=== PATIENT | female | born 1940 | race Caucasian/White ===

== ENCOUNTER 2020-02-20 09:54 | Outpatient (REF) | payer MEDICARE, SELFPAY ==
[2020-02-20 12:25] LABS: Hematocrit 34.5 % (37-47); Mean Corpuscular HGB Conc 31.9 g/dl (31.0-35.0); Mean Corpuscular Hemoglobin 30.1 pg (27.0-33.0); Mean Corpuscular Volume 94.5 fL (80-98); Mean Platelet Volume 9.3 fL (9.4-12.3); Platelet Count 234 X10*3/uL (160-400); Red Blood Count 3.65 X10*6/uL (4.20-5.50); Red Cell Distribution Width 13.2 % (11.0-16.0); White Blood Count 7.6 X10*3/uL (4.8-10.8)
[2020-02-20 12:48] LABS: Anion Gap 13 (12-20); Blood Urea Nitrogen 17 mg/dL (9-16); Calcium 9.1 mg/dL (8.4-10.2); Carbon Dioxide 31 mmol/L (22-29); Chloride 99 mmol/L (96-108); Estimated Glomerular Filt Rate > 60; Glucose Random 90 mg/dL (60-115); Potassium 4.5 mmol/l (3.3-5.1); Sodium 138 mmol/L (135-145)
[2020-02-20 13:00] LABS: B Type Natriuretic Peptide 328 pg/mL (<100)
[2020-02-20 13:23] LABS: Digoxin 0.4 ng/mL (0.8-2.0)
== END 2020-02-20 09:55 | disposition home or self-care (01) ==
LOC: HO.LAB 09:54
PROVIDERS: PCP Nurse Practitioner Family; Visit Provider Nurse Practitioner Family
DX: I25.10 Atherosclerotic heart disease of native coronary artery without angina pectoris (principal); I48.19 Other persistent atrial fibrillation
CPT/HCPCS: 36415; 80048; 80162; 83880; 85027; 93005; 99212

== ENCOUNTER → 2020-03-19 12:08 | Outpatient (BNVA) | payer MEDICARE, SELFPAY | PROVIDERS: PCP Nurse Practitioner Family; Visit Provider Nurse Practitioner Family | DX: I48.19 Other persistent atrial fibrillation (principal); G47.33 Obstructive sleep apnea (adult) (pediatric); I34.0 Nonrheumatic mitral (valve) insufficiency; I10 Essential (primary) hypertension | CPT/HCPCS: 99212 ==

== ENCOUNTER → 2020-04-27 10:48 | Outpatient (REF) | payer MEDICARE, SELFPAY ==
--- NOTE | 2020-04-27 10:55 | CA_ITS ---
Transthoracic Echocardiogram Patient (Last, First, Middle): Pau Cobb, Gender: Female Date of : 1940 Age: 79 Procedure Date: 04/27/2020 Procedure Type: Transthoracic Echocardiogram Location: OP Height: 170.18 cm Weight: 64.86 kg BSA: 1.75 m2 Heart Rate: bpm BP: 120 / 80 mmHg Financial Advisor Trainee: JHONNY Referring MD: Nguyen Lozano BLEACH RANGE OPERATORFelipeC Symptoms: I42.8 - Other cardiomyopathies Study Quality: Good ECG Rhythm: Atrial Fibrillation Conclusions: - The left ventricular systolic function is severely decreased. The visually estimated ejection fraction is between 15-20%. - There is mildly decreased right ventricular systolic function. - Severe biatrial enlargement. - There is severe mitral valve regurgitation. - There is moderate tricuspid valve regurgitation. - Severe pulmonary hypertension is present. Findings Left Ventricle Normal left ventricular cavity size. There is mildly increased left ventricular wall thickness. The left ventricular systolic function is severely decreased. The visually estimated ejection fraction is between 15 20%. There is severe global hypokinesis. Diastolic function is indeterminate on the basis of available data. Right Ventricle Mildly increased right ventricular cavity size. There is mildly decreased right ventricular systolic function. Atria Severe biatrial enlargement. Aortic Valve There is a normal trileaflet aortic valve. There is mild calcification of the aortic valve. There is no aortic valve stenosis. There is no aortic valve regurgitation. Mitral Valve The posterior mitral leaflet has restricted mobility. There is severe mitral valve regurgitation. The mitral regurgitation jet is directed posteriorly. There is no mitral valve stenosis. Pulmonic Valve The pulmonic valve was not well visualized. There is mild pulmonic valve regurgitation. Tricuspid Valve Normal tricuspid valve structure. There is moderate tricuspid valve regurgitation. The right ventricular systolic pressure is 85 mmHg. Severe pulmonary hypertension is present. Great Vessels The aortic annulus, sinuses of valsalva, asc aorta, and aortic arch are normal in size. Venous The inferior vena cava is dilated and collapses greater than 50% with inspiration. Pericardium/Pleural There is no evidence of pericardial effusion. Prior Study Comparison No significant change compared to prior study dated: 04/15/2019. Measurements 2D Linear Measurements IVSd: 1.01 0.6-0.9/0.6-1.0 cm LVIDd: 4.96 3.9-5.3/4.2-5.9 cm LVIDd Index: 2.83 2.4-3.2/2.2-3.1 cm/m2 LVIDs: 4.29 2.0-3.6 cm LVPWd: 1.05 0.7-1.1 cm Ao Root: 3.50 2.1-3.5 cm LA Diam: 5.40 2.7-3.8/3.0-4.0 cm LAIDs Index: 3.09 1.5-2.3 cm/m2 LV Mass: 232.88 67-162/88-224 g LV Mass Index: 133.08 43-95/49-115 g/m2 LVOT Diam: 2.30 3.0+(-)1.3 cm 2D Systolic Function EF 4C: 23.90 >55% EF 2C: 33.30 >55% Aortic Valve AoV Pk Seth: 1.62 AoV Mn Seth: 1.09 AoV VTI: 0.24 AoV Pk Grad: 10.00 Aov Mn Grad: 6.00 REGULO Cont.VTI: 1.83 LVOT LVOT Pk Seth: 0.62 LVOT Mn Seth: 0.36 LVOT VTI: 0.10 LVOT Pk Grad: 2.00 LVOT Mn Grad: 1.00 LVOT Diam: 2.30 LVOT Area: 4.15 Tricuspid Valve TR Pk Seth: 4.38 TR Pk Grad: 77.00 RA Press: 8.00 RVSP: 85.00 Great Vessels Aorta Ao Root-2D: 3.50 2.0-3.7 cm Ao Asc: 3.30 2.1-3.4 cm Ao Arch: 3.10 Updated in Other Vendor System with Status of Final Kenneth Tabares MD electronically signed on 04/28/2020 2:24:34 PM with status of Final
== END ==
LOC: HO.CARD 10:48
PROVIDERS: PCP Nurse Practitioner Family; Visit Provider Nurse Practitioner Family
DX: I34.0 Nonrheumatic mitral (valve) insufficiency (principal); I42.8 Other cardiomyopathies; I50.22 Chronic systolic (congestive) heart failure
CPT/HCPCS: 93306

== ENCOUNTER → 2020-05-03 10:12 | Outpatient (BNVA) | payer MEDICARE, SELFPAY | PROVIDERS: PCP Nurse Practitioner Family; Visit Provider Internal Medicine Cardiovascular Disease | DX: I42.8 Other cardiomyopathies (principal); I34.0 Nonrheumatic mitral (valve) insufficiency; I48.20 Chronic atrial fibrillation, unspecified; I27.20 Pulmonary hypertension, unspecified; I50.22 Chronic systolic (congestive) heart failure; Z79.899 Other long term (current) drug therapy | CPT/HCPCS: 99212 ==

== ENCOUNTER → 2020-05-28 13:04 | Outpatient (BNVA) | payer MEDICARE, SELFPAY | PROVIDERS: PCP Nurse Practitioner Family; Visit Provider Nurse Practitioner Family | DX: I42.8 Other cardiomyopathies (principal); I11.0 Hypertensive heart disease with heart failure; I50.22 Chronic systolic (congestive) heart failure; I25.10 Atherosclerotic heart disease of native coronary artery without angina pectoris; I48.19 Other persistent atrial fibrillation; G47.33 Obstructive sleep apnea (adult) (pediatric); I34.0 Nonrheumatic mitral (valve) insufficiency; Z98.890 Other specified postprocedural states | CPT/HCPCS: 99212 ==

== ENCOUNTER 2020-07-16 11:56 | Outpatient (REF) | payer MEDICARE, SELFPAY ==
--- NOTE | 2020-07-16 14:31 | MHC.AU.AHA ---
Adult Audiological Evaluation Date of Visit: 07/16/20 Reason for Appointment: Audiological evaluation to monitor the status of Ms. Cobb's hearing loss. She has a known bilateral, sensorineural hearing loss for which she was previous fit with binaural hearing aids. Ms. Cobb reports that she lost both hearing aids and the buyer liaison in a recent move. She notes that her hearing seems to gradually be getting worse. Previous Hearing Test Results: [facility], 09/21/2018- Mild sloping to moderately severe sensorineural hearing loss bilaterally. 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 Currently staying in a rehab facility Medication List: See list provided by rehab facility Hearing Instrument History- Right Ear: Manager Creative: [employer] Model: Audeo M50-R Serial Number: [id number] Battery Size: Rechargeable Repair Warranty: 01/29/2022 Loss and Damage Warranty: USED 07/16/2020 Dispensed By: [facility] Date of Fittin11/04/2018 Hearing Instrument History- Left Ear: Manager Creative: [employer] Model: Audeo M50-R Serial Number: [id number] Battery Size: Rechargeable Warranty: 01/29/2022 Loss and Damage Warranty: USED 07/16/2020 Dispensed By: [facility] Date of Fittin11/04/2018 Otoscopy: Right Ear: Unremarkable Left Ear: Unremarkable Tympanometry: Tympanometry performed due to: History of middle ear dysfunction Right Ear: Normal Middle Ear System (Type A) Left Ear: Hypercompliant Middle Ear System (Type Ad) Hearing Evaluation: Transducer(s) Used: Insert Earphones, Bone Conduction Method: Conventional Audiometry Stimuli Used: Pure tones Right Ear: Description of Hearing: Mild sloping to moderately severe sensorineural hearing loss from 250-8000 Hz. Left Ear: Description of Hearing: Mild sloping to moderately severe sensorineural hearing loss from 250-8000 Hz. Speech Recognition Threshold (SRT): Method Used: Monitored Live Voice Stimuli Used: Spondee Words Right Ear: 35 dBHL Left Ear: 35 dBHL Word Discrimination: Method: Recorded Lists Word Lists Used: [employer]-6 Right Ear: 92% at 75 dBHL Left Ear: 92% at 75 dBHL Comparison: Compared to most recent evaluation: Minor decrease in hearing for low-frequencies bilaterally. Recommendations: Audiological re-evaluation in one year. A one-time courtesy replacement hearing aid request was submitted to [employer] to replace Ms. Cobb's lost hearing aids and buyer liaison. She will be contacted to schedule a visit to pick-up the replacement hearing aids when they arrive. Diagnosis: Primary Diagnosis: H90.3 Bilateral Sensorineural Hearing Loss Services Performed: Comprehensive Audiological Evaluation (CPT 97596) Tympanometry (CPT 62880) Signature: Provider: Cass You, CCC-A
== END 2020-07-16 11:57 | disposition home or self-care (01) ==
LOC: HO.SH 11:56
PROVIDERS: Visit Provider Nurse Practitioner Family
DX: H90.3 Sensorineural hearing loss, bilateral (principal)
CPT/HCPCS: 92557; 92567

== ENCOUNTER 2020-07-20 15:09 | Outpatient (REF) | payer MEDICARE, SELFPAY | END 2020-07-20 15:10 | disposition home or self-care (01) | LOC: HO.HAP 15:09 | PROVIDERS: Visit Provider Nurse Practitioner Family | DX: Z13.89 Encounter for screening for other disorder (principal) ==

== ENCOUNTER → 2020-08-08 10:51 | Outpatient (BNVA) | payer MEDICARE, SELFPAY | PROVIDERS: PCP Nurse Practitioner Family; Referring Provider Nurse Practitioner Family; Visit Provider Internal Medicine Cardiovascular Disease | DX: I50.22 Chronic systolic (congestive) heart failure (principal); I42.8 Other cardiomyopathies; I34.0 Nonrheumatic mitral (valve) insufficiency; I48.20 Chronic atrial fibrillation, unspecified | CPT/HCPCS: Q3014 ==

== ENCOUNTER 2020-08-08 12:33 | Inpatient (IN) | payer MEDICARE, SELFPAY ==
[2020-08-08] VITALS (13 sets, daily range): BP systolic 79–133; BP diastolic 47–81; PULSE 64–105; RESP 16–22; TEMP 36.3–36.7; O2SAT 94–98; BMI 23.6
--- NOTE | ~2020-08-08 | CT_ITS ---
EXAMINATION: CT BRAIN AND CHEST. CLINICAL INFORMATION: Lightheadedness and headache. COMPARISON: None TECHNIQUE: 5 mm and axial and reformatted 2 mm thin sagittal and coronal images of brain were obtained. DLP 5 86 mGy/cm. Chest one view. FINDINGS: Brain: No acute intra-axial, extra-axial bleed, masses or midline shift. There is no acute infarction in evolution. 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 The lateral ventricles are symmetrical but enlarged. There is diffuse periventricular hypodensity in both cerebral hemispheres suggestive of chronic small vessel ischemic changes. Bone windows reveal no calvarial abnormality. There is diffuse mucoperiosteal thickening left frontal and bilateral sphenoid sinuses. There is no scalp soft tissue abnormality. Chest x-ray: The lungs are well-expanded and clear. The heart size and pulmonary vascularity is normal. No gross bony abnormality seen. CT/CT head/brain wo con IMPRESSION: No acute intracranial process seen. Unremarkable chest exam.
--- NOTE | 2020-08-08 13:01 | ECG_ITS ---
Test Reason : DIZZINESS Blood Pressure : / mmHG Vent. Rate : 074 BPM Atrial Rate : 078 BPM P-R Int : 000 ms QRS Dur : 106 ms QT Int : 424 ms P-R-T Axes : 000 -27 115 degrees QTc Int : 470 ms Atrial fibrillation Cannot rule out Anterior infarct , age undetermined ST & T wave abnormality, consider lateral ischemia Abnormal ECG When compared with ECG of 18-AUG-2019 21:46, Nonspecific T wave abnormality no longer evident in Inferior leads Referred By: Generic ED Physician Electronically Signed By:ESTHER CAMPOS
[2020-08-08 13:09] LABS: MANUAL DIFF FLAG NO
[2020-08-08 13:12] LABS: Basophils Percent Auto 0.7 % (0-2); Eosinophils Absolute Auto 0.2 X10*3/uL (0.0-0.4); Eosinophils Percent Auto 3.9 % (0-4); Hematocrit 27.6 % (37-47); Hemoglobin 8.3 g/dl (12.0-16.0); Imm Gran Abs Auto 0.02 X10*3/uL (0.00-0.03); Imm Gran Pct Auto 0.4 % (0.0-0.4); Lymphocytes Absolute Auto 1.1 X10*3/uL (1.2-4.9); Lymphocytes Percent Auto 23.2 % (20-40); Mean Corpuscular HGB Conc 30.1 g/dl (31.0-35.0); Mean Corpuscular Hemoglobin 25.5 pg (27.0-33.0); Mean Corpuscular Volume 84.7 fL (80-98); Mean Platelet Volume 9.7 fL (9.4-12.3); Monocytes Absolute Auto 0.4 X10*3/uL (0.1-1.2); Monocytes Percent Auto 7.7 % (2-11); Neutrophils Absolute Auto 2.9 X10*3/uL (2.0-8.3); Neutrophils Percent Auto 64.1 % (45-73); Platelet Count 257 X10*3/uL (160-400); Red Blood Count 3.26 X10*6/uL (4.20-5.50); Red Cell Distribution Width 14.5 % (11.0-16.0); White Blood Count 4.6 X10*3/uL (4.8-10.8)
--- NOTE | 2020-08-08 13:25 | ED.DIZZY ---
HPI - Dizziness General Chief Complaint: Dizziness Stated Complaint: loss of balance, lightheaded, sharp head pain Time Seen by Provider: 08/08/20 13:02 Source: patient Mode of arrival: ambulatory History of Present Illness HPI Narrative: 79-year-old female with past medical history of CAD, AFib on Eliquis and Plavix, systolic CHF, HTN, mitral regurg, nonischemic cardiomyopathy, EDWAR, Pulmonary HTN, s/p recent stenting for PVD on 08/03/2020, presenting to ED from outpatient cardiology appointment complaining of sharp posterior headache, lightheadedness, and unsteady/off balance gait since this morning. Reports intermittent similar headaches in the past. Also reports palpitations. Denies known injury, head trauma, dizziness, visual changes, chest pain, shortness of breath, abdominal pain, nausea/vomiting, LE edema MD elicited complaint: dizziness Related Data Home Medications Medication Instructions Recorded Confirmed apixaban 5 mg tablet 5 mg PO BID 02/20/20 08/08/20 digoxin 125 mcg (0.125 mg) tablet 125 mcg PO DAILY 02/20/20 08/08/20 gabapentin 100 mg capsule 100 mg PO DAILY 02/20/20 08/08/20 mecobalamin (vitamin B12) 1,000 1,000 mcg PO DAILY 02/20/20 08/08/20 mcg chewable tablet olanzapine 2.5 mg tablet 2.5 mg PO DAILY 02/20/20 08/08/20 olanzapine 5 mg tablet 5 mg PO DAILY 02/20/20 08/08/20 omega-3 fatty acids 1,000 mg 1,000 mg PO DAILY 02/20/20 08/08/20 capsule omeprazole 40 mg capsule,delayed 40 mg PO DAILY 02/20/20 08/08/20 release vitamins A,C,Z-dfiz-sjjmyu 14,320 1 cap PO BID 02/20/20 08/08/20 unit-226 mg-200 unit capsule sacubitril 24 mg-valsartan 26 mg 1 tab PO BID 05/28/20 08/08/20 tablet carvedilol 3.125 mg tablet 6.25 mg PO BID tab 08/08/20 08/08/20 clopidogrel 75 mg tablet 75 mg PO DAILY 08/08/20 08/08/20 furosemide 40 mg tablet 20 mg PO BID tab 06/16/21 06/16/21 ondansetron HCl 4 mg tablet 4 mg PO Q4H PRN 08/08/20 08/08/20 Allergies Allergy/AdvReac Type Severity Reaction Status Date / Time No Known Allergies Allergy Unknown UNKNOWN Unverified 11/10/19 16:01 [NO KNOWN ALLERGIES] seasonal, pollen Allergy Unknown Unverified 02/14/19 00:00 Review of Systems Review of Systems: Constitutional: No Fever, No Chills, No Fatigue, No Malaise Eyes: No Eye Pain, No Vision Changes Cardiovascular: No Chest Pain, No SOB, No Dyspnea on Exertion, No Orthopnea, No Edema, + Palpitations Respiratory: No Cough, No Dyspnea Gastrointestinal: No Nausea, No Vomiting, No Abdominal pain Genitourinary: No Dysuria, No Hematuria Musculoskeletal: No joint pain, No Myalgias, No Joint Swelling Skin: No Skin Lesions, No rash Neuro: No Weakness, No Numbness, No Paresthesias, No Loss of Consciousness, + Lightheadedness, + Headache Endocrine: No Polyuria, No Polydipsia, No Temperature Intolerance Yes all other systems are reviewed and are negative [facility] Past Medical History Attestation statement: The following information was validated with the patient. Medical History CAD (coronary artery disease) Chronic atrial fibrillation Chronic systolic (congestive) heart failure HTN (hypertension) Mitral regurgitation Nonischemic cardiomyopathy EDWAR (obstructive sleep apnea) Pulmonary hypertension Surgical History Hx of cardiac cath (~01/2018) Family History Family History Father No problems noted. Mother No problems noted. Social History Social History Housing: Retirement Housing Other:: in [facility] at present - wants to get her own apartment again Advance Directives: No Advance Directives Information Provided: No Physical Exam Vital Signs: Vital Signs: Last Vital Signs Temp 98 F 08/08/20 12:38 Pulse 99 08/08/20 13:27 Resp 16 08/08/20 12:38 BP 91/47 L 08/08/20 13:27 Pulse Ox 98 08/08/20 12:38 Body Mass Index 23.6 Const: General: cooperative, healthy appearing and no acute distress Orientation/consciousness: patient oriented x3 Limitations: no limitations HENMT: Head: Yes normal to inspection Ears: hearing grossly normal bilaterally General nose exam: Normal external nose present Face and sinus: Yes normal facial exam Eyes: General: appearance normal, both eyes and all related structures Pupils: Equal, round and reactive pupils present EOM: EOMs intact bilaterally Neck: Neck: Yes normal visual inspection and Yes no meningeal signs Resp: Effort & Inspection: normal respiratory effort Auscultation: clear to auscultation bilaterally Cardio: Rate: regular rate Heart sounds: S1 normal heart sound present and S2 normal heart sound present GI: Inspection: Yes normal to inspection Palpation (GI): Soft to palpation, nontender, no guarding and not rigid Skin: Rashes: no rashes Neuro: General: patient oriented x3, tone normal, moves all extremities, no meningeal signs, no focal motor deficits and CN's II-XI intact bilaterally Cranial nerves: Yes Equal, round and reactive pupils present Gait exam (Neuro): Normal gait present Motor exam (neuro): 5/5 motor strength present throughout and Pronator motor function not present Coordination: [id number] test normal Romberg Test: Negative Extrem: General: Yes normal to inspection and Yes no pedal edema Course Course Course Narrative: -leukopenic 4.6 which appears chronic, Anemic with hemoglobin of 8.3/27.6 > patient reports dark stool, denies bloody stool. Will obtain guaiac -BUN at baseline. Troponin 15.5 >> will obtain 3 hour repeat, BNP 435 (chronically elevated) -1449--occult stool positive. Consent signed and in patient's chart. XR chest 1V IMPRESSION: Unremarkable chest exam. CT head/brain wo con IMPRESSION: No acute intracranial process seen. -GI Dr. Rodríguez aware, plan to admit MDM - Dizziness MDM Narrative Medical decision making narrative: 79-year-old female with past medical history of CAD, AFib on Eliquis and Plavix, systolic CHF, HTN, mitral regurg, nonischemic cardiomyopathy, EDWAR, Pulmonary HTN, s/p recent stenting for PVD on 08/03/2020, presenting to ED from outpatient cardiology appointment complaining of sharp posterior headache, lightheadedness, and unsteady/off balance gait since this morning. On exam hypotensive, nontoxic, no focal neuro deficits. Concern for metabolic abnls vs anemia vs ICH/?CVA vs migraine CLARK. Patient is not tPA candidate as is anticoagulated, and unclear start time of symptoms. Low concern for TIA. R/o ACS. Low concern for PE as patient is anticoagulated Plan: EKG, labs, CXR, head CT, IVF, orthostatics, reassess Medical Records Attestation: I reviewed the patient's medical records. Lab Data Attestation: I reviewed the patient's lab results. Result diagrams: 08/08/20 13:04 08/08/20 13:04 Labs: Lab Results 08/08/20 08/08/20 08/08/20 Range/Units 13:04 13:04 13:04 WBC 4.6 L (4.8-10.8) X10*3/uL RBC 3.26 L (4.20-5.50) X10*6/uL Hgb 8.3 L D (12.0-16.0) g/dl Hct 27.6 L (37-47) % MCV 84.7 (80-98) fL MCH 25.5 L (27.0-33.0) pg MCHC 30.1 L (31.0-35.0) g/dl RDW 14.5 (11.0-16.0) % Plt Count 257 (160-400) X10*3/uL MPV 9.7 (9.4-12.3) fL Immature Gran % (Auto) 0.4 (0.0-0.4) % Neut % (Auto) 64.1 (45-73) % Lymph % (Auto) 23.2 (20-40) % Dale % (Auto) 7.7 (2-11) % Eos % (Auto) 3.9 (0-4) % Baso % (Auto) 0.7 (0-2) % Lymph # (Auto) 1.1 L (1.2-4.9) X10*3/uL Dale # (Auto) 0.4 (0.1-1.2) X10*3/uL Eos # (Auto) 0.2 (0.0-0.4) X10*3/uL Baso # (Auto) 0.0 (0.0-0.2) X10*3/uL Abs Immat Gran (auto) 0.02 (0.00-0.03) X10*3/uL Absolute Neuts (auto) 2.9 (2.0-8.3) X10*3/uL Absolute Nucleated RBC 0.000 (0.0-0.012) X10*3/uL Nucleated RBC % (auto) 0.0 (0.0-0.2) /100WBC Hold Purple Top PT 18.1 H (10.8-13.0) SEC INR 1.5 H (0.9-1.1) APTT 49.3 H (24.1-38.0) SEC Hold Blue Top SEE NOTE Sodium 138 (135-145) mmol/L Potassium 4.4 (3.3-5.1) mmol/L Chloride 100 (96-108) mmol/L Carbon Dioxide 29 (22-29) mmol/L Anion Gap 13 (12-20) BUN 17 H (9-16) mg/dL Creatinine 0.90 (0.5-1.4) mg/dL Estim Creat Clear Calc 46.3 Estimated GFR > 60 Random Glucose 112 (60-115) mg/dL Calcium 9.1 (8.4-10.2) mg/dL Magnesium 2.1 (1.6-2.6) mg/dL Total Bilirubin 0.4 (0.0-1.0) mg/dL Direct Bilirubin 0.2 (0.0-0.5) mg/dL AST 13 (5-31) U/L ALT 9 (0-31) U/L Alkaline Phosphatase 144 H (39-117) U/L Troponin I High Sens (<3.5-17.0) ng/L B-Natriuretic Peptide (<100) pg/mL Total Protein 6.7 (6.5-8.0) g/dL Albumin 4.1 (3.5-5.0) g/dL Hold Yellow Top Stool Occult Blood (NEGATIVE) 08/08/20 08/08/20 08/08/20 Range/Units 13:04 13:04 13:05 WBC (4.8-10.8) X10*3/uL RBC (4.20-5.50) X10*6/uL Hgb (12.0-16.0) g/dl Hct (37-47) % MCV (80-98) fL MCH (27.0-33.0) pg MCHC (31.0-35.0) g/dl RDW (11.0-16.0) % Plt Count (160-400) X10*3/uL MPV (9.4-12.3) fL Immature Gran % (Auto) (0.0-0.4) % Neut % (Auto) (45-73) % Lymph % (Auto) (20-40) % Dale % (Auto) (2-11) % Eos % (Auto) (0-4) % Baso % (Auto) (0-2) % Lymph # (Auto) (1.2-4.9) X10*3/uL Dale # (Auto) (0.1-1.2) X10*3/uL Eos # (Auto) (0.0-0.4) X10*3/uL Baso # (Auto) (0.0-0.2) X10*3/uL Abs Immat Gran (auto) (0.00-0.03) X10*3/uL Absolute Neuts (auto) (2.0-8.3) X10*3/uL Absolute Nucleated RBC (0.0-0.012) X10*3/uL Nucleated RBC % (auto) (0.0-0.2) /100WBC Hold Purple Top SEE NOTE PT (10.8-13.0) SEC INR (0.9-1.1) APTT (24.1-38.0) SEC Hold Blue Top Sodium (135-145) mmol/L Potassium (3.3-5.1) mmol/L Chloride (96-108) mmol/L Carbon Dioxide (22-29) mmol/L Anion Gap (12-20) BUN (9-16) mg/dL Creatinine (0.5-1.4) mg/dL Estim Creat Clear Calc Estimated GFR Random Glucose (60-115) mg/dL Calcium (8.4-10.2) mg/dL Magnesium (1.6-2.6) mg/dL Total Bilirubin (0.0-1.0) mg/dL Direct Bilirubin (0.0-0.5) mg/dL AST (5-31) U/L ALT (0-31) U/L Alkaline Phosphatase (39-117) U/L Troponin I High Sens 15.5 (<3.5-17.0) ng/L B-Natriuretic Peptide 435 H (<100) pg/mL Total Protein (6.5-8.0) g/dL Albumin (3.5-5.0) g/dL Hold Yellow Top See Note Stool Occult Blood (NEGATIVE) 08/08/20 Range/Units 14:29 WBC (4.8-10.8) X10*3/uL RBC (4.20-5.50) X10*6/uL Hgb (12.0-16.0) g/dl Hct (37-47) % MCV (80-98) fL MCH (27.0-33.0) pg MCHC (31.0-35.0) g/dl RDW (11.0-16.0) % Plt Count (160-400) X10*3/uL MPV (9.4-12.3) fL Immature Gran % (Auto) (0.0-0.4) % Neut % (Auto) (45-73) % Lymph % (Auto) (20-40) % Dale % (Auto) (2-11) % Eos % (Auto) (0-4) % Baso % (Auto) (0-2) % Lymph # (Auto) (1.2-4.9) X10*3/uL Dale # (Auto) (0.1-1.2) X10*3/uL Eos # (Auto) (0.0-0.4) X10*3/uL Baso # (Auto) (0.0-0.2) X10*3/uL Abs Immat Gran (auto) (0.00-0.03) X10*3/uL Absolute Neuts (auto) (2.0-8.3) X10*3/uL Absolute Nucleated RBC (0.0-0.012) X10*3/uL Nucleated RBC % (auto) (0.0-0.2) /100WBC Hold Purple Top PT (10.8-13.0) SEC INR (0.9-1.1) APTT (24.1-38.0) SEC Hold Blue Top Sodium (135-145) mmol/L Potassium (3.3-5.1) mmol/L Chloride (96-108) mmol/L Carbon Dioxide (22-29) mmol/L Anion Gap (12-20) BUN (9-16) mg/dL Creatinine (0.5-1.4) mg/dL Estim Creat Clear Calc Estimated GFR Random Glucose (60-115) mg/dL Calcium (8.4-10.2) mg/dL Magnesium (1.6-2.6) mg/dL Total Bilirubin (0.0-1.0) mg/dL Direct Bilirubin (0.0-0.5) mg/dL AST (5-31) U/L ALT (0-31) U/L Alkaline Phosphatase (39-117) U/L Troponin I High Sens (<3.5-17.0) ng/L B-Natriuretic Peptide (<100) pg/mL Total Protein (6.5-8.0) g/dL Albumin (3.5-5.0) g/dL Hold Yellow Top Stool Occult Blood POSITIVE (NEGATIVE) ECG Data Attestation: I personally reviewed and interpreted this ECG as follows: ECG interpretation date: 08/08/20 ECG interpretation time: 13:05 Interpretation: EKG AFib with a rate of 74. Nonischemic/no STEMI Discharge Plan Discharge Clinical Impression: Anemia, Occult GI bleeding Patient Disposition: Admitted As Inpatient
[2020-08-08] MEDS: 0.9 % Sodium Chloride 1,000 ML 999 ML IVCONT (13:29)
[2020-08-08 13:30] LABS: INTERNATIONAL NORM RATIO 1.5 (0.9-1.1); Prothrombin Time 18.1 SEC (10.8-13.0)
[2020-08-08 13:32] LABS: Partial Thromboplastin Time 49.3 SEC (24.1-38.0)
[2020-08-08 13:51] LABS: Alanine Aminotransferase 9 U/L (0-31); Albumin Level 4.1 g/dL (3.5-5.0); Alkaline Phosphatase 144 U/L (39-117); Anion Gap 13 (12-20); Aspartate Amino Transferase 13 U/L (5-31); Bilirubin Direct 0.2 mg/dL (0.0-0.5); Bilirubin Total 0.4 mg/dL (0.0-1.0); Blood Urea Nitrogen 17 mg/dL (9-16); Calcium 9.1 mg/dL (8.4-10.2); Carbon Dioxide 29 mmol/L (22-29); Chloride 100 mmol/L (96-108); Creatinine Clr Calc Pharmacy 46.3; Estimated Glomerular Filt Rate > 60; Glucose Random 112 mg/dL (60-115); Magnesium 2.1 mg/dL (1.6-2.6); Potassium 4.4 mmol/L (3.3-5.1); Sodium 138 mmol/L (135-145); Total Protein 6.7 g/dL (6.5-8.0)
[2020-08-08 14:06] LABS: B Type Natriuretic Peptide 435 pg/mL (<100); Troponin-I High Sensitivity 15.5 ng/L (<3.5-17.0)
[2020-08-08 14:36] LABS: OBS Int Ctl Valid YES; OBS1 POSITIVE (NEGATIVE)
--- NOTE | 2020-08-08 15:35 | PHA.MEDREC ---
Pharmacy Consult ? Medication Reconciliation There was a note in the chart that doses of coreg and entresto were increased to 12.5 mg po BID and 48/52 mg BID respectively, but the order summary report does not reflect that. Wilfrid Winston PharmD Pharmacy has completed the medication reconciliation.
[2020-08-08] MEDS: Pantoprazole Sodium 40 MG/10 ML VIAL 80 MG IVPUSH (16:10)
[2020-08-08] MEDS: Pantoprazole Sodium 80 MG in 0.9 % Sodium Chloride 80 ML 10 MG IV (16:10)
[2020-08-08 16:13] LABS: Glucose Urine UA NEG (NEG); Leukocyte Esterase Urine 2+ (NEG); Nitrite Urine POS (NEG); UACC Culture Trigger YES; Urine Blood NEG (NEG); Urine Ketones NEG (NEG); Urine Protein NEG (NEG-TRACE)
[2020-08-08 16:13] LABS: Influenza A PCR NEGATIVE (Negative); Influenza B PCR NEGATIVE (Negative); Resp Syncy Virus RNA Qual PCR NEGATIVE (Negative); SARS COV2 PCR INHOUSE NEGATIVE (Negative)
[2020-08-08 16:37] LABS: Appearance Urine HAZY; Color Urine YELLOW
[2020-08-08 16:44] LABS: Troponin-I High Sensitivity 11.7 ng/L (<3.5-17.0)
--- NOTE | 2020-08-08 16:46 | PHA.MEDREC ---
Pharmacy Consult ? Medication Reconciliation Pharmacy has completed the medication reconciliation.
--- NOTE | 2020-08-08 16:57 | PM.IMHP ---
History of Present Illness Date of Service: 08/08/20 Chief Complaint: dizziness This is a 79-year-old female with multiple medical issues as documented below who presents to the emergency room after being seen in the Cardiology Clinic for complaints of dizziness. Despite multiple providers and multiple times history is limited due to patient being a poor historian. Patient endorses that she underwent vascular procedure about 5 days ago for peripheral vascular disease and had a stent placed. She reports that she has since been started on Plavix. She endorses progressive lightheadedness and dizziness along with exertional dyspnea. To the ED provider that she has had dark stools but is unaware of how long these have been present. She denies any abdominal or epigastric pain. She denies use of NSAIDs. Upon arrival to the emergency room she was noted to be significantly hypotensive in the 70s. She was given a L of fluid with improvement in her symptoms. Her blood work revealed in H&H of 8.3/27.6 and a fecal occult test was positive. Presumptive diagnosis of upper GI bleed was made she was started on, and she was subsequently started on IV Protonix. ED provider consulted with Gastroenterology and she will be admitted for further workup. At the time of my exam, the patient reports that she is feeling slightly better in regards to her dizziness. She denies any chest pain or shortness of breath at rest. Review of Systems Review of Systems: General - denies fevers or chills, +weakness/fatigue HEENT -denies blurred vision, denies headache, denies sore throat Cardiovascular - denies chest pain or palpitations, denies edema Respiratory - denies shortness of breath at rest; +[place] Gastrointestinal - denies abdominal pain, nausea, vomiting, diarrhea; +dark stools - denies flank pain, denies dysuria, denies frequency or urgency Musculoskeletal - denies back pain, denies hip pain, denies knee pain, denies shoulder pain Neurological - denies any focal weakness or numbness, +dizziness Skin, denies any bruising or redness Psychiatric - denies any suicidal ideation, hallucinations, homicidal ideation Endocrinology - denies intolerance to hot / cold temperatures [facility] Medical History CAD (coronary artery disease) Chronic atrial fibrillation Chronic systolic (congestive) heart failure HTN (hypertension) Mitral regurgitation Nonischemic cardiomyopathy EDWAR (obstructive sleep apnea) Pulmonary hypertension Family History Father No problems noted. Mother No problems noted. Surgical History Hx of cardiac cath (~01/2018) Social History Housing: Senior Living Housing Other:: in correction at present - wants to get her own apartment again Advance Directives: No Advance Directives Information Provided: No Meds Allergies Allergy/AdvReac Type Severity Reaction Status Date / Time No Known Allergies Allergy Unknown UNKNOWN Unverified 11/10/19 16:01 [NO KNOWN ALLERGIES] seasonal, pollen Allergy Unknown Unverified 02/14/19 00:00 Active Medications: Current Medications Generic Name Dose Route Start Last Admin Trade Name Freq PRN Reason Stop Dose Admin Pantoprazole Sodium 80 mg/ 100 mls @ 10 mls/hr 08/08/20 15:00 08/08/20 16:10 Sodium Chloride IV 8 mg/hr .Q10H SAMIR 10 mls/hr Administration 8 MG/HR Pharmacy Consult 1 each 08/08/20 14:45 Consult Rx Perform Med Rec MISCELLANE ONCE PRN Consult order Home Medications Medication Instructions Recorded Confirmed Last Taken Type apixaban 5 mg tablet 5 mg PO BID 02/20/20 08/08/20 Unknown History digoxin 125 mcg (0.125 mg) tablet 125 mcg PO Q OTHER DAY 02/20/20 08/08/20 Unknown History gabapentin 100 mg capsule 100 mg PO TID 02/20/20 08/08/20 Unknown History olanzapine 2.5 mg tablet 2.5 mg PO BID 02/20/20 08/08/20 Unknown History omega-3 fatty acids 1,000 mg 1,000 mg PO DAILY 02/20/20 08/08/20 Unknown History capsule sacubitril 24 mg-valsartan 26 mg 1 tab PO BID 05/28/20 08/08/20 Unknown History tablet acetaminophen 975 mg PO TID PRN 08/08/20 08/08/20 Unknown History carvedilol 6.25 mg PO BID 08/08/20 08/08/20 Unknown History clopidogrel [Plavix] 75 mg PO DAILY 08/08/20 08/08/20 Unknown History cyanocobalamin (vitamin B-12) 1,000 mcg PO DAILY 08/08/20 08/08/20 Unknown History docusate sodium 100 mg PO DAILY 08/08/20 08/08/20 Unknown History famotidine 20 mg PO BID 08/08/20 08/08/20 Unknown History fluticasone propion-salmeterol 1 inh INHALATION Q12H 08/08/20 08/08/20 Unknown History [Wixela Inhub] furosemide 20 mg PO BID 08/08/20 08/08/20 Unknown History lidocaine 1 patch TOPICAL BEDTIME PRN 08/08/20 08/08/20 Unknown History methyl salicylate-menthol [Muscle 1 appl TOPICAL TID PRN 08/08/20 08/08/20 Unknown History Rub] multivitamin with minerals 1 tab PO DAILY 08/08/20 08/08/20 Unknown History omeprazole 20 mg PO BID 08/08/20 08/08/20 Unknown History ondansetron HCl 4 mg PO Q4H PRN 08/08/20 08/08/20 Unknown History saliva stimulant comb. no.3 2 spray MUCOUS MEMBRANE Q8H PRN 08/08/20 08/08/20 Unknown History [Biotene Moisturizing Mouth] sennosides [senna] 17.2 mg PO BEDTIME 08/08/20 08/08/20 Unknown History vitamins A,C,V-erkr-pczpfo 1 cap PO TID 08/08/20 08/08/20 Unknown History [PreserVision AREDS] Physical Exam Vital Signs and Narrative: Vital Signs: Last Vital Signs Temp 97.5 F 08/08/20 15:40 Pulse 64 08/08/20 15:40 Resp 17 08/08/20 15:40 BP 111/60 08/08/20 15:40 Pulse Ox 96 08/08/20 15:40 Body Mass Index 23.6 Const: Other: Constitutional - Awake and Alert, No apparent distress Eyes - PERRLA, EOMI, Pale Sclera Cardiovascular - IRR Respiratory - comfortable at rest Gastrointestinal - NT / ND; +BS; No rebound or guarding - No CVA tenderness Extremities - no calf tenderness bilaterally, no swelling, DP pulses palpable bilaterally Musculoskeletal - Normal inspection, normal ROM Skin - Warm/Dry Neurological - Alert & oriented x3, No focal deficit, No nystagmus Psychological - Appropriate affect Results Labs CBC and Chem 7: 08/08/20 13:04 08/08/20 13:04 Labs: Laboratory Results - last 24 hr 08/08/20 08/08/20 08/08/20 13:04 13:04 13:04 MCV 84.7 MCH 25.5 L MCHC 30.1 L RDW 14.5 Plt Count 257 MPV 9.7 Immature Gran % (Auto) 0.4 Neut % (Auto) 64.1 Lymph % (Auto) 23.2 [place] % (Auto) 7.7 Eos % (Auto) 3.9 Baso % (Auto) 0.7 Lymph # (Auto) 1.1 L [place] # (Auto) 0.4 Eos # (Auto) 0.2 Baso # (Auto) 0.0 Abs Immat Gran (auto) 0.02 Absolute Neuts (auto) 2.9 Absolute Nucleated RBC 0.000 Nucleated RBC % (auto) 0.0 Hold Purple Top PT 18.1 H INR 1.5 H APTT 49.3 H Hold Blue Top SEE NOTE Anion Gap 13 Estim Creat Clear Calc 46.3 Estimated GFR > 60 Random Glucose 112 Calcium 9.1 Magnesium 2.1 Total Bilirubin 0.4 Direct Bilirubin 0.2 AST 13 ALT 9 Alkaline Phosphatase 144 H Troponin I High Sens B-Natriuretic Peptide Total Protein 6.7 Albumin 4.1 Hold Yellow Top Urine Color Urine Appearance Urine pH Ur Specific [place] Urine Protein Urine Glucose (UA) Urine Ketones Urine Blood Urine Nitrite Ur Leukocyte Esterase Stool Occult Blood Coronavirus (PCR) Influenza Type A (PCR) Influenza Type B (PCR) RSV RNA Qual (PCR) Blood Type Antibody Screen Crossmatch 08/08/20 08/08/20 08/08/20 13:04 13:04 13:05 MCV MCH MCHC RDW Plt Count MPV Immature Gran % (Auto) Neut % (Auto) Lymph % (Auto) [place] % (Auto) Eos % (Auto) Baso % (Auto) Lymph # (Auto) [place] # (Auto) Eos # (Auto) Baso # (Auto) Abs Immat Gran (auto) Absolute Neuts (auto) Absolute Nucleated RBC Nucleated RBC % (auto) Hold Purple Top SEE NOTE PT INR APTT Hold Blue Top Anion Gap Estim Creat Clear Calc Estimated GFR Random Glucose Calcium Magnesium Total Bilirubin Direct Bilirubin AST ALT Alkaline Phosphatase Troponin I High Sens 15.5 B-Natriuretic Peptide 435 H Total Protein Albumin Hold Yellow Top See Note Urine Color Urine Appearance Urine pH Ur Specific [place] Urine Protein Urine Glucose (UA) Urine Ketones Urine Blood Urine Nitrite Ur Leukocyte Esterase Stool Occult Blood Coronavirus (PCR) Influenza Type A (PCR) Influenza Type B (PCR) RSV RNA Qual (PCR) Blood Type Antibody Screen Crossmatch 08/08/20 08/08/20 08/08/20 14:29 15:19 15:22 MCV MCH MCHC RDW Plt Count MPV Immature Gran % (Auto) Neut % (Auto) Lymph % (Auto) [place] % (Auto) Eos % (Auto) Baso % (Auto) Lymph # (Auto) [place] # (Auto) Eos # (Auto) Baso # (Auto) Abs Immat Gran (auto) Absolute Neuts (auto) Absolute Nucleated RBC Nucleated RBC % (auto) Hold Purple Top PT INR APTT Hold Blue Top Anion Gap Estim Creat Clear Calc Estimated GFR Random Glucose Calcium Magnesium Total Bilirubin Direct Bilirubin AST ALT Alkaline Phosphatase Troponin I High Sens B-Natriuretic Peptide Total Protein Albumin Hold Yellow Top Urine Color Urine Appearance Urine pH Ur Specific [place] Urine Protein Urine Glucose (UA) Urine Ketones Urine Blood Urine Nitrite Ur Leukocyte Esterase Stool Occult Blood POSITIVE Coronavirus (PCR) NEGATIVE Influenza Type A (PCR) NEGATIVE Influenza Type B (PCR) NEGATIVE RSV RNA Qual (PCR) NEGATIVE Blood Type A Positive Antibody Screen NEGATIVE Crossmatch See Detail 08/08/20 08/08/20 15:43 16:08 MCV MCH MCHC RDW Plt Count MPV Immature Gran % (Auto) Neut % (Auto) Lymph % (Auto) [place] % (Auto) Eos % (Auto) Baso % (Auto) Lymph # (Auto) [place] # (Auto) Eos # (Auto) Baso # (Auto) Abs Immat Gran (auto) Absolute Neuts (auto) Absolute Nucleated RBC Nucleated RBC % (auto) Hold Purple Top PT INR APTT Hold Blue Top Anion Gap Estim Creat Clear Calc Estimated GFR Random Glucose Calcium Magnesium Total Bilirubin Direct Bilirubin AST ALT Alkaline Phosphatase Troponin I High Sens 11.7 B-Natriuretic Peptide Total Protein Albumin Hold Yellow Top Urine Color YELLOW Urine Appearance HAZY Urine pH 7.0 Ur Specific [place] 1.010 Urine Protein NEG Urine Glucose (UA) NEG Urine Ketones NEG Urine Blood NEG Urine Nitrite POS H Ur Leukocyte Esterase 2+ H Stool Occult Blood Coronavirus (PCR) Influenza Type A (PCR) Influenza Type B (PCR) RSV RNA Qual (PCR) Blood Type Antibody Screen Crossmatch Imaging Radiologist's Impressions: Impressions Head CT 08/08/20 13:17 IMPRESSION: No acute intracranial process seen. Unremarkable chest exam. Chest X-Ray 08/08/20 13:18 IMPRESSION: No acute intracranial process seen. Unremarkable chest exam. Assessment and Plan (1) Anemia: Status: Acute This is a 79-year-old female with a past medical history of mitral regurg and resultant nonischemic cardiomyopathy, peripheral vascular disease status post stenting on 08/03 - started on Plavix, chronic AFib on anticoagulation with Eliquis and digoxin, hypertension who presents to the hospital complaints of progressive dizziness and exertional dyspnea over the last 3-4 days and reported dark stools. 1. Acute blood loss anemia, symptomatic anemia 1a. Suspected upper GI bleed in the setting of Eliquis and Plavix use IV Protonix Being transfused 2 units, will give a dose of IV Lasix in between Keep NPO and consult GI 2. Chronic A. Fib on ELiquis, which obviously will be held continue dig, hold betablocker due to low blood pressure 3. PAD - s/p recent stenting plavix on hold, will need this addressed prior to discharge 4. Dizziness suspected due to anemia, low concern for primary neurological issues if continues once bp / counts improved, will get MRI 5. Non-ischemic CMP LVEF - 15 to 20% on Echo from 04/27/2020 will resume her entresto once BP allows Patient wishes to be full code Reports that she does not have a healthcare proxy, unsure who she would like it to be. Quality Stroke Does the patient have a stroke diagnosis?: No VTE Prior VTE?: No VTE Risk Level:: Medical - moderate - high VTE Device Contraindication: N/A - Device Ordered VTE Drug Contraindication: Treatment Not Indicated (patient has anemia and active gi bleed)
[2020-08-08 17:00] LABS: Bacteria Urine 2+ /LPF; Squamous Epithelial Cell Urine 2+ /LPF
--- NOTE | 2020-08-08 17:01 | MHC.SHP ---
Pre-Procedural Eval Section A The patient is an INPATIENT: Yes Changes since office visit: No Cold of Flu in the past 2 weeks, No New Medical Problems, No Changes in Medication and No Patient answered all questions The History & Physical has been completed within 30 days and I have reviewed it.: Yes Section B Chief Complaint: loss of balance, lightheaded, sharp head pain Allergies: Allergies Allergy/AdvReac Type Severity Reaction Status Date / Time No Known Allergies Allergy Unknown UNKNOWN Unverified 11/10/19 16:01 [NO KNOWN ALLERGIES] seasonal, pollen Allergy Unknown Unverified 02/14/19 00:00 Plan I have reviewed the history and physical and performed a pertinent physical examination on my patient. No changes have occurred unless specified.
--- NOTE | 2020-08-08 17:02 | PM.EVENT ---
Event Note Date of Service: 08/08/20 Event Note: GI consult dictated EGD planned for 08/09 for further evaluation of anemia and heme positive stools. Pt aware of risks and benefits and agrees to proceed. Continue ppi.
[2020-08-08] MEDS: Furosemide 20 MG/2 ML VIAL IVPUSH (18:48)
[2020-08-08] MEDS: LORazepam 1 MG TABLET PO (19:34)
--- NOTE | 2020-08-08 19:50 | MHC.CM.PN ---
CM met with pt. IMM reviewed and signed per protocol 08/08/20@[id number]. Pt lives at [facility] for past year. States she was only supposed to be a SNF for a short time, but had Covid twice and then her apartment complex was sold and her things were placed in storage. States she gets section 8 housing and she needs to find an apartment by August 21 or she will lose her housing. Pt tells CM her son,who is listed as her contact and was her HCP, in May. Her other son 4 years ago. She only has a sister and a grandson. Her sister is Rafaela Pineda ([phone]) and her grandson is Leon Cobb. Pt has her grandson's contact info in her phone, but was becoming emotionally upset with trying to decide who could be her HCP. States her sister has been ill. CM reassured pt that we could re-visit a HCP during her admission over the next few days. CM attempted to stress with pt that her medical needs are more important now. Explained to patient that she would return to [facility] after this hospital stay. Pt does not have access to transportation, to an apartment, or help to move her things from storage at this time. CM spoke with RN at [facility] who stated that pt has mentioned wanting to move into an apartment, but that there hasn't been any talk of pt leaving the long-term to move in her own apartment. Message left with social services manager at [facility] to call me back tomorrow after 3pm to discuss above. D/C plan is to return to [facility]. [facility] to provide transportation. CM to follow for d/c needs.
--- NOTE | 2020-08-08 20:20 | PC.NURSE ---
pt requested the topical ointment and dressing. david from [facility] listed medihoney wound gel and xeroform dressing. our pharmacy does not carry medihoney. xeroform dressing placed gris right achilles.
[2020-08-08] MEDS: Gabapentin 100 MG CAPSULE PO (21:00)
[2020-08-08] MEDS: OLANZapine 2.5 MG TABLET PO (21:00)
[2020-08-09] VITALS (16 sets, daily range): BP systolic 122–150; BP diastolic 78–104; PULSE 92–129; RESP 11–27; TEMP 36.2–37; O2SAT 86–98
[2020-08-09] MEDS: Pantoprazole Sodium 80 MG in 0.9 % Sodium Chloride 80 ML 10 MG IV ×2 (01:12→11:41)
--- NOTE | 2020-08-09 03:33 | PM.EVENT ---
Event Note Date of Service: 08/09/20 Event Note: pt started on ceftriaxone for uti
[2020-08-09] MEDS: cefTRIAXone sodium 1 GM in 0.9 % Sodium Chloride 50 ML IV (04:38)
[2020-08-09 04:40] LABS: Basophils Percent Auto 0.6 % (0-2); Eosinophils Absolute Auto 0.1 X10*3/uL (0.0-0.4); Eosinophils Percent Auto 1.9 % (0-4); Hematocrit 31.4 % (37-47); Hemoglobin 9.8 g/dl (12.0-16.0); Imm Gran Abs Auto 0.03 X10*3/uL (0.00-0.03); Imm Gran Pct Auto 0.4 % (0.0-0.4); Lymphocytes Percent Auto 14.2 % (20-40); MANUAL DIFF FLAG NO; Mean Corpuscular HGB Conc 31.2 g/dl (31.0-35.0); Mean Corpuscular Hemoglobin 25.5 pg (27.0-33.0); Mean Corpuscular Volume 81.8 fL (80-98); Mean Platelet Volume 9.5 fL (9.4-12.3); Monocytes Absolute Auto 0.5 X10*3/uL (0.1-1.2); Monocytes Percent Auto 7.9 % (2-11); Neutrophils Absolute Auto 5.1 X10*3/uL (2.0-8.3); Platelet Count 210 X10*3/uL (160-400); Red Blood Count 3.84 X10*6/uL (4.20-5.50); Red Cell Distribution Width 15.1 % (11.0-16.0); White Blood Count 6.8 X10*3/uL (4.8-10.8)
--- NOTE | 2020-08-09 04:47 | PC.NURSE ---
pt's spo2 fluctuates from 86-93% on room air. pt repositioned up in bed to a semi fowlers position, no change in spo2. pt in no distress. pt placed on 2 lpm o2 and spo2 improved to 95%.
[2020-08-09 05:06] LABS: Anion Gap 13 (12-20); Blood Urea Nitrogen 13 mg/dL (9-16); Calcium 8.7 mg/dL (8.4-10.2); Carbon Dioxide 25 mmol/L (22-29); Chloride 105 mmol/L (96-108); Creatinine Clr Calc Pharmacy 54.8; Estimated Glomerular Filt Rate > 60; Glucose Random 94 mg/dL (60-115); Potassium 4.4 mmol/L (3.3-5.1); Sodium 139 mmol/L (135-145)
--- NOTE | 2020-08-09 06:21 | PC.NURSE ---
TRIED TO GIVE REPORT TO PA SINHA ON FLOOR. SHE WILL CALL ME BACK.
--- NOTE | 2020-08-09 06:32 | PC.NURSE ---
REPORT GIVEN TO RN, PT READY FOR TRANSPORT TO FLOOR.
[2020-08-09] MEDS: carvediloL 6.25 MG TABLET PO ×2 (09:37→21:11)
[2020-08-09] MEDS: 0.9 % Sodium Chloride Flush 3 ML SYRINGE IVFLUSH ×3 (09:38→21:12)
[2020-08-09] MEDS: OLANZapine 2.5 MG TABLET PO ×2 (09:38→21:11)
[2020-08-09] MEDS: Metoprolol Tartrate 5 MG/5 ML VIAL IVPUSH (11:43)
--- NOTE | 2020-08-09 12:09 | HO.PM.IMPN ---
Subjective Subjective Date of Service: 08/09/20 Interval History: Seen and examined this morning in follow-up for dizziness, symptomatic anemia Denies dizziness, chest pain, shortness of breath at this time No blood in stool overnight. No overnight events Review of Systems Review of Systems: Yes all other systems are reviewed and are negative Constitutional Constitutional: Denies chills and Denies fever(s) Cardiovascular Cardiovascular: Denies chest pain Respiratory Respiratory: Denies cough Gastrointestinal Gastrointestinal: Denies abdominal pain Physical Exam Vital Signs: Vital Signs: Last Vital Signs Temp 98.6 F 08/09/20 11:07 Pulse 92 08/09/20 11:53 Resp 16 08/09/20 11:07 BP 134/78 08/09/20 11:53 Pulse Ox 97 08/09/20 11:07 Body Mass Index 23.6 Const: General: comfortable, no acute distress, alert and awake Nutritional Appearance: well nourished HENMT: Head: Yes normocephalic and Yes atraumatic Eyes: Sclerae: sclerae normal Chest: Chest palpation & inspection: normal inspection of the chest Resp: Effort & Inspection: normal respiratory effort and no respiratory distress Auscultation: clear to auscultation bilaterally Cardio: Rate: tachycardic Rhythm: abnormal rhythm irregularly irregular GI: Palpation (GI): Soft to palpation and nontender Skin: Other: small amount of ecchymosis left groin Neuro: Cranial nerves: Yes CN's II-XII intact bilaterally and Yes Bilaterally intact EOM present Objective Data Current Medications Generic Name Dose Route Start Last Admin Trade Name Wallaceq PRN Reason Stop Dose Admin Acetaminophen 650 mg 08/08/20 17:29 Acetaminophen 325 Mg Tablet PO Q6H PRN Pain, Mild (Pain Scale 1-3) Carvedilol 6.25 mg 08/09/20 09:30 08/09/20 09:37 Carvedilol 6.25 Mg Tablet PO 6.25 mg BID [facility] Administration Protocol Cyanocobalamin 1,000 mcg 08/09/20 09:00 08/09/20 09:38 Cyanocobalamin (Vitamin B-12) 1,000 Mcg Tablet PO Not Given DAILY [facility] Digoxin 0.125 mg 08/10/20 09:00 Digoxin 0.125 Mg Tablet PO Q2D@0900 [facility] Gabapentin 100 mg 08/08/20 21:00 08/09/20 09:38 Gabapentin 100 Mg Capsule PO Not Given TID [facility] Pantoprazole Sodium 80 mg/ 100 mls @ 10 mls/hr 08/08/20 15:00 08/09/20 11:41 Sodium Chloride IV 8 mg/hr .Q10H SAMIR 10 mls/hr Administration 8 MG/HR Ceftriaxone Sodium 1 gm/ 50 mls @ 100 mls/hr 08/09/20 04:00 08/09/20 07:18 Sodium Chloride IV Infused DAILY@0600 [facility] Infusion Olanzapine 2.5 mg 08/08/20 21:00 08/09/20 09:38 Olanzapine 2.5 Mg Tablet PO 2.5 mg BID [facility] Administration Ondansetron HCl 4 mg 08/08/20 17:29 Ondansetron Hcl 4 Mg/2 Ml Vial IVPUSH Q8H PRN Nausea and Vomiting Pharmacy Consult 1 each 08/08/20 14:45 Consult Rx Perform Med Rec MISCELLANE ONCE PRN Consult order Sodium Chloride 3 ml 08/09/20 00:00 08/09/20 09:38 0.9 % Sodium Chloride Flush 3 Ml Syringe IVFLUSH 3 ml QSHIFT [facility] Administration Labs CBC & Chem 7: 08/09/20 04:35 08/09/20 04:35 Labs: Laboratory Results - last 24 hr 08/08/20 08/08/20 08/08/20 13:04 13:04 13:04 WBC 4.6 L RBC 3.26 L Hgb 8.3 L D Hct 27.6 L MCV 84.7 MCH 25.5 L MCHC 30.1 L RDW 14.5 Plt Count 257 MPV 9.7 Immature Gran % (Auto) 0.4 Neut % (Auto) 64.1 Lymph % (Auto) 23.2 [place] % (Auto) 7.7 Eos % (Auto) 3.9 Baso % (Auto) 0.7 Lymph # (Auto) 1.1 L [place] # (Auto) 0.4 Eos # (Auto) 0.2 Baso # (Auto) 0.0 Abs Immat Gran (auto) 0.02 Absolute Neuts (auto) 2.9 Absolute Nucleated RBC 0.000 Nucleated RBC % (auto) 0.0 Hold Purple Top PT 18.1 H INR 1.5 H APTT 49.3 H Hold Blue Top SEE NOTE Sodium 138 Potassium 4.4 Chloride 100 Carbon Dioxide 29 Anion Gap 13 BUN 17 H Creatinine 0.90 Estim Creat Clear Calc 46.3 Estimated GFR > 60 Random Glucose 112 Calcium 9.1 Magnesium 2.1 Total Bilirubin 0.4 Direct Bilirubin 0.2 AST 13 ALT 9 Alkaline Phosphatase 144 H Troponin I High Sens B-Natriuretic Peptide Total Protein 6.7 Albumin 4.1 Hold Yellow Top Urine Color Urine Appearance Urine pH Ur Specific [place] Urine Protein Urine Glucose (UA) Urine Ketones Urine Blood Urine Nitrite Ur Leukocyte Esterase Urine RBC Urine WBC Ur Squamous Epith Cells Urine Bacteria Stool Occult Blood Coronavirus (PCR) Influenza Type A (PCR) Influenza Type B (PCR) RSV RNA Qual (PCR) Blood Type Antibody Screen Crossmatch 08/08/20 08/08/20 08/08/20 13:04 13:04 13:05 WBC RBC Hgb Hct MCV MCH MCHC RDW Plt Count MPV Immature Gran % (Auto) Neut % (Auto) Lymph % (Auto) [place] % (Auto) Eos % (Auto) Baso % (Auto) Lymph # (Auto) [place] # (Auto) Eos # (Auto) Baso # (Auto) Abs Immat Gran (auto) Absolute Neuts (auto) Absolute Nucleated RBC Nucleated RBC % (auto) Hold Purple Top SEE NOTE PT INR APTT Hold Blue Top Sodium Potassium Chloride Carbon Dioxide Anion Gap BUN Creatinine Estim Creat Clear Calc Estimated GFR Random Glucose Calcium Magnesium Total Bilirubin Direct Bilirubin AST ALT Alkaline Phosphatase Troponin I High Sens 15.5 B-Natriuretic Peptide 435 H Total Protein Albumin Hold Yellow Top See Note Urine Color Urine Appearance Urine pH Ur Specific [place] Urine Protein Urine Glucose (UA) Urine Ketones Urine Blood Urine Nitrite Ur Leukocyte Esterase Urine RBC Urine WBC Ur Squamous Epith Cells Urine Bacteria Stool Occult Blood Coronavirus (PCR) Influenza Type A (PCR) Influenza Type B (PCR) RSV RNA Qual (PCR) Blood Type Antibody Screen Crossmatch 08/08/20 08/08/20 08/08/20 14:29 15:19 15:22 WBC RBC Hgb Hct MCV MCH MCHC RDW Plt Count MPV Immature Gran % (Auto) Neut % (Auto) Lymph % (Auto) [place] % (Auto) Eos % (Auto) Baso % (Auto) Lymph # (Auto) [place] # (Auto) Eos # (Auto) Baso # (Auto) Abs Immat Gran (auto) Absolute Neuts (auto) Absolute Nucleated RBC Nucleated RBC % (auto) Hold Purple Top PT INR APTT Hold Blue Top Sodium Potassium Chloride Carbon Dioxide Anion Gap BUN Creatinine Estim Creat Clear Calc Estimated GFR Random Glucose Calcium Magnesium Total Bilirubin Direct Bilirubin AST ALT Alkaline Phosphatase Troponin I High Sens B-Natriuretic Peptide Total Protein Albumin Hold Yellow Top Urine Color Urine Appearance Urine pH Ur Specific [place] Urine Protein Urine Glucose (UA) Urine Ketones Urine Blood Urine Nitrite Ur Leukocyte Esterase Urine RBC Urine WBC Ur Squamous Epith Cells Urine Bacteria Stool Occult Blood POSITIVE Coronavirus (PCR) NEGATIVE Influenza Type A (PCR) NEGATIVE Influenza Type B (PCR) NEGATIVE RSV RNA Qual (PCR) NEGATIVE Blood Type A Positive Antibody Screen NEGATIVE Crossmatch See Detail 08/08/20 08/08/20 08/09/20 15:43 16:08 04:35 WBC 6.8 RBC 3.84 L Hgb 9.8 L Hct 31.4 L MCV 81.8 MCH 25.5 L MCHC 31.2 RDW 15.1 Plt Count 210 MPV 9.5 Immature Gran % (Auto) 0.4 Neut % (Auto) 75.0 H Lymph % (Auto) 14.2 L [place] % (Auto) 7.9 Eos % (Auto) 1.9 Baso % (Auto) 0.6 Lymph # (Auto) 1.0 L [place] # (Auto) 0.5 Eos # (Auto) 0.1 Baso # (Auto) 0.0 Abs Immat Gran (auto) 0.03 Absolute Neuts (auto) 5.1 Absolute Nucleated RBC 0.000 Nucleated RBC % (auto) 0.0 Hold Purple Top PT INR APTT Hold Blue Top Sodium Potassium Chloride Carbon Dioxide Anion Gap BUN Creatinine Estim Creat Clear Calc Estimated GFR Random Glucose Calcium Magnesium Total Bilirubin Direct Bilirubin AST ALT Alkaline Phosphatase Troponin I High Sens 11.7 B-Natriuretic Peptide Total Protein Albumin Hold Yellow Top Urine Color YELLOW Urine Appearance HAZY Urine pH 7.0 Ur Specific [place] 1.010 Urine Protein NEG Urine Glucose (UA) NEG Urine Ketones NEG Urine Blood NEG Urine Nitrite POS H Ur Leukocyte Esterase 2+ H Urine RBC 1-4 Urine WBC 15-29 H Ur Squamous Epith Cells 2+ Urine Bacteria 2+ Stool Occult Blood Coronavirus (PCR) Influenza Type A (PCR) Influenza Type B (PCR) RSV RNA Qual (PCR) Blood Type Antibody Screen Crossmatch 08/09/20 04:35 WBC RBC Hgb Hct MCV MCH MCHC RDW Plt Count MPV Immature Gran % (Auto) Neut % (Auto) Lymph % (Auto) [place] % (Auto) Eos % (Auto) Baso % (Auto) Lymph # (Auto) [place] # (Auto) Eos # (Auto) Baso # (Auto) Abs Immat Gran (auto) Absolute Neuts (auto) Absolute Nucleated RBC Nucleated RBC % (auto) Hold Purple Top PT INR APTT Hold Blue Top Sodium 139 Potassium 4.4 Chloride 105 Carbon Dioxide 25 Anion Gap 13 BUN 13 Creatinine 0.76 Estim Creat Clear Calc 54.8 Estimated GFR > 60 Random Glucose 94 Calcium 8.7 Magnesium Total Bilirubin Direct Bilirubin AST ALT Alkaline Phosphatase Troponin I High Sens B-Natriuretic Peptide Total Protein Albumin Hold Yellow Top Urine Color Urine Appearance Urine pH Ur Specific [place] Urine Protein Urine Glucose (UA) Urine Ketones Urine Blood Urine Nitrite Ur Leukocyte Esterase Urine RBC Urine WBC Ur Squamous Epith Cells Urine Bacteria Stool Occult Blood Coronavirus (PCR) Influenza Type A (PCR) Influenza Type B (PCR) RSV RNA Qual (PCR) Blood Type Antibody Screen Crossmatch Microbiology Microbiology Results: Microbiology 08/08/20 16:15 Urine Culture - Preliminary Urine clean catch - Clean Catch Midstream Gram negative marguerite Quality Stroke Does the patient have a stroke diagnosis?: No VTE Prior VTE?: No VTE Risk Level:: Medical - moderate - high VTE Device Contraindication: N/A - Device Ordered VTE Drug Contraindication: Treatment Not Indicated (patient has anemia and active gi bleed) Assessment and Plan (1) Occult GI bleeding: Status: Acute (2) Anemia: Status: Acute Assessment and Plan: This is a 79-year-old female with a past medical history of mitral regurg and resultant nonischemic cardiomyopathy, peripheral vascular disease status post stenting on 08/03 - started on Plavix, chronic AFib on anticoagulation with Eliquis and digoxin, hypertension who presents to the hospital complaints of progressive dizziness and exertional dyspnea over the last 3-4 days and reported dark stools. 1. Acute blood loss anemia, symptomatic anemia 1a. Suspected upper GI bleed in the setting of Eliquis and Plavix use s/p units units RBCs -continue IV Protonix -seen by GI, plan for EGD today, further management based on outcome 2. Chronic A. Fib Now in afib with RVR. BB initially held for hypotension. -hold Eliquis for GI bleeding -continue digoxin -resume coreg 3. UTI UCx growing gram negative rods -Follow up final sensitivities -continue IV ceftriaxone (started 08/09) -blood cultures pending 4. PAD - s/p recent stenting plavix on hold, will need this addressed prior to discharge 5. Dizziness suspected due to anemia, low concern for primary neurological issues if continues once bp / counts improved, will get MRI 6. Non-ischemic CMP LVEF - 15 to 20% on Echo from 04/27/2020 -resume entresto in am if blood pressure remains stable -lasix on hold, monitor fluid status 7. mood -continue zyprexa Code status: Patient wishes to be full code dvt ppx - eliquis on hold for GIB; mechanical devices Attending: Dr. Bhakta
[2020-08-09] MEDS: Lactated Ringers 1,000 ML 50 ML IVCONT (13:49)
--- NOTE | 2020-08-09 14:14 | PC.NURSE ---
Pt had a possible 10BVT. EKG printed and CASANDRA Weinstein notified. Magnesium lab ordered. Pt resting in bed at the time comfortably with no complaints.
--- NOTE | 2020-08-09 14:16 | P.CONAN_ITS ---
HPI - Anesthesia Eval Consult details Narrative: 79 yo female patient here for EGD PMFSH Active Problems Active Problems: All Active Problems (Updated 08/08/20 @ 14:51 by CASANDRA Paz) Anemia (Acute) Occult GI bleeding (Acute) Hearing loss (Acute) Pulmonary hypertension (Acute) Chronic atrial fibrillation (Acute) CAD (coronary artery disease) (Acute) EDWAR (obstructive sleep apnea) (Acute) Hx of cardiac cath (Acute ~01/2018) Nonischemic cardiomyopathy (Acute) Chronic systolic (congestive) heart failure (Acute) Mitral regurgitation (Acute) HTN (hypertension) (Acute) Past Medical History Medical History CAD (coronary artery disease) Chronic atrial fibrillation Chronic systolic (congestive) heart failure HTN (hypertension) Mitral regurgitation Nonischemic cardiomyopathy EDWAR (obstructive sleep apnea) Pulmonary hypertension Family History Family History Father No problems noted. Mother No problems noted. Family history of problems with anesthesia: No Surgical History Surgical History Hx of cardiac cath (~01/2018) History of Problems with Anesthesia: No Social History Social History Household Members: Other Household Members Other:: PT from SNF Housing: Long Term Housing Other:: in skilled nursing at present - wants to get her own apartment again Do you presently have visiting nurse or other home services: No Patient Tobacco Use Status: Former Tobacco user Tobacco use type: Cigarette Cigarette Packs Per Day: 1 Cigarettes Per Day: 20.0 Years Smoked: 20 Smoked in Last 30 Days: No Patient Interested in Nicotine Replacement: No Patient Given Instructions on How to Stop Smoking: No Second Hand Smoke Exposure: No Use of substances other than those prescribed or required for medical reasons: No Have you been hit, kicked, punched, or otherwise hurt by someone within the past year? If so, by whom?: No Do you feel safe in your current relationship?: No Current Relationship Is there a partner from a previous relationship who is making you feel unsafe now?: No Are you made to feel afraid or neglected: No Are you DNR?: No Advance Directives: No Advance Directives Information Provided: No Do you have thoughts of harming others: None Do you have a plan to hurt others: No Plan Recently lost weight without trying: No Nutrition Risks: No Nutritional Risk Patient : No : No Poor oral hygiene: No service: No Current occupational status: retired [employer] Allergies Allergy/AdvReac Type Severity Reaction Status Date / Time No Known Allergies Allergy Unknown UNKNOWN Unverified 11/10/19 16:01 [NO KNOWN ALLERGIES] seasonal, pollen Allergy Unknown Unverified 02/14/19 00:00 Active Medications: Current Medications Generic Name Dose Route Start Last Admin Trade Name Freq PRN Reason Stop Dose Admin Acetaminophen 650 mg 08/08/20 17:29 Acetaminophen 325 Mg Tablet PO Q6H PRN Pain, Mild (Pain Scale 1-3) Carvedilol 6.25 mg 08/09/20 09:30 08/09/20 09:37 Carvedilol 6.25 Mg Tablet PO 6.25 mg BID SAMIR Administration Protocol Cyanocobalamin 1,000 mcg 08/09/20 09:00 08/09/20 09:38 Cyanocobalamin (Vitamin B-12) 1,000 Mcg Tablet PO Not Given DAILY SAMIR Digoxin 0.125 mg 08/10/20 09:00 Digoxin 0.125 Mg Tablet PO Q2D@0900 [facility] Gabapentin 100 mg 08/08/20 21:00 08/09/20 09:38 Gabapentin 100 Mg Capsule PO Not Given TID SAMIR Pantoprazole Sodium 80 mg/ 100 mls @ 10 mls/hr 08/08/20 15:00 08/09/20 11:41 Sodium Chloride IV 8 mg/hr .Q10H SAMIR 10 mls/hr Administration 8 MG/HR Ceftriaxone Sodium 1 gm/ 50 mls @ 100 mls/hr 08/09/20 04:00 08/09/20 07:18 Sodium Chloride IV Infused DAILY@0600 [facility] Infusion Olanzapine 2.5 mg 08/08/20 21:00 08/09/20 09:38 Olanzapine 2.5 Mg Tablet PO 2.5 mg BID SAMIR Administration Ondansetron HCl 4 mg 08/08/20 17:29 Ondansetron Hcl 4 Mg/2 Ml Vial IVPUSH Q8H PRN Nausea and Vomiting Pharmacy Consult 1 each 08/08/20 14:45 Consult Rx Perform Med Rec MISCELLANE ONCE PRN Consult order Sacubitril/Valsartan 1 tab 08/10/20 09:00 Sacubitril/Valsartan 24/ 1 Tab Tablet PO BID COUNT INCLUDES THE [facility] Protocol Sodium Chloride 3 ml 08/09/20 00:00 08/09/20 09:38 0.9 % Sodium Chloride Flush 3 Ml Syringe IVFLUSH 3 ml QSHIFT COUNT INCLUDES THE [facility] Administration Home Medications Medication Instructions Recorded Confirmed Last Taken Type apixaban 5 mg tablet 5 mg PO BID 02/20/20 08/08/20 Unknown History digoxin 125 mcg (0.125 mg) tablet 125 mcg PO Q OTHER DAY 02/20/20 08/08/20 Unknown History gabapentin 100 mg capsule 100 mg PO TID 02/20/20 08/08/20 Unknown History olanzapine 2.5 mg tablet 2.5 mg PO BID 02/20/20 08/08/20 Unknown History omega-3 fatty acids 1,000 mg 1,000 mg PO DAILY 02/20/20 08/08/20 Unknown History capsule sacubitril 24 mg-valsartan 26 mg 1 tab PO BID 05/28/20 08/08/20 Unknown History tablet acetaminophen 975 mg PO TID PRN 08/08/20 08/08/20 Unknown History carvedilol 6.25 mg PO BID 08/08/20 08/08/20 Unknown History clopidogrel [Plavix] 75 mg PO DAILY 08/08/20 08/08/20 Unknown History cyanocobalamin (vitamin B-12) 1,000 mcg PO DAILY 08/08/20 08/08/20 Unknown History docusate sodium 100 mg PO DAILY 08/08/20 08/08/20 Unknown History famotidine 20 mg PO BID 08/08/20 08/08/20 Unknown History fluticasone propion-salmeterol 1 inh INHALATION Q12H 08/08/20 08/08/20 Unknown History [Wixela Inhub] furosemide 20 mg PO BID 08/08/20 08/08/20 Unknown History lidocaine 1 patch TOPICAL BEDTIME PRN 08/08/20 08/08/20 Unknown History methyl salicylate-menthol [Muscle 1 appl TOPICAL TID PRN 08/08/20 08/08/20 Unknown History Rub] multivitamin with minerals 1 tab PO DAILY 08/08/20 08/08/20 Unknown History omeprazole 20 mg PO BID 08/08/20 08/08/20 Unknown History ondansetron HCl 4 mg PO Q4H PRN 08/08/20 08/08/20 Unknown History saliva stimulant comb. no.3 2 spray MUCOUS MEMBRANE Q8H PRN 08/08/20 08/08/20 Unknown History [Biotene Moisturizing Mouth] sennosides [senna] 17.2 mg PO BEDTIME 08/08/20 08/08/20 Unknown History vitamins A,C,X-wnml-doyolo 1 cap PO TID 08/08/20 08/08/20 Unknown History [PreserVision AREDS] Exam Exam Date and Time: August 09, 2020 1416 Height,Weight and Vital Signs: Height 5 ft 5 in Weight 64.41 kg Last Vital Signs Temp 97.7 F 08/09/20 13:32 Pulse 113 H 08/09/20 13:32 Resp 18 08/09/20 13:32 BP 150/98 H 08/09/20 13:32 Pulse Ox 96 08/09/20 13:32 Pertinent Lab Results Pertinent Lab Results: Laboratory Tests 08/08/20 08/08/20 08/08/20 13:04 13:04 13:04 WBC 4.6 L RBC 3.26 L Hgb 8.3 L D Hct 27.6 L MCV 84.7 MCH 25.5 L MCHC 30.1 L RDW 14.5 Plt Count 257 MPV 9.7 Immature Gran % (Auto) 0.4 Neut % (Auto) 64.1 Lymph % (Auto) 23.2 [place] % (Auto) 7.7 Eos % (Auto) 3.9 Baso % (Auto) 0.7 Lymph # (Auto) 1.1 L [place] # (Auto) 0.4 Eos # (Auto) 0.2 Baso # (Auto) 0.0 Abs Immat Gran (auto) 0.02 Absolute Neuts (auto) 2.9 Absolute Nucleated RBC 0.000 Nucleated RBC % (auto) 0.0 Hold Purple Top PT 18.1 H INR 1.5 H APTT 49.3 H Hold Blue Top SEE NOTE Sodium 138 Potassium 4.4 Chloride 100 Carbon Dioxide 29 Anion Gap 13 BUN 17 H Creatinine 0.90 Estim Creat Clear Calc 46.3 Estimated GFR > 60 Random Glucose 112 Calcium 9.1 Magnesium 2.1 Total Bilirubin 0.4 Direct Bilirubin 0.2 AST 13 ALT 9 Alkaline Phosphatase 144 H Troponin I High Sens B-Natriuretic Peptide Total Protein 6.7 Albumin 4.1 Hold Yellow Top Urine Color Urine Appearance Urine pH Ur Specific [place] Urine Protein Urine Glucose (UA) Urine Ketones Urine Blood Urine Nitrite Ur Leukocyte Esterase Urine RBC Urine WBC Ur Squamous Epith Cells Urine Bacteria Stool Occult Blood Coronavirus (PCR) Influenza Type A (PCR) Influenza Type B (PCR) RSV RNA Qual (PCR) Blood Type Antibody Screen Crossmatch 08/08/20 08/08/20 08/08/20 13:04 13:04 13:05 WBC RBC Hgb Hct MCV MCH MCHC RDW Plt Count MPV Immature Gran % (Auto) Neut % (Auto) Lymph % (Auto) [place] % (Auto) Eos % (Auto) Baso % (Auto) Lymph # (Auto) [place] # (Auto) Eos # (Auto) Baso # (Auto) Abs Immat Gran (auto) Absolute Neuts (auto) Absolute Nucleated RBC Nucleated RBC % (auto) Hold Purple Top SEE NOTE PT INR APTT Hold Blue Top Sodium Potassium Chloride Carbon Dioxide Anion Gap BUN Creatinine Estim Creat Clear Calc Estimated GFR Random Glucose Calcium Magnesium Total Bilirubin Direct Bilirubin AST ALT Alkaline Phosphatase Troponin I High Sens 15.5 B-Natriuretic Peptide 435 H Total Protein Albumin Hold Yellow Top See Note Urine Color Urine Appearance Urine pH Ur Specific [place] Urine Protein Urine Glucose (UA) Urine Ketones Urine Blood Urine Nitrite Ur Leukocyte Esterase Urine RBC Urine WBC Ur Squamous Epith Cells Urine Bacteria Stool Occult Blood Coronavirus (PCR) Influenza Type A (PCR) Influenza Type B (PCR) RSV RNA Qual (PCR) Blood Type Antibody Screen Crossmatch 08/08/20 08/08/20 08/08/20 14:29 15:19 15:22 WBC RBC Hgb Hct MCV MCH MCHC RDW Plt Count MPV Immature Gran % (Auto) Neut % (Auto) Lymph % (Auto) [place] % (Auto) Eos % (Auto) Baso % (Auto) Lymph # (Auto) [place] # (Auto) Eos # (Auto) Baso # (Auto) Abs Immat Gran (auto) Absolute Neuts (auto) Absolute Nucleated RBC Nucleated RBC % (auto) Hold Purple Top PT INR APTT Hold Blue Top Sodium Potassium Chloride Carbon Dioxide Anion Gap BUN Creatinine Estim Creat Clear Calc Estimated GFR Random Glucose Calcium Magnesium Total Bilirubin Direct Bilirubin AST ALT Alkaline Phosphatase Troponin I High Sens B-Natriuretic Peptide Total Protein Albumin Hold Yellow Top Urine Color Urine Appearance Urine pH Ur Specific [place] Urine Protein Urine Glucose (UA) Urine Ketones Urine Blood Urine Nitrite Ur Leukocyte Esterase Urine RBC Urine WBC Ur Squamous Epith Cells Urine Bacteria Stool Occult Blood POSITIVE Coronavirus (PCR) NEGATIVE Influenza Type A (PCR) NEGATIVE Influenza Type B (PCR) NEGATIVE RSV RNA Qual (PCR) NEGATIVE Blood Type A Positive Antibody Screen NEGATIVE Crossmatch See Detail 08/08/20 08/08/20 08/09/20 15:43 16:08 04:35 WBC 6.8 RBC 3.84 L Hgb 9.8 L Hct 31.4 L MCV 81.8 MCH 25.5 L MCHC 31.2 RDW 15.1 Plt Count 210 MPV 9.5 Immature Gran % (Auto) 0.4 Neut % (Auto) 75.0 H Lymph % (Auto) 14.2 L [place] % (Auto) 7.9 Eos % (Auto) 1.9 Baso % (Auto) 0.6 Lymph # (Auto) 1.0 L [place] # (Auto) 0.5 Eos # (Auto) 0.1 Baso # (Auto) 0.0 Abs Immat Gran (auto) 0.03 Absolute Neuts (auto) 5.1 Absolute Nucleated RBC 0.000 Nucleated RBC % (auto) 0.0 Hold Purple Top PT INR APTT Hold Blue Top Sodium Potassium Chloride Carbon Dioxide Anion Gap BUN Creatinine Estim Creat Clear Calc Estimated GFR Random Glucose Calcium Magnesium Total Bilirubin Direct Bilirubin AST ALT Alkaline Phosphatase Troponin I High Sens 11.7 B-Natriuretic Peptide Total Protein Albumin Hold Yellow Top Urine Color YELLOW Urine Appearance HAZY Urine pH 7.0 Ur Specific [place] 1.010 Urine Protein NEG Urine Glucose (UA) NEG Urine Ketones NEG Urine Blood NEG Urine Nitrite POS H Ur Leukocyte Esterase 2+ H Urine RBC 1-4 Urine WBC 15-29 H Ur Squamous Epith Cells 2+ Urine Bacteria 2+ Stool Occult Blood Coronavirus (PCR) Influenza Type A (PCR) Influenza Type B (PCR) RSV RNA Qual (PCR) Blood Type Antibody Screen Crossmatch 08/09/20 04:35 WBC RBC Hgb Hct MCV MCH MCHC RDW Plt Count MPV Immature Gran % (Auto) Neut % (Auto) Lymph % (Auto) [place] % (Auto) Eos % (Auto) Baso % (Auto) Lymph # (Auto) [place] # (Auto) Eos # (Auto) Baso # (Auto) Abs Immat Gran (auto) Absolute Neuts (auto) Absolute Nucleated RBC Nucleated RBC % (auto) Hold Purple Top PT INR APTT Hold Blue Top Sodium 139 Potassium 4.4 Chloride 105 Carbon Dioxide 25 Anion Gap 13 BUN 13 Creatinine 0.76 Estim Creat Clear Calc 54.8 Estimated GFR > 60 Random Glucose 94 Calcium 8.7 Magnesium 2.0 Total Bilirubin Direct Bilirubin AST ALT Alkaline Phosphatase Troponin I High Sens B-Natriuretic Peptide Total Protein Albumin Hold Yellow Top Urine Color Urine Appearance Urine pH Ur Specific [place] Urine Protein Urine Glucose (UA) Urine Ketones Urine Blood Urine Nitrite Ur Leukocyte Esterase Urine RBC Urine WBC Ur Squamous Epith Cells Urine Bacteria Stool Occult Blood Coronavirus (PCR) Influenza Type A (PCR) Influenza Type B (PCR) RSV RNA Qual (PCR) Blood Type Antibody Screen Crossmatch Airway Mallampati Class: II TM Dist: >3cm Neck ROM: Full Denture: Upper Loose/Missing/Broken Teeth: Yes (Poor dentition bottom front) Heart: Irregular Lungs: CTAB Assessment and Plan Assessment Anesthesia Assessment: Anesthesia Plan Discussed and Chart Reviewed Final Anesthetic Review NPO: Yes ASA Class: III Final Preanesthetic Review: No Changes in Pt Med Stat, Meds/Allgs Chart Reviewed, Consent Obtained/Reviewed and Anes Risks/Benef Reviewed Patient Risk: Intermediate Procedure Risk: Low Assessment/Block/Sedation in SS: Assess/Block/Sedation-SS Anesthetic Plan Anesthetic Plan: MAC: Disposition: Inp. Admit - Standard Bed
--- NOTE | 2020-08-09 16:08 | PM.OP ---
Brief Operative Note Date of Service: 08/09/20 Pre-op diagnosis: Anemia, Heme + stool, ? melena Post-op diagnosis: other (Large hiatal hernia, Nicole's esophagus, Gastritis within hiatal hernia) Procedure: Upper endoscopy Surgeon: Ethan Rodríguez Anesthesia: MAC Was an Remote Sensing Engineer used for this Procedure?: No Estimated blood loss (mL): 0 Pathology: none sent Condition: stable Disposition: PACU
--- NOTE | 2020-08-09 16:10 | PM.EVENT ---
Event Note Date of Service: 08/09/20 Event Note: GI-Upper endoscopy-Full note dictated Findings: Procedure limited by patient's coughing and fragile respiratory status.The procedure had to be interrupted once with removal of the scope to allow the INDUSTRIAL GAS SERVICER to temporarily ambu the patient. 1. Large hiatal hernia with diaphragmatic indentation at approx. 35 cm and the EG Junction at approx 25cm. Changes of Nicole's esophagus noted in distal 1-2cm of the esophagus. No esophagitis. 2. Gastritis with some erosions in the gastric mucosa of the hiatal hernia. No bleeding 3. Pylorus was patent and appeared WNL. 4. Gastric Antrum WNL 5. Unable to cannulate the duodenum due to looping of the scope in the stomach and patient discomfort-- glimpses of the duodenal bulb appeared normal, without any blood. However, the duodenum was certainly not fully evaluated. Imp: I suspect her anemia and blood loss are in relation to the large hiatal hernia, GERD, and gastritis in association with her blood thinners. Rec: Advance diet, oral PPI BID, add Carafate, consider some Vit K for elevated INR, and F/U Hgb. Add Iron supplements to her regimen if her Iron indices warrant it. I would not recommend a colonoscopy given the clinical history and her relatively poor clinical condition. If she has evidence of recurrent definitive UGI bleeding I would recommend a repeat EGD for attempt at visualizing her duodenum at that point. She can resume her outpatient regimen of her blood thinners by tomorrow, 08/10, as per the medical team. Avoid all aspirin and NSAIDs. Thanks
[2020-08-09] MEDS: Omeprazole 20 MG CAPSULE.DR PO (17:32)
[2020-08-09] MEDS: Gabapentin 100 MG CAPSULE PO ×2 (17:32→21:11)
[2020-08-09] MEDS: Sucralfate 1 GM TABLET PO (17:32)
[2020-08-10] VITALS (13 sets, daily range): BP systolic 112–161; BP diastolic 74–98; PULSE 84–135; RESP 16–18; TEMP 36.4–37.1; O2SAT 92–97; BMI 24.7
[2020-08-10] MEDS: Metoprolol Tartrate 5 MG/5 ML VIAL IVPUSH (00:22)
--- NOTE | 2020-08-10 04:50 | PC.NURSE ---
Patient had 8 beat vtach. Asymptomatic. MD notified. No new orders at this time.
[2020-08-10 06:12] LABS: Hematocrit 30.2 % (37-47); Hemoglobin 9.3 g/dl (12.0-16.0); Mean Corpuscular HGB Conc 30.8 g/dl (31.0-35.0); Mean Corpuscular Hemoglobin 25.5 pg (27.0-33.0); Mean Corpuscular Volume 82.7 fL (80-98); Platelet Count 225 X10*3/uL (160-400); Red Blood Count 3.65 X10*6/uL (4.20-5.50); Red Cell Distribution Width 15.5 % (11.0-16.0); White Blood Count 7.7 X10*3/uL (4.8-10.8)
[2020-08-10] MEDS: cefTRIAXone sodium 1 GM in 0.9 % Sodium Chloride 50 ML IV (06:17)
[2020-08-10 06:33] LABS: INTERNATIONAL NORM RATIO 1.4 (0.9-1.1); Prothrombin Time 16.8 SEC (10.8-13.0)
[2020-08-10 06:45] LABS: Anion Gap 16 (12-20); Blood Urea Nitrogen 18 mg/dL (9-16); Calcium 8.7 mg/dL (8.4-10.2); Carbon Dioxide 21 mmol/L (22-29); Chloride 108 mmol/L (96-108); Creatinine Clr Calc Pharmacy 54.1; Estimated Glomerular Filt Rate > 60; Glucose Random 104 mg/dL (60-115); Potassium 4.1 mmol/L (3.3-5.1); Sodium 141 mmol/L (135-145)
[2020-08-10] MEDS: Gabapentin 100 MG CAPSULE PO (07:49)
[2020-08-10] MEDS: Sucralfate 1 GM TABLET PO ×2 (07:49→15:20)
[2020-08-10] MEDS: carvediloL 6.25 MG TABLET PO (07:49)
[2020-08-10] MEDS: Digoxin 0.125 MG TABLET PO (07:50)
[2020-08-10] MEDS: OLANZapine 2.5 MG TABLET PO ×2 (07:50→20:05)
[2020-08-10] MEDS: Cyanocobalamin (Vitamin B-12) 1,000 MCG TABLET 1000 MCG PO (07:50)
[2020-08-10] MEDS: 0.9 % Sodium Chloride Flush 3 ML SYRINGE IVFLUSH ×3 (07:50→20:06)
[2020-08-10] MEDS: Sacubitril/Valsartan 24/26 1 TAB TABLET PO ×2 (07:50→20:06)
--- NOTE | 2020-08-10 10:57 | CONS_ITS ---
DATE OF SERVICE: 08/08/2020 REFERRING PHYSICIAN: CASANDRA Paz REASON FOR CONSULTATION: Anemia and Hemoccult-positive stools. HISTORY OF PRESENT ILLNESS: The patient is a 79-year-old woman, who presented to the emergency room today from a cardiology appointment with complaints of headache, lightheadedness and unsteadiness. She was evaluated in the emergency department and noted to be anemic with a hematocrit of 27.6, which was down slightly from a hematocrit in June of this year of 30.5 at [facility]. Stools were noted to be Hemoccult positive. The patient does describe occasional dark stools, which are diarrheal. She denies any hematochezia. She recently underwent left lower extremity stent placement because of an ulcer on her ankle and has been maintained on Eliquis and clopidogrel. She also has a history of atrial fibrillation. Records indicate that she has also been on omeprazole 40 mg daily. She has no complaints of reflux symptoms and denies dysphagia. She was last evaluated with endoscopy and colonoscopy in March 2010, because of iron-deficiency anemia. Findings at that time included a large hiatal hernia and Nicole's esophagus. 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 She had been scheduled for followup endoscopy and colonoscopy due to iron-deficiency anemia in 2015, but this was canceled due to cardiac issues. PAST MEDICAL HISTORY: 1. Coronary artery disease. 2. Peripheral vascular disease, status post recent stent placement. 3. Atrial fibrillation. 4. Congestive heart failure with cardiomyopathy. 5. Hypertension. 6. Valvular heart disease. 7. Obstructive sleep apnea. 8. Pulmonary hypertension. 9. Nicole's esophagus. 10. Anxiety. 11. Tubular adenomas. CURRENT MEDICATIONS: Her current medication list is extensive and is reviewed. ALLERGIES: THERE ARE NO REPORTED DRUG ALLERGIES. FAMILY HISTORY: This is reviewed with the patient and is noncontributory. SOCIAL HISTORY: She has been [facility] at a [facility] and is not reported to smoke or abuse alcohol. REVIEW OF SYSTEMS: SKIN: No pruritus. HEENT: Negative. CARDIOPULMONARY: She denies shortness of breath or chest pain. GASTROINTESTINAL: As above. GENITOURINARY: Negative. NEUROPSYCHIATRIC: Negative. PHYSICAL EXAMINATION: GENERAL: Pleasant female, lying in bed. She is a vague historian. VITAL SIGNS: Reviewed in the electronic medical record and are stable. SKIN: Pale. HEENT: No scleral icterus. NECK: Without lymphadenopathy or thyromegaly. LUNGS: Clear. HEART: Irregular. S1, S2. No murmur. ABDOMEN: Soft without focal masses or tenderness. Bowel sounds are present. No organomegaly is noted. EXTREMITIES: Without edema. LABORATORY DATA: Hematocrit of 27.6. INR 1.5. IMPRESSION: Anemia with Hemoccult-positive stools. This could be in part due to GI tract blood losses from vascular ectasia as well as her known history of angiodysplasias. Also possible recent blood losses from her stent placement as she did have some ecchymosis over the groin area on the left. She will likely need her anticoagulation and antiplatelet medications continued because of her recent stent placement, and I would recommend she undergo upper endoscopy to rule out any significant GI pathology in the upper GI tract that could be contributing to her blood loss and make sure that it is safe to continue anticoagulation and antiplatelet medications. I discussed the risks and benefits of the procedure with her. She understands these and agrees to proceed. This will be arranged for tomorrow depending on the results of the finding. Consideration can be given to whether she needs further evaluation of her lower GI tract because of her prior GI history. Thanks for asking me to see her. I will follow her in the hospital with you. MD JOSE Briceno/YOJANA / [id number] MTDD
--- NOTE | 2020-08-10 10:57 | OP_ITS ---
SURGEON: Ethan Rodríguez MD INDICATIONS: The patient presents for evaluation of anemia, heme-positive stool, and question of melena. Full consent obtained from her for this, including risks of bleeding and perforation. PREOPERATIVE DIAGNOSIS: POSTOPERATIVE DIAGNOSIS: PROCEDURE PERFORMED: Upper endoscopy. ESTIMATED BLOOD LOSS: COMPLICATIONS: ANESTHESIA: Medication used, monitored anesthesia care. ASSISTANTS: SPECIMENS: PREOPERATIVE DIAGNOSES: Anemia, heme-positive stool, and question of melena. POSTOPERATIVE DIAGNOSES: Anemia, heme-positive stool, and question of melena, large hiatal hernia, gastritis, inability to cannulate the duodenum. DESCRIPTION OF PROCEDURE: The patient was placed in the left lateral decubitus position. The Olympus video gastroscope was passed in the posterior oropharynx and upper esophagus under direct vision. The scope was passed slowly to the distal esophagus. The gastroesophageal junction appeared at 25 cm. Extending for 1 or 2 cm proximal to that were mucosal changes consistent with probable Nicole's esophagus, but without any esophagitis nor lesions. There was a large hiatal hernia with the diaphragmatic indentation seen at approximately 35 cm. The hiatal hernia mucosa was carefully inspected and there did appear to be definite evidence of some erosive gastritis, although without any bleeding nor coffee-grounds material. There was no mass. The scope was advanced to the pylorus. However, due to significant looping of the scope, patient discomfort, coughing, and some respiratory compromise, I was unable to advance into the actual duodenum. I was able to see small portions of the duodenal bulb, which appeared normal and there was no sign of any blood within the duodenal bulb as best I could tell. The gastric antrum and body appeared normal. The scope was retroflexed visualizing the proximal stomach carefully, which revealed the large hiatal hernia, but no sign of any bleeding nor mass. The scope was straightened and withdrawn back to the esophagus. The proximal esophagus appeared otherwise normal. The scope was withdrawn from the patient. She tolerated the procedure well. Of note, during the procedure itself, the scope had to be withdrawn from the patient to allow the patient to be temporarily supported with the nurse industrial arts teacher providing respirations with the Ambu bag. The patient quickly improved and the procedure was then completed as above. IMPRESSION: 1. Large hiatal hernia with associated changes of some erosive gastritis. 2. Inability to cannulate the duodenum due to looping of the gastroscope. 3. Probable Nicole's esophagus of distal esophagus. PLAN: The patient's diet will be advanced. I shall resume her oral PPI twice a day, but also add Carafate twice a day. She will have followup laboratories in the morning. She should avoid all aspirin and NSAIDs. Her outpatient blood thinners can be resumed as per the medical team. I would consider giving her a dose of vitamin K given the elevated INR, even though she is not on Coumadin. At this point, given her clinical condition and clinical history, I would not recommend a colonoscopy for her. However, if she has evidence of definitive recurrent upper GI bleeding, then we could always repeat the upper endoscopy with attempt to get into the duodenum to be sure there is no other source of bleeding. MD ARVIND Mirza/YOJANA / [id number] MTDD
--- NOTE | 2020-08-10 11:42 | MHC.CM.PN ---
Per ROUNDS discussion, Patient is not yet medically cleared for dc (IV Ceftriaxone). Returning to [facility] @ [facility] is the goal for dc and CM will continue to follow.
--- NOTE | 2020-08-10 11:43 | P.PNIM_ITS ---
Subjective Subjective Date of Service: 08/10/20 <CASANDRA Duque - Last Filed: 08/10/20 13:06> 08/10/20 <Gallito Bhakta MD - Last Filed: 08/10/20 15:16> Interval History: Seen and examined this morning in follow-up for atrial fibrillation with rapid ventricular response GI bleed Sleepy this morning but has no specific complaints Denies chest pain, palpitations. <CASANDRA Duque - Last Filed: 08/10/20 13:06> Review of Systems Review of Systems: Yes all other systems are reviewed and are negative <CASANDRA Duque - Last Filed: 08/10/20 13:06> Constitutional Constitutional: Denies chills and Denies fever(s) <CASANDRA Duque - Last Filed: 08/10/20 13:06> Cardiovascular Cardiovascular: Denies chest pain and Denies palpitations <CASANDRA Duque - Last Filed: 08/10/20 13:06> Respiratory Respiratory: Denies cough <CASANDRA Duque - Last Filed: 08/10/20 13:06> Gastrointestinal Gastrointestinal: Denies abdominal pain <CASANDRA Duque - Last Filed: 08/10/20 13:06> Endocrine Endocrine: Denies palpitations <CASANDRA Duque - Last Filed: 08/10/20 13:06> Physical Exam Vital Signs: Vital Signs: Last Vital Signs Temp 97.5 F 08/10/20 11:16 Pulse 86 08/10/20 11:16 Resp 18 08/10/20 11:16 BP 123/74 08/10/20 11:16 Pulse Ox 97 08/10/20 11:16 Body Mass Index 24.7 <CASANDRA Duque - Last Filed: 08/10/20 13:06> Const: General: comfortable, no acute distress, alert and awake <CASANDRA Duque - Last Filed: 08/10/20 13:06> Nutritional Appearance: well nourished <CASANDRA Duque Last Filed: 08/10/20 13:06> HENMT: Head: Yes normocephalic and Yes atraumatic <CASANDRA Duque Last Filed: 08/10/20 13:06> Eyes: Sclerae: sclerae normal <CASANDRA Duque Last Filed: 08/10/20 13:06> Chest: Chest palpation & inspection: normal inspection of the chest <CASANDRA Duque Last Filed: 08/10/20 13:06> Resp: Effort & Inspection: normal respiratory effort and no respiratory distress <CASANDRA Duque Last Filed: 08/10/20 13:06> Auscultation: clear to auscultation bilaterally <CASANDRA Duque - Last Filed: 08/10/20 13:06> Cardio: Rate: tachycardic <CASANDRA Duque Last Filed: 08/10/20 13:06> Rhythm: abnormal rhythm irregularly irregular <CASANDRA Duque Last Filed: 08/10/20 13:06> GI: Palpation (GI): Soft to palpation and nontender <CASANDRA Duque Last Filed: 08/10/20 13:06> Skin: Other: small amount of ecchymosis left groin. right lower leg as below <CASANDRA Duque Last Filed: 08/10/20 13:06> Neuro: Cranial nerves: Yes CN's II-XII intact bilaterally and Yes Bilaterally intact EOM present <CASANDRA Duque Last Filed: 08/10/20 13:06> Objective Data Current Medications Generic Name Dose Route Start Last Admin Trade Name Wallaceq PRN Reason Stop Dose Admin Acetaminophen 650 mg 08/08/20 17:29 Acetaminophen 325 Mg Tablet PO Q6H PRN Pain, Mild (Pain Scale 1-3) Carvedilol 6.25 mg 08/09/20 09:30 08/10/20 07:49 Carvedilol 6.25 Mg Tablet PO 6.25 mg BID SAMIR Administration Protocol Cyanocobalamin 1,000 mcg 08/09/20 09:00 08/10/20 07:50 Cyanocobalamin (Vitamin B-12) 1,000 Mcg Tablet PO 1,000 mcg DAILY SAMIR Administration Digoxin 0.125 mg 08/10/20 09:00 08/10/20 07:50 Digoxin 0.125 Mg Tablet PO 0.125 mg Q2D@0900 SAMIR Administration Gabapentin 100 mg 08/08/20 21:00 08/10/20 07:49 Gabapentin 100 Mg Capsule PO 100 mg TID SAMIR Administration Ceftriaxone Sodium 1 gm/ 50 mls @ 100 mls/hr 08/09/20 04:00 08/10/20 07:09 Sodium Chloride IV Infused DAILY@0600 [facility] Infusion Olanzapine 2.5 mg 08/08/20 21:00 08/10/20 07:50 Olanzapine 2.5 Mg Tablet PO 2.5 mg BID SAMIR Administration Omeprazole 20 mg 08/09/20 16:30 08/10/20 06:24 Omeprazole 20 Mg Capsule. PO Not Given BID@0630,1630 [facility] Ondansetron HCl 4 mg 08/08/20 17:29 Ondansetron Hcl 4 Mg/2 Ml Vial IVPUSH Q8H PRN Nausea and Vomiting Ondansetron HCl 4 mg 08/09/20 14:35 Ondansetron Hcl 4 Mg/2 Ml Vial IVPUSH ONCE PRN Nausea and Vomiting Pharmacy Consult 1 each 08/08/20 14:45 Consult Rx Perform Med Rec MISCELLANE ONCE PRN Consult order Sacubitril/Valsartan 1 tab 08/10/20 09:00 08/10/20 07:50 Sacubitril/Valsartan 1 Tab Tablet PO 1 tab BID SAMIR Administration Protocol Sodium Chloride 3 ml 08/09/20 00:00 08/10/20 07:50 0.9 % Sodium Chloride Flush 3 Ml Syringe IVFLUSH 3 ml QSHIFT SAMIR Administration Sucralfate 1 gm 08/09/20 16:30 08/10/20 07:49 Sucralfate 1 Gm Tablet PO 1 gm BIDAC SAMIR Administration <CASANDRA Duque - Last Filed: 08/10/20 13:06> Labs CBC & Chem 7: : 08/10/20 05:27 08/10/20 05:27 <CASANDRA Duque - Last Filed: 08/10/20 13:06> Labs: Laboratory Results - last 24 hr 08/09/20 08/10/20 08/10/20 04:35 05:27 05:27 WBC 7.7 RBC 3.65 L Hgb 9.3 L Hct 30.2 L MCV 82.7 MCH 25.5 L MCHC 30.8 L RDW 15.5 Plt Count 225 MPV 10.0 Absolute Nucleated RBC 0.000 Nucleated RBC % (auto) 0.0 PT 16.8 H INR 1.4 H Sodium Potassium Chloride Carbon Dioxide Anion Gap BUN Creatinine Estim Creat Clear Calc Estimated GFR Random Glucose Calcium Magnesium 2.0 08/10/20 05:27 WBC RBC Hgb Hct MCV MCH MCHC RDW Plt Count MPV Absolute Nucleated RBC Nucleated RBC % (auto) PT INR Sodium 141 Potassium 4.1 Chloride 108 Carbon Dioxide 21 L Anion Gap 16 BUN 18 H Creatinine 0.77 Estim Creat Clear Calc 54.1 Estimated GFR > 60 Random Glucose 104 Calcium 8.7 Magnesium 2.0 <CASANDRA Duque - Last Filed: 08/10/20 13:06> Microbiology Microbiology Results: Microbiology 08/08/20 16:15 Urine Culture - Final Urine clean catch - Clean Catch Midstream Raoultella planticola 08/09/20 04:35 Blood Culture - Preliminary Blood - Venous No growth after 24 hours. 08/09/20 04:35 Blood Culture - Preliminary Blood - Venous No growth after 24 hours. <CASANDRA Duque - Last Filed: 08/10/20 13:06> Quality Stroke Does the patient have a stroke diagnosis?: No <CASANDRA Duque - Last Filed: 08/10/20 13:06> VTE Prior VTE?: No <CASANDRA Duque - Last Filed: 08/10/20 13:06> VTE Risk Level:: Medical - moderate - high <CASANDRA Duque - Last Filed: 08/10/20 13:06> VTE Device Contraindication: N/A - Device Ordered <CASANDRA Duque - Last Filed: 08/10/20 13:06> VTE Drug Contraindication: Treatment Not Indicated (patient has anemia and active gi bleed) <CASANDRA Duque - Last Filed: 08/10/20 13:06> Assessment and Plan (1) Occult GI bleeding: Status: Acute <CASANDRA Duque - Last Filed: 08/10/20 13:06> (2) Anemia: Status: Acute <CASANDRA Duque - Last Filed: 08/10/20 13:06> Assessment and Plan: This is a 79-year-old female with a past medical history of mitral regurg and resultant nonischemic cardiomyopathy, peripheral vascular disease status post stenting on 08/03 - started on Plavix, chronic AFib on anticoagulation with Eliquis and digoxin, hypertension who presents to the hospital complaints of progressive dizziness and exertional dyspnea over the last 3-4 days and reported dark stools. 1. Acute blood loss anemia, symptomatic anemia in the setting of Eliquis and Plavix use. s/p units 2 units RBCs s/p egd 08/09 showing Nicole's esophagus, large hiatal hernia, gastritis -po ppi, carafate -resuming plavix and eliquis -follow cbc -avoid nsaids 2. Chronic A. Fib Heart rate better controlled -will resume Eliquis, ok per GI -continue digoxin, coreg 3. UTI UCx growing Raoultella planticola sensitive to ceftriaxone -continue IV ceftriaxone (started 08/09) -blood cultures with no growth times 24 hours 4. PAD - s/p recent stenting will resume plavix, ok per GI 5. Dizziness suspected due to anemia, low concern for primary neurological issues resolved 6. Non-ischemic CMP LVEF - 15 to 20% on Echo from 04/27/2020 -resume entresto -will resume lasix 7. mood -continue zyprexa 8.?neuropathy. gabapentin d/c due to lethargy this morning Code status: Patient wishes to be full code dvt ppx - eliquis Attending: Dr. Bhakta dispo: to return back to [facility]] when medically ready. possibly tomorrow <CASANDRA Duque - Last Filed: 08/10/20 13:06>
--- NOTE | 2020-08-10 14:14 | HO.POSTANES ---
Post Anesthesia Evaluation Post Anesthesia Evaluation Vital Signs: Vital Signs Temp Pulse Resp BP Pulse Ox 08/10/20 11:16 97.5 F 86 18 123/74 97 08/10/20 07:50 102 H 08/10/20 07:49 102 H 128/82 08/10/20 07:19 97.5 F 102 H 17 128/82 94 08/10/20 03:12 97.9 F 108 H 18 149/98 H 92 Anesthesia: Monitored Mental Status: Awake Pain Control: Satisfactory Nausea/Vomiting: None Hydration: Adequate Anesthesia-Related Issues: No Anes. Related Issues
--- NOTE | 2020-08-10 14:46 | PC.NURSE ---
Pt. seen today for wound/skin issues. Pt has redness to top of right foot and ankle with swelling, also a stage 3 venous ulcer on right posterior lower leg. CASANDRA Mayes was informed of this ulcer via tiger text. She agreed with [facility] as a treatment. She will reflect in note.
[2020-08-10] MEDS: Omeprazole 20 MG CAPSULE.DR PO (15:20)
--- NOTE | 2020-08-10 18:54 | PC.NURSE ---
Patient had 7 beat Vtach. Asymptomatic. CASANDRA Weinstein made aware. Coreg increased.
[2020-08-10] MEDS: carvediloL 12.5 MG TABLET PO (20:05)
[2020-08-10] MEDS: Furosemide 20 MG TABLET PO (20:06)
[2020-08-10] MEDS: Apixaban 5 MG TABLET PO (20:06)
[2020-08-11] MEDS: Acetaminophen 325 MG TABLET 650 MG PO ×2 (00:01→05:36)
[2020-08-11 03:30] VITALS: BP 140/82; PULSE 84; RESP 20; TEMP 36.8; O2SAT 95
[2020-08-11] MEDS: Omeprazole 20 MG CAPSULE.DR PO (05:36)
[2020-08-11] MEDS: cefTRIAXone sodium 1 GM in 0.9 % Sodium Chloride 50 ML IV (05:38)
[2020-08-11] MEDS: Sucralfate 1 GM TABLET PO (05:39)
[2020-08-11 05:43] LABS: Hemoglobin 9.6 g/dl (12.0-16.0); Mean Corpuscular Hemoglobin 24.9 pg (27.0-33.0); Mean Corpuscular Volume 82.9 fL (80-98); Mean Platelet Volume 10.1 fL (9.4-12.3); Platelet Count 195 X10*3/uL (160-400); Red Blood Count 3.86 X10*6/uL (4.20-5.50); Red Cell Distribution Width 15.4 % (11.0-16.0); White Blood Count 4.2 X10*3/uL (4.8-10.8)
[2020-08-11 06:00] VITALS: BMI 25.4
[2020-08-11 06:11] LABS: Anion Gap 12 (12-20); Blood Urea Nitrogen 17 mg/dL (9-16); Calcium 8.7 mg/dL (8.4-10.2); Carbon Dioxide 26 mmol/L (22-29); Chloride 106 mmol/L (96-108); Creatinine Clr Calc Pharmacy 58.7; Estimated Glomerular Filt Rate > 60; Glucose Random 86 mg/dL (60-115); Potassium 4.1 mmol/L (3.3-5.1); Sodium 140 mmol/L (135-145)
[2020-08-11 07:07] VITALS: BP 130/64; PULSE 91; RESP 20; TEMP 36.1; O2SAT 98
[2020-08-11 07:51] LABS: Iron 33 mcg/dL (30-160); Percent Iron Saturation 10 % (15-50); Total Iron Binding Capacity 321 mcg/dL (228-428); Unsaturated Iron Binding 288 ug/dL
[2020-08-11 08:11] LABS: Ferritin 37 ng/mL (10-250)
[2020-08-11 08:46] VITALS: BP 130/64; PULSE 91
[2020-08-11] MEDS: carvediloL 12.5 MG TABLET PO (08:46)
[2020-08-11] MEDS: Sacubitril/Valsartan 24/26 1 TAB TABLET PO (08:46)
[2020-08-11] MEDS: Clopidogrel Bisulfate 75 MG TABLET PO (08:46)
[2020-08-11] MEDS: 0.9 % Sodium Chloride Flush 3 ML SYRINGE IVFLUSH (08:46)
[2020-08-11] MEDS: Apixaban 5 MG TABLET PO (08:46)
[2020-08-11] MEDS: Cyanocobalamin (Vitamin B-12) 1,000 MCG TABLET 1000 MCG PO (08:47)
[2020-08-11] MEDS: Furosemide 20 MG TABLET PO (08:47)
[2020-08-11] MEDS: OLANZapine 2.5 MG TABLET PO (08:47)
--- NOTE | 2020-08-11 10:43 | P.DS_ITS ---
DS: Providers Provider Date of Service: 08/11/20 <CASANDRA Duque - Last Filed: 08/11/20 13:13> Date of admission: 08/08/20 16:56 <CASANDRA Duque - Last Filed: 08/11/20 13:13> Primary care physician: ROGELIO WilcoxP- <CASANDRA Duque - Last Filed: 08/11/20 13:13> Consults: 08/08/20 17:29 Consult to Gastroenterology Routine Consulting Provider: Ethan Rodríguez Reason for consultation: GI bleed <CASANDRA Duque - Last Filed: 08/11/20 13:13> DS: Diagnosis Discharge Diagnosis (1) Occult GI bleeding: Status: Acute <CASANDRA Duque - Last Filed: 08/11/20 13:13> (2) Anemia: Status: Acute <CASANDRA Duque Last Filed: 08/11/20 13:13> DS: Medications Discharge Medications Home Medications: Home Medications Medication Instructions Recorded Confirmed apixaban 5 mg tablet 5 mg PO BID 02/20/20 08/08/20 digoxin 125 mcg (0.125 mg) tablet 125 mcg PO Q OTHER DAY 02/20/20 08/08/20 olanzapine 2.5 mg tablet 2.5 mg PO BID 02/20/20 08/08/20 omega-3 fatty acids 1,000 mg 1,000 mg PO DAILY 02/20/20 08/08/20 capsule sacubitril 24 mg-valsartan 26 mg 1 tab PO BID 05/28/20 08/08/20 tablet Biotene Moisturizing Mouth 2 spray MUCOUS MEMBRANE Q8H PRN 08/08/20 08/08/20 Muscle Rub 1 appl TOPICAL TID PRN 08/08/20 08/08/20 PreserVision AREDS 1 cap PO TID 08/08/20 08/08/20 acetaminophen 975 mg PO TID PRN 08/08/20 08/08/20 clopidogrel [Plavix] 75 mg PO DAILY 08/08/20 08/08/20 cyanocobalamin (vitamin B-12) 1,000 mcg PO DAILY 08/08/20 08/08/20 docusate sodium 100 mg PO DAILY 08/08/20 08/08/20 fluticasone propion-salmeterol 1 inh INHALATION Q12H 08/08/20 08/08/20 [Wixela Inhub] furosemide 20 mg PO BID 08/08/20 08/08/20 lidocaine 1 patch TOPICAL BEDTIME PRN 08/08/20 08/08/20 multivitamin with minerals 1 tab PO DAILY 08/08/20 08/08/20 omeprazole 20 mg PO BID 08/08/20 08/08/20 ondansetron HCl 4 mg PO Q4H PRN 08/08/20 08/08/20 sennosides [senna] 17.2 mg PO BEDTIME 08/08/20 08/08/20 Previous Rx's Medication Instructions Recorded carvedilol 12.5 mg PO BID #0 tab 08/11/20 ferrous sulfate [Iron (ferrous 325 mg PO DAILY #30 tab 08/11/20 sulfate)] sucralfate 1 g PO BIDAC 30 Days #60 tab 08/11/20 <CASANDRA Duque - Last Filed: 08/11/20 13:13> DS: Summary Hospital Course Hospital Course: From H&P on day of admission This is a 79-year-old female with multiple medical issues as documented below who presents to the emergency room after fantasma perry seen in the Cardiology [facility] for complaints of dizziness. Despite multiple providers and multiple times history is limited due to patient being a poor historian. Patient endorses that she underwent vascular procedure about 5 days ago for peripheral vascular disease and had a stent placed. She reports that she has since been started on Plavix. She endorses progressive lightheadedness and diz ziness along with exertional dyspnea. To the ED provider that she has had dark stools but is unaware of how long these have been present. She denies any abdominal or epigastric pain. She denies use of NSAIDs. Upon arrival to the emergency room she was noted to be significantly hypotensive in the 70s. She was given a L of fluid with improvement in her symptoms. Her blood work revealed in H&H of 8.3/27.6 and a fecal occult test was positive. Presumptive diagnosis of upper GI bleed was made she was started on, and she was subsequently started on IV Protonix. ED provider consulted with [facility] and she will be admitted for further workup. At the time of my exam, the patient reports that she is feeling slightly better in regards to her dizziness. She denies any chest pain or shortness of breath at rest. Hospital course by problem 1. Acute blood loss anemia. In the setting of Eliquis and Plavix use. She received 2 units of blood with improvement in her H/H. She was started on IV PPI. She was evaluated by GI and underwent egd on 08/09 showing Nicole's esophagus, large hiatal hernia, gastritis. She was transition back to po ppi and carafate was added. Her Plavix and Eliquis were added back after okay by GI. Her H&H remained stable overnight. She has remained hemodynamically stable. Closely monitor for signs of bleeding. Discontinue Plavix as soon as safe from vascular surgery point of view in order to minimize bleeding risk. Avoid the use of NSAIDs. She has been started on iron supplementation Monitor CBC periodically. Follow-up with GI as outpatient. 2. Chronic A. Fib. Beta-tami was initially held due to low blood pressure. Patient went into atrial fibrillation with rapid ventricular response. Her Coreg was resumed and her heart rate improved. She was continued on digoxin. Her Eliquis was initially held due to GI bleeding but was resumed prior to discharge. 3. UTI UCx growing Raoultella planticola sensitive to ceftriaxone. She will be discharged with ceftin to complete course of antibiotics. blood cultures with no growth times 48 hours 4. PAD - s/p recent stenting. Plavix resumed. Recommended stopping as soon as safe from a vascular perspective to minimize risk of bleeding. Outpatient follow-up with vascular surgery. 5. Dizziness. Resolved. Likely secondary to anemia 6. Non-ischemic CMP LVEF - 15 to 20% on Echo from 04/27/2020. Continue on lasix and entreso. Patient noted to have 2 short runs of NSVT. Electrolytes were checked and within normal limits. Discussed with cardiology, can continue outpatient follow-up for AICD. No need for urgent intervention at this time. 7.?neuropathy. gabapentin d/c due to lethargy. Patient awake and alert this morning. can be gradually re-introduced if necessary. <CASANDRA Duque - Last Filed: 08/11/20 13:13> Time Spent with Patient Time attestation: Total time spent providing and/or coordinating discharge services: <CASANDRA Duque - Last Filed: 08/11/20 13:13> Discharge coordination time: Greater than 30 minutes <CASANDRA Duque - Last Filed: 08/11/20 13:13> Quality: Stroke Does the patient have a stroke diagnosis?: No <CASANDRA Duque - Last Filed: 08/11/20 13:13> Physical Exam Vital Signs: Vital Signs: Last Vital Signs Temp 97 F 08/11/20 07:07 Pulse 91 08/11/20 08:46 Resp 20 08/11/20 07:07 BP 130/64 08/11/20 08:46 Pulse Ox 98 08/11/20 07:07 Body Mass Index 25.4 <CASANDRA Duque - Last Filed: 08/11/20 13:13> Const: Other: Chronically ill-appearing, sitting up in bed appears to be in no acute distress. <CASANDRA Duque - Last Filed: 08/11/20 13:13> General: comfortable, alert and awake <CASANDRA Duque - Last Filed: 08/11/20 13:13> Nutritional Appearance: well nourished <CASANDRA Duque - Last Filed: 08/11/20 13:13> HENMT: Head: Yes normocephalic and Yes atraumatic <CASANDRA Duque - Last Filed: 08/11/20 13:13> Eyes: Sclerae: sclerae normal <CASANDRA Duque - Last Filed: 08/11/20 13:13> Chest: Chest palpation & inspection: normal inspection of the chest <CASANDRA Duque - Last Filed: 08/11/20 13:13> Resp: Effort & Inspection: normal respiratory effort and no respiratory distress <CASANDRA Duque - Last Filed: 08/11/20 13:13> Cardio: Rate: regular rate <CASANDRA Duque - Last Filed: 08/11/20 13:13> Rhythm: regular rhythm <CASANDRA Duque Last Filed: 08/11/20 13:13> GI: Palpation (GI): Soft to palpation and nontender <CASANDRA Duque - Last Filed: 08/11/20 13:13> Neuro: Cranial nerves: Yes CN's II-XII intact bilaterally and Yes Bilaterally intact EOM present <CASANDRA Duque - Last Filed: 08/11/20 13:13> Extrem: General: Yes normal to inspection <CASANDRA Duque - Last Filed: 08/11/20 13:13> DS: Data Data Completed and Pending Labs on day of discharge: Laboratory Results - last 24 hr 08/11/20 08/11/20 05:19 05:19 WBC 4.2 L RBC 3.86 L Hgb 9.6 L Hct 32.0 L MCV 82.9 MCH 24.9 L MCHC 30.0 L RDW 15.4 Plt Count 195 MPV 10.1 Absolute Nucleated RBC 0.000 Nucleated RBC % (auto) 0.0 Sodium 140 Potassium 4.1 Chloride 106 Carbon Dioxide 26 Anion Gap 12 BUN 17 H Creatinine 0.71 Estim Creat Clear Calc 58.7 Estimated GFR > 60 Random Glucose 86 Calcium 8.7 Iron 33 TIBC 321 % Saturation 10 L Unsat Iron Binding 288 Ferritin 37 Preliminary micro results at discharge 08/09/20 04:35 Blood Culture - Preliminary Blood - Venous No growth after 48 hours. 08/09/20 04:35 Blood Culture - Preliminary Blood - Venous No growth after 48 hours. <CASANDRA Duque - Last Filed: 08/11/20 13:13> Discharge Plan Discharge Anticipated Discharge Date/Time: 08/11/20 21:45 <CASANDRA Duque - Last Filed: 08/11/20 13:13> Patient Disposition: Xfer [facility] <CASANDRA Duque - Last Filed: 08/11/20 13:13> Discharge Diagnosis: GI bleed/Nicole's esophagus, gastritis, hiatal hernia Acute blood loss anemia <CASANDRA Duque - Last Filed: 08/11/20 13:13> GI bleed/Nicole's esophagus, gastritis, hiatal hernia Acute blood loss anemia <John De Luna MD - Last Filed: 08/11/20 21:45> Referrals: [facility] [Outside] - 1 Week Quintin Frey FNP- [Primary Care Provider] - 1 Week Ethan Rodríguez [Physician] - 1 Week <CASANDRA Duque - Last Filed: 08/11/20 13:13> Discharge Medications: New sucralfate 1 gram Tablet 1 g PO BIDAC 30 Days Qty: 60 RF: 0 ferrous sulfate [Iron (ferrous sulfate)] 325 mg (65 mg iron) tablet 325 mg PO DAILY Qty: 30 RF: 0 cefuroxime axetil 250 mg tablet 250 mg PO BID 2 Days Qty: 4 RF: 0 Continued acetaminophen 325 mg Tablet 975 mg PO TID PRN (Reason: Pain, Mild) RF: 0 lidocaine 4 % Adhesive Patch,Medicated 1 patch TOPICAL BEDTIME PRN (Reason: Pain, Mild) RF: 0 ondansetron HCl 4 mg Tablet 4 mg PO Q4H PRN (Reason: Nausea And Vomiting) RF: 0 cyanocobalamin (vitamin B-12) 1,000 mcg Tablet 1,000 mcg PO DAILY RF: 0 omeprazole 20 mg Capsule,Delayed Release(Dr/Ec) 20 mg PO BID RF: 0 fluticasone propion-salmeterol [Wixela Inhub] 100-50 mcg/dose Blister With Device 1 inh INHALATION Q12H RF: 0 docusate sodium 100 mg Tablet 100 mg PO DAILY RF: 0 PreserVision AREDS [id number] Capsule 1 cap PO TID RF: 0 Biotene Moisturizing Mouth [place],Non-Aerosol 2 spray MUCOUS MEMBRANE Q8H PRN (Reason: Dry Mouth) RF: 0 furosemide 20 mg Tablet 20 mg PO BID RF: 0 multivitamin with minerals Tablet 1 tab PO DAILY RF: 0 sennosides [senna] 8.6 mg Tablet 17.2 mg PO BEDTIME RF: 0 clopidogrel [Plavix] 75 mg Tablet 75 mg PO DAILY RF: 0 Muscle Rub 15-10 % Cream 1 appl TOPICAL TID PRN (Reason: Pain) RF: 0 sacubitril-valsartan 24-26 mg tablet 1 tab PO BID RF: 0 olanzapine 2.5 mg tablet 2.5 mg PO BID RF: 0 omega-3 fatty acids [Fish Oil Concentrate] 1,000 mg capsule 1,000 mg PO DAILY RF: 0 digoxin 125 mcg (0.125 mg) tablet 125 mcg PO Q OTHER DAY RF: 0 apixaban 5 mg tablet 5 mg PO BID RF: 0 Changed carvedilol 6.25 mg tablet 12.5 mg PO BID Qty: 0 RF: 0 Discontinued famotidine 20 mg Tablet 20 mg PO BID RF: 0 gabapentin 100 mg capsule 100 mg PO TID RF: 0 <CASANDRA Duque - Last Filed: 08/11/20 13:13> Discharge Orders: Discharge Order (Routine); Ordered 08/11/20 Ordered By: Amanda Weinstein <CASANDRA Duque - Last Filed: 08/11/20 13:13> Diet: advance to usual diet and low salt diet <CASANDRA Duque - Last Filed: 08/11/20 13:13> advance to usual diet and low salt diet <John De Luna MD - Last Filed: 08/11/20 21:45> Activity on Discharge: As tolerated <CASANDRA Duque - Last Filed: 08/11/20 13:13> As tolerated <John De Luna MD - Last Filed: 08/11/20 21:45> Stand Alone Forms: Patient Portal Discharge page <CASANDRA Duque - Last Filed: 08/11/20 13:13> Care Plan Goals: see below <CASANDRA Duque - Last Filed: 08/11/20 13:13> Health Concerns: GI bleed/Nicole's esophagus, gastritis, hiatal hernia Acute blood loss anemia UTI <CASANDRA Duque - Last Filed: 08/11/20 13:13> Plan of Treatment: Monitor for signs of bleeding CBC should be checked in 1 week or sooner if there are signs of bleeding Continue scheduled outpatient follow up for evaluation of AICD Call to schedule follow up appointment with GI Complete course of antibiotics Call to schedule follow up appointment with PCP <CASANDRA Duque - Last Filed: 08/11/20 13:13> Assessment: see discharge summary I saw and examined the patient and discussed the managment and disposition with PA and I agree with discharge plan, except as otherwise stated <CASANDRA Duque - Last Filed: 08/11/20 13:13> Discharge Date/Time: 08/11/20 14:00 <CASANDRA Duque - Last Filed: 08/11/20 13:13>
[2020-08-11 10:50] VITALS: BP 132/68; PULSE 98; RESP 20; TEMP 36.6; O2SAT 95
== END 2020-08-11 14:00 | disposition skilled nursing facility (03) | DRG 378 ==
LOC: HO.ED 14:51 → HO.EDOVER 17:11 → HO.IMC 08-09 05:30
PROVIDERS: Internal Medicine; Physician Assistant; Physician Assistant Medical; Admitting Provider Family Medicine; Emergency Provider Student in an Organized Health Care Education/Training Program; PCP Nurse Practitioner Family; Visit Provider Internal Medicine
PROC: 0DJ08ZZ Inspection of Upper Intestinal Tract, Via Natural or Artificial Opening Endoscopic (ICD-10-PCS; CPT 43235; principal; 2020-08-09 14:30)
DX: K29.71 Gastritis, unspecified, with bleeding (principal); N39.0 Urinary tract infection, site not specified; D62 Acute posthemorrhagic anemia; I48.20 Chronic atrial fibrillation, unspecified; I42.8 Other cardiomyopathies; I25.10 Atherosclerotic heart disease of native coronary artery without angina pectoris; K44.9 Diaphragmatic hernia without obstruction or gangrene; K22.70 Barrett's esophagus without dysplasia; G62.9 Polyneuropathy, unspecified; I73.9 Peripheral vascular disease, unspecified; F39 Unspecified mood [affective] disorder; Z87.891 Personal history of nicotine dependence; Z79.01 Long term (current) use of anticoagulants; Z79.02 Long term (current) use of antithrombotics/antiplatelets; Z79.52 Long term (current) use of systemic steroids; Z79.899 Other long term (current) drug therapy
CPT/HCPCS: 0241U; 36415; 70450; 71045; 80048; 80076; 81001; 81003; 82272; 82728; 83540; 83735; 83880; 84484; 85025; 85027; 85610; 85730; 86850; 86900; 86901; 86923; 87040; 87086; 87088; 87186; 93005; 99285; J0696; J1940; P9016

== ENCOUNTER → 2020-09-11 06:06 | Day surgery (SDC) | payer MEDICARE, SELFPAY ==
[2020-09-05 10:54] VITALS: BMI 22.8
--- NOTE | 2020-09-05 12:27 | P.CONAN_ITS ---
Documented by User: Jeanne Nichols 09/10/20 10:14 HPI - Anesthesia Eval Consult details Narrative: 79yo F for Subcutaneous ICD Insertion s/p EGD with [place] 07/[place] [facility] [place] r/t low bp, occult GI bleed[place] - per OR report, pt with fragile respiratory status requiring ambu during case Resides at [facility]. Signs own consent per RN. Sofia (afib), Plavix (PVD with LE stenting 07/2020) [facility] Active Problems Active Problems: All Active Problems (Updated 09/05/20 @ 09:07 by Rafaela Pennington) Hearing loss (Acute) Anemia (Acute) Occult GI bleeding (Acute) Pulmonary hypertension (Acute) Chronic atrial fibrillation (Acute) CAD (coronary artery disease) (Acute) EDWAR (obstructive sleep apnea) (Acute) Hx of cardiac cath (Acute ~01/2018) Nonischemic cardiomyopathy (Acute) Chronic systolic (congestive) heart failure (Acute) Mitral regurgitation (Acute) HTN (hypertension) (Acute) Past Medical History Medical History CAD (coronary artery disease) Chronic atrial fibrillation Chronic systolic (congestive) heart failure History of cardioversion HTN (hypertension) Mitral regurgitation Nonischemic cardiomyopathy EDWAR (obstructive sleep apnea) Pulmonary hypertension Recent surgical procedure on lower extremity Family History Family History Father No problems noted. Mother No problems noted. Family history of problems with anesthesia: No Surgical History Surgical History H/O colonoscopy History of esophagogastroduodenoscopy (EGD) Hx of cardiac cath (~01/2018) Hx of right inguinal hernia repair History of Problems with Anesthesia: No Social History Social History Household Members: Other Household Members Other:: PT from SNF Housing: [facility] Other:: in long term at present - wants to get her own apartment again Do you presently have visiting nurse or other home services: No Patient Tobacco Use Status: Former Tobacco user Tobacco use type: Cigarette Cigarette Packs Per Day: 1 Cigarettes Per Day: 20.0 Years Smoked: 20 Smoked in Last 30 Days: No Second Hand Smoke Exposure: No Use of substances other than those prescribed or required for medical reasons: No Are you DNR?: No Advance Directives: No Advance Directives Information Provided: Yes Recently lost weight without trying: Yes How much weight loss: 2-13 pounds Nutrition Risks: No Nutritional Risk Patient : No service: No Current occupational status: [employer] Allergies Allergy/AdvReac Type Severity Reaction Status Date / Time No Known Allergies Allergy Unknown UNKNOWN Unverified 11/10/19 16:01 [NO KNOWN ALLERGIES] Home Medications Medication Instructions Recorded Confirmed Last Taken Type apixaban 5 mg tablet 5 mg PO BID 02/20/20 09/05/20 09/08/20 History digoxin 125 mcg (0.125 mg) tablet 125 mcg PO Q OTHER DAY 02/20/20 09/05/20 Unknown History olanzapine 2.5 mg tablet 2.5 mg PO BID 02/20/20 09/05/20 09/11/20 History omega-3 fatty acids 1,000 mg 1,000 mg PO DAILY 02/20/20 09/05/20 Unknown History capsule sacubitril 24 mg-valsartan 26 mg 1 tab PO BID 05/28/20 09/05/20 Unknown History tablet Biotene Moisturizing Mouth 2 spray MUCOUS MEMBRANE Q8H PRN 08/08/20 09/05/20 Unknown History Muscle Rub 1 appl TOPICAL TID PRN 08/08/20 08/08/20 Unknown History PreserVision AREDS 1 cap PO TID 08/08/20 09/05/20 Unknown History acetaminophen 975 mg PO TID PRN 08/08/20 09/05/20 Unknown History clopidogrel [Plavix] 75 mg PO DAILY 08/08/20 09/05/20 09/08/20 History cyanocobalamin (vitamin B-12) 1,000 mcg PO DAILY 08/08/20 08/08/20 Unknown History docusate sodium 100 mg PO DAILY 08/08/20 09/05/20 Unknown History fluticasone propion-salmeterol 1 inh INHALATION Q12H 08/08/20 08/08/20 Unknown History [Wixela Inhub] furosemide 20 mg PO BID 08/08/20 09/05/20 Unknown History lidocaine 1 patch TOPICAL BEDTIME PRN 08/08/20 08/08/20 Unknown History multivitamin with minerals 1 tab PO DAILY 08/08/20 09/05/20 Unknown History omeprazole 20 mg PO BID 08/08/20 08/08/20 Unknown History ondansetron HCl 4 mg PO Q4H PRN 08/08/20 08/08/20 Unknown History sennosides [senna] 17.2 mg PO BEDTIME 08/08/20 09/05/20 Unknown History fluticasone propion-salmeterol 1 inh INHALATION BID 09/05/20 09/05/20 09/11/20 History [Wixela Inhub] pantoprazole [Protonix] 20 mg PO DAILY 09/05/20 09/05/20 09/11/20 History Exam Exam Date and Time: September 05, 2020 1227 Height,Weight and Vital Signs: Height 5 ft 5 in Weight 62.46 kg Pertinent Lab Results Pertinent Lab Results: Laboratory Tests 08/11/20 08/11/20 05:19 05:19 WBC 4.2 L Hgb 9.6 L Hct 32.0 L Plt Count 195 Sodium 140 Potassium 4.1 Chloride 106 Carbon Dioxide 26 BUN 17 H Creatinine 0.71 Narrative Narrative: EKG 07/2020 Vent. Rate : 074 BPM Atrial Rate : 078 BPM P-R Int : 000 ms QRS Dur : 106 ms QT Int : 424 ms P-R-T Axes : 000 -27 115 degrees QTc Int : 470 ms Atrial fibrillation Cannot rule out Anterior infarct , age undetermined ST & T wave abnormality, consider lateral ischemia Abnormal ECG When compared with ECG of 18-AUG-2019 21:46, Nonspecific T wave abnormality no longer evident in Inferior leads Echo 04/2020 Conclusions: - The left ventricular systolic function is severely decreased. The visually estimated ejection fraction is between 15-20%. - There is mildly decreased right ventricular systolic function. - Severe biatrial enlargement. - There is severe mitral valve regurgitation. - There is moderate tricuspid valve regurgitation. - Severe pulmonary hypertension is present. Assessment and Plan Assessment Anesthesia Assessment: Chart Reviewed Documented by User: Ke Anders 09/11/20:56 [facility] Past Medical History Medical History CAD (coronary artery disease) Chronic atrial fibrillation Chronic systolic (congestive) heart failure History of cardioversion HTN (hypertension) Mitral regurgitation Nonischemic cardiomyopathy EDWAR (obstructive sleep apnea) Pulmonary hypertension Recent surgical procedure on lower extremity Family History Family History Father No problems noted. Mother No problems noted. Surgical History Surgical History H/O colonoscopy History of esophagogastroduodenoscopy (EGD) Hx of cardiac cath (~01/2018) Hx of right inguinal hernia repair Social History Social History Household Members: Other Household Members Other:: PT from SNF Housing: [facility] Other:: in long term at present - wants to get her own apartment again Do you presently have visiting nurse or other home services: No Patient Tobacco Use Status: Former Tobacco user Tobacco use type: Cigarette Cigarette Packs Per Day: 1 Cigarettes Per Day: 20.0 Years Smoked: 20 Smoked in Last 30 Days: No Second Hand Smoke Exposure: No Use of substances other than those prescribed or required for medical reasons: No Are you DNR?: No Advance Directives: No Advance Directives Information Provided: Yes Recently lost weight without trying: Yes How much weight loss: 2-13 pounds Nutrition Risks: No Nutritional Risk Patient : No service: No Current occupational status: retired Meds Allergies Allergy/AdvReac Type Severity Reaction Status Date / Time No Known Allergies Allergy Unknown UNKNOWN Unverified 11/10/19 16:01 [NO KNOWN ALLERGIES] Home Medications Medication Instructions Recorded Confirmed Last Taken Type apixaban 5 mg tablet 5 mg PO BID 02/20/20 09/05/20 09/08/20 History digoxin 125 mcg (0.125 mg) tablet 125 mcg PO Q OTHER DAY 02/20/20 09/05/20 U nknown History olanzapine 2.5 mg tablet 2.5 mg PO BID 02/20/20 09/05/20 09/11/20 History omega-3 fatty acids 1,000 mg 1,000 mg PO DAILY 02/20/20 09/05/20 Unknown History capsule sacubitril 24 mg-valsartan 26 mg 1 tab PO BID 05/28/20 09/05/20 Unknown History tablet Biotene Moisturizing Mouth 2 spray MUCOUS MEMBRANE Q8H PRN 08/08/20 09/05/20 Unknown History Muscle Rub 1 appl TOPICAL TID PRN 08/08/20 08/08/20 Unknown History PreserVision AREDS 1 cap PO TID 08/08/20 09/05/20 Unknown History acetaminophen 975 mg PO TID PRN 08/08/20 09/05/20 Unknown History clopidogrel [Plavix] 75 mg PO DAILY 08/08/20 09/05/20 09/08/20 History cyanocobalamin (vitamin B-12) 1,000 mcg PO DAILY 08/08/20 08/08/20 Unknown History docusate sodium 100 mg PO DAILY 08/08/20 09/05/20 Unknown History fluticasone propion-salmeterol 1 inh INHALATION Q12H 08/08/20 08/08/20 Unknown History [Wixela Inhub] furosemide 20 mg PO BID 08/08/20 09/05/20 Unknown History lidocaine 1 patch TOPICAL BEDTIME PRN 08/08/20 08/08/20 Unknown History multivitamin with minerals 1 tab PO DAILY 08/08/20 09/05/20 Unknown History omeprazole 20 mg PO BID 08/08/20 08/08/20 Unknown History ondansetron HCl 4 mg PO Q4H PRN 08/08/20 08/08/20 Unknown History sennosides [senna] 17.2 mg PO BEDTIME 08/08/20 09/05/20 Unknown History fluticasone propion-salmeterol 1 inh INHALATION BID 09/05/20 09/05/20 09/11/20 History [Wixela Inhub] pantoprazole [Protonix] 20 mg PO DAILY 09/05/20 09/05/20 09/11/20 History Exam Airway Mallampati Class: II TM Dist: >3cm Neck ROM: Full Denture: Upper and Lower Heart: irreg irreg s1s2 Lungs: + b/s bilaterally Assessment and Plan Assessment Anesthesia Assessment: Anesthesia Plan Discussed, PAT Visit and Chart Reviewed Final Anesthetic Review NPO: Yes ASA Class: IV Final Preanesthetic Review: No Changes in Pt Med Stat, Meds/Allgs Chart Reviewed, Consent Obtained/Reviewed and Anes Risks/Benef Reviewed Patient Risk: High Procedure Risk: Intermediate Assessment/Block/Sedation in SS: Assess/Block/Sedation-SS Anesthetic Plan Anesthetic Plan: GA, MAC: and Agree w/ Assess. and Plan Disposition: Standard PACU
[2020-09-11 06:17] VITALS: BMI 22.8
[2020-09-11 06:50] LABS: COVID-19 Test Negative (Negative); IDNOW Serial# 9DD0AD1C
[2020-09-11] MEDS: Lactated Ringers 500 ML 20 ML IVCONT (07:03)
--- NOTE | 2020-09-11 07:34 | PC.NURSE ---
[employer] SCIENT[employer] REP BY BEDSIDE EVAL PATIENT. AWAITING MD ACEVEDO.
--- NOTE | 2020-09-11 07:53 | PC.NURSE ---
PATIENT IS CANCLLED DUE TO HER RIGHT LOWER LEG REDNESS.
--- NOTE | 2020-09-11 08:05 | PC.NURSE ---
CALLED [facility] FOR PATIENT PICKUP AND THEY ARE UNABLE TO SEND AN AMBULANCE FOR TRANSPORT DUE TO HER INSURANCE. CHAIR FITCH ORDERED FOR TRANSPORT AND PICKUP. MD ANDREWS IS CALLING THE FACILITY FOR NEW ORDERS OF ANTIBIOTICS.
--- NOTE | 2020-09-11 08:08 | PC.NURSE ---
SPOKE TO RASHAWN WINN AT [facility] [phone]. SHE IS AWARE THAT THE PATIENT IS CANCELLED AND MD ANDREWS IS SPEAKING TO THE NURSE REGARDING NEW ANTIBIOTICS TO COVER THE LEG INFECTION.
--- NOTE | 2020-09-11 08:29 | PC.NURSE ---
LEFT VIA CHAIRVAN.
--- NOTE | 2020-09-11 12:13 | PM.OP ---
Brief Operative Note Date of Service: 09/11/20 Surgeon: Patient arrived for subq ICD placement. Of note, patient has a new right leg cellulitis. She notes she is on macrobid for UTI for the last 5 days but cellulitis is not improving. Discussed with patient that I will cancel the procedure for today and will discussed with her facility that we will start ceftin 500 mg BID for 2 weeks and I will see her in the office in 2 weeks. If no further cellulitis at that point, will reschedule the procedure Duane March MD Was an Banking Center Manager used for this Procedure?: No Estimated blood loss (mL): 0
== END ==
PROVIDERS: PCP Nurse Practitioner Family; Visit Provider Internal Medicine Cardiovascular Disease
DX: I50.20 Unspecified systolic (congestive) heart failure (principal); Z53.8 Procedure and treatment not carried out for other reasons; L03.115 Cellulitis of right lower limb; I42.8 Other cardiomyopathies; I10 Essential (primary) hypertension; I48.20 Chronic atrial fibrillation, unspecified; Z79.01 Long term (current) use of anticoagulants; Z79.51 Long term (current) use of inhaled steroids; Z79.899 Other long term (current) drug therapy; Z20.822 Contact with and (suspected) exposure to COVID-19
CPT/HCPCS: 36415; 87635; J0690; J3010; J3370

== ENCOUNTER → 2020-09-19 10:07 | Outpatient (BNVA) | payer MEDICARE, SELFPAY | PROVIDERS: PCP Nurse Practitioner Family; Referring Provider Nurse Practitioner Family; Visit Provider Internal Medicine Cardiovascular Disease | DX: I50.22 Chronic systolic (congestive) heart failure (principal); I34.0 Nonrheumatic mitral (valve) insufficiency; I42.8 Other cardiomyopathies; I48.20 Chronic atrial fibrillation, unspecified; Z79.01 Long term (current) use of anticoagulants; Z79.02 Long term (current) use of antithrombotics/antiplatelets; Z79.899 Other long term (current) drug therapy | CPT/HCPCS: 99212 ==

== ENCOUNTER 2020-09-20 14:25 | Outpatient (REF) | payer MEDICARE, SELFPAY ==
--- NOTE | 2020-09-24 14:00 | MHC.AU.HFU ---
Hearing Instrument Follow-Up- Binaural Date of Visit: 09/20/20 Policy Officer Used: Not Applicable Right Ear: Fur Blower Operator: Phonak Model: Audeo M50-R Serial Number: [id number] Repair Warranty: 01/29/2022 Loss and Damage Warranty: USED 07/16/2020 Battery Size: Rechargeable Color: [place] Whiteprinting Machine Operator: #1 M Type of Dome: Medium Vented Type of Wax Guard: CeruShield Dispensed By: [facility] Date of Fittin11/04/2018 Left Ear: Fur Blower Operator: Phonak Model: Audeo M50-R Serial Number: [id number] Repair Warranty: 01/29/2022 Loss and Damage Warranty: USED 07/16/2020 Battery Size: Rechargeable Color: [place] Whiteprinting Machine Operator: #2 M Type of Dome: Medium Vented Type of Wax Guard: CeruShield Dispensed By: [facility] Date of Fittin11/04/2018 Follow-Up Summary: [facility] - Patient reports she has no idea how to insert and use the hearing aids. She was fit originally on 11/04/2020 and notes indicate she was having trouble with insertion at that time, but did not want to change to the recommended ITC style for easier insertion of only one piece because it was more conspicuous. F/U was scheduled for 12/03/2018; however, patient never returned to office. Patient was then seen for audiologic re-evaluation on 07/16/20 with the patient reporting she lost the aids during a move. Binaural Loss and Damage replacement hearing aids were ordered and received. Patient was called to schedule an in-person appointment; however, her son had just passed and the aids were just picked-up without the patient being seen in the office. Today, we tried to practice insertion of the aids; however, despite several re-instruction and help, patient continually placed the BTE portion of the hearing aid system in the ear canal, not the dome. Patient is now at [facility] ([facility] She will be moving to an independent apartment at the end of September 2020 and patient thinks her insurance will be changing. As patient is confused about her care and medical information, patient signed a Release of Health Information form to contact her Regulatory Coordinator Zi Ely [phone]. Able to talk with Regulatory Coordinator Zi Ely. He does not think patient will be changing insurance and will continue to have [employer]. Patient does not have any family or friend supports and at this time will not have any in-home services. I voiced my concerns about patient difficulties with manipulating the aids, Mr. Ely feels the patient needs hearing aids and we should try to obtain CCA authorization for new Zuleyma Rechargeable ITC aids. Mr. Ely will also make sure patient has cerumen removal and schedule an Earmold Impression appointment. Recommendations: A prior authorization will be submitted to patient's insurance. Cerumen removal by physician. Earmold Impression appointment will be scheduled after cerumen is removed. Diagnosis Code(s): Primary Diagnosis: H90.3 Bilateral Sensorineural Hearing Loss Services Performed: Hearing Aid Fitting Services: [facility] New Fitting Instruction, Use & Care Signature: Provider: Cass Moran, CCC-A
--- NOTE | 2020-10-01 13:00 | MHC.AU.MED ---
Medical Clearance for Hearing Instrumentation Date: 10/01/20 Patient Name: Pau Cobb Date of : 1940 Primary Care Provider: Referring Provider: ROGELIO WilcoxPFelipe We have seen your patient on 10/01/20 and have determined that they are a candidate for amplification (See accompanying report). Specifically, they would benefit from: Hearing aid use in both ears There is a statute that addresses Medical Evaluation Requirements prior to fitting a patient with a hearing aid. According to [place] statute 265 CMR:6.03(1), (a) General. Except as provided in 265 CMR 6.03(1)(b), a dye house helper shall not sell a hearing aid unless the prospective user has presented to the dye house helper a written statement signed by a licensed physician that states that the patient's hearing loss has been medically evaluated and the patient may be considered a candidate for a hearing aid. The medical evaluation must have taken place within the preceding six months. Please note: Due to the [place] Statute referenced above, we cannot accept a signature other than that of a licensed physician. CLIMATE CHANGE RISK ASSESSOR and PA signatures cannot be accepted. I am in agreement with the above recommendation. There is no medical contraindication for hearing instrumentation. Physician Signature Date Physician Name (Printed)
== END 2020-09-20 14:26 | disposition home or self-care (01) ==
LOC: HO.HAP 14:25
PROVIDERS: Visit Provider Nurse Practitioner Family
DX: Z46.1 Encounter for fitting and adjustment of hearing aid (principal); H90.3 Sensorineural hearing loss, bilateral
CPT/HCPCS: V5011

== ENCOUNTER 2020-10-18 09:29 | Outpatient (REF) | payer MEDICARE, SELFPAY ==
--- NOTE | 2020-10-18 18:01 | MHC.AU.HAS ---
Hearing Aid Evaluation Date of Visit: 10/18/20 Historical Information: Description of Hearing: Mild to moderately severe sensorineural hearing loss bilaterally. Current personal amplification information, if applicable: Jaylon Avaloso M50-R (unable to manipulate and insert) Summary: Patient is having significant difficulties using her CURLY hearing aids and was approved by her insurance [employer] for replace ITE rechargeable aids, which was discussed at her last visit with Dago Moran. Patient had too much wax build-up and earmold impressions could not be taken at that time. She has since had cerumen removed by her physician. She was seen today for and earmold impression. Earmold impressions taken without incident. Hearing aids are being ordered. Hearing Aid Prescription: Based on the individual?s shared listening needs, communication environments, dexterity, desire for connectivity, and personal preferences, the following prescription for amplification has been made: Right ear: Trampoline Team Coach: Electrikus Model: Eren 1600 ITC-R Battery Size: Rechargeable Color: [place] Left ear: Left ear prescription to be same as Right Hearing Aid above: Trampoline Team Coach: Zuleyma Model: Eren 1600 ITC-R Battery Size: Rechargeable Color: [place] Plan of Care: Earmold Impressions Taken. Hearing aids ordered. Hearing Instrument Fitting to be scheduled when materials .arrive Primary Diagnosis: H90.3 Bilateral Sensorineural Hearing Loss Signature: Provider: Cass You, CCC-A
== END 2020-10-18 09:30 | disposition home or self-care (01) ==
LOC: HO.HAP 09:29
PROVIDERS: Visit Provider Nurse Practitioner Family
DX: Z46.1 Encounter for fitting and adjustment of hearing aid (principal); H90.3 Sensorineural hearing loss, bilateral
CPT/HCPCS: V5275

== ENCOUNTER 2020-10-25 12:23 | Outpatient (REF) | payer MEDICARE, SELFPAY ==
[2020-10-25 13:49] LABS: Anion Gap 10 (12-20); Blood Urea Nitrogen 13 mg/dL (9-16); Calcium 9.2 mg/dL (8.4-10.2); Carbon Dioxide 30 mmol/L (22-29); Chloride 96 mmol/L (96-108); Estimated Glomerular Filt Rate > 60; Glucose Random 101 mg/dL (60-115); Potassium 4.3 mmol/L (3.3-5.1); Sodium 132 mmol/L (135-145)
[2020-10-25 13:57] LABS: B Type Natriuretic Peptide 325 pg/mL (<100)
[2020-10-25 14:39] LABS: Digoxin < 0.3 ng/mL (0.8-2.0)
== END 2020-10-25 12:24 | disposition home or self-care (01) ==
LOC: HO.LAB 12:23
PROVIDERS: PCP Nurse Practitioner Family; Visit Provider Internal Medicine Cardiovascular Disease
DX: I42.8 Other cardiomyopathies (principal); I50.22 Chronic systolic (congestive) heart failure; I48.20 Chronic atrial fibrillation, unspecified
CPT/HCPCS: 36415; 80048; 80162; 83880; 99212

== ENCOUNTER 2020-11-15 13:33 | Outpatient (REF) | payer MEDICARE, SELFPAY ==
--- NOTE | 2020-11-15 15:31 | MHC.AU.HFA ---
Hearing Instrument Fitting- Adult- Binaural Date of Visit: 11/15/20 Hearing Instruments Dispensed: Right Ear: Arch Pad Cementer: [employer] Model: Eren 1600 ITC-R Serial Number: [id number] Repair Warranty: 11/26/2023 Loss and Damage Warranty: 11/26/2023 Battery Size: Rechargeable Color: Faceplate: [place], Shell: Red Type of Wax Guard: HearClear Left Ear: Arch Pad Cementer: [employer] Medical Model: Eren 1600 ITC-R Serial Number: [id number] Repair Warranty: 11/26/2023 Loss and Damage Warranty: 11/26/2023 Battery Size: Rechargeable Color: Faceplate: [place], Shell: Red Type of Wax Guard: HearClear Summary of Fitting: Feedback canceller run. Verifit performed and levels adjusted to better reach targets. Experience factory maintenance manager set to 3. Patient was pleased with the sound of the instruments. Hearing aid care and maintenance were discussed and practiced. Patient was able to put the hearing aids on the front desk auxiliary well. She had initial difficulty placing the hearing aids in the correct orientation in her ears. Discussed making sure the morales faceplate was facing out, and the removal handle was towards the floor. Wrote this down for patient and placed note on her front desk auxiliary. While reminding herself of those tips, she was able to put them in independently. The hearing aids were paired to the patient's phone. Tested it with a phone call, and patient reports she could hear well. Did not install the flex at this time. Recommendations: Recommendations: Hearing aid follow-up is recommended in 2-3 weeks. Wrote this on the patient's form for her residence. She said the nurses would read it and call to arrange the follow-up. Diagnosis Code(s): Primary Diagnosis: H90.3 Bilateral Sensorineural Hearing Loss Signature: Provider: Cass Tafoya, CCC-A
== END 2020-11-15 13:34 | disposition home or self-care (01) ==
LOC: HO.HAP 13:33
PROVIDERS: Visit Provider Nurse Practitioner Family
DX: Z46.1 Encounter for fitting and adjustment of hearing aid (principal); H90.3 Sensorineural hearing loss, bilateral
CPT/HCPCS: V5011; V5020; V5160; V5260

== ENCOUNTER 2021-01-01 11:55 | Inpatient (IN) | payer MEDICARE, SELFPAY ==
--- NOTE | ~2021-01-01 | US_ITS ---
EXAMINATION: US VENOUS ULTRASOUND WITH DOPPLER LOWER EXTREMITY, RIGHT CLINICAL INFORMATION: Right lower extremity edema, swelling and redness. COMPARISON: None TECHNIQUE: Ultrasound of the deep veins is performed from the hip to the calf with compression sonography and color and pulse Doppler assessment. Spectral analysis with color-flow imaging is performed. FINDINGS: There is normal venous compression and respiratory variation and augmented flow. The visualized common femoral vein, superficial femoral vein, profunda femoral vein, popliteal vein, and the trifurcation region shows no evidence of deep venous thrombosis. There is no significant popliteal fossa cyst. Incidental note is made of soft tissue edema at the right calf. If the patient's symptoms persist, followup ultrasound in 5 days 7 days might be of value to exclude proximal propagation from a non-visualized calf vein. Incidental note is also made of presence of arterial stent within the femoral artery. US/US venous duplex LE RT IMPRESSION: No DVT demonstrated in the right lower extremity.
--- NOTE | ~2021-01-01 | US_ITS ---
EXAMINATION: US NONINVASIVE ASSESSMENT OF THE BILATERAL LOWER EXTREMITY WITH ARTERIAL DUPLEX AND ANKLE BRACHIAL INDICES (ABIS) CLINICAL INFORMATION: Right leg cellulitis. History of right femoral arterial stent. COMPARISON: None TECHNIQUE: Duplex Doppler techniques with waveform analysis and measurement of velocities in the common femoral, profunda femoris, superficial femoral, popliteal and tibial arteries were performed. In addition, ankle pulse volume recordings, ankle pressure measurements and ankle brachial indices were obtained of the bilateral lower extremity arterial system. The study was performed only at rest. FINDINGS: NONINVASIVE ASSESSMENT OF THE ARTERIES OF BILATERAL LOWER EXTREMITIES WITH ABIs: RIGHT LEG: Ankle-brachial index: 1.29 Ankle PVR: No definite evidence of any forward diastolic flow. LEFT LEG: Ankle-brachial index: 1.29 Left ankle PVR: No definite evidence of any forward diastolic flow. MOLLY Reference: 0.9 - 1.4 = normal - no significant arterial disease 0.7 - 0.89 = mild peripheral arterial disease 0.51 - 0.69 = moderate peripheral arterial disease ? 0.50 = severe peripheral arterial disease RIGHT LOWER EXTREMITY DUPLEX ULTRASOUND: The right common femoral artery shows a peak systolic velocity of 111 cm/s. Focal atherosclerotic plaque is noted within the right common femoral artery. The peak systolic velocity proximal to the stent measures 62.7 cm/s with biphasic flow. The peak systolic velocity within the proximal part of the stent measures 18.3 cm/s with biphasic flow, measures 74.5 cm/s with biphasic flow at the mid part and 72.7 cm/s with triphasic flow in the distal part of the stent. The [place] artery distal to the stent shows a peak systolic velocity of 126 cm/s with triphasic flow. The distal part of the SFA shows a peak systolic velocity of 56.2 cm/s with triphasic flow and the popliteal artery shows a peak systolic velocity of 76.8 cm/s with triphasic flow and posterior tibial artery shows a peak systolic velocity of 109 cm/s with triphasic flow. Please note that the proximal profunda artery is not visualized. Overall, the entire visualized at right lower extremity arterial tree including the stent from the common femoral to the posterior tibial artery appears patent. LOWER EXTREMITY DUPLEX ULTRASOUND: The left common femoral, proximal profunda, the proximal SFA, mid SFA, distal SFA, the popliteal artery and the posterior tibial arteries are widely patent with peak systolic velocities varying between 46-120 cm/s. Atherosclerotic plaque is noted within the left common femoral as well as the left popliteal arteries. US/US arterial duplex LE BI IMPRESSION: 1. Bilateral patent lower extremity arterial tree. Specifically, the right femoral arterial stent placed between the common femoral and the proximal SFA is patent. 2. Bilateral MOLLY of 1.29. 3. The Doppler waveform at both ankles shows no definite evidence of any forward diastolic flow.
--- NOTE | ~2021-01-01 | XR_ITS ---
EXAMINATION: XR SHOULDER, RIGHT CLINICAL INFORMATION: Right shoulder pain. Decreased range of motion. COMPARISON: None TECHNIQUE: 3 views. of the right shoulder. FINDINGS: The bones and soft tissues are normal. No fracture. Glenohumeral and acromioclavicular alignment is anatomic with normal joint space. No abnormal soft tissue calcifications. XR/XR shoulder RT min 2V IMPRESSION: Normal right shoulder.
--- NOTE | ~2021-01-01 | US_ITS ---
EXAMINATION: US NONINVASIVE ASSESSMENT OF THE BILATERAL LOWER EXTREMITY WITH ARTERIAL DUPLEX AND ANKLE BRACHIAL INDICES (ABIS) CLINICAL INFORMATION: Right leg cellulitis. History of right femoral arterial stent. COMPARISON: None TECHNIQUE: Duplex Doppler techniques with waveform analysis and measurement of velocities in the common femoral, profunda femoris, superficial femoral, popliteal and tibial arteries were performed. In addition, ankle pulse volume recordings, ankle pressure measurements and ankle brachial indices were obtained of the bilateral lower extremity arterial system. The study was performed only at rest. FINDINGS: NONINVASIVE ASSESSMENT OF THE ARTERIES OF BILATERAL LOWER EXTREMITIES WITH ABIs: RIGHT LEG: Ankle-brachial index: 1.29 Ankle PVR: No definite evidence of any forward diastolic flow. LEFT LEG: Ankle-brachial index: 1.29 Left ankle PVR: No definite evidence of any forward diastolic flow. MOLLY Reference: 0.9 - 1.4 = normal - no significant arterial disease 0.7 - 0.89 = mild peripheral arterial disease 0.51 - 0.69 = moderate peripheral arterial disease ? 0.50 = severe peripheral arterial disease RIGHT LOWER EXTREMITY DUPLEX ULTRASOUND: The right common femoral artery shows a peak systolic velocity of 111 cm/s. Focal atherosclerotic plaque is noted within the right common femoral artery. The peak systolic velocity proximal to the stent measures 62.7 cm/s with biphasic flow. The peak systolic velocity within the proximal part of the stent measures 18.3 cm/s with biphasic flow, measures 74.5 cm/s with biphasic flow at the mid part and 72.7 cm/s with triphasic flow in the distal part of the stent. The [place] artery distal to the stent shows a peak systolic velocity of 126 cm/s with triphasic flow. The distal part of the SFA shows a peak systolic velocity of 56.2 cm/s with triphasic flow and the popliteal artery shows a peak systolic velocity of 76.8 cm/s with triphasic flow and posterior tibial artery shows a peak systolic velocity of 109 cm/s with triphasic flow. Please note that the proximal profunda artery is not visualized. Overall, the entire visualized at right lower extremity arterial tree including the stent from the common femoral to the posterior tibial artery appears patent. LOWER EXTREMITY DUPLEX ULTRASOUND: The left common femoral, proximal profunda, the proximal SFA, mid SFA, distal SFA, the popliteal artery and the posterior tibial arteries are widely patent with peak systolic velocities varying between 46-120 cm/s. Atherosclerotic plaque is noted within the left common femoral as well as the left popliteal arteries. US/US MOLLY complete IMPRESSION: 1. Bilateral patent lower extremity arterial tree. Specifically, the right femoral arterial stent placed between the common femoral and the proximal SFA is patent. 2. Bilateral MOLLY of 1.29. 3. The Doppler waveform at both ankles shows no definite evidence of any forward diastolic flow.
[2021-01-01 12:17] VITALS: BP 123/77; PULSE 87; RESP 18; TEMP 36.4; O2SAT 100; BMI 23.1
--- NOTE | 2021-01-01 12:19 | ED.GENADULT ---
HPI - General Adult General Chief complaint: Skin/Abscess/Foreign Body Stated complaint: L LEG INFECTION,FAIL OUTPT FROM DR OFFICE Time Seen by Provider: 01/01/21 12:05 Source: patient and EMS Mode of arrival: EMS Limitations: no limitations History of Present Illness HPI narrative: Patient is coming via ambulance from the [facility] [place]. Chief complaint is right lower extremity cellulitis. Patient had a stent placed 08/03/2020. Patient states that she has had recurrent cellulitis in her leg, patient has been on doxycycline for 2 weeks, lower extremity is not improving. Patient denies any significant pain, no fever or chills. Patient lives in [facility] Medications Medication Instructions Recorded Confirmed apixaban 5 mg tablet 5 mg PO BID 02/20/20 10/25/20 digoxin 125 mcg (0.125 mg) tablet 125 mcg PO Q OTHER DAY 02/20/20 10/25/20 olanzapine 2.5 mg tablet 2.5 mg PO BID 02/20/20 10/25/20 omega-3 fatty acids 1,000 mg 1,000 mg PO DAILY 02/20/20 10/25/20 capsule (Fish Oil Concentrate) acetaminophen 325 mg tablet 975 mg PO TID PRN 08/08/20 10/25/20 clopidogrel 75 mg tablet (Plavix) 75 mg PO DAILY 08/08/20 10/25/20 cyanocobalamin (vitamin B-12) 1,000 mcg PO DAILY 08/08/20 10/25/20 1,000 mcg tablet docusate sodium 100 mg tablet 100 mg PO DAILY 08/08/20 10/25/20 fluticasone 100 mcg-salmeterol 50 1 inh INHALATION Q12H 08/08/20 10/25/20 mcg/dose blistr powdr for inhalation (Wixela Inhub) furosemide 20 mg tablet 20 mg PO BID 08/08/20 10/25/20 lidocaine 4 % topical patch 1 patch TOPICAL BEDTIME PRN 08/08/20 10/25/20 methyl salicylate 15 %-menthol 10 1 appl TOPICAL TID PRN 08/08/20 10/25/20 % topical cream (Muscle Rub) multivitamin with minerals 1 tab PO DAILY 08/08/20 10/25/20 omeprazole 20 mg capsule,delayed 20 mg PO BID 08/08/20 10/25/20 release ondansetron HCl 4 mg tablet 4 mg PO Q4H PRN 08/08/20 10/25/20 saliva stimulant comb. no.3 2 spray MUCOUS MEMBRANE Q8H PRN 08/08/20 10/25/20 (Biotene Moisturizing Mouth) sennosides 8.6 mg tablet (senna) 17.2 mg PO BEDTIME 08/08/20 10/25/20 vitamins A,C,Q-ujqa-iyytsw 14,320 1 cap PO TID 08/08/20 10/25/20 unit-226 mg-200 unit capsule (PreserVision AREDS) fluticasone 100 mcg-salmeterol 50 1 inh INHALATION BID 09/05/20 10/25/20 mcg/dose blistr powdr for inhalation (Wixela Inhub) pantoprazole 20 mg tablet,delayed 20 mg PO DAILY 09/05/20 10/25/20 release (Protonix) sacubitril 24 mg-valsartan 26 mg 1 tab PO BID 09/19/20 10/25/20 tablet lorazepam 0.5 mg tablet 0.5 mg PO BID PRN 10/25/20 10/25/20 Previous Rx's Medication Instructions Recorded carvedilol 6.25 mg tablet 12.5 mg PO BID #0 tab 08/11/20 ferrous sulfate 325 mg (65 mg 325 mg PO DAILY #30 tab 08/11/20 iron) tablet (Iron (ferrous sulfate)) sucralfate 1 gram tablet 1 g PO BIDAC 30 Days #60 tab 08/11/20 Allergies Allergy/AdvReac Type Severity Reaction Status Date / Time No Known Allergies Allergy Unknown UNKNOWN Unverified 11/10/19 16:01 [NO KNOWN ALLERGIES] Review of Systems Review of Systems: Constitutional : No Weight loss, No Fever, No Chills, No Night Sweats, No Fatigue, No Malaise ENT/Mouth : No Hearing loss, No Ear Pain, No Nasal Congestion, No Sinus Pain, No Hoarseness, No sore throat, No Rhinorrhea, No Swallowing Difficulty Eyes: No Eye Pain, No Swelling, No Redness, No Foreign Body, No Discharge, No Vision Changes Cardiovascular : No Chest Pain, No SOB, No Dyspnea on Exertion, No Orthopnea, No Edema, No Palpitations Respiratory : No Cough, No Sputum, No Wheezing, No Smoke Exposure, No Dyspnea Gastrointestinal : No Nausea, No Vomiting, No Diarrhea, No Constipation, No abdominal Pain, No Hematochezia, No Melena Genitourinary : no irregular bleeding, No Dysuria, No Urinary Frequency, No Hematuria, No Urinary Incontinence, No Urgency, No Flank Pain, No Urinary Flow Changes, No Hesitancy Musculoskeletal : No joint pain, No Myalgias, No Joint Swelling Skin : Right lower extremity cellulitis/erythema Neuro : No Weakness, No Numbness, No Paresthesias, No Loss of Consciousness, No Dizziness, No Headache Psych : No Anxiety/Panic, No Depression, No SI/HI/AH/VH, No Social Issues, Heme/Lymph: No Bruising, No Bleeding,No Lymphadenopathy Endocrine : No Polyuria, No Polydipsia, No Temperature Intolerance [facility] Past Medical History Medical History CAD (coronary artery disease) Chronic atrial fibrillation Chronic systolic (congestive) heart failure History of cardioversion HTN (hypertension) Mitral regurgitation Nonischemic cardiomyopathy EDWAR (obstructive sleep apnea) Pulmonary hypertension Recent surgical procedure on lower extremity Surgical History H/O colonoscopy History of esophagogastroduodenoscopy (EGD) Hx of cardiac cath (~01/2018) Hx of right inguinal hernia repair Family History Family History Father No problems noted. Mother No problems noted. Social History Social History Household Members: Other Household Members Other:: PT from SNF Housing: Detention Housing Other:: in [facility] at present - wants to get her own apartment again Do you presently have visiting nurse or other home services: No Alcohol intake: never Patient Tobacco Use Status: Former Tobacco user Tobacco use type: Cigarette Cigarette Packs Per Day: 1 Cigarettes Per Day: 20.0 Years Smoked: 20 Second Hand Smoke Exposure: No Use of substances other than those prescribed or required for medical reasons: No Advance Directives: No Advance Directives Information Provided: No service: No Current occupational status: retired Physical Exam Vital Signs: Vital Signs: Last Vital Signs Temp 97.5 F 01/01/21 14:43 Pulse 77 01/01/21 14:43 Resp 15 01/01/21 14:43 BP 135/73 01/01/21 14:43 Pulse Ox 99 01/01/21 14:43 Body Mass Index 23.1 Const: Other: Appearance: Alert. Oriented X3. No acute distress. Eyes: Pupils equal, round and reactive to light. ENT: Pharynx normal. Neck: Normal inspection. Neck supple. No lymph nodes noted. No crepitus CVS: Normal heart rate and rhythm. Pulses normal. Normal S1 and S2 Respiratory: No respiratory distress. Breath sounds normal. No Wheezing. No rales Abdomen: Soft and nontender. No rigidity. No distention. good BS x4 Skin: Skin warm and dry. Mild erythema in the right lower extremity Extremities: No lower extremity edema. Erythema in the right lower extremity, painful to touch, warmer than the rest of the leg Neuro: Oriented X 3. No motor deficit. No sensory deficit. Moving all extermities. No slurred speech. Course Course Course Narrative: Ultrasound negative for DVT. It was noted that patient's hemoglobin dropped. Patient had a positive guaiac. Patient had a GI bleed a few months ago, patient had an upper endoscopy, diagnosed with gastritis. Patient is stable. Patient will likely benefit from a course of IV antibiotics and also would likely need a GI consult. GI bleed likely secondary to Xarelto I discussed the patient with Dr. Sanchez, patient being admitted Medical Decision Making Lab Data Result diagrams: 01/01/21 12:47 01/01/21 12:47 Labs: Lab Results 01/01/21 01/01/21 01/01/21 Range/Units 12:47 12:47 12:47 WBC 3.7 L (4.8-10.8) X10*3/uL RBC 2.74 L (4.20-5.50) X10*6/uL Hgb 8.3 L (12.0-16.0) g/dl Hct 25.9 L (37.0-47.0) % MCV 94.5 (80.0-98.0) fL MCH 30.3 (27.0-33.0) pg MCHC 32.0 (31.0-35.0) g/dl RDW 12.9 (11.0-16.0) % Plt Count 170 (160-400) X10*3/uL MPV 9.7 (9.4-12.3) fL Immature Gran % (Auto) 0.3 (0.0-0.4) % Neut % (Auto) 65.1 (45-73) % Lymph % (Auto) 19.1 L (20-40) % [place] % (Auto) 11.7 H (2-11) % Eos % (Auto) 3.5 (0-4) % Baso % (Auto) 0.3 (0-2) % Lymph # (Auto) 0.7 L (1.2-4.9) X10*3/uL [place] # (Auto) 0.4 (0.1-1.2) X10*3/uL Eos # (Auto) 0.1 (0.0-0.4) X10*3/uL Baso # (Auto) 0.0 (0.0-0.2) X10*3/uL Abs Immat Gran (auto) 0.01 (0.00-0.03) X10*3/uL Absolute Neuts (auto) 2.4 (2.0-8.3) x10*3/uL Absolute Nucleated RBC 0.000 (0.0-0.012) X10*3/uL Nucleated RBC % (auto) 0.0 (0.0-0.2) /100WBC Sodium 137 (135-145) mmol/L Potassium 4.4 (3.3-5.1) mmol/L Chloride 101 (96-108) mmol/L Carbon Dioxide 28 (22-29) mmol/L Anion Gap 12 (12-20) BUN 11 (9-16) mg/dL Creatinine 0.76 (0.5-1.4) mg/dL Estim Creat Clear Calc 56.2 Estimated GFR > 60 Random Glucose 92 (60-115) mg/dL Lactic Acid 1.5 (0.5-2.0) mmol/L Calcium 8.5 D (8.4-10.2) mg/dL Total Bilirubin 0.5 (0.0-1.0) mg/dL Direct Bilirubin 0.3 (0.0-0.5) mg/dL AST 11 (5-31) U/L ALT 9 (0-31) U/L Alkaline Phosphatase 105 D (39-117) U/L Total Protein 6.1 L (6.5-8.0) g/dL Albumin 3.8 (3.5-5.0) g/dL Stool Occult Blood (NEGATIVE) Digoxin (0.8-2.0) ng/mL 01/01/21 01/01/21 Range/Units 12:47 16:46 WBC (4.8-10.8) X10*3/uL RBC (4.20-5.50) X10*6/uL Hgb (12.0-16.0) g/dl Hct (37.0-47.0) % MCV (80.0-98.0) fL MCH (27.0-33.0) pg MCHC (31.0-35.0) g/dl RDW (11.0-16.0) % Plt Count (160-400) X10*3/uL MPV (9.4-12.3) fL Immature Gran % (Auto) (0.0-0.4) % Neut % (Auto) (45-73) % Lymph % (Auto) (20-40) % [place] % (Auto) (2-11) % Eos % (Auto) (0-4) % Baso % (Auto) (0-2) % Lymph # (Auto) (1.2-4.9) X10*3/uL [place] # (Auto) (0.1-1.2) X10*3/uL Eos # (Auto) (0.0-0.4) X10*3/uL Baso # (Auto) (0.0-0.2) X10*3/uL Abs Immat Gran (auto) (0.00-0.03) X10*3/uL Absolute Neuts (auto) (2.0-8.3) x10*3/uL Absolute Nucleated RBC (0.0-0.012) X10*3/uL Nucleated RBC % (auto) (0.0-0.2) /100WBC Sodium (135-145) mmol/L Potassium (3.3-5.1) mmol/L Chloride (96-108) mmol/L Carbon Dioxide (22-29) mmol/L Anion Gap (12-20) BUN (9-16) mg/dL Creatinine (0.5-1.4) mg/dL Estim Creat Clear Calc Estimated GFR Random Glucose (60-115) mg/dL Lactic Acid (0.5-2.0) mmol/L Calcium (8.4-10.2) mg/dL Total Bilirubin (0.0-1.0) mg/dL Direct Bilirubin (0.0-0.5) mg/dL AST (5-31) U/L ALT (0-31) U/L Alkaline Phosphatase (39-117) U/L Total Protein (6.5-8.0) g/dL Albumin (3.5-5.0) g/dL Stool Occult Blood POSITIVE (NEGATIVE) Digoxin < 0.3 L (0.8-2.0) ng/mL Discharge Plan Discharge Clinical Impression: Cellulitis, Occult GI bleeding Patient Disposition: Admitted As Inpatient Prescriptions: No Action acetaminophen 325 mg Tablet 975 mg PO TID PRN (Reason: Pain, Mild) RF: 0 lidocaine 4 % Adhesive Patch,Medicated 1 patch TOPICAL BEDTIME PRN (Reason: Pain, Mild) RF: 0 ondansetron HCl 4 mg Tablet 4 mg PO Q4H PRN (Reason: Nausea And Vomiting) RF: 0 cyanocobalamin (vitamin B-12) 1,000 mcg Tablet 1,000 mcg PO DAILY RF: 0 omeprazole 20 mg Capsule,Delayed Release(Dr/Ec) 20 mg PO BID RF: 0 fluticasone propion-salmeterol [Wixela Inhub] 100-50 mcg/dose Blister With Device 1 inh INHALATION Q12H RF: 0 docusate sodium 100 mg Tablet 100 mg PO DAILY RF: 0 PreserVision AREDS [id number] Capsule 1 cap PO TID RF: 0 Biotene Moisturizing Mouth [place],Non-Aerosol 2 spray MUCOUS MEMBRANE Q8H PRN (Reason: Dry Mouth) RF: 0 furosemide 20 mg Tablet 20 mg PO BID RF: 0 multivitamin with minerals Tablet 1 tab PO DAILY RF: 0 sennosides [senna] 8.6 mg Tablet 17.2 mg PO BEDTIME RF: 0 clopidogrel [Plavix] 75 mg Tablet 75 mg PO DAILY RF: 0 Muscle Rub 15-10 % Cream 1 appl TOPICAL TID PRN (Reason: Pain) RF: 0 sucralfate 1 gram Tablet 1 g PO BIDAC 30 Days Qty: 60 RF: 0 ferrous sulfate [Iron (ferrous sulfate)] 325 mg (65 mg iron) tablet 325 mg PO DAILY Qty: 30 RF: 0 carvedilol 6.25 mg tablet 12.5 mg PO BID Qty: 0 RF: 0 fluticasone propion-salmeterol [Wixela Inhub] 100-50 mcg/dose Blister With Device 1 inh INHALATION BID RF: 0 pantoprazole [Protonix] 20 mg Tablet,Delayed Release (Dr/Ec) 20 mg PO DAILY RF: 0 sacubitril-valsartan 24-26 mg tablet 1 tab PO BID RF: 0 lorazepam 0.5 mg tablet 0.5 mg PO BID PRNRF: 0 olanzapine 2.5 mg tablet 2.5 mg PO BID RF: 0 omega-3 fatty acids [Fish Oil Concentrate] 1,000 mg capsule 1,000 mg PO DAILY RF: 0 digoxin 125 mcg (0.125 mg) tablet 125 mcg PO Q OTHER DAY RF: 0 apixaban 5 mg tablet 5 mg PO BID RF: 0
[2021-01-01 12:52] LABS: MANUAL DIFF FLAG NO
[2021-01-01 12:56] LABS: Basophils Percent Auto 0.3 % (0-2); Eosinophils Absolute Auto 0.1 X10*3/uL (0.0-0.4); Eosinophils Percent Auto 3.5 % (0-4); Hematocrit 25.9 % (37.0-47.0); Hemoglobin 8.3 g/dl (12.0-16.0); Imm Gran Abs Auto 0.01 X10*3/uL (0.00-0.03); Imm Gran Pct Auto 0.3 % (0.0-0.4); Lymphocytes Absolute Auto 0.7 X10*3/uL (1.2-4.9); Lymphocytes Percent Auto 19.1 % (20-40); Mean Corpuscular Hemoglobin 30.3 pg (27.0-33.0); Mean Corpuscular Volume 94.5 fL (80.0-98.0); Mean Platelet Volume 9.7 fL (9.4-12.3); Monocytes Absolute Auto 0.4 X10*3/uL (0.1-1.2); Monocytes Percent Auto 11.7 % (2-11); Neutrophils Absolute Auto 2.4 x10*3/uL (2.0-8.3); Neutrophils Percent Auto 65.1 % (45-73); Platelet Count 170 X10*3/uL (160-400); Red Blood Count 2.74 X10*6/uL (4.20-5.50); Red Cell Distribution Width 12.9 % (11.0-16.0); White Blood Count 3.7 X10*3/uL (4.8-10.8)
[2021-01-01 13:14] LABS: Lactic Acid 1.5 mmol/L (0.5-2.0)
[2021-01-01 13:46] LABS: Alanine Aminotransferase 9 U/L (0-31); Albumin Level 3.8 g/dL (3.5-5.0); Alkaline Phosphatase 105 U/L (39-117); Anion Gap 12 (12-20); Aspartate Amino Transferase 11 U/L (5-31); Bilirubin Direct 0.3 mg/dL (0.0-0.5); Bilirubin Total 0.5 mg/dL (0.0-1.0); Blood Urea Nitrogen 11 mg/dL (9-16); Calcium 8.5 mg/dL (8.4-10.2); Carbon Dioxide 28 mmol/L (22-29); Chloride 101 mmol/L (96-108); Creatinine Clr Calc Pharmacy 56.2; Estimated Glomerular Filt Rate > 60; Glucose Random 92 mg/dL (60-115); Potassium 4.4 mmol/L (3.3-5.1); Sodium 137 mmol/L (135-145); Total Protein 6.1 g/dL (6.5-8.0)
[2021-01-01 14:10] LABS: Digoxin < 0.3 ng/mL (0.8-2.0)
[2021-01-01 14:22] VITALS: BP 132/74; PULSE 84; RESP 18; TEMP 36.3; O2SAT 96
[2021-01-01 14:43] VITALS: BP 135/73; PULSE 77; RESP 15; TEMP 36.4; O2SAT 99
[2021-01-01 16:55] LABS: OBS Int Ctl Valid YES; OBS1 POSITIVE (NEGATIVE)
[2021-01-01] MEDS: Famotidine/PF 20 MG/2 ML VIAL IVPUSH (18:18)
[2021-01-01] MEDS: Piperacillin Sodium/Tazobactam 3.375 GM in 0.9 % Sodium Chloride 50 ML IV (18:18)
--- NOTE | 2021-01-01 19:35 | P.HPHOSP_ITS ---
History of Present Illness Date of Service: 01/01/21 Chief Complaint: Rt leg cellulitis 80-year-old female with a past medical history of hypertension, coronary artery disease, cardiomyopathy, pulmonary hypertension, peripheral vascular disease, AFib on Eliquis recent stent in the right lower extremity; presented to the hospital with a chief complaint right leg pain redness and swelling. Patient has been having intermittent episodes of cellulitis of the right lower extremity and has seen the vascular surgery as outpatient 2 weeks ago and was of doxycycline as outpatient; as symptoms were not improving patient came to the ER for evaluation. Patient denies any chest pain palpitations lightheadedness dizziness or shortness of breath. Denies any dyspnea on exertion. Patient reports that she has been on Eliquis for atrial fibrillation. Has been complaint with the medications. Denies any fever chills cough. Denies any GI or symptoms. Review of all other systems is negative except mentioned above ER course: Per ER team patient noted to have right leg cellulitis; given Zosyn. On labs noted to have slight drop in hemoglobin; stool guaiac was positive. Admitted to the hospital for further management. [facility] Medical History CAD (coronary artery disease) Chronic atrial fibrillation Chronic systolic (congestive) heart failure History of cardioversion HTN (hypertension) Mitral regurgitation Nonischemic cardiomyopathy EDWAR (obstructive sleep apnea) Pulmonary hypertension Recent surgical procedure on lower extremity Family History Father No problems noted. Mother No problems noted. Pertinent family history: as above Surgical History H/O colonoscopy History of esophagogastroduodenoscopy (EGD) Hx of cardiac cath (~01/2018) Hx of right inguinal hernia repair Social History Household Members: Other Household Members Other:: PT from SNF Housing: Snf Housing Other:: in fpc at present - wants to get her own apartment aga in Do you presently have visiting nurse or other home services: No Alcohol intake: never Patient Tobacco Use Status: Former Tobacco user Tobacco use type: Cigarette Cigarette Packs Per Day: 1 Cigarettes Per Day: 20.0 Years Smoked: 20 Second Hand Smoke Exposure: No Use of substances other than those prescribed or required for medical reasons: No Advance Directives: No Advance Directives Information Provided: No service: No Current occupational status: retired Meds Allergies Allergy/AdvReac Type Severity Reaction Status Date / Time No Known Allergies Allergy Unknown UNKNOWN Unverified 11/10/19 16:01 [NO KNOWN ALLERGIES] Active Medications: Current Medications Acetaminophen (Acetaminophen 325 Mg Tablet) 650 mg PO Q6H PRN PRN Reason: Pain, Mild (Pain Scale 1-3) Dextrose/Sodium Chloride (D51/2ns) 1,000 mls @ 50 mls/hr IVCONT .Q20H SAMIR Piperacillin Sod/Tazobactam (Sod 3.375 gm/ Sodium Chloride) 50 mls @ 100 mls/hr IV Q6H SAMIR Melatonin (Melatonin 3 Mg Tablet) 6 mg PO BEDTIME PRN PRN Reason: Insomnia Pantoprazole Sodium (Pantoprazole Sodium 40 Mg/10 Ml Vial) 40 mg IVPUSH DAILY@0630 [facility] Pharmacy Consult (Consult Rx Perform Med Rec) 1 each MISCELLANE ONCE PRN PRN Reason: Consult order Senna (Sennosides 8.6 Mg Tablet) 17.2 mg PO BEDTIME PRN PRN Reason: Constipation Sodium Chloride (0.9 % Sodium Chloride Flush 3 Ml Syringe) 3 ml IVFLUSH QSHIFT [facility] Home Medications Medication Instructions Recorded Confirmed Last Taken Type apixaban 5 mg tablet 5 mg PO BID 02/20/20 01/01/21 01/01/21 History digoxin 125 mcg (0.125 mg) tablet 125 mcg PO Q OTHER DAY 02/20/20 01/01/21 Unknown History olanzapine 2.5 mg tablet 2.5 mg PO BID 02/20/20 01/01/21 01/01/21 History omega-3 fatty acids 1,000 mg 1,000 mg PO DAILY 02/20/20 01/01/21 01/01/21 Histor y capsule (Fish Oil Concentrate) acetaminophen 325 mg tablet 975 mg PO TID PRN 08/08/20 01/01/21 01/01/21 History cyanocobalamin (vitamin B-12) 1,000 mcg PO DAILY 08/08/20 01/01/21 01/01/21 History 1,000 mcg tablet fluticasone 100 mcg-salmeterol 50 1 inh INHALATION Q12H 08/08/20 01/01/21 01/01/21 History mcg/dose blistr powdr for inhalation (Wixela Inhub) furosemide 20 mg tablet 20 mg PO BID 08/08/20 01/01/21 01/01/21 History lidocaine 4 % topical patch 1 patch TOPICAL BEDTIME 08/08/20 01/01/21 12/31/20 History methyl salicylate 15 %-menthol 10 1 appl TOPICAL TID PRN 08/08/20 01/01/21 Unknown History % topical cream (Muscle Rub) multivitamin with minerals 1 tab PO DAILY 08/08/20 01/01/21 01/01/21 History saliva stimulant comb. no.3 2 spray MUCOUS MEMBRANE Q8H PRN 08/08/20 01/01/21 Unknown History (Biotene Moisturizing Mouth) pantoprazole 20 mg tablet,delayed 20 mg PO BID 09/05/20 01/01/21 01/01/21 History release (Protonix) sacubitril 24 mg-valsartan 26 mg 1 tab PO BID 09/19/20 01/01/21 Unknown History tablet lorazepam 0.5 mg tablet 0.25 mg PO Q8H PRN 10/25/20 01/01/21 01/01/21 History doxycycline hyclate 100 mg tablet 1 tab PO BID 01/01/21 01/01/21 01/01/21 History silver sulfadiazine 1 % topical 1 appl TOPICAL BID 01/01/21 01/01/21 Unknown History cream sucralfate 1 gram tablet 1 g PO TIDAC 01/01/21 01/01/21 01/01/21 History Physical Exam Vital Signs and Narrative: Vital Signs: Last Vital Signs Temp 97.5 F 01/01/21 14:43 Pulse 77 01/01/21 14:43 Resp 15 01/01/21 14:43 BP 135/73 01/01/21 14:43 Pulse Ox 99 01/01/21 14:43 Body Mass Index 23.1 Gen: Appears be in no acute distress HEENT: NCAT, Moist mucosa. Pulmonary: Vesicular breath sounds, fair air entry CVS: Normal S1-S2 Abdomen: BS+, Soft, Nontender Extremities: Warm well perfused Neuro: Alert and awake. Results Labs CBC and Chem 7: 01/01/21 12:47 01/01/21 12:47 Labs: Laboratory Results - last 24 hr 01/01/21 01/01/21 01/01/21 12:47 12:47 12:47 MCV 94.5 MCH 30.3 MCHC 32.0 RDW 12.9 Plt Count 170 MPV 9.7 Immature Gran % (Auto) 0.3 Neut % (Auto) 65.1 Lymph % (Auto) 19.1 L [place] % (Auto) 11.7 H Eos % (Auto) 3.5 Baso % (Auto) 0.3 Lymph # (Auto) 0.7 L [place] # (Auto) 0.4 Eos # (Auto) 0.1 Baso # (Auto) 0.0 Abs Immat Gran (auto) 0.01 Absolute Neuts (auto) 2.4 Absolute Nucleated RBC 0.000 Nucleated RBC % (auto) 0.0 Anion Gap 12 Estim Creat Clear Calc 56.2 Estimated GFR > 60 Random Glucose 92 Lactic Acid 1.5 Calcium 8.5 D Total Bilirubin 0.5 Direct Bilirubin 0.3 AST 11 ALT 9 Alkaline Phosphatase 105 D Total Protein 6.1 L Albumin 3.8 Stool Occult Blood Digoxin 01/01/21 01/01/21 12:47 16:46 MCV MCH MCHC RDW Plt Count MPV Immature Gran % (Auto) Neut % (Auto) Lymph % (Auto) [place] % (Auto) Eos % (Auto) Baso % (Auto) Lymph # (Auto) [place] # (Auto) Eos # (Auto) Baso # (Auto) Abs Immat Gran (auto) Absolute Neuts (auto) Absolute Nucleated RBC Nucleated RBC % (auto) Anion Gap Estim Creat Clear Calc Estimated GFR Random Glucose Lactic Acid Calcium Total Bilirubin Direct Bilirubin AST ALT Alkaline Phosphatase Total Protein Albumin Stool Occult Blood POSITIVE Digoxin < 0.3 L Imaging Radiologist's Impressions: Impressions Venous Duplex 01/01/21 14:10 IMPRESSION: No DVT demonstrated in the right lower extremity. Assessment and Plan (1) Cellulitis: Status: Acute (2) Occult GI bleeding: Status: Acute (3) HTN (hypertension): Status: Acute 80-year-old female with a past medical history of hypertension, coronary artery disease, cardiomyopathy, pulmonary hypertension, peripheral vascular disease, AFib on Eliquis recent stent in the right lower extremity; presented to the hospital with a chief complaint right leg pain redness and swelling. Noted to have cellulitis. Admitted for further management. Right leg cellulitis: Patient failed outpatient antibiotic therapy. Patient has recurrent cellulitis. Will consult vascular surgeon Continue Zosyn Anemia/guaiac-positive stool: Vitals currently stable. Home Eliquis. GI consult for further recommendations. Iv PPI. NPO Gentle IV fluids History of CHF: Stable. Continue to monitor. History of AFib: Eliquis on hold until cleared by the Gastroenterology. Continue home digoxin. Patient is also on beta-tami. History of hypertension: CContinue home Coreg, sacubitril DVT prophylaxis: SCD boots Code status: Full code Quality Stroke Does the patient have a stroke diagnosis?: No VTE Prior VTE?: No VTE Risk Level:: Medical - moderate - high VTE Device Contraindication: N/A - Device Ordered VTE Drug Contraindication: Treatment Not Indicated
--- NOTE | 2021-01-01 21:26 | MHC.CM.PN ---
CM met with admitted patient with bed assignment pending.A&O x3. IMM reviewed and signed per protocol 01/01/21@[facility]. HCP on file. HCP/sister Rafaela Pineda ([phone]). Live resides at [facility], [place]. Uses a cane. Is fully vaccinated with Moderna. D/C plan is to return to [facility], [place]. Return referral placed. CM to follow for d/c needs.
[2021-01-01] MEDS: OLANZapine 2.5 MG TABLET PO (21:38)
[2021-01-01] MEDS: carvediloL 12.5 MG TABLET PO (21:39)
[2021-01-01] MEDS: Acetaminophen 325 MG TABLET 650 MG PO (21:41)
[2021-01-01 21:42] VITALS: BP 120/60; PULSE 80; RESP 20; O2SAT 97
[2021-01-01 22:04] LABS: COVID-19 Test Negative (Negative)
[2021-01-01] MEDS: Dextrose 5 % and 0.45 % NaCl 1,000 ML 50 ML IVCONT (23:20)
[2021-01-01] MEDS: Silver Sulfadiazine 1 % Cream 20 GM TUBE 1 APPL TOPICAL (23:20)
[2021-01-02] VITALS (9 sets, daily range): BP systolic 138–156; BP diastolic 75–93; PULSE 77–114; RESP 16–20; TEMP 36.8–37.4; O2SAT 94–98
[2021-01-02] MEDS: LORazepam 0.5 MG TABLET 0.25 MG PO (01:27)
[2021-01-02] MEDS: Piperacillin Sodium/Tazobactam 3.375 GM in 0.9 % Sodium Chloride 50 ML IV ×4 (01:29→20:45)
--- NOTE | 2021-01-02 04:59 | PC.NURSE ---
Pt transported to floor via hospital bed in stable condition w/ all belongings by radha RN and TIFFANY Koroma
--- NOTE | 2021-01-02 05:35 | PC.NURSE ---
ADMIT 444-1 VIA HOSPITAL BED FROM ER DEPT..AWAKE..ALERT..ORIENTED X3 BUT VAGUE RESPONSES...RESPIRATIONS EASY ON ROOM AIR..CHRONIC ATRIAL FIB..RIGHT LOWER LEF AND FOOT REDDENED AND SCALY SKIN...PALPABLE RIGHT PEDAL PULSES...IV FLUIDS INFUSING PER MAR...OOB WITH CANE AND 1 ASSIST TO BR TO VOID YELLOW ..BACK TO BED..RESTFUL..WATCHING TV
[2021-01-02] MEDS: Pantoprazole Sodium 40 MG/10 ML VIAL IVPUSH (06:23)
[2021-01-02 06:40] LABS: MANUAL DIFF FLAG NO
[2021-01-02 06:51] LABS: Basophils Percent Auto 0.4 % (0-2); Eosinophils Absolute Auto 0.1 X10*3/uL (0.0-0.4); Eosinophils Percent Auto 2.5 % (0-4); Hemoglobin 9.4 g/dl (12.0-16.0); Imm Gran Abs Auto 0.02 X10*3/uL (0.00-0.03); Imm Gran Pct Auto 0.4 % (0.0-0.4); Lymphocytes Absolute Auto 0.7 X10*3/uL (1.2-4.9); Lymphocytes Percent Auto 12.1 % (20-40); Mean Corpuscular HGB Conc 31.3 g/dl (31.0-35.0); Mean Corpuscular Hemoglobin 29.4 pg (27.0-33.0); Mean Corpuscular Volume 93.8 fL (80.0-98.0); Mean Platelet Volume 10.3 fL (9.4-12.3); Monocytes Absolute Auto 0.5 X10*3/uL (0.1-1.2); Monocytes Percent Auto 8.5 % (2-11); Neutrophils Absolute Auto 4.2 x10*3/uL (2.0-8.3); Neutrophils Percent Auto 76.1 % (45-73); Platelet Count 181 X10*3/uL (160-400); Red Cell Distribution Width 12.7 % (11.0-16.0); White Blood Count 5.6 X10*3/uL (4.8-10.8)
[2021-01-02 07:20] LABS: Anion Gap 12 (12-20); Blood Urea Nitrogen 9 mg/dL (9-16); Calcium 8.8 mg/dL (8.4-10.2); Carbon Dioxide 27 mmol/L (22-29); Chloride 103 mmol/L (96-108); Creatinine Clr Calc Pharmacy 59.2; Estimated Glomerular Filt Rate > 60; Glucose Random 94 mg/dL (60-115); Potassium 4.2 mmol/L (3.3-5.1); Sodium 138 mmol/L (135-145)
[2021-01-02] MEDS: carvediloL 12.5 MG TABLET PO ×2 (08:09→20:44)
[2021-01-02] MEDS: Sacubitril/Valsartan 24/26 1 TAB TABLET PO (08:10)
[2021-01-02] MEDS: Acetaminophen 325 MG TABLET 650 MG PO (08:10)
[2021-01-02] MEDS: Cyanocobalamin (Vitamin B-12) 1,000 MCG TABLET 1000 MCG PO (08:11)
[2021-01-02] MEDS: Digoxin 0.125 MG TABLET PO (08:11)
[2021-01-02] MEDS: Multivitamin TABLET 1 TAB PO (08:11)
[2021-01-02] MEDS: Furosemide 20 MG TABLET PO ×2 (08:11→16:36)
[2021-01-02] MEDS: 0.9 % Sodium Chloride Flush 3 ML SYRINGE IVFLUSH ×2 (08:11→16:53)
[2021-01-02] MEDS: OLANZapine 2.5 MG TABLET PO ×2 (08:11→20:44)
[2021-01-02] MEDS: Silver Sulfadiazine 1 % Cream 20 GM TUBE 1 APPL TOPICAL ×2 (08:12→21:35)
[2021-01-02 09:20] LABS: C Reactive Protein 1.58 mg/dL (< or = 0.50)
--- NOTE | 2021-01-02 09:32 | PHA.PROG ---
Admission Date/Time: January 01, 2021 19:30 Indication: skin and skin structure inf. Weight in k.864 kg Adjusted body weight in K.2 kg [place] body weight in K.3 kg Obesity Dosing Indication % IBW: Serum Creatinine - Last 168 Hours 01/01/21 01/02/21 12:47 06:14 Creatinine 0.76 0.72 Estimated CrCl and GFR - Last 168 Hours 01/01/21 01/02/21 12:47 06:14 Estim Creat Clear Calc 56.2 59.2 Estimated GFR > 60 > 60 Vancomycin Loading Dose: Current Vancomycin Dosing Regimen: 1250 mg q24h Vancomycin Monitoring using AUC goal of 400 - 600 range with trough as surrogate marker: predicted AUC 429, predicted trough 11.8 Date and Time for next Vancomycin Level to be drawn: random level before 3rd dose 01/03/21 @0900 Pharmacist Comments on Vancomycin Plan: Scr ordered daily. Vancomycin dosing will take advantage of [employer]app[employer] as a clinical decision support tool that uses Bayesian modeling to calculate individual patient's pharmacokinetic parameters and forecast the patient's drug concentration time course with the target goal AUC 24 range of 400 - 600 mg/L/hr.
[2021-01-02] MEDS: vancomycin HCL 1,250 MG in 0.9 % Sodium Chloride 250 ML 166.67 MG IV (11:27)
--- NOTE | 2021-01-02 11:52 | MHC.CM.PN ---
PER ROUNDS ANTICIPATED DC DATE FOR PT IS IN 1 TO 2 DAYS [facility]
--- NOTE | 2021-01-02 15:30 | HO.PM.IMPN ---
Subjective Subjective Date of Service: 01/02/21 Interval History: no abd pain no overt GI bleeding c/o neck pain no fever Review of Systems Review of Systems: Yes all other systems are reviewed and are negative Physical Exam Vital Signs: Vital Signs: Last Vital Signs Temp 99.0 F 01/02/21 11:35 Pulse 100 01/02/21 11:35 Resp 20 01/02/21 11:35 BP 142/77 H 01/02/21 11:35 Pulse Ox 95 01/02/21 11:35 Body Mass Index 23.1 Gen: in no acute distress HEENT: sclera anicteric, moist mucus membranes Neck: supple Lungs: clear to auscultation bilaterally Heart: irregularly irregular, no murmurs Abd: soft, non-tender, non-distended Ext: no edema Skin: RLE erythema without fluctuance Neuro: alert and oriented x3, no focal findings Psych: appropriate affect Objective Data Active Medications Acetaminophen (Acetaminophen 325 Mg Tablet) 650 mg PO Q6H PRN PRN Reason: Pain, Mild (Pain Scale 1-3) Last Admin: 01/02/21 08:10 Dose: 650 mg Documented by: EDYTA Carvedilol (Carvedilol 12.5 Mg Tablet) 12.5 mg PO BID [facility]; Protocol Last Admin: 01/02/21 08:09 Dose: 12.5 mg Documented by: EDYTA Cyanocobalamin (Cyanocobalamin (Vitamin B-12) 1,000 Mcg Tablet) 1,000 mcg PO DAILY [facility] Last Admin: 01/02/21 08:11 Dose: 1,000 mcg Documented by: EDYTA Digoxin (Digoxin 0.125 Mg Tablet) 0.125 mg PO Q2D@0900 [facility] Last Admin: 01/02/21 08:11 Dose: 0.125 mg Documented by: EDYTA Furosemide (Furosemide 20 Mg Tablet) 20 mg PO BIDWM [facility]; Protocol Last Admin: 01/02/21 08:11 Dose: 20 mg Documented by: EDYTA Dextrose/Sodium Chloride (D51/2ns) 1,000 mls @ 50 mls/hr IVCONT .Q20H [facility] Last Infusion: 01/02/21 11:28 Dose: 0 mls/hr Documented by: EDYTA Piperacillin Sod/Tazobactam (Sod 3.375 gm/ Sodium Chloride) 50 mls @ 100 mls/hr IV Q6H [facility] Last Admin: 01/02/21 14:29 Dose: Not Given Documented by: TYLER Non-Admin Reason: schedule change Vancomycin HCl 1,250 mg/ (Sodium Chloride) 250 mls @ 166.667 mls/hr IV Q24H [facility] Last Infusion: 01/02/21 13:29 Dose: 0 mls/hr Documented by: EDYTA Piperacillin Sod/Tazobactam (Sod 3.375 gm/ Sodium Chloride) 50 mls @ 100 mls/hr IV Q6H [facility] Lorazepam (Lorazepam 0.5 Mg Tablet) 0.25 mg PO Q8H PRN PRN Reason: Anxiety Last Admin: 01/02/21 01:27 Dose: 0.25 mg Documented by: HUMAIRA Melatonin (Melatonin 3 Mg Tablet) 6 mg PO BEDTIME PRN PRN Reason: Insomnia Multivitamins/Vitamin C (Multivitamin Tablet) 1 tab PO DAILY [facility] Last Admin: 01/02/21 08:11 Dose: 1 tab Documented by: EDYTA Olanzapine (Olanzapine 2.5 Mg Tablet) 2.5 mg PO BID [facility] Last Admin: 01/02/21 08:11 Dose: 2.5 mg Documented by: EDYTA Pantoprazole Sodium (Pantoprazole Sodium 40 Mg/10 Ml Vial) 40 mg IVPUSH DAILY@0630 [facility] Last Admin: 01/02/21 06:23 Dose: 40 mg Documented by: BHAKTI Pharmacy Consult (Consult Rx Perform Med Rec) 1 each MISCELLANE ONCE PRN PRN Reason: Consult order Sacubitril/Valsartan (Sacubitril/Valsartan 1 Tab Tablet) 1 tab PO BID [facility]; Protocol Last Admin: 01/02/21 08:10 Dose: 1 tab Documented by: EDYTA Senna (Sennosides 8.6 Mg Tablet) 17.2 mg PO BEDTIME PRN PRN Reason: Constipation Silver Sulfadiazine (Silver Sulfadiazine 1 % Cream 20 Gm Tube) 1 appl TOPICAL BID [facility] Last Admin: 01/02/21 08:12 Dose: 1 appl Documented by: EDYTA Sodium Chloride (0.9 % Sodium Chloride Flush 3 Ml Syringe) 3 ml IVFLUSH QSHIFT [facility] Last Admin: 01/02/21 08:11 Dose: 3 ml Documented by: EDYTA Labs CBC & Chem 7: 01/02/21 06:14 01/02/21 06:14 Labs: Laboratory Results - last 24 hr 01/01/21 01/01/21 01/02/21 16:46 21:44 06:14 MCV 93.8 MCH 29.4 MCHC 31.3 RDW 12.7 Plt Count 181 MPV 10.3 Immature Gran % (Auto) 0.4 Neut % (Auto) 76.1 H Lymph % (Auto) 12.1 L [place] % (Auto) 8.5 Eos % (Auto) 2.5 Baso % (Auto) 0.4 Lymph # (Auto) 0.7 L [place] # (Auto) 0.5 Eos # (Auto) 0.1 Baso # (Auto) 0.0 Abs Immat Gran (auto) 0.02 Absolute Neuts (auto) 4.2 Absolute Nucleated RBC 0.000 Nucleated RBC % (auto) 0.0 Anion Gap Estim Creat Clear Calc Estimated GFR Random Glucose Calcium C-Reactive Protein Stool Occult Blood POSITIVE COVID-19 (FRANTZ) Negative COVID-19 Clin Com See Note 01/02/21 06:14 MCV MCH MCHC RDW Plt Count MPV Immature Gran % (Auto) Neut % (Auto) Lymph % (Auto) [place] % (Auto) Eos % (Auto) Baso % (Auto) Lymph # (Auto) [place] # (Auto) Eos # (Auto) Baso # (Auto) Abs Immat Gran (auto) Absolute Neuts (auto) Absolute Nucleated RBC Nucleated RBC % (auto) Anion Gap 12 Estim Creat Clear Calc 59.2 Estimated GFR > 60 Random Glucose 94 Calcium 8.8 C-Reactive Protein 1.58 H Stool Occult Blood COVID-19 (FRANTZ) COVID-19 Clin Com Microbiology Microbiology Results: Microbiology 01/01/21 12:47 Blood Culture - Preliminary Blood - Venous No growth after 24 hours. 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
[2021-01-02] MEDS: Morphine Sulfate 2 MG/ML CARTRIDGE 1 MG IVPUSH ×2 (16:52→20:43)
[2021-01-02] MEDS: Melatonin 3 MG TABLET 6 MG PO (20:44)
[2021-01-03] VITALS (8 sets, daily range): BP systolic 102–138; BP diastolic 52–72; PULSE 63–94; RESP 15–20; TEMP 36.6–37; O2SAT 92–98
[2021-01-03] MEDS: Dextrose 5 % and 0.45 % NaCl 1,000 ML 50 ML IVCONT (00:31)
[2021-01-03] MEDS: Morphine Sulfate 2 MG/ML CARTRIDGE 1 MG IVPUSH ×6 (03:16→20:22)
[2021-01-03] MEDS: Piperacillin Sodium/Tazobactam 3.375 GM in 0.9 % Sodium Chloride 50 ML IV ×4 (03:16→20:21)
--- NOTE | 2021-01-03 05:21 | PC.NURSE ---
Patient became very agitated when this rn entered the room after hearing her yell. When asked why she was yelling she stated you're torturing me and I need to go home. She was alert to self, but was clearly unaware of time or situation. When I explained that she was in the hospital for an infection in her leg she stated you have a thick skull. I'm not in the hospital Later on in the shift when the aid was assisting her to the bathroom she had an outburst and slammed her walked on the ground and started yelling at the aid without anything to prompt this reaction. Pt is redirectable after multiple attempts.
[2021-01-03] MEDS: Pantoprazole Sodium 40 MG/10 ML VIAL IVPUSH (05:50)
[2021-01-03 07:25] LABS: Hematocrit 25.8 % (37.0-47.0); Hemoglobin 8.1 g/dl (12.0-16.0); Mean Corpuscular HGB Conc 31.4 g/dl (31.0-35.0); Mean Corpuscular Hemoglobin 28.6 pg (27.0-33.0); Mean Corpuscular Volume 91.2 fL (80.0-98.0); Mean Platelet Volume 10.5 fL (9.4-12.3); Platelet Count 186 X10*3/uL (160-400); Red Blood Count 2.83 X10*6/uL (4.20-5.50); Red Cell Distribution Width 12.8 % (11.0-16.0); White Blood Count 3.9 X10*3/uL (4.8-10.8)
[2021-01-03 07:47] LABS: Anion Gap 13 (12-20); Blood Urea Nitrogen 9 mg/dL (9-16); Carbon Dioxide 26 mmol/L (22-29); Chloride 102 mmol/L (96-108); Creatinine Clr Calc Pharmacy 58.5; Estimated Glomerular Filt Rate > 60; Glucose Random 84 mg/dL (60-115); Potassium 3.6 mmol/L (3.3-5.1); Sodium 137 mmol/L (135-145)
--- NOTE | 2021-01-03 09:00 | PM.CNGS ---
History of Present Illness Consult details Consult date: 01/03/21 Narrative: Very pleasant 80-year-old female presented to the hospital with right lower extremity cellulitis. That had been present for several days and was of concern. She was subsequently admitted with IV antibiotics. It appears that it has significantly improved since admission. Of note she has had right lower extremity endovascular stenting in the past performed at an outside institution it. It is unclear the time line of this right lower extremity stenting. In general she has no difficulty ambulating aside from this cellulitis. She does note some mild lower extremity swelling. Review of Systems Review of Systems: Yes all other systems are reviewed and are negative Constitutional: Constitutional: Reports no additional constitutional complaints ENT: Reports Normal hearing present Cardiovascular: Cardiovascular: Denies chest pain, Denies chest pain at rest, Denies chest pain with activity and Denies pedal edema Respiratory: Respiratory: Denies cough Gastrointestinal: Gastrointestinal: Denies abdominal pain Musculoskeletal: Musculoskeletal: Denies abnormal gait, Denies muscle cramps and Denies radiating pain into limb Integumentary/Breasts: Skin/Breast: Denies skin ulcer and Denies wounds Neurologic: Reports Normal hearing present and Denies abnormal gait Psychiatric: Psychiatric: Reports no additional psychiatric complaints PMFSH Past Medical History Medical History CAD (coronary artery disease) Chronic atrial fibrillation Chronic systolic (congestive) heart failure History of cardioversion HTN (hypertension) Mitral regurgitation Nonischemic cardiomyopathy EDWAR (obstructive sleep apnea) Pulmonary hypertension Recent surgical procedure on lower extremity Family History Family History Father No problems noted. Mother No problems noted. Surgical History Surgical History H/O colonoscopy History of esophagogastroduodenoscopy (EGD) Hx of cardiac cath (~01/2018) Hx of right inguinal hernia repair Social History Social History Household Members: Other Household Members Other:: PT from SNF Housing: Snf Housing Other:: in [facility] at present - wants to get her own apartment again Do you presently have visiting nurse or other home services: No Alcohol intake: never Patient Tobacco Use Status: Former Tobacco user Tobacco use type: Cigarette Cigarette Packs Per Day: 1 Cigarettes Per Day: 20.0 Years Smoked: 20 Second Hand Smoke Exposure: No Use of substances other than those prescribed or required for medical reasons: No Currently Displaying Signs/Symptoms of Drug Intoxication Withdrawal: No Advance Directives: No Advance Directives Information Provided: No Do you have thoughts of harming others: None Do you have a plan to hurt others: No Plan service: No Current occupational status: retired Meds Allergies Allergy/AdvReac Type Severity Reaction Status Date / Time No Known Allergies Allergy Unknown UNKNOWN Unverified 11/10/19 16:01 [NO KNOWN ALLERGIES] Active Medications: Current Medications Acetaminophen (Acetaminophen 325 Mg Tablet) 650 mg PO Q6H PRN PRN Reason: Pain, Mild (Pain Scale 1-3) Last Admin: 01/02/21 08:10 Dose: 650 mg Documented by: Carvedilol (Carvedilol 12.5 Mg Tablet) 12.5 mg PO BID [facility]; Protocol Last Admin: 01/02/21 20:44 Dose: 12.5 mg Documented by: Cyanocobalamin (Cyanocobalamin (Vitamin B-12) 1,000 Mcg Tablet) 1,000 mcg PO DAILY [facility] Last Admin: 01/02/21 08:11 Dose: 1,000 mcg Documented by: Digoxin (Digoxin 0.125 Mg Tablet) 0.125 mg PO Q2D@0900 [facility] Last Admin: 01/02/21 08:11 Dose: 0.125 mg Documented by: Furosemide (Furosemide 20 Mg Tablet) 20 mg PO BIDWM [facility]; Protocol Last Admin: 01/02/21 16:36 Dose: 20 mg Documented by: Vancomycin HCl 1,250 mg/ (Sodium Chloride) 250 mls @ 166.667 mls/hr IV Q24H [facility] Last Infusion: 01/02/21 13:29 Dose: Infused Documented by: Piperacillin Sod/Tazobactam (Sod 3.375 gm/ Sodium Chloride) 50 mls @ 100 mls/hr IV Q6H [facility] Last Infusion: 01/03/21 03:57 Dose: Infused Documented by: Lorazepam (Lorazepam 0.5 Mg Tablet) 0.25 mg PO Q8H PRN PRN Reason: Anxiety Last Admin: 01/02/21 01:27 Dose: 0.25 mg Documented by: Melatonin (Melatonin 3 Mg Tablet) 6 mg PO BEDTIME PRN PRN Reason: Insomnia Last Admin: 01/02/21 20:44 Dose: 6 mg Documented by: Morphine Sulfate (Morphine Sulfate 2 Mg/Ml Cartridge) 1 mg IVPUSH Q2H PRN; Protocol PRN Reason: severe pain Last Admin: 01/03/21 03:16 Dose: 1 mg Documented by: Multivitamins/Vitamin C (Multivitamin Tablet) 1 tab PO DAILY [facility] Last Admin: 01/02/21 08:11 Dose: 1 tab Documented by: Olanzapine (Olanzapine 2.5 Mg Tablet) 2.5 mg PO BID [facility] Last Admin: 01/02/21 20:44 Dose: 2.5 mg Documented by: Pantoprazole Sodium (Pantoprazole Sodium 40 Mg/10 Ml Vial) 40 mg IVPUSH DAILY@0630 [facility] Last Admin: 01/03/21 05:50 Dose: 40 mg Documented by: Pharmacy Consult (Consult Rx Perform Med Rec) 1 each MISCELLANE ONCE PRN PRN Reason: Consult order Sacubitril/Valsartan (Sacubitril/Valsartan 1 Tab Tablet) 1 tab PO BID [facility]; Protocol Last Admin: 01/02/21 21:35 Dose: Not Given Documented by: Senna (Sennosides 8.6 Mg Tablet) 17.2 mg PO BEDTIME PRN PRN Reason: Constipation Silver Sulfadiazine (Silver Sulfadiazine 1 % Cream 20 Gm Tube) 1 appl TOPICAL BID [facility] Last Admin: 01/02/21 21:35 Dose: 1 appl Documented by: Sodium Chloride (0.9 % Sodium Chloride Flush 3 Ml Syringe) 3 ml IVFLUSH QSHIFT [facility] Last Admin: 01/03/21 01:04 Dose: Not Given Documented by: Home Medications Medication Instructions Recorded Confirmed Last Taken Type apixaban 5 mg tablet 5 mg PO BID 02/20/20 01/01/21 01/01/21 History digoxin 125 mcg (0.125 mg) tablet 125 mcg PO Q OTHER DAY 02/20/20 01/01/21 Unknown History olanzapine 2.5 mg tablet 2.5 mg PO BID 02/20/20 01/01/21 01/01/21 History omega-3 fatty acids 1,000 mg 1,000 mg PO DAILY 02/20/20 01/01/21 01/01/21 History capsule (Fish Oil Concentrate) acetaminophen 325 mg tablet 975 mg PO TID PRN 08/08/20 01/01/21 01/01/21 History cyanocobalamin (vitamin B-12) 1,000 mcg PO DAILY 08/08/20 01/01/21 01/01/21 History 1,000 mcg tablet fluticasone 100 mcg-salmeterol 50 1 inh INHALATION Q12H 08/08/20 01/01/21 01/01/21 History mcg/dose blistr powdr for inhalation (Wixela Inhub) furosemide 20 mg tablet 20 mg PO BID 08/08/20 01/01/21 01/01/21 History lidocaine 4 % topical patch 1 patch TOPICAL BEDTIME 08/08/20 01/01/21 12/31/20 History methyl salicylate 15 %-menthol 10 1 appl TOPICAL TID PRN 08/08/20 01/01/21 Unknown History % topical cream (Muscle Rub) multivitamin with minerals 1 tab PO DAILY 08/08/20 01/01/21 01/01/21 History saliva stimulant comb. no.3 2 spray MUCOUS MEMBRANE Q8H PRN 08/08/20 01/01/21 Unknown History (Biotene Moisturizing Mouth) pantoprazole 20 mg tablet,delayed 20 mg PO BID 09/05/20 01/01/21 01/01/21 History release (Protonix) sacubitril 24 mg-valsartan 26 mg 1 tab PO BID 09/19/20 01/01/21 Unknown History tablet lorazepam 0.5 mg tablet 0.25 mg PO Q8H PRN 10/25/20 01/01/21 01/01/21 History doxycycline hyclate 100 mg tablet 1 tab PO BID 01/01/21 01/01/21 01/01/21 History silver sulfadiazine 1 % topical 1 appl TOPICAL BID 01/01/21 01/01/21 Unknown History cream sucralfate 1 gram tablet 1 g PO TIDAC 01/01/21 01/01/21 01/01/21 History Physical Exam Vital Signs: Vital Signs: Last Vital Signs Temp 98.0 F 01/03/21 07:46 Pulse 63 01/03/21 07:46 Resp 18 01/03/21 07:46 BP 111/52 L 01/03/21 07:46 Pulse Ox 95 01/03/21 07:46 Body Mass Index 23.1 Const: General: cooperative, healthy appearing and comfortable Orientation/consciousness: oriented to person, oriented to place and oriented to time HENMT: Head: Yes normal to inspection Neck: Neck: Yes normal visual inspection Carotids: no bruits Chest: Chest palpation & inspection: normal inspection of the chest Resp: Effort & Inspection: normal respiratory effort and able to speak in complete sentences Auscultation: clear to auscultation bilaterally, no crackles, no rales, no rhonchi and no wheezes Cardio: Rate: regular rate Rhythm: regular rhythm Heart sounds: S1 normal heart sound present and S2 normal heart sound present Bruits: no carotid bruits Peripheral pulses: Peripheral pulses 2+ throughout GI: Inspection: Yes normal to inspection Skin: Other: Right lower extremity cellulitis significantly improved Wounds: no wounds Hair: normal Neuro: General: oriented to person, oriented to place and oriented to time Cranial nerves: Yes CN's II-XII intact bilaterally and Yes Normal hearing present Cognition (Neuro): normal cognition Motor exam (neuro): 5/5 motor strength present throughout Extrem: Other: venous exam: No significant superficial varicosities or spider telangiectasias, minimal edema General: No clubbing, No cyanosis and No edema Psych: Appearance: grossly normal Mental Status: mental status grossly normal Speech and movement: Normal speech and movement present Results Labs Result diagrams: 01/03/21 05:56 01/03/21 05:56 Labs: Abnormal lab results 01/02/21 01/03/21 01/03/21 Range/Units 06:14 05:56 05:56 WBC 3.9 L (4.8-10.8) X10*3/uL RBC 2.83 L (4.20-5.50) X10*6/uL Hgb 8.1 L (12.0-16.0) g/dl Hct 25.8 L (37.0-47.0) % Calcium 8.0 L D (8.4-10.2) mg/dL C-Reactive Protein 1.58 H (< or = 0.50) mg/dL Short CBC 01/03/21 Range/Units 05:56 WBC 3.9 L (4.8-10.8) X10*3/uL Hgb 8.1 L (12.0-16.0) g/dl Hct 25.8 L (37.0-47.0) % Plt Count 186 (160-400) X10*3/uL BMP 01/03/21 05:56 Sodium 137 Potassium 3.6 Chloride 102 Carbon Dioxide 26 BUN 9 Creatinine 0.73 Calcium 8.0 L D All other labs normal. Assessment and Plan (1) PAD (peripheral artery disease): Status: Acute In short patient has right lower extremity cellulitis appears to have resolved. In terms of her arterial status she does have palpable pulses and on interrogation with noninvasive testing prior stenting appears to be patent as well. We did discuss routine risk factor modification. I will have her follow up with us as an outpatient for surveillance regarding the right lower extremity stent. She is stable from my perspective for discharge. Thank you for allowing us to assist in her care. If there are any questions or concerns please do not hesitate to contact us. Procedures Date of Service Date of Service: 01/03/21
[2021-01-03] MEDS: 0.9 % Sodium Chloride Flush 3 ML SYRINGE IVFLUSH ×3 (09:51→20:23)
[2021-01-03] MEDS: Sacubitril/Valsartan 24/26 1 TAB TABLET PO ×2 (09:51→20:22)
[2021-01-03] MEDS: Cyanocobalamin (Vitamin B-12) 1,000 MCG TABLET 1000 MCG PO (09:51)
[2021-01-03] MEDS: carvediloL 12.5 MG TABLET PO ×2 (09:52→20:21)
[2021-01-03] MEDS: OLANZapine 2.5 MG TABLET PO ×2 (09:52→20:22)
[2021-01-03] MEDS: Furosemide 20 MG TABLET PO ×2 (09:52→16:21)
[2021-01-03] MEDS: Multivitamin TABLET 1 TAB PO (09:52)
[2021-01-03] MEDS: Silver Sulfadiazine 1 % Cream 20 GM TUBE 1 APPL TOPICAL ×2 (10:08→20:22)
[2021-01-03] MEDS: vancomycin HCL 1,250 MG in 0.9 % Sodium Chloride 250 ML 250 MG IV (10:53)
--- NOTE | 2021-01-03 12:30 | HO.PM.IMPN ---
Subjective Subjective Date of Service: 01/03/21 Interval History: RLE cellulitis much improved no fever no hematochezia or melena Review of Systems Review of Systems: Yes all other systems are reviewed and are negative Physical Exam Vital Signs: Vital Signs: Last Vital Signs Temp 97.8 F 01/03/21 11:15 Pulse 64 01/03/21 11:15 Resp 18 01/03/21 11:15 BP 110/55 L 01/03/21 11:15 Pulse Ox 98 01/03/21 11:15 Body Mass Index 23.1 Gen: in no acute distress HEENT: sclera anicteric, moist mucus membranes Neck: supple Lungs: clear to auscultation bilaterally Heart: irregularly irregular, no murmurs Abd: soft, non-tender, non-distended Ext: no edema Skin: RLE erythema almost completely resolved Neuro: alert and oriented x3, no focal findings Psych: appropriate affect Objective Data Active Medications Acetaminophen (Acetaminophen 325 Mg Tablet) 650 mg PO Q6H PRN PRN Reason: Pain, Mild (Pain Scale 1-3) Last Admin: 01/02/21 08:10 Dose: 650 mg Documented by: EDYTA Carvedilol (Carvedilol 12.5 Mg Tablet) 12.5 mg PO BID [facility]; Protocol Last Admin: 01/03/21 09:52 Dose: 12.5 mg Documented by: MICHAEL Cyanocobalamin (Cyanocobalamin (Vitamin B-12) 1,000 Mcg Tablet) 1,000 mcg PO DAILY [facility] Last Admin: 01/03/21 09:51 Dose: 1,000 mcg Documented by: MICHAEL Digoxin (Digoxin 0.125 Mg Tablet) 0.125 mg PO Q2D@0900 [facility] Last Admin: 01/02/21 08:11 Dose: 0.125 mg Documented by: EDYTA Furosemide (Furosemide 20 Mg Tablet) 20 mg PO BIDWM [facility]; Protocol Last Admin: 01/03/21 09:52 Dose: 20 mg Documented by: MICHAEL Vancomycin HCl 1,250 mg/ (Sodium Chloride) 250 mls @ 166.667 mls/hr IV Q24H [facility] Last Infusion: 01/03/21 12:01 Dose: 0 mls/hr Documented by: MICHAEL Piperacillin Sod/Tazobactam (Sod 3.375 gm/ Sodium Chloride) 50 mls @ 100 mls/hr IV Q6H [facility] Last Infusion: 01/03/21 10:29 Dose: 0 mls/hr Documented by: MICHAEL Lorazepam (Lorazepam 0.5 Mg Tablet) 0.25 mg PO Q8H PRN PRN Reason: Anxiety Last Admin: 01/02/21 01:27 Dose: 0.25 mg Documented by: HUMAIRA Melatonin (Melatonin 3 Mg Tablet) 6 mg PO BEDTIME PRN PRN Reason: Insomnia Last Admin: 01/02/21 20:44 Dose: 6 mg Documented by: HARINDER Morphine Sulfate (Morphine Sulfate 2 Mg/Ml Cartridge) 1 mg IVPUSH Q2H PRN; Protocol PRN Reason: severe pain Last Admin: 01/03/21 10:02 Dose: 1 mg Documented by: MICHAEL Multivitamins/Vitamin C (Multivitamin Tablet) 1 tab PO DAILY [facility] Last Admin: 01/03/21 09:52 Dose: 1 tab Documented by: MICHAEL Olanzapine (Olanzapine 2.5 Mg Tablet) 2.5 mg PO BID [facility] Last Admin: 01/03/21 09:52 Dose: 2.5 mg Documented by: MICHAEL Pantoprazole Sodium (Pantoprazole Sodium 40 Mg/10 Ml Vial) 40 mg IVPUSH DAILY@0630 [facility] Last Admin: 01/03/21 05:50 Dose: 40 mg Documented by: HARINDER Pharmacy Consult (Consult Rx Perform Med Rec) 1 each MISCELLANE ONCE PRN PRN Reason: Consult order Sacubitril/Valsartan (Sacubitril/Valsartan 1 Tab Tablet) 1 tab PO BID [facility]; Protocol Last Admin: 01/03/21 09:51 Dose: 1 tab Documented by: MICHAEL Senna (Sennosides 8.6 Mg Tablet) 17.2 mg PO BEDTIME PRN PRN Reason: Constipation Silver Sulfadiazine (Silver Sulfadiazine 1 % Cream 20 Gm Tube) 1 appl TOPICAL BID [facility] Last Admin: 01/03/21 10:08 Dose: 1 appl Documented by: MICHAEL Sodium Chloride (0.9 % Sodium Chloride Flush 3 Ml Syringe) 3 ml IVFLUSH QSHIFT [facility] Last Admin: 01/03/21 09:51 Dose: 3 ml Documented by: MICHAEL Labs CBC & Chem 7: 01/03/21 05:56 01/03/21 05:56 Labs: Laboratory Results - last 24 hr 01/03/21 01/03/21 05:56 05:56 MCV 91.2 MCH 28.6 MCHC 31.4 RDW 12.8 Plt Count 186 MPV 10.5 Absolute Nucleated RBC 0.000 Nucleated RBC % (auto) 0.0 Anion Gap 13 Estim Creat Clear Calc 58.5 Estimated GFR > 60 Random Glucose 84 Calcium 8.0 L D Impressions Duplex Scan Lower Extremity Artery 01/02/21 10:43 IMPRESSION: 1. Bilateral patent lower extremity arterial tree. Specifically, the right femoral arterial stent placed between the common femoral and the proximal SFA is patent. 2. Bilateral MOLLY of 1.29. 3. The Doppler waveform at both ankles shows no definite evidence of any forward diastolic flow. Abd US [id number] 01/02/21 16:25 IMPRESSION: 1. Bilateral patent lower extremity arterial tree. Specifically, the right femoral arterial stent placed between the common femoral and the proximal SFA is patent. 2. Bilateral MOLLY of 1.29. 3. The Doppler waveform at both ankles shows no definite evidence of any forward diastolic flow. Microbiology Microbiology Results: Microbiology 01/01/21 14:32 Blood Culture - Preliminary Blood - Venous No growth after 24 hours. 01/01/21 12:47 Blood Culture - Preliminary Blood - Venous No growth after 24 hours. 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
[2021-01-03] MEDS: LORazepam 0.5 MG TABLET 0.25 MG PO (14:40)
[2021-01-03] MEDS: Acetaminophen 325 MG TABLET 650 MG PO (18:03)
[2021-01-03] MEDS: Melatonin 3 MG TABLET 6 MG PO (20:22)
[2021-01-04] VITALS (8 sets, daily range): BP systolic 99–140; BP diastolic 53–78; PULSE 59–90; RESP 18–20; TEMP 36.2–37.2; O2SAT 92–98
[2021-01-04] MEDS: Piperacillin Sodium/Tazobactam 3.375 GM in 0.9 % Sodium Chloride 50 ML IV ×2 (02:48→09:45)
[2021-01-04] MEDS: Pantoprazole Sodium 40 MG/10 ML VIAL IVPUSH (05:43)
[2021-01-04 07:11] LABS: Creatinine Clr Calc Pharmacy 60.1; Estimated Glomerular Filt Rate > 60
--- NOTE | 2021-01-04 07:59 | PC.NURSE ---
Skin assessment completed. Patient has cellulitis to right lower extremities with small openings on anterior ankle. Woundres' gel applied covered with foam dressing.
[2021-01-04 09:04] LABS: Hemoglobin 8.7 g/dl (12.0-16.0)
[2021-01-04 09:22] LABS: Vancomycin Trough 9.8 mcg/mL (10.0-20.0)
[2021-01-04] MEDS: Cyanocobalamin (Vitamin B-12) 1,000 MCG TABLET 1000 MCG PO (09:52)
[2021-01-04] MEDS: LORazepam 0.5 MG TABLET 0.25 MG PO (09:52)
[2021-01-04] MEDS: Digoxin 0.125 MG TABLET PO (09:53)
[2021-01-04] MEDS: OLANZapine 2.5 MG TABLET PO ×2 (09:53→21:11)
[2021-01-04] MEDS: Furosemide 20 MG TABLET PO ×2 (09:53→17:57)
[2021-01-04] MEDS: Sacubitril/Valsartan 24/26 1 TAB TABLET PO ×2 (09:53→21:11)
[2021-01-04] MEDS: Multivitamin TABLET 1 TAB PO (09:54)
[2021-01-04] MEDS: 0.9 % Sodium Chloride Flush 3 ML SYRINGE IVFLUSH ×3 (09:54→21:12)
[2021-01-04] MEDS: carvediloL 12.5 MG TABLET PO ×2 (09:54→21:12)
[2021-01-04] MEDS: Morphine Sulfate 2 MG/ML CARTRIDGE 1 MG IVPUSH ×3 (10:02→21:21)
[2021-01-04] MEDS: Silver Sulfadiazine 1 % Cream 20 GM TUBE 1 APPL TOPICAL ×2 (10:05→21:13)
[2021-01-04] MEDS: vancomycin HCL 1,250 MG in 0.9 % Sodium Chloride 250 ML 250 MG IV (12:12)
--- NOTE | 2021-01-04 13:43 | MHC.CM.PN ---
per rounds [facility] to have [facility] consult
--- NOTE | 2021-01-04 13:52 | P.PNIM_ITS ---
Subjective Subjective Date of Service: 01/04/21 Interval History: tolerating diet, no N/V/abd pain, no overt GI bleeding leg infection resolved Review of Systems Review of Systems: Yes all other systems are reviewed and are negative Physical Exam Vital Signs: Vital Signs: Last Vital Signs Temp 98.1 F 01/04/21 08:00 Pulse 76 01/04/21 09:54 Resp 18 01/04/21 08:00 BP 122/61 01/04/21 09:54 Pulse Ox 92 01/04/21 08:00 Body Mass Index 23.1 Gen: in no acute distress HEENT: sclera anicteric, moist mucus membranes Neck: supple Lungs: clear to auscultation bilaterally Heart: irregularly irregular, no murmurs Abd: soft, non-tender, non-distended Ext: no edema Skin: RLE erythema resolved Neuro: alert and oriented x3, no focal findings Psych: appropriate affect Objective Data Active Medications Acetaminophen (Acetaminophen 325 Mg Tablet) 650 mg PO Q6H PRN PRN Reason: Pain, Mild (Pain Scale 1-3) Last Admin: 01/03/21 18:03 Dose: 650 mg Documented by: MICHAEL Carvedilol (Carvedilol 12.5 Mg Tablet) 12.5 mg PO BID [facility]; Protocol Last Admin: 01/04/21 09:54 Dose: 12.5 mg Documented by: CHARLES Cyanocobalamin (Cyanocobalamin (Vitamin B-12) 1,000 Mcg Tablet) 1,000 mcg PO DAILY [facility] Last Admin: 01/04/21 09:52 Dose: 1,000 mcg Documented by: CHARLES Digoxin (Digoxin 0.125 Mg Tablet) 0.125 mg PO Q2D@0900 [facility] Last Admin: 01/04/21 09:53 Dose: 0.125 mg Documented by: CHARLES Furosemide (Furosemide 20 Mg Tablet) 20 mg PO BIDWM [facility]; Protocol Last Admin: 01/04/21 09:53 Dose: 20 mg Documented by: CHARLES Vancomycin HCl 1,250 mg/ (Sodium Chloride) 250 mls @ 166.667 mls/hr IV Q24H [facility] Last Infusion: 01/04/21 13:18 Dose: 0 mls/hr Documented by: CHARLES Piperacillin Sod/Tazobactam (Sod 3.375 gm/ Sodium Chloride) 50 mls @ 100 mls/hr IV Q6H [facility] Last Infusion: 01/04/21 10:25 Dose: 0 mls/hr Documented by: CHARLES Lorazepam (Lorazepam 0.5 Mg Tablet) 0.25 mg PO Q8H PRN PRN Reason: Anxiety Last Admin: 01/04/21 09:52 Dose: 0.25 mg Documented by: CHARLES Melatonin (Melatonin 3 Mg Tablet) 6 mg PO BEDTIME PRN PRN Reason: Insomnia Last Admin: 01/03/21 20:22 Dose: 6 mg Documented by: HARINDER Morphine Sulfate (Morphine Sulfate 2 Mg/Ml Cartridge) 1 mg IVPUSH Q2H PRN; Protocol PRN Reason: severe pain Last Admin: 01/04/21 10:02 Dose: 1 mg Documented by: CHARLES Multivitamins/Vitamin C (Multivitamin Tablet) 1 tab PO DAILY [facility] Last Admin: 01/04/21 09:54 Dose: 1 tab Documented by: CHARLES Olanzapine (Olanzapine 2.5 Mg Tablet) 2.5 mg PO BID [facility] Last Admin: 01/04/21 09:53 Dose: 2.5 mg Documented by: CHARLES Pantoprazole Sodium (Pantoprazole Sodium 40 Mg/10 Ml Vial) 40 mg IVPUSH DAILY@0630 [facility] Last Admin: 01/04/21 05:43 Dose: 40 mg Documented by: HARINDER Pharmacy Consult (Consult Rx Perform Med Rec) 1 each MISCELLANE ONCE PRN PRN Reason: Consult order Sacubitril/Valsartan (Sacubitril/Valsartan 1 Tab Tablet) 1 tab PO BID [facility]; Protocol Last Admin: 01/04/21 09:53 Dose: 1 tab Documented by: CHARLES Senna (Sennosides 8.6 Mg Tablet) 17.2 mg PO BEDTIME PRN PRN Reason: Constipation Silver Sulfadiazine (Silver Sulfadiazine 1 % Cream 20 Gm Tube) 1 appl TOPICAL BID [facility] Last Admin: 01/04/21 10:05 Dose: 1 appl Documented by: CHARLES Sodium Chloride (0.9 % Sodium Chloride Flush 3 Ml Syringe) 3 ml IVFLUSH QSHIFT [facility] Last Admin: 01/04/21 09:54 Dose: 3 ml Documented by: CHARLES Labs CBC & Chem 7: 01/04/21 08:53 01/04/21 05:53 Labs: Laboratory Results - last 24 hr 01/04/21 01/04/21 05:53 08:53 Estim Creat Clear Calc 60.1 Estimated GFR > 60 Vancomycin Trough 9.8 L Microbiology Microbiology Results: Microbiology 01/01/21 14:32 Blood Culture - Preliminary Blood - Venous No growth after 48 hours. 01/01/21 12:47 Blood Culture - Preliminary Blood - Venous No growth after 48 hours. 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
[2021-01-04] MEDS: Amoxicillin/Potassium Clav 875 MG TABLET PO (14:17)
--- NOTE | 2021-01-04 15:31 | CONS_ITS ---
DATE OF SERVICE: 01/04/2021 REFERRING PHYSICIAN: Fabio Sancehz MD REASON FOR CONSULTATION: Anemia and Hemoccult-positive stools. HISTORY OF PRESENT ILLNESS: The patient is a pleasant 80-year-old woman, who was admitted to the hospital on January 01 after presenting to the emergency room with right leg pain as well as redness rather than swelling consistent with cellulitis. She was evaluated in the emergency department and had a hematocrit of 25.9, down from 32 in July of this year. Stools were noted to be Hemoccult positive. The patient has a history of atrial fibrillation, which has been treated with Eliquis and has not reported any active GI bleeding. She has no complaints of dysphagia, hematemesis, or melena. She was previously evaluated with upper endoscopy in July of this year because of anemia, heme-positive stool, and question of melena. Endoscopy at that time showed a large hiatal hernia and the duodenum could not be cannulated. She was treated with a proton pump inhibitor as well as Carafate. Colonoscopy was not recommended at that time based on her clinical presentation. PAST MEDICAL HISTORY: 1. Cellulitis. 2. Atrial fibrillation. 3. Coronary artery disease. 4. Cardiomyopathy. 5. Pulmonary hypertension. 6. Systemic hypertension. CURRENT MEDICATIONS: Her current medication list is reviewed in the chart. ALLERGIES: NONE NOTED. FAMILY HISTORY: Reviewed with the patient, noncontributory. SOCIAL HISTORY: There is no current tobacco, alcohol, or substance abuse. REVIEW OF SYSTEMS: SKIN: No pruritus. HEENT: Negative. CARDIOPULMONARY: No shortness of breath or chest pain. GASTROINTESTINAL: As above. GENITOURINARY: Negative. NEUROPSYCHIATRIC: Negative. PHYSICAL EXAMINATION: GENERAL: Shows a pleasant female, lying comfortably in bed, complaining of neck pain. VITAL SIGNS: Stable. SKIN: Anicteric. HEENT: Shows no scleral icterus. NECK: Without lymphadenopathy or thyromegaly. LUNGS: Clear. HEART: Shows a regular rate and rhythm. S1, S2. No murmur. ABDOMEN: Soft without focal masses or tenderness. Bowel sounds are present. No organomegaly is noted. EXTREMITIES: Without edema. ASSESSMENT AND PLAN: At this time, she appears to be stable without any active GI bleeding. I would not recommend repeat endoscopy at this time. I would continue proton pump inhibitor as you are doing. Her Eliquis can be restarted. Thanks for asking me to see her. I will follow her in the hospital with you. MD JOSE Briceno/YOJANA / [phone]
[2021-01-04] MEDS: Melatonin 3 MG TABLET 6 MG PO (21:20)
[2021-01-05] VITALS (7 sets, daily range): BP systolic 103–119; BP diastolic 56–70; PULSE 73–84; RESP 18–20; TEMP 36.5–36.9; O2SAT 92–96
[2021-01-05] MEDS: Amoxicillin/Potassium Clav 875 MG TABLET PO (00:52)
[2021-01-05] MEDS: Morphine Sulfate 2 MG/ML CARTRIDGE 1 MG IVPUSH ×3 (00:58→09:53)
[2021-01-05] MEDS: Pantoprazole Sodium 40 MG/10 ML VIAL IVPUSH (06:19)
[2021-01-05 06:32] LABS: Hematocrit 30.2 % (37.0-47.0); Hemoglobin 9.4 g/dl (12.0-16.0); Mean Corpuscular HGB Conc 31.1 g/dl (31.0-35.0); Mean Corpuscular Hemoglobin 28.7 pg (27.0-33.0); Mean Corpuscular Volume 92.4 fL (80.0-98.0); Mean Platelet Volume 10.1 fL (9.4-12.3); Platelet Count 208 X10*3/uL (160-400); Red Blood Count 3.27 X10*6/uL (4.20-5.50); Red Cell Distribution Width 12.7 % (11.0-16.0); White Blood Count 4.3 X10*3/uL (4.8-10.8)
[2021-01-05 07:12] LABS: Anion Gap 14 (12-20); Blood Urea Nitrogen 10 mg/dL (9-16); Calcium 8.5 mg/dL (8.4-10.2); Carbon Dioxide 27 mmol/L (22-29); Chloride 103 mmol/L (96-108); Creatinine Clr Calc Pharmacy 61.9; Estimated Glomerular Filt Rate > 60; Glucose Random 96 mg/dL (60-115); Potassium 3.8 mmol/L (3.3-5.1); Sodium 140 mmol/L (135-145)
[2021-01-05] MEDS: OLANZapine 2.5 MG TABLET PO (09:35)
[2021-01-05] MEDS: Furosemide 20 MG TABLET PO (09:35)
[2021-01-05] MEDS: Apixaban 5 MG TABLET PO (09:36)
[2021-01-05] MEDS: Multivitamin TABLET 1 TAB PO (09:36)
[2021-01-05] MEDS: Cyanocobalamin (Vitamin B-12) 1,000 MCG TABLET 1000 MCG PO (09:36)
[2021-01-05] MEDS: carvediloL 12.5 MG TABLET PO (09:36)
--- NOTE | 2021-01-05 09:51 | MHC.CM.PN ---
Per MD,Patient will be medically cleared for dc to LTC today. Patient will return to LTC at [facility] today at 1PM, via [facility]. Second IMM addressed with Patient and the original has been given to her and a copy will be placed on the chart.CM relayed to MD, Patient's request for something stronger than Tylenol to be ordered for SNF.CM informed Patient's Sister/Rafaela at [phone] of the dc plan.
[2021-01-05] MEDS: Sacubitril/Valsartan 24/26 1 TAB TABLET PO (09:54)
[2021-01-05] MEDS: 0.9 % Sodium Chloride Flush 3 ML SYRINGE IVFLUSH (09:54)
[2021-01-05 10:39] LABS: COVID-19 Test Negative (Negative); IDNOW Serial# 9DD0AD1C
--- NOTE | 2021-01-05 12:12 | P.DS_ITS ---
DS: Providers Provider Date of Service: 01/05/21 Date of admission: 01/01/21 19:30 Primary care physician: LEONARD Wilcox Consults: 01/01/21 19:32 Consult to Gastroenterology Routine Consulting Provider: Beni Betts Reason for consultation: anemia; guaiac positive stool 01/02/21 08:59 Consult to Vascular Surgery Routine Consulting Provider: Shar Crook Reason for consultation: RLE cellulitis s/p stenting 01/03/21 08:19 Consult to Gastroenterology Routine Consulting Provider: [facility] Reason for consultation: anemia FOBT+ on eliquis, prior Egd July DS: Diagnosis Discharge Diagnosis (1) Cellulitis: Status: Acute (2) PAD (peripheral artery disease): Status: Acute (3) Anemia: Status: Acute DS: Summary Hospital Course Hospital Course: from admission H+P by Toney Mccall, hospitalist, 01/01/21: 80-year-old female with a past medical history of hypertension, coronary artery disease, cardiomyopathy, pulmonary hypertension, peripheral vascular disease, AFib on Eliquis recent stent in the right lower extremity; presented to the hospital with a chief complaint right leg pain redness and swelling. Patient has been having intermittent episodes of cellulitis of the right lower extremity and has seen the vascular surgery as outpatient 2 weeks ago and was of doxycycline as outpatient; as symptoms were not improving patient came to the ER for evaluation. Patient denies any chest pain palpitations lightheadedness dizziness or shortness of breath.? Denies any dyspnea on exertion. Patient reports that she has been on Eliquis for atrial fibrillation.? Has been complaint with the medications. Denies any fever chills cough.? Denies any GI or symptoms. Review of all other systems is negative except mentioned above ER course: Per ER team patient noted to have right leg cellulitis; given Zosyn.? On labs noted to have slight drop in hemoglobin; stool guaiac was positive.? Admitted to the hospital for further management. This 80yo F with HTN, CAD, chronic HFrEF/nonischemic CM due to MR, peripheral vascular disease with recent stenting, and AF on apixaban presented with cellulitis not responsive to outpt doxycycline, for which she was admitted. 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 # RLE cellulitis - Treated with IV vancomycin and piperacillin/tazobactam Not bacteremic. Transitioned to oral doxycycline and amoxicillin/clavulanate. Will complete 3 more days upon discharge. Resolved clinically. # PAD - Seen by vascular surgery; stent patent. Outpatient follow-up. # chronic anemia with FOBT+ on anticoagulation - GI consulted. Patient given PPI IV. Hemoglobin stable and thought by GI not to have active bleeding; thought to be safe to resume apixaban. Will continue PPI and should repeat CBCd in 2 weeks. She was discharged back to [facility] for long-term senior living care. Time Spent with Patient Time attestation: Total time spent providing and/or coordinating discharge services: Discharge coordination time: Greater than 30 minutes Quality: Stroke Does the patient have a stroke diagnosis?: No Physical Exam Vital Signs: Vital Signs: Last Vital Signs Temp 97.8 F 01/05/21 11:37 Pulse 73 01/05/21 11:37 Resp 18 01/05/21 11:37 BP 103/56 L 01/05/21 11:37 Pulse Ox 96 01/05/21 11:37 Body Mass Index 23.1 DS: Data Data Completed and Pending Completed studies during hospitalization [Text1]: Procedures Inspection of Upper Intestinal Tract, Via Natural or Artificial Opening Endoscopic (08/08/20) Transfusion of Nonautologous Red Blood Cells into Peripheral Vein, Percutaneous Approach (08/08/20) Labs on day of discharge: Laboratory Results - last 24 hr 01/05/21 01/05/21 01/05/21 06:17 06:17 10:13 WBC 4.3 L RBC 3.27 L Hgb 9.4 L Hct 30.2 L MCV 92.4 MCH 28.7 MCHC 31.1 RDW 12.7 Plt Count 208 MPV 10.1 Absolute Nucleated RBC 0.000 Nucleated RBC % (auto) 0.0 Sodium 140 Potassium 3.8 Chloride 103 Carbon Dioxide 27 Anion Gap 14 BUN 10 Creatinine 0.69 Estim Creat Clear Calc 61.9 Estimated GFR > 60 Random Glucose 96 Calcium 8.5 D COVID-19 (FRANTZ) Negative COVID-19 Clin Com See Note Preliminary micro results at discharge 01/01/21 14:32 Blood Culture - Preliminary Blood - Venous No growth after 48 hours. 01/01/21 12:47 Blood Culture - Preliminary Blood - Venous No growth after 48 hours. Discharge Plan Discharge Patient Disposition: [facility] Discharge Diagnosis: cellulitis, peripheral arterial disease, chronic anemia Referrals: [facility] [Outside] - 1 Week Quintin Frey FNP- [Primary Care Provider] - 1 Week Shar Crook MD [Physician] - 1 Week Discharge Medications: New doxycycline hyclate 100 mg Tablet 100 mg PO Q12H Qty: 6 RF: 0 amoxicillin-pot clavulanate 875-125 mg Tablet 875 mg PO Q12H Qty: 6 RF: 0 Continued acetaminophen 325 mg Tablet 975 mg PO TID PRN (Reason: Pain, Mild) RF: 0 lidocaine 4 % Adhesive Patch,Medicated 1 patch TOPICAL BEDTIME RF: 0 cyanocobalamin (vitamin B-12) 1,000 mcg Tablet 1,000 mcg PO DAILY RF: 0 fluticasone propion-salmeterol [Wixela Inhub] 100-50 mcg/dose Blister With Device 1 inh INHALATION Q12H RF: 0 Biotene Moisturizing [place]outh [place],Non-Aerosol 2 spray MUCOUS MEMBRANE Q8H PRN (Reason: Dry Mouth) RF: 0 furosemide 20 mg Tablet 20 mg PO BID RF: 0 multivitamin with minerals Tablet 1 tab PO DAILY RF: 0 Muscle Rub 15-10 % Cream 1 appl TOPICAL TID PRN (Reason: Pain) RF: 0 carvedilol 6.25 mg tablet 12.5 mg PO BID Qty: 0 RF: 0 pantoprazole [Protonix] 20 mg Tablet,Delayed Release (Dr/Ec) 20 mg PO BID RF: 0 sucralfate 1 gram tablet 1 g PO TIDAC RF: 0 silver sulfadiazine 1 % cream 1 appl topical BID RF: 0 sacubitril-valsartan 24-26 mg tablet 1 tab PO BID RF: 0 lorazepam 0.5 mg tablet 0.25 mg PO Q8H PRN (Reason: Anxiety) RF: 0 olanzapine 2.5 mg tablet 2.5 mg PO BID RF: 0 omega-3 fatty acids [Fish Oil Concentrate] 1,000 mg capsule 1,000 mg PO DAILY RF: 0 digoxin 125 mcg (0.125 mg) tablet 125 mcg PO Q OTHER DAY RF: 0 apixaban 5 mg tablet 5 mg PO BID RF: 0 Discontinued doxycycline hyclate 100 mg tablet 1 tab PO BID RF: 0 Discharge Orders: Discharge Order (Routine); Ordered 01/05/21 Ordered By: Fabio Sanchez Diet: low salt diet Activity on Discharge: As tolerated Stand Alone Forms: Patient Portal Discharge page Other Ambulatory Orders: Complete Blood Count Auto Diff (Routine) Timeframe: 2 Weeks Facility: [facility] - Location: Laboratory Ordered By: Fabio Sanchez Care Plan Goals: healing from cellulitis vascular health safe anticoagulation Health Concerns: cellulitis peripheral arterial disease chronic anemia Plan of Treatment: antibiotics for 3 more days: amoxicillin/clavulanate 875/125 mg bid plus doxycycline 100 mg bid follow up with vascular surgeon in 1-2 weeks safe to resume Eliquis; recheck CBC in 2 wk Assessment: See Discharge Summary Patient Instructions: Cellulitis (DC)
== END 2021-01-05 13:32 | disposition skilled nursing facility (03) | DRG 603 ==
LOC: HO.ED 18:24 → HO.EDOVER 19:37 → HO.IMC 01-02 04:13
PROVIDERS: Admitting Provider Hospitalist; Emergency Provider Emergency Medicine; PCP Nurse Practitioner Family; Visit Provider Family Medicine
DX: L03.115 Cellulitis of right lower limb (principal); I48.20 Chronic atrial fibrillation, unspecified; I50.22 Chronic systolic (congestive) heart failure; I42.9 Cardiomyopathy, unspecified; I11.0 Hypertensive heart disease with heart failure; I27.20 Pulmonary hypertension, unspecified; I25.10 Atherosclerotic heart disease of native coronary artery without angina pectoris; D64.9 Anemia, unspecified; R19.5 Other fecal abnormalities; G47.33 Obstructive sleep apnea (adult) (pediatric); Z20.822 Contact with and (suspected) exposure to COVID-19; Z87.891 Personal history of nicotine dependence; Z79.01 Long term (current) use of anticoagulants; Z79.51 Long term (current) use of inhaled steroids; Z79.899 Other long term (current) drug therapy
CPT/HCPCS: 36415; 73030; 80048; 80076; 80162; 80202; 82272; 82565; 83605; 85014; 85018; 85025; 85027; 86140; 87040; 87635; 93923; 93925; 93971; 96365; 96375; 99284; 99285; J2270; J2543; J3370

== ENCOUNTER → 2021-01-29 09:44 | Outpatient (BNVA) | payer MEDICARE, SELFPAY | PROVIDERS: PCP Nurse Practitioner Family; Visit Provider Surgery Vascular Surgery | DX: I73.9 Peripheral vascular disease, unspecified (principal) | CPT/HCPCS: 99212 ==

== ENCOUNTER → 2021-03-15 11:12 | Outpatient (BNVA) | payer MEDICARE, SELFPAY | PROVIDERS: PCP Nurse Practitioner Family; Referring Provider Nurse Practitioner Family; Visit Provider Internal Medicine Cardiovascular Disease | DX: I50.22 Chronic systolic (congestive) heart failure (principal); I34.0 Nonrheumatic mitral (valve) insufficiency; I48.20 Chronic atrial fibrillation, unspecified | CPT/HCPCS: 99212 ==

== ENCOUNTER → 2021-05-06 10:46 | Outpatient (REF) | payer MEDICARE, SELFPAY ==
--- NOTE | 2021-05-06 10:53 | CA_ITS ---
Transthoracic Echocardiogram Patient (Last, First, Middle): Pau Cobb, Gender: Female Date of : 1940 Age: 80 Procedure Date: 05/06/2021 Procedure Type: Transthoracic Echocardiogram Location: OP Height: 167.64 cm Weight: 61.24 kg BSA: 1.69 m2 Heart Rate: bpm BP: 100 / 65 mmHg Graphics Coordinator: KARRI Referring MD: Favian Gill MD Symptoms: I50.22 - Chronic systolic (congestive) heart failure Study Quality: Good ECG Rhythm: Atrial Fibrillation Conclusions: - The left ventricular systolic function is severely decreased. The calculated ejection fraction is 18% by biplane method. LV peak GLS -9%. - There is severely decreased right ventricular systolic function. TAPSE 0.9cm. - There is moderate calcification of the aortic valve. There is mild aortic valve stenosis. - Highly eccentric posteriorly directed mitral regurgitation. Due to marked eccentricity, could be underestimated. Moderate to severe versus severe. - There is moderate tricuspid valve regurgitation. - The right ventricular systolic pressure is 56 mmHg. Moderate pulmonary hypertension is present. Findings Left Ventricle Normal left ventricular cavity size. There is mildly increased left ventricular wall thickness. The left ventricular systolic function is severely decreased. The calculated ejection fraction is 18% by biplane method. Diastolic function is indeterminate on the basis of available data. LV peak GLS -9%. Right Ventricle Mildly increased right ventricular cavity size. There is severely decreased right ventricular systolic function. TAPSE 0.9cm. Atria The left atrium is severely dilated. The right atrium is severely dilated. Aortic Valve There is moderate calcification of the aortic valve. There is mild aortic valve stenosis. The mean gradient is 7 mmHg. The aortic valve area is 1.55 cm2. There is no aortic valve regurgitation. Dimensionless index 0.38. Mitral Valve There is mild anterior mitral leaflet thickening. The posterior mitral leaflet has restricted mobility. There is no mitral valve stenosis. Highly eccentric posteriorly directed mitral regurgitation. Due to marked eccentricity, could be underestimated. Moderate to severe versus severe. Pulmonic Valve The pulmonic valve was not well visualized. Tricuspid Valve Normal tricuspid valve structure. There is moderate tricuspid valve regurgitation. The right ventricular systolic pressure is 56 mmHg. Moderate pulmonary hypertension is present. Great Vessels The asc aorta and aortic arch are normal in size. Venous The inferior vena cava is normal in size and collapses greater than 50% with inspiration. Pericardium/Pleural There is no evidence of pericardial effusion. Prior Study Comparison No significant change compared to prior study dated: 04/27/2020. Measurements 2D Linear Measurements IVSd: 1.10 0.6-0.9/0.6-1.0 cm LVIDd: 4.74 3.9-5.3/4.2-5.9 cm LVIDd Index: 2.80 2.4-3.2/2.2-3.1 cm/m2 LVIDs: 4.25 2.0-3.6 cm LVPWd: 1.06 0.7-1.1 cm LA Diam: 5.00 2.7-3.8/3.0-4.0 cm LAIDs Index: 2.96 1.5-2.3 cm/m2 LV Mass: 230.89 67-162/88-224 g LV Mass Index: 136.62 43-95/49-115 g/m2 LVOT Diam: 2.30 3.0+(-)1.3 cm 2D Systolic Function EF 4C: 25.80 >55% EF 2C: 11.60 >55% EF BiP: 18.00 >55% Mitral Valve MV Pk E: 0.74 MV PK A: 0.36 MV Decel Time: 152.00 E/A: 2.10 E'Lateral: 10.70 E'Medial: 5.66 E/E' Med: 13.10 E/E' Lat: 6.90 PHT: 44.00 MVA PHT: 5.00 Decel Bibb: 4.88 MR Vol - PW Dopp: 33.22 MR VTI: 1.51 MR ERO: 22.00 MR Alias Seth: 0.36 MR RAD: 0.70 Aortic Valve AoV Pk Seth: 1.82 AoV Mn Seth: 1.21 AoV VTI: 0.32 AoV Pk Grad: 13.00 Aov Mn Grad: 7.00 REGULO Cont.VTI: 1.55 LVOT LVOT Pk Seth: 0.69 LVOT Mn Seth: 0.48 LVOT VTI: 0.12 LVOT Pk Grad: 2.00 LVOT Mn Grad: 1.00 LVOT Diam: 2.30 LVOT Area: 4.15 Diastolic Function MV Pk E: 0.74 MV Pk A: 0.36 E/A: 2.10 E'Medial: 5.66 E/E' Med: 13.10 E' Laterial: 10.70 E/E' Lat: 6.90 Right Ventricle TAPSE (mm): 0.92 TVS' Seth: 8.59 Tricuspid Valve TR Pk Seth: 3.45 TR Pk Grad: 48.00 RA Press: 8.00 RVSP: 56.00 Great Vessels Aorta Sinus of Valsalva: 3.29 2.0-3.[address] Ridge: 2.76 1.7-3.4 cm Ao Asc: 3.50 2.1-3.4 cm Ao Arch: 2.70 Updated in Other Vendor System with Status of Final Kenneth Tabares MD electronically signed on 05/08/2021 4:44:37 PM with status of Final
== END ==
LOC: HO.CARD 10:46
PROVIDERS: Visit Provider Internal Medicine Cardiovascular Disease
DX: I34.0 Nonrheumatic mitral (valve) insufficiency (principal); I42.8 Other cardiomyopathies; I50.22 Chronic systolic (congestive) heart failure
CPT/HCPCS: 93306; 93356

== ENCOUNTER → 2021-07-25 13:00 | Outpatient (BNVA) | payer MEDICARE, SELFPAY | PROVIDERS: PCP Nurse Practitioner Family; Referring Provider Nurse Practitioner Family; Visit Provider Nurse Practitioner Family | DX: I48.20 Chronic atrial fibrillation, unspecified (principal); I50.22 Chronic systolic (congestive) heart failure; I34.0 Nonrheumatic mitral (valve) insufficiency; I42.8 Other cardiomyopathies; I27.20 Pulmonary hypertension, unspecified; G47.33 Obstructive sleep apnea (adult) (pediatric); Z79.01 Long term (current) use of anticoagulants; Z79.899 Other long term (current) drug therapy | CPT/HCPCS: 99212 ==

== ENCOUNTER 2021-11-04 10:04 | Outpatient (REF) | payer OTHER, SELFPAY ==
--- NOTE | ~2021-11-04 | US_ITS ---
EXAMINATION: ANKLE-BRACHIAL INDICES SINGLE LEVEL PULSE VOLUME RECORDING ARTERIAL DUPLEX BILATERAL LEGS CLINICAL INFORMATION: Peripheral arterial disease. COMPARISON: 01/02/2021 TECHNIQUE: Ankle-brachial indices and PVR at the ankle were obtained. Duplex Doppler of the bilateral lower extremity arterial systems was performed. FINDINGS: RIGHT: Ankle-brachial index: 1.03 PVR: Normal Plaque is present throughout. Common femoral: PSV 130 cm/s. Triphasic waveform. Deep femoral: PSV 86 cm/s. Triphasic waveform. Proximal superficial femoral: PSV 99 cm/s. Triphasic waveform. The stent is widely patent. Mid superficial femoral: PSV 112 cm/s. Triphasic waveform. Distal superficial femoral: PSV 108 cm/s. Triphasic waveform. Popliteal: PSV 63 cm/s. Triphasic waveform. Posterior tibial: PSV 67 cm/s. Triphasic waveform. LEFT: Ankle-brachial index: 1.11 PVR: Normal Plaque is present throughout. Common femoral: PSV 132 cm/s. Biphasic waveform. Deep femoral: PSV 83 cm/s. Triphasic waveform. Proximal superficial femoral: PSV 113 cm/s. Triphasic waveform. Mid superficial femoral: PSV 66 cm/s. Triphasic waveform. Distal superficial femoral: PSV 99 cm/s. Biphasic waveform. Popliteal: PSV 61 cm/s. Biphasic waveform. Posterior tibial: PSV 95 cm/s. Biphasic waveform. US/US MOLLY complete IMPRESSION: ABIs and PVR's at the ankles show no evidence of hemodynamically significant peripheral arterial disease. The Doppler evaluation shows plaque throughout both lower extremities but no evidence of hemodynamically significant disease. The right SFA stent is widely patent.
--- NOTE | ~2021-11-04 | US_ITS ---
EXAMINATION: ANKLE-BRACHIAL INDICES SINGLE LEVEL PULSE VOLUME RECORDING ARTERIAL DUPLEX BILATERAL LEGS CLINICAL INFORMATION: Peripheral arterial disease. COMPARISON: 01/02/2021 TECHNIQUE: Ankle-brachial indices and PVR at the ankle were obtained. Duplex Doppler of the bilateral lower extremity arterial systems was performed. FINDINGS: RIGHT: Ankle-brachial index: 1.03 PVR: Normal Plaque is present throughout. Common femoral: PSV 130 cm/s. Triphasic waveform. Deep femoral: PSV 86 cm/s. Triphasic waveform. Proximal superficial femoral: PSV 99 cm/s. Triphasic waveform. The stent is widely patent. Mid superficial femoral: PSV 112 cm/s. Triphasic waveform. Distal superficial femoral: PSV 108 cm/s. Triphasic waveform. Popliteal: PSV 63 cm/s. Triphasic waveform. Posterior tibial: PSV 67 cm/s. Triphasic waveform. LEFT: Ankle-brachial index: 1.11 PVR: Normal Plaque is present throughout. Common femoral: PSV 132 cm/s. Biphasic waveform. Deep femoral: PSV 83 cm/s. Triphasic waveform. Proximal superficial femoral: PSV 113 cm/s. Triphasic waveform. Mid superficial femoral: PSV 66 cm/s. Triphasic waveform. Distal superficial femoral: PSV 99 cm/s. Biphasic waveform. Popliteal: PSV 61 cm/s. Biphasic waveform. Posterior tibial: PSV 95 cm/s. Biphasic waveform. US/US arterial duplex LE BI IMPRESSION: ABIs and PVR's at the ankles show no evidence of hemodynamically significant peripheral arterial disease. The Doppler evaluation shows plaque throughout both lower extremities but no evidence of hemodynamically significant disease. The right SFA stent is widely patent.
== END 2021-11-04 10:05 | disposition home or self-care (01) ==
LOC: HO.US 10:04
PROVIDERS: Visit Provider Surgery Vascular Surgery
DX: I73.9 Peripheral vascular disease, unspecified (principal)
CPT/HCPCS: 93923; 93925

== ENCOUNTER → 2021-11-12 10:12 | Outpatient (BNVA) | payer OTHER, SELFPAY | PROVIDERS: PCP Nurse Practitioner Family; Visit Provider Surgery Vascular Surgery | DX: I73.9 Peripheral vascular disease, unspecified (principal) | CPT/HCPCS: 99212 ==

== ENCOUNTER 2022-01-01 09:19 | Outpatient (REF) | payer OTHER, SELFPAY ==
[2022-01-01 11:28] LABS: Hematocrit 31.2 % (37.0-47.0); Hemoglobin 9.6 g/dl (12.0-16.0); Mean Corpuscular HGB Conc 30.8 g/dl (31.0-35.0); Mean Corpuscular Hemoglobin 29.5 pg (27.0-33.0); Mean Platelet Volume 9.9 fL (9.4-12.3); Platelet Count 232 X10*3/uL (160-400); Red Blood Count 3.25 X10*6/uL (4.20-5.50); Red Cell Distribution Width 13.6 % (11.0-16.0); White Blood Count 4.8 X10*3/uL (4.8-10.8)
[2022-01-01 11:52] LABS: Anion Gap 15 (12-20); Blood Urea Nitrogen 15 mg/dL (9-16); Carbon Dioxide 28 mmol/L (22-29); Chloride 98 mmol/L (96-108); Estimated Glomerular Filt Rate > 60; Glucose Random 66 mg/dL (60-115); Potassium 4.4 mmol/L (3.3-5.1); Sodium 137 mmol/L (135-145)
[2022-01-01 11:56] LABS: B Type Natriuretic Peptide 513 pg/mL (<100)
[2022-01-01 12:37] LABS: Digoxin < 0.3 ng/mL (0.8-2.0)
== END 2022-01-01 09:20 | disposition home or self-care (01) ==
LOC: HO.LAB 09:19
PROVIDERS: PCP Nurse Practitioner Family; Referring Provider Nurse Practitioner Family; Visit Provider Internal Medicine Cardiovascular Disease
DX: I50.22 Chronic systolic (congestive) heart failure (principal); I48.20 Chronic atrial fibrillation, unspecified; I34.0 Nonrheumatic mitral (valve) insufficiency; Z79.899 Other long term (current) drug therapy
CPT/HCPCS: 36415; 80048; 80162; 83880; 85027; 93005; 99212

== ENCOUNTER → 2022-03-31 09:24 | Outpatient (REF) | payer OTHER, SELFPAY ==
--- NOTE | 2022-03-31 09:31 | CA_ITS ---
Transthoracic Echocardiogram Amended Patient (Last, First, Middle): Pau Cobb, Gender: Female Date of : 1940 Age: 81 Procedure Date: 03/31/2022 Procedure Type: Transthoracic Echocardiogram Location: OP Height: 165.1 cm Weight: 64.86 kg BSA: 1.72 m2 Heart Rate: bpm BP: 100 / 62 mmHg Cream Cheese Maker: KARRI Referring MD: Favian Gill MD Cartography Supervisor: Favian Gill MD Symptoms: I50.22 - Chronic systolic (congestive) heart failure Study Quality: Good ECG Rhythm: Sinus Conclusions: - 1. Severe LV systolic dysfunction with LVEF of 20-25% with restrictive filling pattern 2. Mildly dilated right ventricle with moderate RV systolic dysfunction 3. Severe biatrial enlargement 4. At least moderate eccentric mitral regurgitation 5. Moderate to severe tricuspid regurgitation 6. Moderate to severe elevation of right ventricular systolic pressure with significant elevated right atrial pressures 7. No gross pericardial effusion Findings Left Ventricle Normal left ventricular cavity size. There is normal left ventricular wall thickness. The left ventricular systolic function is severely decreased. The visually estimated ejection fraction is between 20-25%. There is severe global hypokinesis. Spectral Doppler is indicative of a restrictive filling pattern. Peak GLS is -12.8%, which is reduced. Right Ventricle Mildly increased right ventricular cavity size. There is moderately decreased right ventricular systolic function. Atria The left atrium is severely dilated. There is no evidence of interatrial shunt. The right atrium is severely dilated. Aortic Valve The aortic valve structure and function is likely normal. There is no aortic valve stenosis. There is no aortic valve regurgitation. Mitral Valve There is mild anterior and posterior mitral leaflet thickening. There is moderate mitral valve regurgitation. The mitral regurgitation jet is directed posteriorly. There is no mitral valve stenosis. Pulmonic Valve The pulmonic valve was not well visualized. Tricuspid Valve Likely normal tricuspid valve structure and function. There is moderate to severe tricuspid valve regurgitation. Significantly elevated right atrial pressure. Moderate to severe pulmonary hypertension is present. Great Vessels All visible segments of the aorta are normal in size. The pulmonary artery was not well visualized. Venous The inferior vena cava is severely dilated and collapses less than 50% with inspiration. Pericardium/Pleural There is no evidence of pericardial effusion. Prior Study Comparison Changes noted compared to prior study dated: 05/06/2021. LV systolic function is marginally improved on this study. RV systolic pressure measured under studies worse compared to before. Regurgitation severity appears to be diminished, could be due to eccentric regurgitation Measurements 2D Linear Measurements IVSd: 1.19 0.6-0.9/0.6-1.0 cm LVIDd: 4.49 3.9-5.3/4.2-5.9 cm LVIDd Index: 2.61 2.4-3.2/2.2-3.1 cm/m2 LVIDs: 3.95 2.0-3.6 cm LVPWd: 1.18 0.7-1.1 cm LA Diam: 4.30 2.7-3.8/3.0-4.0 cm LAIDs Index: 2.50 1.5-2.3 cm/m2 LV Mass: 241.60 67-162/88-224 g LV Mass Index: 140.47 43-95/49-115 g/m2 LVOT Diam: 2.30 3.0+(-)1.3 cm 2D Volumes LA Vol: 130.80 Mitral Valve MV Pk E: 1.06 MV Decel Time: 226.00 E'Lateral: 11.80 E'Medial: 4.13 E/E' Med: 25.70 E/E' Lat: 9.00 PHT: 66.00 MVA PHT: 3.33 Decel Amite: 4.89 MR Vol - PW Dopp: 25.44 MR VTI: 1.59 MR ERO: 16.00 MR Alias Seth: 0.39 MR RAD: 0.60 Aortic Valve AoV Pk Seth: 1.95 AoV Mn Seth: 1.30 AoV VTI: 0.36 AoV Pk Grad: 15.00 Aov Mn Grad: 8.00 REGULO Cont.VTI: 1.16 LVOT LVOT Pk Seth: 0.50 LVOT Mn Seth: 0.34 LVOT VTI: 0.10 LVOT Pk Grad: 1.00 LVOT Mn Grad: 1.00 LVOT Diam: 2.30 LVOT Area: 4.15 Diastolic Function MV Pk E: 1.06 E'Medial: 4.13 E/E' Med: 25.70 E' Laterial: 11.80 E/E' Lat: 9.00 Right Ventricle TAPSE (mm): 10.20 TVS' Seth: 6.86 Tricuspid Valve TR Pk Seth: 3.54 TR Pk Grad: 50.00 RA Press: 15.00 RVSP: 65.00 Great Vessels Aorta Sinus of Valsalva: 3.68 2.0-3.[address] Ridge: 2.73 1.7-3.4 cm Ao Asc: 3.30 2.1-3.4 cm Updated in Other Vendor System with Status of Final Favian Gill MD electronically signed on 04/01/2022 5:48:43 PM with status of Final
== END ==
LOC: HO.CARD 09:24
PROVIDERS: PCP Nurse Practitioner Family; Visit Provider Internal Medicine Cardiovascular Disease
DX: I50.22 Chronic systolic (congestive) heart failure (principal)
CPT/HCPCS: 93306; 93356

== ENCOUNTER 2022-04-16 09:43 | Outpatient (REF) | payer OTHER, SELFPAY ==
--- NOTE | ~2022-04-16 | XR_ITS ---
EXAMINATION: XR CHEST CLINICAL INFORMATION: Chronic systolic heart failure COMPARISON: 08/08/2020 TECHNIQUE: 2 views of the chest were obtained. FINDINGS: The lungs are well expanded. Central vascular prominence without overt edema. No consolidation. No pleural effusion or pneumothorax. The cardiomediastinal silhouette remains prominent, with a calcified aorta. Hiatal hernia noted. XR/XR chest 2V IMPRESSION: 1. Central vascular prominence without overt edema. 2. Hiatal hernia.
[2022-04-16 11:25] LABS: Hematocrit 37.3 % (37.0-47.0); Hemoglobin 12.2 g/dl (12.0-16.0); Mean Corpuscular HGB Conc 32.7 g/dl (31.0-35.0); Mean Corpuscular Hemoglobin 30.4 pg (27.0-33.0); Mean Platelet Volume 9.5 fL (9.4-12.3); Platelet Count 180 X10*3/uL (160-400); Red Blood Count 4.01 X10*6/uL (4.20-5.50); Red Cell Distribution Width 13.6 % (11.0-16.0); White Blood Count 5.2 X10*3/uL (4.8-10.8)
[2022-04-16 11:57] LABS: B Type Natriuretic Peptide 741 pg/mL (<100)
[2022-04-16 12:13] LABS: Digoxin 0.5 ng/mL (0.8-2.0)
[2022-04-16 12:24] LABS: Anion Gap 12 (12-20); Blood Urea Nitrogen 10 mg/dL (9-16); Calcium 9.6 mg/dL (8.4-10.2); Carbon Dioxide 30 mmol/L (22-29); Chloride 99 mmol/L (96-108); Estimated Glomerular Filt Rate > 60; Glucose Random 82 mg/dL (60-115); Potassium 4.4 mmol/L (3.3-5.1); Sodium 137 mmol/L (135-145)
== END 2022-04-16 09:44 | disposition home or self-care (01) ==
LOC: HO.XRAY 09:43
PROVIDERS: PCP Family Medicine Geriatric Medicine; Referring Provider Nurse Practitioner Family; Visit Provider Internal Medicine Cardiovascular Disease
DX: I50.22 Chronic systolic (congestive) heart failure (principal); I48.20 Chronic atrial fibrillation, unspecified; I07.1 Rheumatic tricuspid insufficiency; I34.0 Nonrheumatic mitral (valve) insufficiency; I27.20 Pulmonary hypertension, unspecified; Z79.899 Other long term (current) drug therapy
CPT/HCPCS: 36415; 71046; 80048; 80162; 83880; 85027; 99212

== ENCOUNTER → 2022-07-10 13:08 | Outpatient (BNVA) | payer OTHER, SELFPAY | PROVIDERS: PCP Family Medicine Geriatric Medicine; Referring Provider Family Medicine Geriatric Medicine; Visit Provider Nurse Practitioner Family | DX: I50.22 Chronic systolic (congestive) heart failure (principal); I48.20 Chronic atrial fibrillation, unspecified; I34.0 Nonrheumatic mitral (valve) insufficiency; I25.10 Atherosclerotic heart disease of native coronary artery without angina pectoris; I42.8 Other cardiomyopathies; I27.20 Pulmonary hypertension, unspecified; G47.33 Obstructive sleep apnea (adult) (pediatric); Z79.01 Long term (current) use of anticoagulants; Z79.899 Other long term (current) drug therapy | CPT/HCPCS: 99212 ==

== ENCOUNTER 2022-10-14 10:57 | Outpatient (REF) | payer OTHER, SELFPAY ==
[2022-10-14 14:18] LABS: Digoxin 0.4 ng/mL (0.8-2.0)
[2022-10-14 14:19] LABS: Anion Gap 13 (12-20); Blood Urea Nitrogen 21 mg/dL (9-16); Calcium 9.7 mg/dL (8.4-10.2); Carbon Dioxide 33 mmol/L (22-29); Chloride 98 mmol/L (96-108); Estimated Glomerular Filt Rate > 60; Glucose Random 80 mg/dL (60-115); Potassium 3.4 mmol/L (3.3-5.1); Sodium 141 mmol/L (135-145)
== END 2022-10-14 10:58 | disposition home or self-care (01) ==
LOC: HO.LAB 10:57
PROVIDERS: PCP Nurse Practitioner Family; Referring Provider Family Medicine Geriatric Medicine; Visit Provider Internal Medicine Cardiovascular Disease
DX: I48.20 Chronic atrial fibrillation, unspecified (principal); I50.22 Chronic systolic (congestive) heart failure; I34.0 Nonrheumatic mitral (valve) insufficiency; I25.10 Atherosclerotic heart disease of native coronary artery without angina pectoris; Z79.899 Other long term (current) drug therapy
CPT/HCPCS: 36415; 80048; 80162; 99212

== ENCOUNTER 2022-10-14 10:57 | Outpatient (AMB) | payer OTHER, SELFPAY ==
--- NOTE | 2022-10-14 11:24 | A.OFFVIS_ITS ---
Intake Vital Signs 10/14/22 11:28 Height 5 ft 5 in Weight 138 lb 14.259 oz BMI 23.1 BP 140/82 H Blood Pressure Location Lt brachial Position Sitting Pulse 62 Intake Visit Reasons: 6 mth f/up Intake Note: 6 month follow-up Bell Hole Digger Required: No Technician Terminal And Repeater: Technician Terminal And Repeater Present Accompanied by: REDUCTION PLANT SUPERVISOR Allergies No Known Allergies [NO KNOWN ALLERGIES] Allergy (Unknown, Verified 11/12/21 10:24) UNKNOWN Medication List - Last Reconciled 10/14/22 by Favian Gill MD acetaminophen 975 mg PO TID PRN apixaban 5 mg PO BID bisacodyl 10 mg [place] DAILY PRN cyanocobalamin (vitamin B-12) 1,000 mcg PO DAILY digoxin 125 mcg PO DAILY CS-yhgcjzpl-[id number]-vdwvypewaqh 1-753-107-50 wu-sk-qiq-mg tabs PO ferrous sulfate 325 mg PO DAILY fluticasone propion-salmeterol 100-50 mcg/dose (Wixela Inhub) 1 inh inhalation Q12H furosemide 40 mg PO BID gabapentin 100 mg PO TID garlic (garlic oil) 1,000 mg PO DAILY Lactobacillus acidophilus (Acidophilus capsule) 100 mg PO DAILY methyl salicylate-menthol 15-10 % (Muscle Rub) 1 appl topical TID PRN metoprolol succinate ER 25 mg PO DAILY multivitamin with minerals 1 tab PO DAILY olanzapine 2.5 mg PO BID omega 6-fdj-aek-fish oil 1,000 mg (120 mg-180 mg) (Fish Oil) 1 cap PO DAILY paroxetine HCl 20 mg PO DAILY pomegrnt-green p-ftuvt-xraeflx 100-60-5-5 mg caps PO sacubitril-valsartan 24-26 mg (Entresto) 1 tab PO BID sour rosenbaum extract (Tart Rosenbaum Extract) mg PO vitamins A,C,J-stnn-nbcyak 4,296 mcg-226 mg-90 mg (PreserVision AREDS) 1 cap PO BID HPI HPI Comments History of Present Illness Details Pau comes for follow-up. She has had no hospitalization last 6 months. She has been reasonably stable. She continues to exertional shortness of breath but more concerning is her lack of balance. She has not had falls but is worried about it. Currently undergoing physical therapy. Takes all her medications. No bleeding issues or neurologic events. Her weight has remained stable. No leg edema, abdominal distension, orthopnea, PND. No lightheadedness, syncope. She does not have symptoms of palpitations at this time [facility] Medical History CAD (coronary artery disease) Cellulitis Chronic atrial fibrillation Chronic systolic (congestive) heart failure History of cardioversion HTN (hypertension) Mitral regurgitation Nonischemic cardiomyopathy Occult GI bleeding EDWAR (obstructive sleep apnea) PAD (peripheral artery disease) Pulmonary hypertension Recent surgical procedure on lower extremity Surgical History H/O colonoscopy History of esophagogastroduodenoscopy (EGD) History of tooth extraction Hx of cardiac cath (~01/2018) Hx of right inguinal hernia repair Family History Father No problems noted. Mother No problems noted. Social History Household Members: Other Household Members Other:: PT from SNF Housing: Residential Housing Other:: in retirement at present - wants to get her own apartment again Do you presently have visiting nurse or other home services: No Alcohol intake: never Patient Tobacco Use Status: Former Tobacco user Tobacco use type: Cigarette Cigarette Packs Per Day: 1 Cigarettes Per Day: 20.0 Years Smoked: 20 Second Hand Smoke Exposure: No service: No Current occupational status: retired Review of Systems Const Denies chills, Denies fatigue, Denies fever(s), Denies frequent falls, Denies weakness, Denies weight gain and Denies weight loss ENT Denies dizziness Card Denies chest pain, Denies leg edema, Denies lightheadedness, Denies palpitations, Denies dyspnea, Denies dyspnea on exertion, Denies orthopnea and Denies other (loss of consciousness) Resp Denies cough, Denies dyspnea and Denies dyspnea on exertion GI Denies hematochezia and Denies change in stool character Musc Denies abnormal gait, Denies muscle weakness, Denies numbness, Denies radiating pain into limb and Denies tingling Neuro Denies abnormal gait, Denies dizziness, Denies frequent falls, Denies numbness, Denies tingling and Denies weakness Endo Denies fatigue and Denies palpitations Physical Exam Vital Signs: Last Vital Signs Pulse 62 10/14/22 11:28 BP 140/82 H 10/14/22 11:28 BMI result Body Mass Index 23.1 Const General: cooperative, healthy appearing, comfortable and no acute distress Orientation/consciousness: patient oriented x3 Neck Neck: Yes normal visual inspection and Yes no JVD Resp Effort & Inspection: normal respiratory effort Auscultation: clear to auscultation bilaterally, no crackles, no rales, no rhonchi and no wheezes Cardio Jugular venous distension: no JVD Rate: regular rate Rhythm: abnormal rhythm Heart sounds: S1 normal heart sound present, S2 normal heart sound present, Murmur heart sound present (3/6 systolic, mitral) and no rubs Neuro General: patient oriented x3 Extrem General: Yes normal to inspection Psych Appearance: grossly normal Mental Status: mental status grossly normal Speech and movement: Normal speech and movement present Assessment & Plan Assessment & Plan (1) Chronic atrial fibrillation: Code(s): I48.20 - Chronic atrial fibrillation, unspecified Plan: Chronic rate control atrial fibrillation. Unlikely to pursue rhythm control approach given significant biatrial enlargement. Continue rate control approach with current digoxin therapy in addition to metoprolol. Symptoms of palpitations of MP. Continue full oral anticoagulation with Eliquis. Semi silvina ual renal function test and digoxin assay should be performed. Will check today. (2) Chronic systolic (congestive) heart failure: Code(s): I50.22 - Chronic systolic (congestive) heart failure Plan: Severe systolic dysfunction secondary to uncorrected mitral regurgitation the past with persistent moderate mitral regurgitation by last echocardiogram. Currently doing well from heart failure perspective with no recent hospitalization. Remains clinically euvolemic and well compensated current diuretic dose. Continue current neurohormonal modulation with Entresto and metoprolol. Cannot further optimized therapy due to lower blood pressure. Management was discussed in details. Daily weight monitoring avoidance of salt loading was discussed additional diuretics as need be. (3) Mitral regurgitation: Code(s): I34.0 - Nonrheumatic mitral (valve) insufficiency Plan: Mitral regurgitation which is chronic and related mitral valve prolapse uncorrected. Was suggested many years ago to undergo repair but had declined at that point time. Has led to advancing cardiomyopathy and heart failure syndrome. Unlikely to proceed with repair at this point time as this may further worsen LV systolic function management would be medical. (4) CAD (coronary artery disease): Code(s): I25.10 - Atherosclerotic heart disease of [place] coronary artery without angina pectoris Plan: CAD with no symptoms angina with nonobstructive disease in the past. Continue aggressive risk factor modification. Avoid aspirin therapy. She is on full oral anticoagulation to reduce bleeding risk. Continue statin therapy. Will follow up in the clinic in 6 months time, sooner p.r.n.. Thank you for allowing me to partake in her care Orders: Orders Basic Metabolic Panel Today I48.20 - Chronic atrial fibrillation, unspecified Digoxin Today I48.20 - Chronic atrial fibrillation, unspecified Coding Level of Care Code Est Pt Level 4 (61673) Diagnoses Chronic atrial fibrillation I48.20 Chronic systolic (congestive) heart failure I50.22 Mitral regurgitation I34.0 CAD (coronary artery disease) I25.10
[2022-10-14 11:28] VITALS: BP 140/82; PULSE 62; BMI 23.1
== END 2022-10-14 11:52 | disposition home or self-care (01) ==
PROVIDERS: PCP Family Medicine Geriatric Medicine; Referring Provider Family Medicine Geriatric Medicine; Visit Provider Internal Medicine Cardiovascular Disease
DX: I48.20 Chronic atrial fibrillation, unspecified (principal); I50.22 Chronic systolic (congestive) heart failure; I34.0 Nonrheumatic mitral (valve) insufficiency; I25.10 Atherosclerotic heart disease of native coronary artery without angina pectoris
CPT/HCPCS: 99214

== ENCOUNTER 2023-01-06 12:53 | Outpatient (AMB) | payer OTHER, SELFPAY ==
[2023-01-06 12:58] VITALS: BP 100/62; PULSE 62
--- NOTE | 2023-01-06 12:58 | MHC.OFFVIS ---
Intake Vital Signs 01/06/23 12:58 Height 5 ft 5 in BP 100/62 Blood Pressure Location Lt brachial Position Sitting Pulse 62 Intake Visit Reasons: 6 months follow up Synthetic Gem Press Operator: Synthetic Gem Press Operator Present Accompanied by: associate counsel Allergies No Known Allergies [NO KNOWN ALLERGIES] Allergy (Unknown, Verified 01/06/23 13:02) UNKNOWN Medication List - Last Reconciled 01/06/23 by LOY Justin acetaminophen 975 mg PO TID PRN apixaban 5 mg PO BID bisacodyl 10 mg MO DAILY PRN cyanocobalamin (vitamin B-12) 1,000 mcg PO DAILY digoxin 125 mcg PO DAILY WA-cjzmqjgg-[id number]-fzsuueppazh 5-538-671-50 pa-dl-qsc-mg tabs PO ferrous sulfate 325 mg PO DAILY fluticasone propion-salmeterol 100-50 mcg/dose (Wixela Inhub) 1 inh inhalation Q12H furosemide 40 mg PO BID gabapentin 100 mg PO TID garlic (garlic oil) 1,000 mg PO DAILY Lactobacillus acidophilus (Acidophilus capsule) 100 mg PO DAILY methyl salicylate-menthol 15-10 % (Muscle Rub) 1 appl topical TID PRN metoprolol succinate ER 25 mg PO DAILY multivitamin with minerals 1 tab PO DAILY olanzapine 2.5 mg PO BID omega 9-akj-pcc-fish oil 1,000 mg (120 mg-180 mg) (Fish Oil) 1 cap PO DAILY paroxetine HCl 20 mg PO DAILY pomegrnt-green q-jzolt-kwairff 100-60-5-5 mg caps PO potassium chloride ER 20 mEq PO DAILY sacubitril-valsartan 24-26 mg (Entresto) 1 tab PO BID sour lara extract (Tart Lara Extract) mg PO vitamins A,C,B-hysm-tazpwv 4,296 mcg-226 mg-90 mg (PreserVision AREDS) 1 cap PO BID HPI 6 months follow up HPI Details Pau is an 82-year-old female with past medical history of hypertension, chronic systolic heart failure, nonischemic cardiomyopathy, nonobstructive coronary artery disease, moderate mitral regurgitation, moderate to severe tricuspid regurgitation, chronic atrial fibrillation who presents for follow-up. Today she reports that she has had no significant changes in the last few months. She resides in a prison and does only light physical activity. They do do some chair exercises. She is currently in a wheelchair today. She tells me her breathing has been stable. She will get short of breath with activity which is not new. She does get pains in her chest randomly, not with activity. At time she feels her heart going fast. No presyncope, syncope, falls. No clear PND, orthopnea or edema. She is taking meds as directed. Staff member from her SNF with her today. [facility] Medical History PAD (peripheral artery disease) Cellulitis Recent surgical procedure on lower extremity History of cardioversion Occult GI bleeding Pulmonary hypertension Chronic atrial fibrillation CAD (coronary artery disease) EDWAR (obstructive sleep apnea) Nonischemic cardiomyopathy Chronic systolic (congestive) heart failure Mitral regurgitation HTN (hypertension) Surgical History History of tooth extraction History of esophagogastroduodenoscopy (EGD) H/O colonoscopy Hx of right inguinal hernia repair Hx of cardiac cath (~01/2018) Family History Father No problems noted. Mother No problems noted. Social History Household Members: Other Household Members Other:: PT from SNF Housing: Long-Term Housing Other:: in prison at present - wants to get her own apartment again Do you presently have visiting nurse or other home services: No Alcohol intake: never Patient Tobacco Use Status: Former Tobacco user Tobacco use type: Cigarette Cigarette Packs Per Day: 1 Cigarettes Per Day: 20.0 Years Smoked: 20 Second Hand Smoke Exposure: No service: No Current occupational status: retired Review of Systems Const All systems reviewed & are unremarkable except as noted in HPI and below ENT Denies dizziness Card Denies chest pain, Denies chest pain at rest, Denies chest pain with activity, Denies rapid heart rate, Denies pedal edema, Denies edema, Denies leg edema, Denies lightheadedness, Reports palpitations, Denies dyspnea, Reports dyspnea on exertion and Denies orthopnea Resp Denies cough, Denies dyspnea and Reports dyspnea on exertion GI Denies hematochezia and Denies change in stool character Musc Denies abnormal gait, Denies limited range of motion, Denies muscle cramps, Reports muscle weakness, Denies numbness, Denies radiating pain into limb, Denies stiffness and Denies tingling Neuro Denies abnormal gait, Denies dizziness, Denies numbness and Denies tingling Endo Reports palpitations Physical Exam Vital Signs: Last Vital Signs Pulse 62 01/06/23 12:58 BP 100/62 01/06/23 12:58 Const Other: elderly female sitting in wheelchair General: cooperative, healthy appearing, comfortable and no acute distress Orientation/consciousness: patient oriented x3 Neck Neck: Yes normal visual inspection Resp Effort & Inspection: normal respiratory effort Auscultation: clear to auscultation bilaterally, no crackles, no rales, no rhonchi and no wheezes Cardio Jugular venous distension: no JVD Rate: regular rate Heart sounds: S1 normal heart sound present, S2 normal heart sound present, no murmurs and no rubs Neuro General: patient oriented x3 Extrem General: Yes normal to inspection and No no pedal edema Psych Appearance: grossly normal Mental Status: mental status grossly normal Speech and movement: Normal speech and movement present Office Procedures EKG Details: Today, read by me, atrial fibrillation, low voltage QRS, can not rule out anterior infarct, rate 62, QTC 452 millisecond [id number], Complete Assessment & Plan Assessment & Plan (1) Chronic atrial fibrillation: Code(s): I48.20 - Chronic atrial fibrillation, unspecified Plan: History of chronic atrial fibrillation that is treated with heart rate control. She is on metoprolol and digoxin. Last digoxin level 0.4 on 10/14/2022. EKG done today showing atrial fibrillation, heart rate 62. She will feel heart palpitations at times. She is on Eliquis for anticoagulation. Recent creatinine 0.9. No bleeding issues reported. No med changes made (2) Nonischemic cardiomyopathy: Code(s): I42.8 - Other cardiomyopathies Plan: History of nonischemic cardiomyopathy. Last echo 03/31/2022 showing EF 20-25%, mildly dilated RV, moderate RV dysfunction, moderate to severe increase in the RV SP, severe biatrial enlargement, moderate MR, moderate to severe TR. She does not appear fluid overloaded on examination today. Will have her continue on Entresto and metoprolol for neurohormonal modulation. BMP should be followed at least twice yearly. Signs of symptoms of heart failure reviewed with her and written on her prison visit record. (3) Chronic systolic (congestive) heart failure: Code(s): I50.22 - Chronic systolic (congestive) heart failure Plan: Stable at present. Last known EF 20-25% which is slightly increased from prior. She is on Lasix 40 mg b.i.d.. Continue meds without change (4) Mitral regurgitation: Code(s): I34.0 - Nonrheumatic mitral (valve) insufficiency Plan: History of mitral valve prolapse, unrepaired, then developed mitral regurgitation, previously severe however most recent echocardiogram showing moderate MR. Heart murmur noted on examination. Heart failure management as above. (5) Tricuspid regurgitation: Code(s): I07.1 - Rheumatic tricuspid insufficiency Plan: Moderate to severe tricuspid regurgitation noted on most recent echo. Moderate RV dysfunction, mildly dilated RV. Severe biatrial enlargement. She does have some shortness of breath with activity which is not new. She continues on daily Lasix. No med changes made. (6) Hx of cardiac cath: Onset Date: ~01/2018 Comment: mid LAD and distal LAD 50% stenosis, LCx mid 40% stenosis Code(s): Z98.890 - Other specified postprocedural states Plan: No reports of anginal sounding symptoms. (7) EDWAR (obstructive sleep apnea): Comment: Follows with Dr Mejia Code(s): G47.33 - Obstructive sleep apnea (adult) (pediatric) Coding Level of Care Code Est Pt Level 4 (92882) Diagnoses Chronic atrial fibrillation I48.20 Nonischemic cardiomyopathy I42.8 Chronic systolic (congestive) heart failure I50.22 Mitral regurgitation I34.0 Tricuspid regurgitation I07.1 Hx of cardiac cath Z98.890 EDWAR (obstructive sleep apnea) G47.33 CPT Codes EKG - CPT: [id number], Complete ([id number]) Time Spent (min) 26
== END 2023-01-06 13:37 | disposition home or self-care (01) ==
PROVIDERS: Visit Provider Nurse Practitioner Family
DX: I48.20 Chronic atrial fibrillation, unspecified (principal); I42.8 Other cardiomyopathies; I50.22 Chronic systolic (congestive) heart failure; I34.0 Nonrheumatic mitral (valve) insufficiency; I07.1 Rheumatic tricuspid insufficiency; Z98.890 Other specified postprocedural states; G47.33 Obstructive sleep apnea (adult) (pediatric)
CPT/HCPCS: 93010; 99214

== ENCOUNTER → 2023-01-06 12:53 | Outpatient (BNVA) | payer OTHER, SELFPAY | PROVIDERS: Visit Provider Nurse Practitioner Family | DX: I48.20 Chronic atrial fibrillation, unspecified (principal); I42.8 Other cardiomyopathies; I50.22 Chronic systolic (congestive) heart failure; I34.0 Nonrheumatic mitral (valve) insufficiency; I07.1 Rheumatic tricuspid insufficiency; G47.33 Obstructive sleep apnea (adult) (pediatric); Z98.890 Other specified postprocedural states | CPT/HCPCS: 93005; 99212 ==

== ENCOUNTER 2023-03-10 14:13 | Outpatient (AMB) | payer OTHER, SELFPAY ==
--- NOTE | 2023-03-10 14:16 | MHC.OFFVIS ---
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: No Allergies No Known Allergies [NO KNOWN ALLERGIES] Allergy (Unknown, Verified 03/10/23 14:20) UNKNOWN Medication List - Last Reconciled 03/10/23 by LOY Justin acetaminophen 975 mg PO TID PRN apixaban 5 mg PO BID bisacodyl 10 mg [place] DAILY PRN cyanocobalamin (vitamin B-12) 1,000 mcg PO DAILY digoxin 125 mcg PO DAILY YF-jktfpzyd-[id number]-npocbpjxkoy [id number] zl-sm-fhq-mg tabs PO ferrous sulfate 325 mg PO DAILY fluticasone propion-salmeterol 100-50 mcg/dose (Wixela Inhub) 1 inh inhalation Q12H furosemide 40 mg PO DAILY gabapentin 100 mg PO TID garlic (garlic oil) 1,000 mg PO DAILY Lactobacillus acidophilus (Acidophilus capsule) 100 mg PO DAILY methyl salicylate-menthol 15-10 % (Muscle Rub) 1 appl topical TID PRN metoprolol succinate ER 25 mg PO DAILY multivitamin with minerals 1 tab PO DAILY olanzapine 2.5 mg PO BID omega 2-zfk-frm-fish oil 1,000 mg (120 mg-180 mg) (Fish Oil) 1 cap PO DAILY paroxetine HCl 20 mg PO DAILY pomegrnt-green m-shybs-keowlbs 100-60-5-5 mg caps PO potassium chloride ER 20 mEq PO DAILY sacubitril-valsartan 24-26 mg (Entresto) 1 tab PO BID sour rosenbaum extract (Tart Rosenbaum Extract) mg PO vitamins A,C,X-qamj-tupsee 4,296 mcg-226 mg-90 mg (PreserVision AREDS) 1 cap PO BID HPI Follow up [facility] 02/13-02/22/CHF HPI Details Pau is an 82-year-old female with past medical history of hypertension, chronic systolic heart failure, nonischemic cardiomyopathy, nonobstructive coronary artery disease, moderate mitral regurgitation, moderate to severe tricuspid regurgitation, chronic atrial fibrillation who was recently admitted to [facility] for septic shock, pyelonephritis, hypoxic respiratory failure, Congestive heart failure. She was diuresed and discharged to rehab with Lasix 40 mg b.i.d. as well as oxygen with nasal cannula. Today she comes to me on an ambulance stretcher from her rehab facility. She is sleepy and falls asleep easily during the visit. She tells me that she has been feeling fatigued and weak since her hospital discharge. She does have shortness of breath with activity. She tells me she is only able to ambulate short distances with assistance. She has no PND, orthopnea or edema. Intermittent cough reported. No chest discomfort at rest or with activity. No palpitations, presyncope, syncope, falls. Taking meds as they are given to her. Notes from the rehab indicate they reduced her Lasix back to once daily. They have been doing daily weights which were reviewed and found to be stable. [facility] Medical History PAD (peripheral artery disease) Cellulitis Recent surgical procedure on lower extremity History of cardioversion Occult GI bleeding Pulmonary hypertension Chronic atrial fibrillation CAD (coronary artery disease) EDWAR (obstructive sleep apnea) Nonischemic cardiomyopathy Chronic systolic (congestive) heart failure Mitral regurgitation HTN (hypertension) Surgical History History of tooth extraction History of esophagogastroduodenoscopy (EGD) H/O colonoscopy Hx of right inguinal hernia repair Hx of cardiac cath (~01/2018) Family History Father No problems noted. Mother No problems noted. Social History Household Members: Other Household Members Other:: PT from SNF Housing: [facility] Housing Other:: in [facility] at present - wants to get her own apartment again Do you presently have visiting nurse or other home services: No Alcohol intake: never Patient Tobacco Use Status: Former Tobacco user Tobacco use type: Cigarette Cigarette Packs Per Day: 1 Cigarettes Per Day: 20.0 Years Smoked: 20 Second Hand Smoke Exposure: No service: No Current occupational status: retired Review of Systems Const All systems reviewed & are unremarkable except as noted in HPI and below Reports fatigue and Reports weakness ENT Denies dizziness Card Details: wearing O2 with nasal cannula Denies chest pain, Denies chest pain at rest, Denies chest pain with activity, Denies rapid heart rate, Denies pedal edema, Denies edema, Denies leg edema, Denies lightheadedness, Denies palpitations, Reports dyspnea, Reports dyspnea on exertion and Denies orthopnea Resp Denies cough, Reports dyspnea and Reports dyspnea on exertion GI Denies hematochezia and Denies change in stool character Musc Reports abnormal gait, Denies limited range of motion, Denies muscle cramps, Reports muscle weakness, Denies numbness, Denies radiating pain into limb, Denies stiffness and Denies tingling Neuro Reports abnormal gait, Denies dizziness, Denies numbness, Denies tingling and Reports weakness Endo Reports fatigue and Denies palpitations Physical Exam Const Other: frail elderly female on ambulance stretcher. General: cooperative, comfortable and no acute distress Orientation/consciousness: patient oriented x3 Neck Neck: Yes normal visual inspection Resp Other: rales noted each base, Left is > than right. Wearing O2 3 liters with cannula. Effort & Inspection: normal respiratory effort Auscultation: no rhonchi and no wheezes Cardio Jugular venous distension: no JVD Rate: regular rate and tachycardic Rhythm: abnormal rhythm Heart sounds: Murmur heart sound present (holosystolic murmur left chest, mitral position) and no rubs Peripheral pulses: Peripheral pulses 2+ throughout Neuro General: patient oriented x3 Extrem General: Yes normal to inspection, No no pedal edema and No calf tenderness Psych Appearance: grossly normal Mental Status: mental status grossly normal Speech and movement: Normal speech and movement present Assessment & Plan Assessment & Plan (1) Chronic systolic (congestive) heart failure: Code(s): I50.22 - Chronic systolic (congestive) heart failure Plan: History of systolic heart failure. Had been on Lasix 40 mg b.i.d.. Last known EF 20-25% which is slightly increased from prior. She had been admitted to [facility] last month with septic shock, pyelonephritis and did have hypoxic respiratory failure and Congestive heart failure. She was diuresed and sent back to rehab facility on 40 mg b.i.d.. She also has been wearing oxygen with nasal cannula which is newer for her. At the rehab facility they reduced her Lasix down to 40 mg once daily. On exam today she does not appear fluid overloaded but she does have rales in her bases, left greater than right. She is laying on a ambulance stretcher and has been mostly sedentary. This could be atelectasis versus possible fluid retention. She has no JVD or edema on exam. Note written to the rehab facility to increase her Lasix back to b.i.d. if she has any increased shortness of breath or weight gain. Currently weights have been stable. She needs close monitoring for Congestive heart failure. Reviewed this with patient however unclear how much she fully understands. Suggested she increase her physical activity and participate in rehab, take deep breaths when able. (2) Nonischemic cardiomyopathy: Code(s): I42.8 - Other cardiomyopathies Plan: History of nonischemic cardiomyopathy. Last echo 03/31/2022 showing EF 20-25%, mildly dilated RV, moderate RV dysfunction, moderate to severe increase in the RV SP, severe biatrial enlargement, moderate MR, moderate to severe TR. She does not appear fluid overloaded on examination today but does have some rales in her lung bases. Lasix adjustment addressed as above. Will have her continue on Entresto and metoprolol for neurohormonal modulation. Labs done at rehab facility on 03/05/2022 showed potassium 4.9, creatinine 0.82. Signs and symptoms of heart failure reviewed with her and notes written on her [facility] visit record for their review. (3) Chronic atrial fibrillation: Code(s): I48.20 - Chronic atrial fibrillation, unspecified Plan: History of chronic atrial fibrillation that is treated with heart rate control. She is on metoprolol and digoxin. Last digoxin level 0.4 on 02/13/2023. EKG done last visit showing atrial fibrillation, heart rate 62. She has not been feeling heart palpitations recentl. She is on Eliquis for anticoagulation. Recent creatinine 0.82. No bleeding issues reported. No med changes made (4) Mitral regurgitation: Code(s): I34.0 - Nonrheumatic mitral (valve) insufficiency Plan: History of mitral valve prolapse, unrepaired, then developed mitral regurgitation, previously severe however most recent echocardiogram showing moderate MR. Heart murmur noted on examination. Heart failure management as above. (5) Tricuspid regurgitation: Code(s): I07.1 - Rheumatic tricuspid insufficiency Plan: Moderate to severe tricuspid regurgitation noted on most recent echo. Moderate RV dysfunction, mildly dilated RV. Severe biatrial enlargement. She does have some shortness of breath with activity which is not new. She continues on daily Lasix. No med changes made. (6) Hx of cardiac cath: Onset Date: ~01/2018 Comment: mid LAD and distal LAD 50% stenosis, LCx mid 40% stenosis Code(s): Z98.890 - Other specified postprocedural states Plan: No reports of anginal sounding symptoms. Plan Time spent on chart review, documentation, interview and assessment Coding Level of Care Code Est Pt Level 4 (21646) Diagnoses Chronic systolic (congestive) heart failure I50.22 Nonischemic cardiomyopathy I42.8 Chronic atrial fibrillation I48.20 Mitral regurgitation I34.0 Tricuspid regurgitation I07.1 Hx of cardiac cath Z98.890 Time Spent (min) 28
[2023-03-10 14:17] VITALS: BP 100/62; PULSE 62
== END 2023-03-10 15:00 | disposition home or self-care (01) ==
PROVIDERS: PCP Nurse Practitioner Family; Visit Provider Nurse Practitioner Family
DX: I50.22 Chronic systolic (congestive) heart failure (principal); I42.8 Other cardiomyopathies; I48.20 Chronic atrial fibrillation, unspecified; I34.0 Nonrheumatic mitral (valve) insufficiency; I07.1 Rheumatic tricuspid insufficiency; Z98.890 Other specified postprocedural states
CPT/HCPCS: 99214

== ENCOUNTER → 2023-03-10 14:13 | Outpatient (BNVA) | payer OTHER, SELFPAY | PROVIDERS: PCP Nurse Practitioner Family; Visit Provider Nurse Practitioner Family | DX: I50.22 Chronic systolic (congestive) heart failure (principal); I42.8 Other cardiomyopathies; I48.20 Chronic atrial fibrillation, unspecified; I34.0 Nonrheumatic mitral (valve) insufficiency; I07.1 Rheumatic tricuspid insufficiency; Z79.01 Long term (current) use of anticoagulants; Z79.899 Other long term (current) drug therapy | CPT/HCPCS: 99212 ==

== ENCOUNTER → 2023-04-06 09:46 | Outpatient (REF) | payer OTHER, SELFPAY ==
--- NOTE | 2023-04-06 09:56 | CA_ITS ---
Transthoracic Echocardiogram Patient (Last, First, Middle): Pau Cobb, Gender: Female Date of : 1940 Age: 82 Procedure Date: 04/06/2023 Procedure Type: Transthoracic Echocardiogram Location: OP Height: 165.1 cm Weight: 62.6 kg BSA: 1.69 m2 Heart Rate: bpm BP: 118 / 56 mmHg Sider Mechanic: Referring MD: Favian Gill MD Symptoms: I50.22 - Chronic systolic (congestive) heart failure Study Quality: Good ECG Rhythm: Atrial Fibrillation Conclusions: - The left ventricular systolic function is low normal. The visually estimated ejection fraction is between 50-55%. - Severe biatrial enlargement. - There is mild to moderate mitral valve regurgitation. - Moderate(to early severe) tricuspid regurgitation. - Mild pulmonary hypertension is present. Findings Left Ventricle Normal left ventricular cavity size. There is mildly increased left ventricular wall thickness. The left ventricular systolic function is low normal. The visually estimated ejection fraction is between 50-55%. Diastolic function is indeterminate on the basis of available data. Right Ventricle Moderately increased right ventricular cavity size. There is mildly decreased right ventricular systolic function. Atria Severe biatrial enlargement. Aortic Valve There is moderate calcification of the aortic valve. There is no aortic valve stenosis. There is no aortic valve regurgitation. Mitral Valve There is mild mitral annular calcification. There is mild to moderate mitral valve regurgitation. The mitral regurgitation jet is directed posteriorly. There is no mitral valve stenosis. Pulmonic Valve The pulmonic valve is likely normal. Tricuspid Valve Normal tricuspid valve structure. Mild pulmonary hypertension is present. Moderate (to early severe) tricuspid regurgitation. Great Vessels The asc aorta is normal in size. Venous The inferior vena cava is normal in size and collapses greater than 50% with inspiration. Pericardium/Pleural There is no evidence of pericardial effusion. Prior Study Comparison Changes noted compared to prior study dated: 03/31/2022. Improved LVEF. Valvular regurgitation not as prominent. Measurements 2D Linear Measurements IVSd: 1.08 0.6-0.9/0.6-1.0 cm LVIDd: 4.11 3.9-5.3/4.2-5.9 cm LVIDd Index: 2.43 2.4-3.2/2.2-3.1 cm/m2 LVIDs: 3.20 2.0-3.6 cm LVPWd: 1.14 0.7-1.1 cm Ao Root: 3.30 2.1-3.5 cm LA Diam: 4.20 2.7-3.8/3.0-4.0 cm LAIDs Index: 2.49 1.5-2.3 cm/m2 LV Mass: 191.58 67-162/88-224 g LV Mass Index: 113.36 43-95/49-115 g/m2 LVOT Diam: 2.20 3.0+(-)1.3 cm 2D Systolic Function EF 4C: 56.70 >55% EF 2C: 50.50 >55% Mitral Valve MV Pk E: 0.79 MV Decel Time: 167.00 E'Lateral: 10.30 E'Medial: 6.42 E/E' Med: 12.40 E/E' Lat: 7.70 PHT: 49.00 MVA PHT: 4.49 Decel [place]: 4.74 Aortic Valve AoV Pk Seth: 2.01 AoV Mn Seth: 1.21 AoV VTI: 0.37 AoV Pk Grad: 16.00 Aov Mn Grad: 7.00 REGULO Cont.VTI: 0.90 LVOT LVOT Pk Seth: 0.52 LVOT Mn Seth: 0.32 LVOT VTI: 0.09 LVOT Pk Grad: 1.00 LVOT Mn Grad: 1.00 LVOT Diam: 2.20 LVOT Area: 3.80 Diastolic Function MV Pk E: 0.79 E'Medial: 6.42 E/E' Med: 12.40 E' Laterial: 10.30 E/E' Lat: 7.70 Right Ventricle TAPSE (mm): 22.00 TVS' Seth: 9.00 Tricuspid Valve TR Pk Seth: 3.19 TR Pk Grad: 41.00 Great Vessels Aorta Ao Root-2D: 3.30 2.0-3.7 cm Ao Asc: 3.20 2.1-3.4 cm Pulmonary Valve PV Pk Seth: 0.72 Peak PV Grad: 2.00 Updated in Other Vendor System with Status of Final Kenneth Tabares MD electronically signed on 04/06/2023 9:30:54 AM with status of Final
== END ==
LOC: HO.CARD 09:46
PROVIDERS: PCP Nurse Practitioner Family; Visit Provider Internal Medicine Cardiovascular Disease
DX: I50.22 Chronic systolic (congestive) heart failure (principal)
CPT/HCPCS: 93306

== ENCOUNTER → 2023-04-06 09:56 | Outpatient (BNV) | payer OTHER, SELFPAY | PROVIDERS: PCP Nurse Practitioner Family; Visit Provider Internal Medicine | DX: I50.22 Chronic systolic (congestive) heart failure (principal); I34.0 Nonrheumatic mitral (valve) insufficiency | CPT/HCPCS: 93306 ==

== ENCOUNTER 2023-05-04 09:42 | Outpatient (AMB) | payer OTHER, SELFPAY ==
[2023-05-04 09:43] VITALS: BP 120/70; PULSE 73
--- NOTE | 2023-05-04 09:43 | A.OFFVIS_ITS ---
Intake Vital Signs 05/04/23 09:43 Height 5 ft 5 in BP 120/70 Blood Pressure Location Lt brachial Position Sitting Pulse 73 Pulse Source Pulse Oximeter Intake Visit Reasons: follow-up hospital dc Force Variation Equipment Tender Required: No Home And Family Living Professor: Home And Family Living Professor Present Allergies No Known Allergies [NO KNOWN ALLERGIES] Allergy (Unknown, Verified 05/04/23 09:47) UNKNOWN Medication List - Last Reconciled 05/04/23 by LOY Justin acetaminophen 975 mg PO TID PRN apixaban 5 mg PO BID bisacodyl 10 mg [place] DAILY PRN cyanocobalamin (vitamin B-12) 1,000 mcg PO DAILY digoxin 125 mcg PO DAILY JT-[id number]-wjhxtagmijj 6-237-248-50 qq-uo-pxf-mg tabs PO ferrous sulfate 325 mg PO DAILY fluticasone propion-salmeterol 100-50 mcg/dose (Wixela Inhub) 1 inh inhalation Q12H furosemide 40 mg PO DAILY gabapentin 100 mg PO TID garlic (garlic oil) 1,000 mg PO DAILY Lactobacillus acidophilus (Acidophilus capsule) 100 mg PO DAILY methyl salicylate-menthol 15-10 % (Muscle Rub) 1 appl topical TID PRN metoprolol succinate ER 25 mg PO DAILY multivitamin with minerals 1 tab PO DAILY olanzapine 2.5 mg PO BID omega 4-wqo-ebs-fish oil 1,000 mg (120 mg-180 mg) (Fish Oil) 1 cap PO DAILY paroxetine HCl 20 mg PO DAILY pomegrnt-green r-kphev-tgygamj 100-60-5-5 mg caps PO potassium chloride ER 20 mEq PO DAILY sacubitril-valsartan 24-26 mg (Entresto) 1 tab PO BID sour rosenbaum extract (Tart Rosenbaum Extract) mg PO vitamins A,C,O-mnni-skhdgd 4,296 mcg-226 mg-90 mg (PreserVision AREDS) 1 cap PO BID HPI follow-up hospital dc HPI Details Pau is an 82-year-old female with past medical history of hypertension, chronic systolic heart failure, nonischemic cardiomyopathy, nonobstructive coronary artery disease, moderate mitral regurgitation, moderate to severe tricuspid regurgitation, chronic atrial fibrillation who was recently admitted to [facility] for septic shock, pyelonephritis, hypoxic respiratory failure. She did have hypotension and was taken off Lasix and Entresto. She was sent back to her intermediate facility. She did have a recurrent ER for confusion visit 2 days ago without acute findings and no med changes. Today she reports that she feels well. She says her breathing is a little labored at times. She is wearing oxygen with nasal cannula. She denies chest discomfort, heart palpitations, lightheadedness. She tells me she only walks with the assistance. She takes all the medications that she is given. Overall she has no significant complaints. She arrived on on ambulance stretcher with EMS personnel. [facility] Medical History PAD (peripheral artery disease) Cellulitis Recent surgical procedure on lower extremity History of cardioversion Occult GI bleeding Pulmonary hypertension Chronic atrial fibrillation CAD (coronary artery disease) EDWAR (obstructive sleep apnea) Nonischemic cardiomyopathy Chronic systolic (congestive) heart failure Mitral regurgitation HTN (hypertension) Surgical History History of tooth extraction History of esophagogastroduodenoscopy (EGD) H/O colonoscopy Hx of right inguinal hernia repair Hx of cardiac cath (~01/2018) Family History Father No problems noted. Mother No problems noted. Social History Household Members: Other Household Members Other:: PT from SNF Housing: [facility] Other:: [facility] - wants to get her own apartment again Do you presently have visiting nurse or other home services: No Alcohol intake: never Patient Tobacco Use Status: Former Tobacco user Tobacco use type: Cigarette Cigarette Packs Per Day: 1 Cigarettes Per Day: 20.0 Years Smoked: 20 Second Hand Smoke Exposure: No service: No Current occupational status: retired Review of Systems Const All systems reviewed & are unremarkable except as noted in HPI and below ENT Denies dizziness Card Denies chest pain, Denies chest pain at rest, Denies chest pain with activity, Denies rapid heart rate, Denies pedal edema, Denies edema, Denies leg edema, Denies lightheadedness, Denies palpitations, Reports dyspnea, Reports dyspnea on exertion and Denies orthopnea Resp Details: wearing O2 with cannula Denies cough, Reports dyspnea and Reports dyspnea on exertion GI Denies hematochezia and Denies change in stool character Musc Reports abnormal gait, Denies limited range of motion, Denies muscle cramps, Reports muscle weakness, Denies numbness, Denies radiating pain into limb, Denies stiffness and Denies tingling Neuro Reports abnormal gait, Denies dizziness, Denies numbness and Denies tingling Endo Denies palpitations Physical Exam Vital Signs: Last Vital Signs Pulse 73 05/04/23 09:43 BP 120/70 05/04/23 09:43 Const Other: on ambulance stretcher. frail elderly General: cooperative, comfortable and no acute distress Orientation/consciousness: patient oriented x3 Neck Neck: Yes normal visual inspection and Yes no JVD Resp Other: fine wheezes and scattered rales on exam. Breathing unlabored Effort & Inspection: normal respiratory effort Auscultation: clear to auscultation bilaterally and no rhonchi Cardio Jugular venous distension: no JVD Rate: regular rate Rhythm: regular rhythm Heart sounds: S1 normal heart sound present, S2 normal heart sound present, Murmur heart sound present (Systolic, mitral position) and no rubs Skin General skin exam: no rashes or lesions noted Neuro General: patient oriented x3 Extrem General: Yes normal to inspection, No no pedal edema and No calf tenderness Psych Appearance: grossly normal Mental Status: mental status grossly normal Speech and movement: Normal speech and movement present Assessment & Plan Assessment & Plan (1) Chronic systolic (congestive) heart failure: Code(s): I50.22 - Chronic systolic (congestive) heart failure Plan: History of systolic heart failure. Had been on Lasix 40 mg b.i.d. Entresto and metoprolol XL. Prior known EF 20-25% last echo done 04/06/2023 showed EF 50-55%, severe biatrial enlargement, qfsq-mc-abxzyxqj MR and moderate to early severe TR. She had been admitted to [facility] 2 weeks ago with septic shock, pyelonephritis and did have hypoxic respiratory failure. During that admission she did have hypotension and was taken off her Lasix and Entresto. Her metoprolol was changed to tartrate 12.5 mg b.i.d.. She continues on O2 supplement with nasal cannula. Today she reports that she has no specific complaints except for some mild shortness of breath with activity. He is mostly sedentary. She does not appear grossly fluid overload but does have some fine expiratory wheezes on exam. Labs done on 04/30/2023 showed creatinine 0.69. Will restart Lasix 20 mg daily, will start valsartan 20 mg b.i.d.. Blood pressure today 120/70. Plan will be to increase Lasix and valsartan/restart Entresto at upcoming visits. Encouraged her to increase her physical activity. Signs and symptoms of fluid overload reviewed with her. She does have some dementia which makes self assessment of symptoms more challenging. Notes written on her paperwork for her intermediate facility. Basic metabolic profile in 1 week. Cardiology office visit 6-8 weeks, sooner if needed her. (2) Nonischemic cardiomyopathy: Code(s): I42.8 - Other cardiomyopathies Plan: History of nonischemic cardiomyopathy. Echo 03/31/2022 showing EF 20-25%. Recent echo with EF 50-55%. She does not appear fluid overloaded on examination today but does have some fine expiratory wheezes and scattered crackles. Lasix being restarted, low-dose. Blood pressure on lower side will add valsartan and hold on Entresto at this time. Continue metoprolol. (3) Chronic atrial fibrillation: Code(s): I48.20 - Chronic atrial fibrillation, unspecified Plan: History of chronic atrial fibrillation that is treated with heart rate control. She is on metoprolol and digoxin. Last digoxin level 0.4 on 02/13/2023. She has not been feeling heart palpitations recently. She is on Eliquis for anticoagulation. Recent creatinine 0.69. No bleeding issues reported. No med changes made (4) Mitral regurgitation: Code(s): I34.0 - Nonrheumatic mitral (valve) insufficiency Plan: History of mitral valve prolapse, unrepaired, then developed mitral regurgitation, previously severe however most recent echocardiogram showing mod erate MR. Heart murmur noted on examination. Heart failure management as above. (5) Tricuspid regurgitation: Code(s): I07.1 - Rheumatic tricuspid insufficiency Plan: Moderate to severe tricuspid regurgitation noted on most recent echo. Moderate RV dysfunction, mildly dilated RV. Severe biatrial enlargement. She does have some shortness of breath with activity which is not new. She has been off Lasix, will be restarting now. (6) Hx of cardiac cath: Onset Date: ~01/2018 Comment: mid LAD and distal LAD 50% stenosis, LCx mid 40% stenosis Code(s): Z98.890 - Other specified postprocedural states Plan: No reports of anginal sounding symptoms. (7) Hospital discharge follow-up: Code(s): Z09 - Encounter for follow-up examination after completed treatment for conditions other than malignant neoplasm Plan: As above Plan Time spent on chart review, documentation, interview and assessment Medications: New valsartan 20 mg PO BID furosemide (Lasix) 20 mg PO DAILY Coding Level of Care Code Est Pt Level 4 (99746) Diagnoses Chronic systolic (congestive) heart failure I50.22 Nonischemic cardiomyopathy I42.8 Chronic atrial fibrillation I48.20 Mitral regurgitation I34.0 Tricuspid regurgitation I07.1 Hx of cardiac cath Z98.890 Hospital discharge follow-up Z09 Time Spent (min) 30
== END 2023-05-04 10:37 | disposition home or self-care (01) ==
PROVIDERS: PCP Nurse Practitioner Family; Visit Provider Nurse Practitioner Family
DX: I50.22 Chronic systolic (congestive) heart failure (principal); I42.8 Other cardiomyopathies; I48.20 Chronic atrial fibrillation, unspecified; I34.0 Nonrheumatic mitral (valve) insufficiency; I07.1 Rheumatic tricuspid insufficiency; Z98.890 Other specified postprocedural states; Z09 Encounter for follow-up examination after completed treatment for conditions other than malignant neoplasm
CPT/HCPCS: 99214

== ENCOUNTER → 2023-05-04 09:42 | Outpatient (BNVA) | payer OTHER, SELFPAY | PROVIDERS: PCP Nurse Practitioner Family; Visit Provider Nurse Practitioner Family | DX: Z09 Encounter for follow-up examination after completed treatment for conditions other than malignant neoplasm (principal); I50.22 Chronic systolic (congestive) heart failure; I42.8 Other cardiomyopathies; I48.20 Chronic atrial fibrillation, unspecified; I34.0 Nonrheumatic mitral (valve) insufficiency; I07.1 Rheumatic tricuspid insufficiency; Z98.890 Other specified postprocedural states | CPT/HCPCS: 99212 ==

== ENCOUNTER 2023-06-15 13:22 | Outpatient (AMB) | payer OTHER, SELFPAY ==
[2023-06-15 13:33] VITALS: BP 99/62; PULSE 77
--- NOTE | 2023-06-15 13:33 | MHC.OFFVIS ---
Vital Signs 06/15/23 13:33 Height 5 ft 5 in BP 99/62 Blood Pressure Location Rt brachial Position Sitting Pulse 77 Pulse Source Pulse Oximeter Intake Visit Reasons: 3 mth f/up Photography Editor Required: No Allergies No Known Allergies [NO KNOWN ALLERGIES] Allergy (Unknown, Verified 06/15/23 13:38) UNKNOWN Medication List - Last Reconciled 06/15/23 by LOY Justin acetaminophen 975 mg PO TID PRN apixaban 5 mg PO BID bisacodyl 10 mg [place] DAILY PRN cyanocobalamin (vitamin B-12) 1,000 mcg PO DAILY digoxin 125 mcg PO DAILY [id number] [id number] no-mr-wsa-mg tabs PO ferrous sulfate 325 mg PO DAILY fluticasone propion-salmeterol 100-50 mcg/dose (Wixela Inhub) 1 inh inhalation Q12H furosemide 40 mg PO BID gabapentin 100 mg PO TID garlic (garlic oil) 1,000 mg PO DAILY Lactobacillus acidophilus (Acidophilus capsule) 100 mg PO DAILY methyl salicylate-menthol 15-10 % (Muscle Rub) 1 appl topical TID PRN metoprolol tartrate 12.5 mg PO BID multivitamin with minerals 1 tab PO DAILY olanzapine 2.5 mg PO BID omega 5-osc-ekt-fish oil 1,000 mg (120 mg-180 mg) (Fish Oil) 1 cap PO DAILY paroxetine HCl 20 mg PO DAILY pomegrnt-green u-mycgu-spmfvch 100-60-5-5 mg caps PO potassium chloride ER 20 mEq PO DAILY sour rosenbaum extract (Tart Rosenbaum Extract) mg PO vitamins A,C,H-tcza-unwizr 4,296 mcg-226 mg-90 mg (PreserVision AREDS) 1 cap PO BID HPI HPI 3 mth f/up: Details: Pau is an 82-year-old female with past medical history of hypertension, chronic systolic heart failure, nonischemic cardiomyopathy, nonobstructive coronary artery disease, moderate mitral regurgitation, moderate to severe tricuspid regurgitation, chronic atrial fibrillation who was admitted to [facility] March 2023 for septic shock, pyelonephritis, hypoxic respiratory failure. She did have hypotension and was taken off Lasix and Entresto. Her meds have since been restarted then stopped again. She has had issues with hypotension. She was admitted to [facility] again days following her last visit for Congestive heart failure. She now presents for follow-up. Today she again arrives on an ambulance stretcher with EMS personnel. She tells me that she has been feeling fine. She says her breathing has been comfortable. She has not wearing oxygen at this time. She does report that her chest is uncomfortable at times. She is mostly sedentary. She ambulates only short distances. No palpitations, lightheadedness, presyncope, syncope, falls. She takes the meds that are given to her. She is unaware what she is taking. [facility] Medical History PAD (peripheral artery disease) Cellulitis Recent surgical procedure on lower extremity History of cardioversion Occult GI bleeding Pulmonary hypertension Chronic atrial fibrillation CAD (coronary artery disease) EDWAR (obstructive sleep apnea) Nonischemic cardiomyopathy Chronic systolic (congestive) heart failure Mitral regurgitation HTN (hypertension) Surgical History History of tooth extraction History of esophagogastroduodenoscopy (EGD) H/O colonoscopy Hx of right inguinal hernia repair Hx of cardiac cath (~01/2018) Family History Father No problems noted. Mother No problems noted. Social History Household Members: Other Household Members Other:: PT from SNF Housing: [facility] Housing Other:: in [facility]iary at present - wants to get her own apartment again Do you presently have visiting nurse or other home services: No Alcohol intake: never Patient Tobacco Use Status: Former Tobacco user Tobacco use type: Cigarette Cigarette Packs Per Day: 1 Cigarettes Per Day: 20.0 Years Smoked: 20 Second Hand Smoke Exposure: No service: No Current occupational status: retired Review of Systems Const All systems reviewed & are unremarkable except as noted in HPI and below ENT Denies dizziness Card Reports chest pain, Denies chest pain at rest, Denies chest pain with activity, Denies rapid heart rate, Denies pedal edema, Denies edema, Denies leg edema, Denies lightheadedness, Denies palpitations, Denies dyspnea, Reports dyspnea on exertion and Denies orthopnea Resp Denies cough, Denies dyspnea and Reports dyspnea on exertion GI Denies hematochezia and Denies change in stool character Musc Details: Ambulates only short distances Denies abnormal gait, Denies limited range of motion, Denies muscle cramps, Denies muscle weakness, Denies numbness, Denies radiating pain into limb, Denies stiffness and Denies tingling Neuro Denies abnormal gait, Denies dizziness, Denies numbness and Denies tingling Endo Denies palpitations Physical Exam Vital Signs: Last Vital Signs Pulse 77 06/15/23 13:33 BP 99/62 06/15/23 13:33 Const Other: on ambulance stretcher. frail elderly General: cooperative, comfortable and no acute distress Orientation/consciousness: patient oriented x3 Neck Neck: Yes normal visual inspection and Yes no JVD Resp Effort & Inspection: normal respiratory effort Auscultation: clear to auscultation bilaterally, no rales, no rhonchi and no wheezes Cardio Jugular venous distension: no JVD Rate: regular rate Rhythm: regular rhythm Heart sounds: S1 normal heart sound present, S2 normal heart sound present, Murmur heart sound present (Systolic, mitral position) and no rubs Skin General skin exam: no rashes or lesions noted Neuro General: patient oriented x3 Extrem General: Yes normal to inspection, No no pedal edema and No calf tenderness Psych Appearance: grossly normal Mental Status: mental status grossly normal Speech and movement: Normal speech and movement present Assessment & Plan Assessment & Plan (1) Chronic systolic (congestive) heart failure: Code(s): I50.22 - Chronic systolic (congestive) heart failure Category: Medical Plan: History of systolic heart failure. Had been on Lasix 40 mg b.i.d. Entresto and metoprolol XL. Prior known EF 20-25%. Last echo done 04/06/2023 showed EF 50-55%, severe biatrial enlargement, mecd-km-sblgrafd MR and moderate to early severe TR. She had been admitted to [facility] in March with septic shock, pyelonephritis and did have hypoxic respiratory failure. During that admission she did have hypotension and was taken off her Lasix and Entresto. Her metoprolol was changed to tartrate 12.5 mg b.i.d.. On last visit she did have evidence of some fluid overload. She was restarted on low-dose Lasix and valsartan. Days later she was again admitted to [facility] for shortness of breath, Congestive heart failure. Discharge note reviewed and meds included Lasix 40 mg b.i.d. and Entresto. Med list from her penitentiary reviewed today. At this point she is taking Lasix only once daily and is off Entresto again. She continues on the metoprolol tartrate and digoxin every other day. She has not requiring oxygen supplement at this time. Her blood pressure is 99/62. She does not appear fluid overloaded on examination. She tells me she drinks 60 oz of fluid daily. Will have her reduce that down to 48 oz daily. This was written on the information sheet for her penitentiary. Informed them also to check daily weights. If she gains 3 lb in a day or 5 lb in a week she should take additional Lasix dose. Encouraged her to increase her physical activity as able. Signs and symptoms of fluid overload reviewed with her. She does have some dementia which makes self assessment of symptoms more challenging. Cardiology office visit 3 months, sooner if needed. (2) Nonischemic cardiomyopathy: Code(s): I42.8 - Other cardiomyopathies Category: Medical Plan: History of nonischemic cardiomyopathy. Echo 03/31/2022 showing EF 20-25%. Recent echo with EF 50-55%. She does not appear fluid overloaded on examination today. Unable to restart Entresto at this time. Blood pressure initially 99/62, recheck done by me, 88/58. Continue metoprolol and Lasix (3) Chronic atrial fibrillation: Code(s): I48.20 - Chronic atrial fibrillation, unspecified Category: Medical Plan: History of chronic atrial fibrillation that is treated with heart rate control. She is on metoprolol and digoxin. Last digoxin level 0.4 on 02/13/2023. She has not been feeling heart palpitations recently. She is on Eliquis for anticoagulation. Recent creatinine 0.69. No bleeding issues reported. No med changes made (4) Mitral regurgitation: Code(s): I34.0 - Nonrheumatic mitral (valve) insufficiency Category: Medical Plan: History of mitral valve prolapse, unrepaired, then developed mitral regurgitation, previously severe however most recent echocardiogram showing moderate MR. Heart murmur noted on examination. Heart failure management as above. (5) Tricuspid regurgitation: Code(s): I07.1 - Rheumatic tricuspid insufficiency Category: Medical Plan: Moderate to severe tricuspid regurgitation noted on most recent echo. Moderate RV dysfunction, mildly dilated RV. Severe biatrial enlargement. (6) Hx of cardiac cath: Onset Date: ~01/2018 Comment: mid LAD and distal LAD 50% stenosis, LCx mid 40% stenosis Code(s): Z98.890 - Other specified postprocedural states Category: Surgical Plan: No reports of anginal sounding symptoms. Nonobstructive coronary artery disease. On medical management. She is not on aspirin as she is on Eliquis. She has not on statin for unclear reason. With her frequent admission and residing in a long-term care facility her meds have been adjusted frequently. Recommend use of statin with ideal LDL goal less than 70. She is on metoprolol. (7) Hospital discharge follow-up: Code(s): Z09 - Encounter for follow-up examination after completed treatment for conditions other than malignant neoplasm Category: Medical Plan: As above Plan Time spent on chart review, documentation, interview and assessment
== END 2023-06-15 14:12 | disposition home or self-care (01) ==
LOC: HO.HCS 13:22
PROVIDERS: PCP Nurse Practitioner Family; Visit Provider Nurse Practitioner Family
DX: I50.22 Chronic systolic (congestive) heart failure (principal); I42.8 Other cardiomyopathies; I48.20 Chronic atrial fibrillation, unspecified; I34.0 Nonrheumatic mitral (valve) insufficiency; I07.1 Rheumatic tricuspid insufficiency; Z98.890 Other specified postprocedural states; Z09 Encounter for follow-up examination after completed treatment for conditions other than malignant neoplasm
CPT/HCPCS: 99214

== ENCOUNTER → 2023-06-15 13:22 | Outpatient (BNVA) | payer OTHER, SELFPAY | PROVIDERS: PCP Nurse Practitioner Family; Visit Provider Nurse Practitioner Family | DX: Z09 Encounter for follow-up examination after completed treatment for conditions other than malignant neoplasm (principal); I50.22 Chronic systolic (congestive) heart failure; I42.8 Other cardiomyopathies; I48.20 Chronic atrial fibrillation, unspecified; I34.0 Nonrheumatic mitral (valve) insufficiency; I07.1 Rheumatic tricuspid insufficiency; Z98.890 Other specified postprocedural states | CPT/HCPCS: 99212 ==

== ENCOUNTER 2023-09-17 13:49 | Outpatient (AMB) | payer OTHER, SELFPAY ==
[2023-09-17 13:51] VITALS: BP 100/62; PULSE 88; BMI 23.6
--- NOTE | 2023-09-17 13:51 | MHC.OFFVIS ---
Vital Signs 09/17/23 13:51 Height 5 ft 5 in Weight 142 lb BMI 23.6 BP 100/62 Blood Pressure Location Rt brachial Position Sitting Pulse 88 Pulse Source Pulse Oximeter Intake Visit Reasons: 3 mth f/up Book Canvasser Required: No Inspector Receiving: Inspector Receiving Present Allergies No Known Allergies [NO KNOWN ALLERGIES] Allergy (Unknown, Verified 09/17/23 13:55) UNKNOWN Medication List - Last Reconciled 09/17/23 by LOY Justin acetaminophen 975 mg PO TID PRN apixaban 5 mg PO BID bisacodyl 10 mg [place] DAILY PRN cyanocobalamin (vitamin B-12) 1,000 mcg PO DAILY digoxin 125 mcg PO DAILY [id number] [id number] hu-at-trd-mg tabs PO ferrous sulfate 325 mg PO DAILY fluticasone propion-salmeterol 100-50 mcg/dose (Wixela Inhub) 1 inh inhalation Q12H furosemide 40 mg PO BID gabapentin 100 mg PO TID garlic (garlic oil) 1,000 mg PO DAILY Lactobacillus acidophilus (Acidophilus capsule) 100 mg PO DAILY methyl salicylate-menthol 15-10 % (Muscle Rub) 1 appl topical TID PRN metoprolol tartrate 12.5 mg PO BID multivitamin with minerals 1 tab PO DAILY olanzapine 2.5 mg PO BID omega 1-orr-bov-fish oil 1,000 mg (120 mg-180 mg) (Fish Oil) 1 cap PO DAILY paroxetine HCl 20 mg PO DAILY pomegrnt-green y-vdmwr-nzslkff 100-60-5-5 mg caps PO potassium chloride ER 20 mEq PO DAILY sour rosenbaum extract (Tart Rosenbaum Extract) mg PO vitamins A,C,S-nnmd-quxurm 4,296 mcg-226 mg-90 mg (PreserVision AREDS) 1 cap PO BID HPI HPI 3 mth f/up: Details: Pau is an 82-year-old female with past medical history of hypertension, chronic systolic heart failure, nonischemic cardiomyopathy, nonobstructive coronary artery disease, moderate mitral regurgitation, moderate to severe tricuspid regurgitation, chronic atrial fibrillation who presents for follow-up. Today she reports that she has been doing well since her last visit in May. She has had no recurrent hospitalizations. She has been trying to increase her physical activity at the half-way. She ambulates with a walker and assistance. She has some mild shortness of breath with activity. No PND, orthopnea or edema. No lightheadedness, presyncope, syncope, falls. No chest discomfort at rest or with activity. Taking meds as they are given to her. Has been trying to follow her fluid restriction. Currently sitting in a wheelchair. Staff member from the residential facility present. [facility] Medical History PAD (peripheral artery disease) Cellulitis Recent surgical procedure on lower extremity History of cardioversion Occult GI bleeding Pulmonary hypertension Chronic atrial fibrillation CAD (coronary artery disease) EDWAR (obstructive sleep apnea) Nonischemic cardiomyopathy Chronic systolic (congestive) heart failure Mitral regurgitation HTN (hypertension) Surgical History History of tooth extraction History of esophagogastroduodenoscopy (EGD) H/O colonoscopy Hx of right inguinal hernia repair Hx of cardiac cath (~01/2018) Family History Father No problems noted. Mother No problems noted. Social History Household Members: Other Household Members Other:: PT from SNF Housing: Assisted Housing Other:: in half-way at present - wants to get her own apartment again Do you presently have visiting nurse or other home services: No Alcohol intake: never Patient Tobacco Use Status: Former Tobacco user Tobacco use type: Cigarette Cigarette Packs Per Day: 1 Cigarettes Per Day: 20.0 Years Smoked: 20 Second Hand Smoke Exposure: No service: No Current occupational status: retired Review of Systems Const All systems reviewed & are unremarkable except as noted in HPI and below ENT Denies dizziness Card Denies chest pain, Denies chest pain at rest, Denies chest pain with activity, Denies rapid heart rate, Denies pedal edema, Denies edema, Denies leg edema, Denies lightheadedness, Denies palpitations, Denies dyspnea, Denies dyspnea on exertion and Denies orthopnea Resp Denies cough, Denies dyspnea and Denies dyspnea on exertion GI Denies hematochezia and Denies change in stool character Musc Denies abnormal gait, Denies limited range of motion, Denies muscle cramps, Reports muscle weakness, Denies numbness, Denies radiating pain into limb, Denies stiffness and Denies tingling Neuro Denies abnormal gait, Denies dizziness, Denies numbness and Denies tingling Endo Denies palpitations Physical Exam Vital Signs: Last Vital Signs Pulse 88 09/17/23 13:51 BP 100/62 09/17/23 13:51 BMI result Body Mass Index 23.6 Const General: cooperative, healthy appearing, comfortable and no acute distress Orientation/consciousness: patient oriented x3 Neck Neck: Yes normal visual inspection and Yes no JVD Resp Effort & Inspection: normal respiratory effort Auscultation: clear to auscultation bilaterally, no rales, no rhonchi and no wheezes Cardio Jugular venous distension: no JVD Rate: regular rate Rhythm: abnormal rhythm Heart sounds: S1 normal heart sound present, S2 normal heart sound present, no murmurs and no rubs Neuro General: patient oriented x3 Extrem General: Yes normal to inspection and No no pedal edema Psych Appearance: grossly normal Mental Status: mental status grossly normal Speech and movement: Normal speech and movement present Assessment & Plan Assessment & Plan (1) Chronic systolic (congestive) heart failure: Code(s): I50.22 - Chronic systolic (congestive) heart failure Category: Medical Plan: History of systolic heart failure. Had been on Lasix 40 mg b.i.d. Entresto and metoprolol XL. Prior known EF 20-25%. Last echo done 04/06/2023 showed EF 50-55%, severe biatrial enlargement, hsnq-nd-vyztgofi MR and moderate to early severe TR. She had been admitted to [facility] in March with septic shock, pyelonephritis and did have hypoxic respiratory failure. During that admission she did have hypotension and was taken off her Lasix and Entresto. Her metoprolol was changed to tartrate 12.5 mg b.i.d.. On follow-up visit she did have evidence of some fluid overload and was restarted on Lasix and valsartan. She did have another heart failure admission at [facility] prior to last visit. She again was taken off her valsartan due to low blood pressures. Today she reports she has been doing well since her last visit here in May. She has had no recurrent hospitalizations since then. She has been receiving Lasix 40 mg once daily with p.r.n. Lasix for weight gain or edema. On exam today she does not appear fluid overloaded. She is following her fluid restriction as directed. Encouraged her to increase her physical activity as able. Signs and symptoms of fluid overload reviewed with her. Cardiology office visit 4 months, sooner if needed. (2) Nonischemic cardiomyopathy: Code(s): I42.8 - Other cardiomyopathies Category: Medical Plan: History of nonischemic cardiomyopathy. Echo 03/31/2022 showing EF 20-25%. Recent echo with EF 50-55%. She does not appear fluid overloaded on examination today. Unable to restart Entresto at this time due to low blood pressures. Continue on metoprolol for neurohormonal modulation. Continue Lasix. If blood pressure does improve can consider a retrial of valsartan or Entresto. (3) Chronic atrial fibrillation: Code(s): I48.20 - Chronic atrial fibrillation, unspecified Category: Medical Plan: History of chronic atrial fibrillation that is treated with heart rate control. She is on metoprolol and digoxin. Last digoxin level 0.4 on 02/13/2023. She has not been feeling heart palpitations recently. She is on Eliquis for anticoagulation. Recent creatinine 0.9. No bleeding issues reported. No med changes made (4) Mitral regurgitation: Code(s): I34.0 - Nonrheumatic mitral (valve) insufficiency Category: Medical Plan: History of mitral valve prolapse, unrepaired, then developed mitral regurgitation, previously severe however most recent echocardiogram showing moderate MR. Heart murmur noted on examination. Heart failure management as above. (5) Tricuspid regurgitation: Code(s): I07.1 - Rheumatic tricuspid insufficiency Category: Medical Plan: Moderate to severe tricuspid regurgitation noted on most recent echo. Moderate RV dysfunction, mildly dilated RV. Severe biatrial enlargement. (6) Hx of cardiac cath: Onset Date: ~01/2018 Comment: mid LAD and distal LAD 50% stenosis, LCx mid 40% stenosis Code(s): Z98.890 - Other specified postprocedural states Category: Surgical Plan: No reports of anginal sounding symptoms. Nonobstructive coronary artery disease. On medical management. She is not on aspirin as she is on Eliquis. She she is on metoprolol. She is not on statin for unclear reason. Recommend use of statin with ideal LDL goal less than 70. Plan Time spent on chart review, documentation, interview and assessment Coding Level of Care Code Est Pt Level 4 (14977) Diagnoses Chronic systolic (congestive) heart failure I50.22 Nonischemic cardiomyopathy I42.8 Chronic atrial fibrillation I48.20 Mitral regurgitation I34.0 Tricuspid regurgitation I07.1 Hx of cardiac cath Z98.890 Time Spent (min) 30
== END 2023-09-17 14:23 | disposition home or self-care (01) ==
LOC: HO.HCS 13:49
PROVIDERS: PCP Nurse Practitioner Family; Visit Provider Nurse Practitioner Family
DX: I50.22 Chronic systolic (congestive) heart failure (principal); I42.8 Other cardiomyopathies; I48.20 Chronic atrial fibrillation, unspecified; I34.0 Nonrheumatic mitral (valve) insufficiency; I07.1 Rheumatic tricuspid insufficiency; Z98.890 Other specified postprocedural states
CPT/HCPCS: 99214

== ENCOUNTER → 2023-09-17 13:49 | Outpatient (BNVA) | payer OTHER, SELFPAY | PROVIDERS: PCP Nurse Practitioner Family; Visit Provider Nurse Practitioner Family | DX: I11.0 Hypertensive heart disease with heart failure (principal); I50.22 Chronic systolic (congestive) heart failure; I42.8 Other cardiomyopathies; I48.20 Chronic atrial fibrillation, unspecified; I34.0 Nonrheumatic mitral (valve) insufficiency; I07.1 Rheumatic tricuspid insufficiency; Z98.890 Other specified postprocedural states | CPT/HCPCS: 99212 ==

== ENCOUNTER 2024-01-19 13:26 | Outpatient (REF) | payer OTHER, SELFPAY ==
[2024-01-19 15:14] LABS: Hematocrit 39.7 % (37.0-47.0); Hemoglobin 12.9 g/dl (12.0-16.0); Mean Corpuscular HGB Conc 32.5 g/dl (31.0-35.0); Mean Corpuscular Hemoglobin 30.7 pg (27.0-33.0); Mean Corpuscular Volume 94.5 fL (80.0-98.0); Mean Platelet Volume 10.1 fL (9.4-12.3); Platelet Count 192 X10*3/uL (160-400); Red Cell Distribution Width 14.3 % (11.0-16.0); White Blood Count 5.5 X10*3/uL (4.8-10.8)
[2024-01-19 15:38] LABS: Anion Gap 13 (12-20); Blood Urea Nitrogen 14 mg/dL (9-16); Calcium 9.5 mg/dL (8.4-10.2); Carbon Dioxide 32 mmol/L (22-29); Chloride 102 mmol/L (96-108); Estimated Glomerular Filt Rate > 60; Glucose Random 92 mg/dL (60-115); Potassium 3.8 mmol/L (3.3-5.1); Sodium 143 mmol/L (135-145)
[2024-01-19 16:20] LABS: Digoxin 0.6 ng/mL (0.8-2.0)
== END 2024-01-19 13:27 | disposition home or self-care (01) ==
LOC: HO.LAB 13:26
PROVIDERS: PCP Family Medicine Geriatric Medicine; Visit Provider Internal Medicine Cardiovascular Disease
DX: I50.22 Chronic systolic (congestive) heart failure (principal); I48.20 Chronic atrial fibrillation, unspecified; I25.10 Atherosclerotic heart disease of native coronary artery without angina pectoris
CPT/HCPCS: 36415; 80048; 80162; 85027; 93005; 99212

== ENCOUNTER 2024-01-19 13:26 | Outpatient (AMB) | payer OTHER, SELFPAY ==
[2024-01-19 13:30] VITALS: BP 132/68; PULSE 70; BMI 22.7
--- NOTE | 2024-01-19 13:30 | A.OFFVIS_ITS ---
Vital Signs 01/19/24 13:30 Height 5 ft 5 in Weight 136 lb 10.986 oz BMI 22.7 BP 132/68 Blood Pressure Location Lt brachial Position Sitting Pulse 70 Pulse Source Monitor Intake Visit Reasons: 4m follow up Accompanied by: Family/Other Allergies No Known Allergies [NO KNOWN ALLERGIES] Allergy (Unknown, Verified 09/17/23 13:55) UNKNOWN Medication List - Last Reconciled 01/19/24 by Favian Gill MD acetaminophen 975 mg PO TID PRN apixaban 5 mg PO BID bisacodyl 10 mg [place] DAILY PRN cyanocobalamin (vitamin B-12) 1,000 mcg PO DAILY digoxin 125 mcg PO DAILY LT-ghhcvmla-[id number]-zowfmpvytdy 3-718-145-50 yw-qs-ulr-mg tabs PO ferrous sulfate 325 mg PO DAILY fluticasone propion-salmeterol 100-50 mcg/dose (Wixela Inhub) 1 inh inhalation Q12H furosemide 40 mg PO BID gabapentin 100 mg PO TID garlic (garlic oil) 1,000 mg PO DAILY Lactobacillus acidophilus (Acidophilus capsule) 100 mg PO DAILY methyl salicylate-menthol 15-10 % (Muscle Rub) 1 appl topical TID PRN metoprolol tartrate 12.5 mg PO BID multivitamin with minerals 1 tab PO DAILY olanzapine 2.5 mg PO BID omega 6-vlh-nja-fish oil 1,000 (120-180) mg (Fish Oil) 1 cap PO DAILY paroxetine HCl 20 mg PO DAILY pomegrnt-green y-zvbqf-ahyrqiq 100-60-5-5 mg caps PO potassium chloride ER 20 mEq PO DAILY sour rosenbaum extract (Tart Rosenbaum Extract) mg PO vitamins A,C,D-hqnl-krnbav 4,296 mcg-226 mg-90 mg (PreserVision AREDS) 1 cap PO BID HPI Comments Details: Pau comes for follow-up from half-way facility accompanied by the TERADATA ARCHITECT. She comes in a wheelchair. She has limited functionality and says she walks at longterm with the help of walker. She does get short of breath with exertion. However she has no orthopnea, PND, leg edema. She has had no hospitalizations in the last 4 months since we salt. Currently taking all her medications. There is no syncopal episode or lightheadedness. She has no bleeding issues or neurologic events. Tolerating her medications well. No chest pain. [facility] Medical History PAD (peripheral artery disease) Cellulitis Recent surgical procedure on lower extremity History of cardioversion Occult GI bleeding Pulmonary hypertension Chronic atrial fibrillation CAD (coronary artery disease) EDWAR (obstructive sleep apnea) Nonischemic cardiomyopathy Chronic systolic (congestive) heart failure Mitral regurgitation HTN (hypertension) Surgical History History of tooth extraction History of esophagogastroduodenoscopy (EGD) H/O colonoscopy Hx of right inguinal hernia repair Hx of cardiac cath (~01/2018) Family History Father No problems noted. Mother No problems noted. Social History Household Members: Other Household Members Other:: PT from SNF Housing: Prison Housing Other:: in longterm at present - wants to get her own apartment again Do you presently have visiting nurse or other home services: No Alcohol intake: never Patient Tobacco Use Status: Former Tobacco user Tobacco use type: Cigarette Cigarette Packs Per Day: 1 Cigarettes Per Day: 20.0 Years Smoked: 20 Second Hand Smoke Exposure: No service: No Current occupational status: retired Review of Systems Const Denies weakness ENT Denies dizziness Card Denies chest pain, Denies chest pain with activity, Denies syncope, Denies rapid heart rate, Denies pedal edema, Denies edema, Denies leg edema, Denies lighthead edness, Denies palpitations, Denies dyspnea, Denies dyspnea on exertion and Denies orthopnea Resp Denies cough, Denies dyspnea and Denies dyspnea on exertion GI Denies hematochezia and Denies change in stool character Musc Denies abnormal gait, Denies muscle cramps, Denies muscle weakness, Denies numbness, Denies radiating pain into limb and Denies tingling Neuro Denies abnormal gait, Denies dizziness, Denies syncope, Denies numbness, Denies tingling and Denies weakness Endo Denies palpitations Physical Exam Vital Signs: Last Vital Signs Pulse 70 01/19/24 13:30 BP 132/68 01/19/24 13:30 BMI result Body Mass Index 22.7 Const General: cooperative, healthy appearing, comfortable and no acute distress Nutritional Appearance: thin and other (Frail) Orientation/consciousness: patient oriented x3 Limitations: wheelchair Neck Neck: Yes normal visual inspection and Yes no JVD Resp Effort & Inspection: normal respiratory effort Auscultation: clear to auscultation bilaterally, no rales, no rhonchi and no wheezes Cardio Jugular venous distension: no JVD Rate: regular rate Rhythm: abnormal rhythm Heart sounds: S1 normal heart sound present, S2 normal heart sound present, no murmurs and no rubs Neuro General: patient oriented x3 Extrem General: Yes normal to inspection and No no pedal edema Psych Appearance: grossly normal Mental Status: mental status grossly normal Speech and movement: Normal speech and movement present Office Procedures EKG Details: EKG shows atrial fibrillation with right axis deviation with nonspecific ST T wave changes [id number], Complete Assessment & Plan Assessment & Plan (1) Chronic systolic (congestive) heart failure: Code(s): I50.22 - Chronic systolic (congestive) heart failure Category: Medical Plan: Heart failure with reduced ejection fraction with severe systolic dysfunction secondary to valvular heart disease with uncorrected mitral valve regurgitation due to patient's declining a surgery many years ago. Has done well with the last year with no hospitalizations for heart failure. Clinically significantly limited due to frailty and deconditioning. Clinically euvolemic and well compensated. Continue current diuretic dose. Heart failure management discussed. Daily weight monitoring avoidance of salt loading was discussed. Continue aggressive rate control with current metoprolol and digoxin dose. See below. She can not tolerate other medications due to low blood pressure. Goals of therapy were discussed. She would benefit from more physical therapy and activity level. (2) Chronic atrial fibrillation: Code(s): I48.20 - Chronic atrial fibrillation, unspecified Category: Medical Plan: Chronic rate control atrial fibrillation. Continue metoprolol and digoxin therapy. Requires digoxin to maintain rate. Digoxin assay should be performed every 6 months. Continue full oral anticoagulation, currently on Eliquis 5 mg b.i.d.. At least semi annual renal function test and annual CBC should be checked. (3) CAD (coronary artery disease): Code(s): I25.10 - Atherosclerotic heart disease of [place] coronary artery without angina pectoris Category: Medical Plan: Nonobstructive CAD without any anginal symptoms. Continue current Eliquis therapy. No indication for oral aspirin therapy as this would increase her bleeding risk. Should be on statin therapy with target goal LDL less than 70 mg/dL. Will follow up in the clinic in 6 months time, sooner p.r.n.. Thank you for allowing me to partake in his care Orders: Orders Complete Blood Count no Diff Today I50.22 - Chronic systolic (congestive) heart failure Digoxin Today I48.20 - Chronic atrial fibrillation, unspecified Basic Metabolic Panel Today I50.22 - Chronic systolic (congestive) heart failure Coding Level of Care Code Est Pt Level 4 (23073) Complex EM visit Add On G2211 Diagnoses Chronic systolic (congestive) heart failure I50.22 Chronic atrial fibrillation I48.20 CAD (coronary artery disease) I25.10 CPT Codes EKG - CPT: 01192-[id number], Complete ([id number])
== END 2024-01-19 14:01 | disposition home or self-care (01) ==
LOC: HO.HCS 13:26
PROVIDERS: PCP Nurse Practitioner Family; Visit Provider Internal Medicine Cardiovascular Disease
DX: I50.22 Chronic systolic (congestive) heart failure (principal); I48.20 Chronic atrial fibrillation, unspecified; I25.10 Atherosclerotic heart disease of native coronary artery without angina pectoris
CPT/HCPCS: 93010; 99214; G2211

== ENCOUNTER 2024-11-28 14:37 | Outpatient (REF) | payer OTHER, SELFPAY ==
[2024-11-28 16:31] LABS: Hematocrit 39.0 % (37.0-47.0); Hemoglobin 12.6 g/dl (12.0-16.0); Mean Corpuscular HGB Conc 32.3 g/dl (31.0-35.0); Mean Corpuscular Hemoglobin 31.8 pg (27.0-33.0); Mean Corpuscular Volume 98.5 fL (80.0-98.0); NRBC Abs Auto 0.000 X10*3/uL (0.0-0.012); NRBC Pct Auto 0.0 /100WBC (0.0-0.2); Platelet Count 190 X10*3/uL (160-400); Red Blood Count 3.96 X10*6/uL (4.20-5.50); White Blood Count 5.6 X10*3/uL (4.8-10.8)
[2024-11-28 18:19] LABS: Anion Gap 12 (12-20); Blood Urea Nitrogen 13 mg/dL (9-16); Calcium 8.9 mg/dL (8.4-10.2); Carbon Dioxide 33 mmol/L (22-29); Chloride 102 mmol/L (96-108); Estimated Glomerular Filt Rate > 60; Potassium 4.1 mmol/L (3.3-5.1); Sodium 143 mmol/L (135-145)
[2024-11-28 18:22] LABS: Digoxin 0.6 ng/mL (0.8-2.0)
== END 2024-11-28 14:38 | disposition home or self-care (01) ==
LOC: HO.LAB 14:37
PROVIDERS: PCP Family Medicine Geriatric Medicine; Visit Provider Internal Medicine Cardiovascular Disease
DX: I48.20 Chronic atrial fibrillation, unspecified (principal); I50.22 Chronic systolic (congestive) heart failure; I25.10 Atherosclerotic heart disease of native coronary artery without angina pectoris; I11.0 Hypertensive heart disease with heart failure; Z79.01 Long term (current) use of anticoagulants; Z79.899 Other long term (current) drug therapy; Z87.891 Personal history of nicotine dependence
CPT/HCPCS: 36415; 80048; 80162; 85027; 93005; 99212

== ENCOUNTER 2024-11-28 14:37 | Outpatient (AMB) | payer OTHER, SELFPAY ==
[2024-11-28 14:41] VITALS: BP 120/70; PULSE 72; BMI 24.5
--- NOTE | 2024-11-28 14:41 | A.OFFVIS_ITS ---
Vital Signs 11/28/24 14:41 Height 5 ft 5 in Weight 147 lb BMI 24.5 BMI Reason not done Patient refused/unable BP 120/70 Blood Pressure Location Lt brachial Position Sitting Pulse 72 Intake Visit Reasons: overdue f/up Intake Note: Overdue follow-up c/o sob Purchasing Manager Required: No Drawer Liner: Drawer Liner Present Accompanied by: LAND SURVEY TECHNICIAN Allergies No Known Allergies (NO KNOWN ALLERGIES) Allergy (Unknown, Verified 09/17/23 13:55) UNKNOWN Medication List - Last Reconciled 11/28/24 by Favian Gill MD acetaminophen 975 mg PO TID PRN apixaban 5 mg PO BID bisacodyl 10 mg [place] DAILY PRN cyanocobalamin (vitamin B-12) 1,000 mcg PO DAILY digoxin 125 mcg PO DAILY ferrous sulfate 325 mg PO DAILY fluticasone propion-salmeterol 100-50 mcg/dose (Wixela Inhub) 1 inh inhalation Q12H furosemide 40 mg PO BID gabapentin 100 mg PO TID Lactobacillus acidophilus (Acidophilus capsule) 100 mg PO DAILY methyl salicylate-menthol 15-10 % (Muscle Rub) 1 appl topical TID PRN metoprolol tartrate 12.5 mg PO BID multivitamin with minerals 1 tab PO DAILY olanzapine 2.5 mg PO BID omega 8-yum-fih-fish oil 1,000 (120-180) mg (Fish Oil) 1 cap PO DAILY paroxetine HCl 20 mg PO DAILY paroxetine HCl 30 mg PO DAILY potassium chloride ER 20 mEq PO DAILY sucralfate 1 g PO QIDACHS HPI Comments Details: Pau comes for follow up from the [place] [facility], accompanied by a patient child care director. Patient has a poor historian. However seems like she has not been admitted in the hospital since May. She has been seen here since then. She is very vague about her symptoms. When asked her if she is having trouble breathing at nighttime she said she does but then says that she is dreaming a lot. She does not have clear PND or orthopnea. She has no leg edema. No abdom inal distension. She says she feels tired. She does not exercise much. She takes all her medications. The no obvious bleeding issues or neurologic events. [facility] Medical History PAD (peripheral artery disease) Cellulitis Recent surgical procedure on lower extremity History of cardioversion Occult GI bleeding Pulmonary hypertension Chronic atrial fibrillation CAD (coronary artery disease) EDWAR (obstructive sleep apnea) Nonischemic cardiomyopathy Chronic systolic (congestive) heart failure Mitral regurgitation HTN (hypertension) Surgical History History of tooth extraction History of esophagogastroduodenoscopy (EGD) H/O colonoscopy Hx of right inguinal hernia repair Hx of cardiac cath (~01/2018) Family History Father No problems noted. Mother No problems noted. Social History Household Members: Other Household Members Other:: PT from SNF Housing: Residential Housing Other:: in [place] [facility] - wants to get her own apartment again Do you presently have visiting nurse or other home services: No Alcohol intake: never Patient Tobacco Use Status: Former Tobacco user Tobacco use type: Cigarette Cigarette Packs Per Day: 1 Cigarettes Per Day: 20.0 Years Smoked: 20 Second Hand Smoke Exposure: No service: No Current occupational status: retired Review of Systems Const Denies chills, Denies fatigue, Denies fever(s), Denies frequent falls, Denies weakness, Denies weight gain and Denies weight loss ENT Denies dizziness Card Denies chest pain, Denies leg edema, Denies lightheadedness, Denies palpitations , Denies dyspnea, Denies dyspnea on exertion, Denies orthopnea and Denies other (loss of consciousness) Resp Denies cough, Denies dyspnea and Denies dyspnea on exertion GI Denies hematochezia and Denies change in stool character Musc Denies abnormal gait, Denies muscle weakness, Denies numbness, Denies radiating pain into limb and Denies tingling Neuro Denies abnormal gait, Denies dizziness, Denies frequent falls, Denies numbness, Denies tingling and Denies weakness Endo Denies fatigue and Denies palpitations Physical Exam Vital Signs: Last Vital Signs Pulse 72 11/28/24 14:41 BP 120/70 11/28/24 14:41 BMI result Body Mass Index 24.5 Const General: cooperative, healthy appearing, comfortable and no acute distress Nutritional Appearance: thin and other (Frail) Orientation/consciousness: patient oriented x3 Limitations: wheelchair Neck Neck: Yes normal visual inspection and Yes no JVD Resp Effort & Inspection: normal respiratory effort Auscultation: clear to auscultation bilaterally, no rales, no rhonchi and no wheezes Cardio Jugular venous distension: no JVD Rate: regular rate Rhythm: abnormal rhythm Heart sounds: S1 normal heart sound present, S2 normal heart sound present, no murmurs and no rubs Neuro General: patient oriented x3 Extrem General: Yes normal to inspection and No no pedal edema Psych Appearance: grossly normal Mental Status: mental status grossly normal Speech and movement: Normal speech and movement present Office Procedures EKG Details: EKG shows atrial fibrillation with ST T wave changes suggestive of digoxin effect with poor R-wave progression [id number], Complete Assessment & Plan Assessment & Plan (1) Chronic atrial fibrillation: Code(s): I48.20 - Chronic atrial fibrillation, unspecified Category: Medical Plan: Chronic rate control atrial fibrillation, currently rate controlled with digoxin and metoprolol therapy. Tolerating well. Needs digoxin assay every 6 months. Will also suggest to continue full oral anticoagulation Eliquis. Semi annual renal function test and annual CBC should be checked. Continue current therapy. (2) Chronic systolic (congestive) heart failure: Code(s): I50.22 - Chronic systolic (congestive) heart failure Category: Medical Plan: Prior history of chronic systolic heart failure secondary to atrial fibrillation as well as severe mitral regurgitation. Last echocardiogram showed near normal LV ejection fraction on current medical therapy. Clinically today appears to be euvolemic well compensated current diuretic dose with furosemide. Advised to continue the same. Has not tolerated other neurohormonal modulation due to low blood pressure. Continue potassium supplementation. Maintain potassium above 4. Will check the labs today. Continue metoprolol for neurohormonal modulation. Follow-up echocardiogram in 6 months time. (3) CAD (coronary artery disease): Code(s): I25.10 - Atherosclerotic heart disease of [place] coronary artery without angina pectoris Category: Medical Plan: Prior nonobstructive CAD, currently being medically managed. Continue aggressive blood pressure control which is currently well optimized. Currently on full oral anticoagulation Eliquis and therefore would avoid aspirin therapy. Consider statin therapy with target goal LDL less than 70 mg/dL. No further intervention or workup required. Will follow up in the clinic in 6 months time, sooner PRN. Thank you for allowing me to partake in her care Orders: Orders Digoxin Today I48.20 - Chronic atrial fibrillation, unspecified Basic Metabolic Panel Today I50.22 - Chronic systolic (congestive) heart failure [place] echo transthoracic complete 6 Months I50.22 - Chronic systolic (congestive) heart failure Complete Blood Count no Diff Today I50.22 - Chronic systolic (congestive) heart failure Coding Level of Care Code Est Pt Level 4 (32149) Complex EM visit Add On G2211 Diagnoses Chronic atrial fibrillation I48.20 Chronic systolic (congestive) heart failure I50.22 CAD (coronary artery disease) I25.10 CPT Codes EKG - CPT: 98194-[id number], Complete ([id number])
--- OUTSIDE RECORDS SUMMARY | 2024-11-28 17:03 | XMS_ITS | Encounter Summary ---
Author Organization [facility] Address [address] [place] [id number] Care Team Providers Care Eyelet Machine Operator Name Role Phone Anita Cadet MD Primary Care Provider [phone] Encounter Details Date Type Department Care Team (Late st Contact Info) Description 01/01/2024 Lab Requisition [facility] - Main Lab [address] [facility] [employer] [address] Anita Cadet MD [address] [facility] [address] [place] [address] Heart failure, unspecified (CMS/HCC V24, CMS/HCC V28) Social History Tobacco Use Types Packs/Day Years Used Date Smoking Tobacco: Never Assessed Comments Unknown Sex and Gender Information Value Date Recorded Sex Assigned at Not on file Legal Sex Female 4:44 AM EST Gender Identity Not on file Sexual Orientation Not on file documented as of this encounter Plan of Treatment Not on file documented as of this encounter Visit Diagnoses Diagnosis Heart failure, unspecified (CMS/HCC V24, CMS/HCC V28) Heart failure, unspecified documented in this encounter Care Teams Eyelet Machine Operator Relationship Specialty Start Date End Date Anita Cadet MD [address] [facility] [address] [place] [address] PCP - General Geriatric Medicine 01/01/24 documented as of this encounter
--- OUTSIDE RECORDS SUMMARY | 2024-11-28 17:03 | XMS_ITS | Encounter Summary ---
Author Organization [facility] Address [address] [place] [id number] Care Team Providers Care Forest Fire Warden Name Role Phone Anita Cadet MD Primary Care Provider [phone] Encounter Details Date Type Department Care Team (Late st Contact Info) Description 03/04/2024 Lab Requisition [facility] - Main Lab [address] [facility] [place] [address] Anita Cadet MD [address] [facility] [address] [place] [address] Heart failure, unspecified (CMS/HCC V24, CMS/HCC V28) [...] unspecified documented in this encounter Care Teams Forest Fire Warden Relationship Specialty Start Date End Date Anita Cadet MD [address] [facility] [address] [place] [address] PCP - General Geriatric Medicine 01/01/24 documented as of this encounter
--- OUTSIDE RECORDS SUMMARY | 2024-11-28 17:03 | XMS_ITS | Encounter Summary ---
Author Organization [facility] Address [address] [place] [phone] Care Team Providers Care Band Teacher Name Role Phone Anita Cadet MD Primary Care Provider [phone] Encounter Details Date Type Department Care Team (Late st Contact Info) Description 12/26/[address] [facility] - Main Lab [address] [facility] [place] [address] Ainta Cadet MD [address] [place] [address] Heart failure, unspecified (CMS/HCC V24, CMS/HCC V28) [...] on file documented as of this encounter Procedures Procedure Name Priority Date/Time Associated Diagnosis Comments TRAVEL PHLEBOTOMY FEE Routine 12/28/2023 5:15 AM EST Heart failure, unspecified (CMS/HCC) COMPLETE BLOOD COUNT Routine 12/28/2023 5:15 AM EST Heart failure, unspecified (CMS/HCC) BASIC METABOLIC PANEL Routine 12/28/2023 5:15 AM EST Heart failure, unspecified (CMS/HCC) documented in this encounter Results * Travel phlebotomy fee (12/28/2023 5:15 AM EST) [facility] TRAVEL PHLEBOTOMY FEE Completed 12/30/2023 10:01 AM EST [facility] Blood Venous blood specimen / Unknown 12/28/2023 5:15 AM EST 12/30/2023 9:50 AM EST Anita Cadet MD LAB BLOOD ORDERABLES Final Resul t [facility] [address] [place] [address], * (ABNORMAL) Complete blood count (12/28/2023 5:15 AM EST) WBC 5.4 4.8 - 10.8 K/mcL LAB HEMETOLOGY METHOD 12/28/2023 11:48 AM [facility] RBC 3.80 3.80 - 4.80 M/mcL LAB HEMETOLOGY METHOD 12/28/2023 11:48 AM [facility] Hemoglobin 11.6 11.5 - 16.0 g/dL LAB HEMETOLOGY METHOD 12/28/2023 11:48 AM [facility] Hematocrit 36.6 35.0 - 47.0 % LAB HEMETOLOGY METHOD 12/28/2023 11:48 AM [facility] MCV 97.1 79.0 - 98.0 FL LAB HEMETOLOGY METHOD 12/28/2023 11:48 AM [facility] MCH 30.8 27.0 - 32.0 pcg LAB HEMETOLOGY METHOD 12/28/2023 11:48 AM [facility] MCHC 31.7(L) 32.0 - 37.0 g/dL LAB HEMETOLOGY METHOD 12/28/2023 11:48 AM [facility] RDW 14.3 11.0 - 15.0 % LAB HEMETOLOGY METHOD 12/28/2023 11:48 AM [facility] Platelets 186 130 - 400 K/mcL LAB HEMETOLOGY METHOD 12/28/2023 11:48 AM EST [facility] MPV 10.4 7.0 - 11.0 FL LAB HEMETOLOGY METHOD 12/28/2023 11:48 AM EST [facility] NRBC 0.0 <1.0 % LAB HEMETOLOGY METHOD 12/28/2023 11:48 AM EST [facility] NRBC Absolute 0.00 <0.10 K/mcL LAB HEMETOLOGY METHOD 12/28/2023 11:48 AM EST [facility] Blood Venous blood specimen / Unknown Venipuncture / Unknown 12/28/2023 5:15 AM EST 12/28/2023 11:43 AM EST us Anita Cadet MD LAB BLOOD ORDERABLES Final Resul t [facility] [address] [place] [address], * (ABNORMAL) Basic metabolic panel (12/28/2023 5:15 AM EST) Sodium 141 133 - 145 mmol/L LAB CHEMISTRY METHOD 12/28/2023 11:49 AM [facility] Potassium 4.7 3.5 - 5.5 mmol/L LAB CHEMISTRY METHOD 12/28/2023 11:49 AM [facility] Chloride 106 96 - 110 mmol/L LAB CHEMISTRY METHOD 12/28/2023 11:49 AM [facility] CO2 31 21 - 32 mmol/L LAB CHEMISTRY METHOD 12/28/2023 11:49 AM [facility] Anion Gap 4 3 - 11 LAB CHEMISTRY METHOD 12/28/2023 11:49 AM [facility] Glucose 101(H) 70 - 100 mg/dL LAB CHEMISTRY METHOD 12/28/2023 11:49 AM [facility] BUN 12 5 - 25 mg/dL LAB CHEMISTRY METHOD 12/28/2023 11:49 AM [facility] Creatinine 0.68 0.50 - 1.10 mg/dL LAB CHEMISTRY METHOD 12/28/2023 11:49 AM [facility] eGFR 87 >=60 mL/min/1. 73m2 LAB CHEMISTRY METHOD 12/28/2023 11:49 AM [facility] Comment:Calculation based on the Chronic Kidney Disease Epidemiology Collaboration (CKD-EPI) equation refit without adjustment for race. BUN/Creatinine Ratio 17.6 LAB CHEMISTRY METHOD 12/28/2023 11:49 AM [facility] Calcium 9.0 8.5 - 10.5 mg/dL LAB CHEMISTRY METHOD 12/28/2023 11:49 AM [facility] Blood Venous blood specimen / Unknown Venipuncture / Unknown 12/28/2023 5:15 AM EST 12/28/2023 11:49 AM EST us Anita Cadet MD LAB BLOOD ORDERABLES Final Resul t [facility] [address] [place] [address], documented in this encounter Visit Diagnoses Diagnosis Heart failure, unspecified (CMS/HCC V24, CMS/HCC V28) Heart failure, unspecified documented in this encounter Care Teams Band Teacher Relationship Specialty Start Date End Date Anita Cadet MD [address] [place] [address] [address] [place] [address] PCP - General Geriatric Medicine 01/01/24 documented as of this encounter
--- OUTSIDE RECORDS SUMMARY | 2024-11-28 17:03 | XMS_ITS | Encounter Summary ---
Author Organization [facility] Address [address] [place] [phone] Care Team Providers Care Yarn Hauler Name Role Phone Anita Cadet MD Primary Care Provider [phone] Encounter Details Date Type Department Care Team (Late st Contact Info) Description 02/26/2024 Lab Requisition [facility] Lab [address] [place] [address] Anita Cadet MD [address] [place], [place] [id number] Heart failure, unspecified (CMS/HCC V24, CMS/HCC V28) [...] Procedure Name Priority Date/Time Associated Diagnosis Comments COMPLETE BLOOD COUNT Routine 02/29/2024 5:27 AM EST Heart failure, unspecified (CMS/HCC) BASIC METABOLIC PANEL Routine 02/29/2024 5:27 AM EST Heart failure, unspecified (CMS/HCC) documented in this encounter Results * (ABNORMAL) Complete blood count (02/29/2024 5:27 AM EST) WBC 3.9(L) 4.8 - 10.8 K/[facility] LAB HEMETOLOGY METHOD 02/29/2024 12:44 PM EST [facility] LAB RBC 4.00 3.80 - 4.80 M/mcL LAB HEMETOLOGY METHOD 02/29/2024 12:44 PM [facility] LAB Hemoglobin 12.2 11.5 - 16.0 g/dL LAB HEMETOLOGY METHOD 02/29/2024 12:44 PM [facility] LAB Hematocrit 38.7 35.0 - 47.0 % LAB HEMETOLOGY METHOD 02/29/2024 12:44 PM [facility] LAB MCV 97.0 79.0 - 98.0 FL LAB HEMETOLOGY METHOD 02/29/2024 12:44 PM [facility] LAB MCH 30.6 27.0 - 32.0 pcg LAB HEMETOLOGY METHOD 02/29/2024 12:44 PM [facility] LAB MCHC 31.5(L) 32.0 - 37.0 g/dL LAB HEMETOLOGY METHOD 02/29/2024 12:44 PM [facility] LAB RDW 13.6 11.0 - 15.0 % LAB HEMETOLOGY METHOD 02/29/2024 12:44 PM [facility] LAB Platelets 190 130 - 400 K/mcL LAB HEMETOLOGY METHOD 02/29/2024 12:44 PM [facility] LAB MPV 10.8 7.0 - 11.0 FL LAB HEMETOLOGY METHOD 02/29/2024 12:44 PM [facility] LAB NRBC 0.0 <1.0 % LAB HEMETOLOGY METHOD 02/29/2024 12:44 PM [facility] LAB NRBC Absolute 0.00 <0.10 K/mcL LAB HEMETOLOGY METHOD 02/29/2024 12:44 PM [facility] LAB Blood Venous blood specimen / Unknown Venipuncture / Unknown 02/29/2024 5:27 AM EST 02/29/2024 11:49 AM EST Anita Cadet MD LAB BLOOD ORDERABLES Final Resul t [facility] LAB [address] [place] [address], [place] [phone] * (ABNORMAL) Basic metabolic panel (02/29/2024 5:27 AM EST) Sodium 143 133 - 145 mmol/L LAB CHEMISTRY METHOD 02/29/2024 1:06 PM [facility] LAB Potassium 4.8 3.5 - 5.5 mmol/L LAB CHEMISTRY METHOD 02/29/2024 1:06 PM [facility] LAB Comment:Hemolysis present Chloride 108 96 - 110 mmol/L LAB CHEMISTRY METHOD 02/29/2024 1:06 PM [facility] LAB CO2 25 21 - 32 mmol/L LAB CHEMISTRY METHOD 02/29/2024 1:06 PM [facility] LAB Anion Gap 10 3 - 11 LAB CHEMISTRY METHOD 02/29/2024 1:06 PM [facility] LAB Glucose 54(L) 70 - 100 mg/dL LAB CHEMISTRY METHOD 02/29/2024 1:06 PM [facility] LAB BUN 15 5 - 25 mg/dL LAB CHEMISTRY METHOD 02/29/2024 1:06 PM [facility] LAB Creatinine 0.76 0.50 - 1.10 mg/dL LAB CHEMISTRY METHOD 02/29/2024 1:06 PM [facility] LAB eGFR 78 >=60 mL/min/1. 73m2 LAB CHEMISTRY METHOD 02/29/2024 1:06 PM [facility] LAB Comment:Calculation based on the Chronic Kidney Disease Epidemiology Collaboration (CKD-EPI) equation refit without adjustment for race. BUN/Creatinine Ratio 19.7 LAB CHEMISTRY METHOD 02/29/2024 1:06 PM [facility] LAB Calcium 8.7 8.5 - 10.5 mg/dL LAB CHEMISTRY METHOD 02/29/2024 1:06 PM [facility] LAB Blood Venous blood specimen / Unknown Venipuncture / Unknown 02/29/2024 5:27 AM EST 02/29/2024 11:49 AM EST Anita Cadet MD LAB BLOOD ORDERABLES Final Resul t [facility] ([facility]) [facility] LAB [address] [place] [address], documented in this encounter Visit Diagnoses Diagnosis Heart failure, unspecified (CMS/HCC V24, CMS/HCC V28) Heart failure, unspecified documented in this encounter Care Teams Yarn Hauler Relationship Specialty Start Date End Date Anita Cadet MD [address] [place] [address] [address] [place] [address] PCP - General Geriatric Medicine 01/01/24 documented as of this encounter
--- OUTSIDE RECORDS SUMMARY | 2024-11-28 17:03 | XMS_ITS | Encounter Summary ---
Author Organization [facility] Address [address] [place] [phone] Care Team Providers Care Appliance Adjuster Name Role Phone Anita Cadet MD Primary Care Provider [phone] Encounter Details Date Type Department Care Team (Late st Contact Info) Description 02/13/2024 Lab Requisition [facility] - Main Lab [address] [facility] [place] [address] Anita Cadet MD [address] [facility] [address] [place] [address] Heart failure, unspecified (CMS/HCC V24, CMS/HCC V28) [...] unspecified documented in this encounter Care Teams Appliance Adjuster Relationship Specialty Start Date End Date Anita Cadet MD [address] [facility] [address] [place] [address] PCP - General Geriatric Medicine 01/01/24 documented as of this encounter
--- OUTSIDE RECORDS SUMMARY | 2024-11-28 17:03 | XMS_ITS | Encounter Summary ---
Author Organization [facility] Address [address] [place] [address] Care Team Providers Care Director Manufacturing Engineering Name Role Phone Anita Cadet MD Primary Care Provider [phone] Encounter Details Date Type Department Care Team (Late st Contact Info) Description 06/01/2024 Lab Requisition [facility] Lab [address] [facility] [place] [address] Anita Cadet MD [address] [place], [place] [id number] Heart failure, unspecified (CMS/HCC V24, CMS/HCC V28) [...] Associated Diagnosis Comments COMPLETE BLOOD COUNT Routine 06/02/2024 5:10 AM EDT Heart failure, unspecified (CMS/HCC V24, CMS/HCC V28) BASIC METABOLIC PANEL Routine 06/02/2024 5:10 AM EDT Heart failure, unspecified (CMS/HCC V24, CMS/HCC V28) documented in this encounter Results * (ABNORMAL) Basic metabolic panel (06/02/2024 5:10 AM EDT) Sodium 142 133 - 145 mmol/L LAB CHEMISTRY METHOD 06/02/2024 8:28 AM EDT [facility] LAB Potassium 4.0 3.5 - 5.5 mmol/L LAB CHEMISTRY METHOD 06/02/2024 8:28 AM [facility] LAB Chloride 104 96 - 110 mmol/L LAB CHEMISTRY METHOD 06/02/2024 8:28 AM [facility] LAB CO2 33(H) 21 - 32 mmol/L LAB CHEMISTRY METHOD 06/02/2024 8:28 AM [facility] LAB Anion Gap 5 3 - 11 LAB CHEMISTRY METHOD 06/02/2024 8:28 AM [facility] LAB Glucose 76 70 - 100 mg/dL LAB CHEMISTRY METHOD 06/02/2024 8:28 AM [facility] LAB BUN 21 5 - 25 mg/dL LAB CHEMISTRY METHOD 06/02/2024 8:28 AM [facility] LAB Creatinine 0.72 0.50 - 1.10 mg/dL LAB CHEMISTRY METHOD 06/02/2024 8:28 AM [facility] LAB eGFR 84 >=60 mL/min/1. 73m2 LAB CHEMISTRY METHOD 06/02/2024 8:28 AM [facility] LAB Comment:Calculation based on the Chronic Kidney Disease Epidemiology Collaboration (CKD-EPI) equation refit without adjustment for race. BUN/Creatinine Ratio 29.2 LAB CHEMISTRY METHOD 06/02/2024 8:28 AM [facility] LAB Calcium 9.1 8.5 - 10.5 mg/dL LAB CHEMISTRY METHOD 06/02/2024 8:28 AM [facility] LAB Blood Venous blood specimen / Unknown Venipuncture / Unknown 06/02/2024 5:10 AM EDT 06/02/2024 7:39 AM EDT us Anita Cadet MD LAB BLOOD ORDERABLES Final Resul t [facility] LAB [address] [place] [address], [place] [phone] * (ABNORMAL) Complete blood count (06/02/2024 5:10 AM EDT) [facility] WBC 5.1 4.8 - 10.8 K/mcL LAB HEMETOLOGY METHOD 06/02/2024 8:04 AM [facility] LAB RBC 4.00 3.80 - 4.80 M/mcL LAB HEMETOLOGY METHOD 06/02/2024 8:04 AM [facility] LAB Hemoglobin 12.6 11.5 - 16.0 g/dL LAB HEMETOLOGY METHOD 06/02/2024 8:04 AM [facility] LAB Hematocrit 39.3 35.0 - 47.0 % LAB HEMETOLOGY METHOD 06/02/2024 8:04 AM [facility] LAB MCV 99.0(H) 79.0 - 98.0 FL LAB HEMETOLOGY METHOD 06/02/2024 8:04 AM [facility] LAB MCH 31.7 27.0 - 32.0 pcg LAB HEMETOLOGY METHOD 06/02/2024 8:04 AM [facility] LAB MCHC 32.1 32.0 - 37.0 g/dL LAB HEMETOLOGY METHOD 06/02/2024 8:04 AM [facility] LAB RDW 13.3 11.0 - 15.0 % LAB HEMETOLOGY METHOD 06/02/2024 8:04 AM [facility] LAB Platelets 180 130 - 400 K/mcL LAB HEMETOLOGY METHOD 06/02/2024 8:04 AM [facility] LAB MPV 10.2 7.0 - 11.0 FL LAB HEMETOLOGY METHOD 06/02/2024 8:04 AM [facility] LAB NRBC 0.0 <1.0 % LAB HEMETOLOGY METHOD 06/02/2024 8:04 AM EDT [facility] NRBC Absolute 0.00 <0.10 K/mcL LAB HEMETOLOGY METHOD 06/02/2024 8:04 AM EDT [facility] ([facility]) [facility] LAB Blood Venous blood specimen / Unknown Venipuncture / Unknown 06/02/2024 5:10 AM EDT 06/02/2024 7:39 AM EDT Anita Cadet MD LAB BLOOD ORDERABLES Final Resul t [facility] ([facility]) [facility] LAB [address] [place] [address], documented in this encounter Visit Diagnoses Diagnosis Heart failure, unspecified (CMS/HCC V24, CMS/HCC V28) Heart failure, unspecified documented in this encounter Care Teams Director Manufacturing Engineering Relationship Specialty Start Date End Date Anita Cadet MD [address] [facility] [address] [place] [address] PCP - General Geriatric Medicine 01/01/24 documented as of this encounter
--- OUTSIDE RECORDS SUMMARY | 2024-11-28 17:03 | XMS_ITS | Encounter Summary ---
Author Organization [facility] Address [address] [place] [phone] Care Team Providers Care Infusion Nurse Name Role Phone Anita Cadet MD Primary Care Provider [phone] Encounter Details Date Type Department Care Team (Late st Contact Info) Description 05/28/2024 Lab Requisition [facility] - Main Lab 299 [facility] [place] [address] Anita Cadet MD [address] [place] [address] Altered mental status, unspecified Social History Tobacco Use Types Packs/Day Years [...] Procedure Name Priority Date/Time Associated Diagnosis Comments URINALYSIS WITH REFLEX MICROSCOPIC Routine 05/27/2024 7:00 AM EDT Altered mental status, unspecified URINALYSIS WITH REFLEX MICROSCOPIC Routine 05/27/2024 7:00 AM EDT Altered mental status, unspecified CULTURE URINE Routine 05/27/2024 7:00 AM EDT Altered mental status, unspecified documented in this encounter Results * (ABNORMAL) Urinalysis with reflex microscopic (05/27/2024 7:00 AM EDT) Specific [place] Urine 1.031(H) 1.003 - 1.030 LAB URINALYSIS - AUTOMATED METHOD 05/28/2024 11:18 AM [facility] LAB pH, Urine 5.5 5.0 - 8.0 pH LAB URINALYSIS - AUTOMATED METHOD 05/28/2024 11:18 AM [facility] LAB Leukocytes, Urine Small(A) Negative LAB URINALYSIS - AUTOMATED METHOD 05/28/2024 11:18 AM [facility] LAB Nitrite, Urine Negative Negative LAB URINALYSIS - AUTOMATED METHOD 05/28/2024 11:18 AM [facility] LAB Protein, Urine Trace <=Trace mg/dL LAB URINALYSIS - AUTOMATED METHOD 05/28/2024 11:18 AM [facility] LAB Glucose, Urine >=1000(A) Negative mg/dL LAB URINALYSIS - AUTOMATED METHOD 05/28/2024 11:18 AM [facility] LAB Ketones, Urine Trace(A) Negative mg/dL LAB URINALYSIS - AUTOMATED METHOD 05/28/2024 11:18 AM [facility] LAB Urobilinogen , Urine 1.0 0.2 - 1.0 mg/dL LAB URINALYSIS - AUTOMATED METHOD 05/28/2024 11:18 AM [facility] LAB Bilirubin, Urine Negative Negative LAB URINALYSIS - AUTOMATED METHOD 05/28/2024 11:18 AM [facility] LAB Blood, Urine Negative Negative LAB URINALYSIS - AUTOMATED METHOD 05/28/2024 11:18 AM [facility] LAB RBC, Urine 1.3 0 - 4 /HPF LAB URINALYSIS - AUTOMATED METHOD 05/28/2024 11:18 AM [facility] LAB WBC, Urine 51.0(H) 0 - 4 /HPF LAB URINALYSIS - AUTOMATED METHOD 05/28/2024 11:18 AM [facility] LAB Squamous Epithelial, Urine >100(H) 0 - 60 /LPF LAB URINALYSIS - AUTOMATED METHOD 05/28/2024 11:18 AM EDT [facility] LAB Bacteria, Urine Negative Negative /HPF LAB URINALYSIS - AUTOMATED METHOD 05/28/2024 11:18 AM EDT [facility] LAB Hyaline Casts, Urine 3.0 0 - 3 /LPF LAB URINALYSIS - AUTOMATED METHOD 05/28/2024 11:18 AM EDT [facility] LAB Yeast, Urine Present(A) None /HPF LAB URINALYSIS - AUTOMATED METHOD 05/28/2024 11:18 AM EDT [facility] LAB Urine Urine specimen from urethra / Unknown Non-blood Collection / Unknown 05/27/2024 7:00 AM EDT 05/28/2024 10:01 AM EDT Anita Cadet MD LAB URINE ORDERABLES Final Resul t Performing Organization Address City/[facility]/ZIP Co de Phone Number [facility] LAB [address] [place] [address], [place] [phone] * Culture urine (05/27/2024 7:00 AM EDT) Culture, Urine >100,000 CFU/mL Mixed bacterial morphotypes present suggestive of possible contamination during collection. Suggest appropriate recollection if clinically indicated. 05/29/2024 1:15 PM EDT [facility] LAB Urine Urine specimen from urethra / Unknown Non-blood Collection / Unknown 05/27/2024 7:00 AM EDT 05/28/2024 10:01 AM EDT us Anita Cadet MD LAB MICROBIOLOGY - GENERAL ORDER PAULINE Final Result Performing Organization Address City/[facility]/ZIP Co de Phone Number [facility] [address] [place] [address], [place] [phone] documented in this encounter Visit Diagnoses Diagnosis Altered mental status, unspecified documented in this encounter Care Teams Infusion Nurse Relationship Specialty Start Date End Date Anita Cadet MD [address] [place] [address] [address] [place] [address] [place] [address] PCP - General Geriatric Medicine 01/01/24 documented as of this encounter
--- OUTSIDE RECORDS SUMMARY | 2024-11-28 17:03 | XMS_ITS | Encounter Summary ---
Author Organization [facility] Address [address] [place] [phone] Care Team Providers Care Mechanical Engineering Advisor Name Role Phone Anita Cadet MD Primary Care Provider [phone] Encounter Details Date Type Department Care Team (Late st Contact Info) Description 05/28/2024 Lab Requisition [facility] Lab [address] [facility] [place] [address] Anita Cadet MD [address] [place] [address] Chronic systolic (congestive) heart failure (CMS/HCC V24, CMS/HCC V28) Social History Tobacco [...] Procedure Name Priority Date/Time Associated Diagnosis Comments B-TYPE NATRIURETIC PEPTIDE Routine 05/28/2024 8:22 AM EDT Chronic systolic (congestive) heart failure documented in this encounter Results * (ABNORMAL) B-type natriuretic peptide (05/28/2024 8:22 AM EDT) BNP 177(H) <=100 pcg/mL LAB CHEMISTRY METHOD 05/28/2024 11:20 AM EDT [facility] ([facility]) [facility] LAB Blood Venous blood specimen / Unknown Venipuncture / Unknown 05/28/2024 8:22 AM EDT 05/28/2024 9:59 AM EDT Anita Cadet MD LAB BLOOD ORDERABLES Final Resul t [facility] ([facility]) [facility] LAB [address] [place] [address], documented in this encounter Visit Diagnoses Diagnosis Chronic systolic (congestive) heart failure (CMS/HCC V24, CMS/HCC V28) documented in this encounter Care Teams Mechanical Engineering Advisor Relationship Specialty Start Date End Date Anita Cadet MD [address] [place] [address] [address] [place] [address] PCP - General Geriatric Medicine 01/01/24 documented as of this encounter
--- OUTSIDE RECORDS SUMMARY | 2024-11-28 17:03 | XMS_ITS | Encounter Summary ---
Author Organization [facility] Address [address] [place] [phone] Care Team Providers Care Book Critic Name Role Phone Anita Cadet MD Primary Care Provider [phone] Encounter Details Date Type Department Care Team (Late st Contact Info) Description 01/23/2024 Lab Requisition [facility] - Main Lab 299 [facility] [employer] [place] [address] Anita Cadet MD [address] [facility] [address] [place] [address] Heart failure, unspecified (CMS/HCC V24, CMS/HCC V28) [...] unspecified documented in this encounter Care Teams Book Critic Relationship Specialty Start Date End Date Anita Cadet MD [address] [facility] [address] [place] [address] PCP - General Geriatric Medicine 01/01/24 documented as of this encounter
--- OUTSIDE RECORDS SUMMARY | 2024-11-28 17:03 | XMS_ITS | Encounter Summary ---
Author Organization [facility] Address [address] [place] [phone] Care Team Providers Care Chauffeur [employer] Limousine Name Role Phone Anita Cadet MD Primary Care Provider [phone] Encounter Details Date Type Department Care Team (Late st Contact Info) Description 01/30/2024 Lab Requisition [facility] Lab [address] [facility] [place] [address] Anita Cadet MD [address] [place] [address] Heart failure, unspecified (CMS/HCC V24, CMS/HCC V28) [...] Associated Diagnosis Comments COMPLETE BLOOD COUNT Routine 02/01/2024 4:55 AM EST Heart failure, unspecified (CMS/HCC) BASIC METABOLIC PANEL Routine 02/01/2024 4:55 AM EST Heart failure, unspecified (CMS/HCC) documented in this encounter Results * Complete blood count (02/01/2024 4:55 AM EST) WBC 4.9 4.8 - 10.8 K/[facility] LAB HEMETOLOGY METHOD 02/01/2024 11:18 AM EST [facility] ([facility] LAB RBC 4.00 3.80 - 4.80 M/mcL LAB HEMETOLOGY METHOD 02/01/2024 11:18 AM [facility] LAB Hemoglobin 12.1 11.5 - 16.0 g/dL LAB HEMETOLOGY METHOD 02/01/2024 11:18 AM [facility] LAB Hematocrit 37.5 35.0 - 47.0 % LAB HEMETOLOGY METHOD 02/01/2024 11:18 AM [facility] LAB MCV 94.2 79.0 - 98.0 FL LAB HEMETOLOGY METHOD 02/01/2024 11:18 AM [facility] LAB MCH 30.4 27.0 - 32.0 pcg LAB HEMETOLOGY METHOD 02/01/2024 11:18 AM [facility] LAB MCHC 32.3 32.0 - 37.0 g/dL LAB HEMETOLOGY METHOD 02/01/2024 11:18 AM [facility] LAB RDW 14.0 11.0 - 15.0 % LAB HEMETOLOGY METHOD 02/01/2024 11:18 AM [facility] LAB Platelets 193 130 - 400 K/mcL LAB HEMETOLOGY METHOD 02/01/2024 11:18 AM [facility] LAB MPV 10.4 7.0 - 11.0 FL LAB HEMETOLOGY METHOD 02/01/2024 11:18 AM [facility] LAB NRBC 0.0 <1.0 % LAB HEMETOLOGY METHOD 02/01/2024 11:18 AM [facility] LAB NRBC Absolute 0.00 <0.10 K/mcL LAB HEMETOLOGY METHOD 02/01/2024 11:18 AM [facility] LAB Blood Venous blood specimen / Unknown Venipuncture / Unknown 02/01/2024 4:55 AM EST 02/01/2024 10:17 AM EST Anita Cadet MD LAB BLOOD ORDERABLES Final Resul t [facility] LAB [address] [place] [address], * (ABNORMAL) Basic metabolic panel (02/01/2024 4:55 AM EST) Sodium 142 133 - 145 mmol/L LAB CHEMISTRY METHOD 02/01/2024 11:24 AM [facility] LAB Potassium 5.1 3.5 - 5.5 mmol/L LAB CHEMISTRY METHOD 02/01/2024 11:24 AM [facility] LAB Chloride 106 96 - 110 mmol/L LAB CHEMISTRY METHOD 02/01/2024 11:24 AM [facility] LAB CO2 30 21 - 32 mmol/L LAB CHEMISTRY METHOD 02/01/2024 11:24 AM [facility] LAB Anion Gap 6 3 - 11 LAB CHEMISTRY METHOD 02/01/2024 11:24 AM [facility] LAB Glucose 70 70 - 100 mg/dL LAB CHEMISTRY METHOD 02/01/2024 11:24 AM [facility] LAB BUN 17 5 - 25 mg/dL LAB CHEMISTRY METHOD 02/01/2024 11:24 AM [facility] LAB Creatinine 0.86 0.50 - 1.10 mg/dL LAB CHEMISTRY METHOD 02/01/2024 11:24 AM [facility] LAB eGFR 68 >=60 mL/min/1. 73m2 LAB CHEMISTRY METHOD 02/01/2024 11:24 AM [facility] LAB Comment:Calculation based on the Chronic Kidney Disease Epidemiology Collaboration (CKD-EPI) equation refit without adjustment for race. BUN/Creatinine Ratio 19.8 LAB CHEMISTRY METHOD 02/01/2024 11:24 AM [facility] LAB Calcium 8.4(L) 8.5 - 10.5 mg/dL LAB CHEMISTRY METHOD 02/01/2024 11:24 AM [facility] LAB Blood Venous blood specimen / Unknown Venipuncture / Unknown 02/01/2024 4:55 AM EST 02/01/2024 10:17 AM EST Anita Cadet MD LAB BLOOD ORDERABLES Final Resul t [facility] ([facility]) [facility] LAB [address] [place] [address], documented in this encounter Visit Diagnoses Diagnosis Heart failure, unspecified (CMS/HCC V24, CMS/HCC V28) Heart failure, unspecified documented in this encounter Care Teams [employer] Relationship Specialty Start Date End Date Anita Cadet MD [address] [place] [address] [address] [place] [address] PCP - General Geriatric Medicine 01/01/24 documented as of this encounter
--- OUTSIDE RECORDS SUMMARY | 2024-11-28 17:03 | XMS_ITS | Clinical Summary ---
Author Organization [facility] Address [address] [place] [address] Phone Care Team Providers Care Sales Service Executive Name Role Phone Anita Cadet MD Primary Care Provider [phone] Encounters Date Type Department Care Team Description 10/21/2024 Lab Requisition [facility] [address] [place] [id number] Anita Cadet MD Chronic respiratory failure with hypoxia (CMS/HCC V24, CMS/HCC V28) 10/03/2024 Lab Requisition [facility] [address] [place] [address] Anita Cadet MD Dysuria from Last 3 Months Social History Tobacco Use Types Packs/Day Years Used Date Smoking Tobacco: Never Assessed Comments Unknown Sex and Gender Information Value Date Recorded Sex Assigned at Not on file Legal Sex Female 4:44 AM EST Gender Identity Not on file Sexual Orientation Not on file Plan of Treatment Health Maintenance Due Date Last Done Comments DTaP,Tdap,and Td Vaccines (1 - Tdap) 1959 Pneumococcal Vaccine: 50+ Ye ars (1 of 2 - PCV) 1960 Zoster Vaccines (1 of 2) 11/22/1991 RSV Immunization Adult Patie nts (1 - 1-dose 75+ series) 2016 Falls Risk Assessment 01/26/2022 Medicare Annual Wellness Visit 01/26/2022 Osteoporosis Screening (Bone Density Screening) 01/26/2022 Social Influencers of Health Screening 01/26/2022 Depression Screening 02/24/2024 COVID-19 Vaccine ( - 2023-2 5 season) 2024 Influenza Vaccine (#1) 2024 HIB Vaccines Aged Out No longer eligi ble based on patient's age to complete this topic HPV Vaccines Aged Out No longer eligi ble based on patient's age to complete this topic Hepatitis A Vaccines Aged Out No long er eligible based on patient's age to complete this topic Hepatitis B Vaccines Aged Out No long er eligible based on patient's age to complete this topic IPV Vaccines Aged Out No longer eligi ble based on patient's age to complete this topic MMR Vaccines Aged Out No longer eligi ble based on patient's age to complete this topic Meningococcal ACWY Vaccine Aged Out N o longer eligible based on patient's age to complete this topic Meningococcal B Vaccine Aged Out No l onger eligible based on patient's age to complete this topic RSV Immunization Patients Un alana 20 months Aged Out No longer eligible b ased on patient's age to complete this topic Varicella Vaccines Aged Out No longer eligible based on patient's age to complete this topic Procedures Procedure Name Priority Date/Time Associated Diagnosis Comments COMPREHENSIVE METABOLIC PANEL Routine 10/21/2024 5:28 AM EDT Chronic respiratory failure with hypoxia (CMS/[facility] V24, CMS/[facility] V28) COMPLETE BLOOD COUNT Routine 10/21/2024 5:28 AM EDT Chronic respiratory failure with hypoxia (CMS/[facility] V24, CMS/[facility] V28) URINALYSIS WITH REFLEX MICROSCOPIC Routine 10/01/2024 12:00 AM EDT Dysuria URINALYSIS WITH REFLEX MICROSCOPIC Routine 10/01/2024 12:00 AM EDT Dysuria CULTURE URINE Routine 10/01/2024 12:00 AM EDT Dysuria from Last 3 Months Results * (ABNORMAL) Complete blood count (10/21/2024 5:28 AM EDT) [facility] Signature WBC 4.3(L) 4.8 - 10.8 K/mcL LAB HEMETOLOGY METHOD 10/21/2024 8:34 AM EDT [facility] LAB RBC 3.90 3.80 - 4.80 M/mcL LAB HEMETOLOGY METHOD 10/21/2024 8:34 AM [facility] LAB Hemoglobin 12.5 11.5 - 16.0 g/dL LAB HEMETOLOGY METHOD 10/21/2024 8:34 AM [facility] LAB Hematocrit 38.2 35.0 - 47.0 % LAB HEMETOLOGY METHOD 10/21/2024 8:34 AM [facility] LAB MCV 97.9 79.0 - 98.0 FL LAB HEMETOLOGY METHOD 10/21/2024 8:34 AM [facility] LAB MCH 32.1(H) 27.0 - 32.0 pcg LAB HEMETOLOGY METHOD 10/21/2024 8:34 AM [facility] LAB MCHC 32.7 32.0 - 37.0 g/dL LAB HEMETOLOGY METHOD 10/21/2024 8:34 AM [facility] LAB RDW 13.3 11.0 - 15.0 % LAB HEMETOLOGY METHOD 10/21/2024 8:34 AM [facility] LAB Platelets 175 130 - 400 K/mcL LAB HEMETOLOGY METHOD 10/21/2024 8:34 AM [facility] LAB MPV 10.1 7.0 - 11.0 FL LAB HEMETOLOGY METHOD 10/21/2024 8:34 AM [facility] LAB NRBC 0.0 <1.0 % LAB HEMETOLOGY METHOD 10/21/2024 8:34 AM [facility] LAB NRBC Absolute 0.00 <0.10 K/mcL LAB HEMETOLOGY METHOD 10/21/2024 8:34 AM [facility] LAB Blood Venous blood specimen / Unknown Venipuncture / Unknown 10/21/2024 5:28 AM EDT 10/21/2024 8:01 AM EDT us Fahim A Chichi MD LAB BLOOD ORDERABLES Final Resul t [facility] LAB [address] [place] [address], * (ABNORMAL) Comprehensive metabolic panel (10/21/2024 5:28 AM EDT) Sodium 143 133 - 145 mmol/L LAB CHEMISTRY METHOD 10/21/2024 8:56 AM [facility] LAB Potassium 3.8 3.5 - 5.5 mmol/L LAB CHEMISTRY METHOD 10/21/2024 8:56 AM [facility] LAB Chloride 104 96 - 110 mmol/L LAB CHEMISTRY METHOD 10/21/2024 8:56 AM [facility] LAB CO2 32 21 - 32 mmol/L LAB CHEMISTRY METHOD 10/21/2024 8:56 AM [facility] LAB Anion Gap 7 3 - 11 LAB CHEMISTRY METHOD 10/21/2024 8:56 AM [facility] LAB Glucose 80 70 - 100 mg/dL LAB CHEMISTRY METHOD 10/21/2024 8:56 AM [facility] LAB BUN 18 5 - 25 mg/dL LAB CHEMISTRY METHOD 10/21/2024 8:56 AM [facility] LAB Creatinine 0.69 0.50 - 1.10 mg/dL LAB CHEMISTRY METHOD 10/21/2024 8:56 AM [facility] LAB eGFR 87 >=60 mL/min/1. 73m2 LAB CHEMISTRY METHOD 10/21/2024 8:56 AM [facility] LAB Comment:Calculation based on the Chronic Kidney Disease Epidemiology Collaboration (CKD-EPI) equation refit without adjustment for race. BUN/Creatinine Ratio 26.1 LAB CHEMISTRY METHOD 10/21/2024 8:56 AM [facility] LAB Calcium 8.4(L) 8.5 - 10.5 mg/dL LAB CHEMISTRY METHOD 10/21/2024 8:56 AM EDT [facility] LAB AST (SGOT) 24 10 - 42 unit/L LAB CHEMISTRY METHOD 10/21/2024 8:56 AM T [facility] LAB ALT (SGPT) 17 10 - 60 unit/L LAB CHEMISTRY METHOD 10/21/2024 8:56 AM [facility] LAB Alkaline Phosphatase 99 42 - 121 unit/L LAB CHEMISTRY METHOD 10/21/2024 8:56 AM T [facility] LAB Total Protein 5.9(L) 6.0 - 8.0 g/dL LAB CHEMISTRY METHOD 10/21/2024 8:56 AM [facility] LAB Albumin 3.4 3.2 - 5.0 g/dL LAB CHEMISTRY METHOD 10/21/2024 8:56 AM [facility] LAB Total Bilirubin 0.4 0.0 - 1.4 mg/dL LAB CHEMISTRY METHOD 10/21/2024 8:56 AM [facility] LAB Blood Venous blood specimen / Unknown Venipuncture / Unknown 10/21/2024 5:28 AM EDT 10/21/2024 8:01 AM EDT Anita Cadet MD LAB BLOOD ORDERABLES Final Resul t [facility] LAB [address] [place] [address], * (ABNORMAL) Urinalysis with reflex microscopic (10/01/2024 12:00 AM EDT) Specific [place] Urine 1.007 1.003 - 1.030 LAB URINALYSIS - AUTOMATED METHOD 10/03/2024 10:46 AM [facility] LAB pH, Urine 7.5 5.0 - 8.0 pH LAB URINALYSIS - AUTOMATED METHOD 10/03/2024 10:46 AM [facility] LAB Leukocytes, Urine Large(A) Negative LAB URINALYSIS - AUTOMATED METHOD 10/03/2024 10:46 AM [facility] LAB Nitrite, Urine Negative Negative LAB URINALYSIS - AUTOMATED METHOD 10/03/2024 10:46 AM [facility] LAB Protein, Urine 100(A) <=Trace mg/dL LAB URINALYSIS - AUTOMATED METHOD 10/03/2024 10:46 AM [facility] LAB Glucose, Urine Negative Negative mg/dL LAB URINALYSIS - AUTOMATED METHOD 10/03/2024 10:46 AM [facility] LAB Ketones, Urine Negative Negative mg/dL LAB URINALYSIS - AUTOMATED METHOD 10/03/2024 10:46 AM [facility] LAB Urobilinogen , Urine 0.2 0.2 - 1.0 mg/dL LAB URINALYSIS - AUTOMATED METHOD 10/03/2024 10:46 AM [facility] LAB Bilirubin, Urine Negative Negative LAB URINALYSIS - AUTOMATED METHOD 10/03/2024 10:46 AM [facility] LAB Blood, Urine Moderate(A) Negative LAB URINALYSIS - AUTOMATED METHOD 10/03/2024 10:46 AM [facility] LAB RBC, Urine 3.7 0 - 4 /HPF LAB URINALYSIS - AUTOMATED METHOD 10/03/2024 10:46 AM [facility] LAB WBC, Urine 304.0(H) 0 - 4 /HPF LAB URINALYSIS - AUTOMATED METHOD 10/03/2024 10:46 AM [facility] LAB Squamous Epithelial, Urine 96(H) 0 - 60 /LPF LAB URINALYSIS - AUTOMATED METHOD 10/03/2024 10:46 AM [facility] LAB Bacteria, Urine Many(A) Negative /HPF LAB URINALYSIS - AUTOMATED METHOD 10/03/2024 10:46 AM [facility] LAB Hyaline Casts, Urine 4.8(H) 0 - 3 /LPF LAB URINALYSIS - AUTOMATED METHOD 10/03/2024 10:46 AM EDT [facility] LAB Urine Urine specimen obtained by clean catch procedure / Unknown Non-blood Collection / Unknown 10/01/2024 10/03/2024 10:15 AM EDT us Anita Cadet MD LAB URINE ORDERABLES Final Resul t [facility] [address] [place] [address], * (ABNORMAL) Culture urine (10/01/2024 12:00 AM EDT) Culture, Urine >=100,000 CFU/mL Escherichia coli(A) CHERRY 10/05/2024 9:46 AM EDT [facility] LAB Urine Urine specimen obtained by clean catch procedure / Unknown Non-blood Collection / Unknown 10/01/2024 10/03/2024 10:15 AM EDT Narrative [facility] LAB - 10/05/2024 9:46 AM EDT Normal skin/urogenital prabha noted Organism Antibiotic Method Susceptibility Escherichia coli Amoxicillin/Clavulanate CHERRY 8 ug/ml: Susceptible Escherichia coli Ampicillin/Sulbactam CHERRY 16 ug/ml: Intermediate Escherichia coli Piperacillin/Tazobactam CHERRY <=4 ug/ml: Susceptible Escherichia coli Cefazolin (Urine) CHERRY 4 ug/ml: Susceptible Escherichia coli Cefoxitin CHERRY <=4 ug/ml: Susceptible Escherichia coli Ceftazidime CHERRY <=0.5 ug/ml: Susceptible Escherichia coli Ceftriaxone CHERRY <=0.25 ug/ml: Susceptible Escherichia coli Cefepime CHERRY <=0.12 ug/ml: Susceptible Escherichia coli Meropenem CHERRY <=0.25 ug/ml: Susceptible Escherichia coli Amikacin CHERRY 4 ug/ml: Susceptible Escherichia coli Gentamicin CHERRY <=1 ug/ml: Susceptible Escherichia coli Ciprofloxacin CHERRY <=0.06 ug/ml: Susceptible Escherichia coli Levofloxacin CHERRY <=0.12 ug/ml: Susceptible Escherichia coli Nitrofurantoin CHERRY <=16 ug/ml: Susceptible Escherichia coli Trimethoprim/Sulfamethoxazole CHERRY <=20 ug/ml: Susceptible us Anita Cadet MD LAB MICROBIOLOGY - GENERAL ORDER PAULINE Final Result [facility] LAB [address] [place] [address], [place] [phone] from Last 3 Months Insurance MEDICAID - [place] [employer] MEDICARE Member Subscriber Plan / Payer (Ef fective 2014-Present) Name:Ginger Reevesire Relation to Subscriber:Self Name:Danie Reeves Payer ID:[id number] Group ID:[id number] Type:Not on file Address: [address] [place] [address] Care Teams Sales Service Executive Relationship Specialty Start Date End Date Anita Cadet MD [address] [facility] [address] [place] [address] PCP - General Geriatric Medicine 01/01/24
--- OUTSIDE RECORDS SUMMARY | 2024-11-28 17:03 | XMS_ITS | Encounter Summary ---
Author Organization [facility] Address [id number] [place] [phone] Care Team Providers Care Customs Agent Name Role Phone Anita Cadet MD Primary Care Provider [phone] Encounter Details Date Type Department Care Team (Late st Contact Info) Description 06/10/2024 Lab Requisition [facility] Lab [address] [place] [address] Anita Cadet MD [address] [place] [address] Nasal congestion Social History Tobacco Use Types Packs/Day Years [...] Procedure Name Priority Date/Time Associated Diagnosis Comments [id number], RSV, FLU A AND B QUALITATIVE RT-PCR, LOCAL REFERENCE LAB Routine 06/10/2024 12:00 AM EDT Nasal congestion documented in this encounter Results * [id number], RSV, Influenza A and B qualitative RT-PCR (06/10/2024 12:00 AM EDT) SARS COV-2 Not Detected Not Detected LAB MOLECULAR DIAGNOSTICS METHOD 06/10/2024 10:50 AM EDT [facility] LAB Comment: Disclaimer: The manner in which this information is used to guide patient care is the responsibility of the healthcare provider. Testing was performed using the [place] m SARS-CoV-2 test. This test has been authorized by FDA under an Emergency Use Authorization (EUA). This test is only authorized for the duration of time the declaration that circumstances exist justifying the authorization of the emergency use of in vitro diagnostic tests for detection of SARS-CoV-2 virus and/or diagnosis of COVID-19 infection under section 564(b)(1) of the Act, 21 U.S.C. 360bbb- 3(b)(1), unless the authorization is terminated or revoked sooner. Fact sheet for Healthcare Providers can be found at: https://www.fda.gov/media/286911/download Fact sheet for Patients can be found at: https://www.fda.gov/media/289735/download Influenza A PCR Not Detected Not Detected LAB MOLECULAR DIAGNOSTICS METHOD 06/10/2024 10:50 AM EDT [facility] LAB Influenza B PCR Not Detected Not Detected LAB MOLECULAR DIAGNOSTICS METHOD 06/10/2024 10:50 AM EDT [facility] LAB RSV PCR Not Detected Not Detected LAB MOLECULAR DIAGNOSTICS METHOD 06/10/2024 10:50 AM EDT [facility] LAB Swab Nasopharyngeal structure / Unknown Non-blood Collection / Unknown 06/10/2024 06/10/2024 7:31 AM EDT Anita Cadet MD LAB MICROBIOLOGY - GENERAL ORDER PAULINE Final Result [facility] LAB [address] [place] [address], documented in this encounter Visit Diagnoses Diagnosis Nasal congestion Other diseases of nasal cavity and sinuses documented in this encounter Care Teams Customs Agent Relationship Specialty Start Date End Date Anita Cadet MD [address] [place] [address] [address] [place] [address] PCP - General Geriatric Medicine 01/01/24 documented as of this encounter
--- OUTSIDE RECORDS SUMMARY | 2024-11-28 17:03 | XMS_ITS | Encounter Summary ---
Author Organization Address [address] [place] [phone] Care Team Providers Care Sports Commentator Name Role Phone Anita Cadet MD Primary Care Provider [phone] Encounter Details Date Type Department Care Team (Late st Contact Info) Description 04/10/2024 Lab Requisition [facility] Lab [address] [facility] [place] [address] Anita Cadet MD [address] [place], [place] [id number] Heart failure, unspecified (CMS/HCC V24, CMS/HCC V28) [...] Associated Diagnosis Comments COMPLETE BLOOD COUNT Routine 04/11/2024 5:28 AM EST Heart failure, unspecified (CMS/HCC) BASIC METABOLIC PANEL Routine 04/11/2024 5:28 AM EST Heart failure, unspecified (CMS/HCC) documented in this encounter Results * (ABNORMAL) Complete blood count (04/11/2024 5:28 AM EST) WBC 4.6(L) 4.8 - 10.8 K/[facility] LAB HEMETOLOGY METHOD 04/11/2024 8:36 AM EST [facility] RBC 4.10 3.80 - 4.80 M/mcL LAB HEMETOLOGY METHOD 04/11/2024 8:36 AM [facility] LAB Hemoglobin 12.8 11.5 - 16.0 g/dL LAB HEMETOLOGY METHOD 04/11/2024 8:36 AM [facility] LAB Hematocrit 39.3 35.0 - 47.0 % LAB HEMETOLOGY METHOD 04/11/2024 8:36 AM [facility] LAB MCV 94.9 79.0 - 98.0 FL LAB HEMETOLOGY METHOD 04/11/2024 8:36 AM [facility] LAB MCH 30.9 27.0 - 32.0 pcg LAB HEMETOLOGY METHOD 04/11/2024 8:36 AM [facility] LAB MCHC 32.6 32.0 - 37.0 g/dL LAB HEMETOLOGY METHOD 04/11/2024 8:36 AM [facility] LAB RDW 14.1 11.0 - 15.0 % LAB HEMETOLOGY METHOD 04/11/2024 8:36 AM [facility] LAB Platelets 179 130 - 400 K/mcL LAB HEMETOLOGY METHOD 04/11/2024 8:36 AM [facility] LAB MPV 10.0 7.0 - 11.0 FL LAB HEMETOLOGY METHOD 04/11/2024 8:36 AM [facility] LAB NRBC 0.0 <1.0 % LAB HEMETOLOGY METHOD 04/11/2024 8:36 AM [facility] LAB NRBC Absolute 0.00 <0.10 K/mcL LAB HEMETOLOGY METHOD 04/11/2024 8:36 AM [facility] LAB Blood Venous blood specimen / Unknown Venipuncture / Unknown 04/11/2024 5:28 AM EST 04/11/2024 8:05 AM EST Anita Cadet MD LAB BLOOD ORDERABLES Final Resul t [facility] LAB [address] [place] [address], * Basic metabolic panel (04/11/2024 5:28 AM EST) Sodium 145 133 - 145 mmol/L LAB CHEMISTRY METHOD 04/11/2024 9:03 AM [facility] LAB Potassium 4.4 3.5 - 5.5 mmol/L LAB CHEMISTRY METHOD 04/11/2024 9:03 AM [facility] LAB Comment:Hemolysis present Chloride 107 96 - 110 mmol/L LAB CHEMISTRY METHOD 04/11/2024 9:03 AM [facility] LAB CO2 30 21 - 32 mmol/L LAB CHEMISTRY METHOD 04/11/2024 9:03 AM [facility] LAB Anion Gap 8 3 - 11 LAB CHEMISTRY METHOD 04/11/2024 9:03 AM [facility] LAB Glucose 78 70 - 100 mg/dL LAB CHEMISTRY METHOD 04/11/2024 9:03 AM [facility] LAB BUN 18 5 - 25 mg/dL LAB CHEMISTRY METHOD 04/11/2024 9:03 AM [facility] LAB Creatinine 0.69 0.50 - 1.10 mg/dL LAB CHEMISTRY METHOD 04/11/2024 9:03 AM [facility] LAB eGFR 87 >=60 mL/min/1. 73m2 LAB CHEMISTRY METHOD 04/11/2024 9:03 AM [facility] LAB Comment:Calculation based on the Chronic Kidney Disease Epidemiology Collaboration (CKD-EPI) equation refit without adjustment for race. BUN/Creatinine Ratio 26.1 LAB CHEMISTRY METHOD 04/11/2024 9:03 AM [facility] LAB Calcium 9.0 8.5 - 10.5 mg/dL LAB CHEMISTRY METHOD 04/11/2024 9:03 AM [facility] LAB Blood Venous blood specimen / Unknown Venipuncture / Unknown 04/11/2024 5:28 AM EST 04/11/2024 8:05 AM EST Anita Cadet MD LAB BLOOD ORDERABLES Final Resul t [facility] LAB [address] [place] [address], documented in this encounter Visit Diagnoses Diagnosis Heart failure, unspecified (CMS/HCC V24, CMS/HCC V28) Heart failure, unspecified documented in this encounter Care Teams Sports Commentator Relationship Specialty Start Date End Date Anita Cadet MD [address] [place] [address] [address] [place] [address] PCP - General Geriatric Medicine 01/01/24 documented as of this encounter
--- OUTSIDE RECORDS SUMMARY | 2024-11-28 17:03 | XMS_ITS | Encounter Summary ---
Author Organization [facility] Address [address] [place] [phone] Care Team Providers Care Soda Room Operator Name Role Phone Anita Cadet MD Primary Care Provider [phone] Encounter Details Date Type Department Care Team (Late st Contact Info) Description 06/15/2024 Lab Requisition [facility] Lab [address] [facility] [place] [address] Anita Cadet MD [address] [place] [address] Unspecified atrial fibrillation (CMS/HCC V24, CMS/HCC V28) Social History Tobacco [...] Associated Diagnosis Comments COMPLETE BLOOD COUNT Routine 06/15/2024 5:06 AM EDT Unspecified atrial fibrillation (CMS/HCC V24, CMS/HCC V28) BASIC METABOLIC PANEL Routine 06/15/2024 5:06 AM EDT Unspecified atrial fibrillation (CMS/HCC V24, CMS/HCC V28) documented in this encounter Results * (ABNORMAL) Basic metabolic panel (06/15/2024 5:06 AM EDT) Sodium 139 133 - 145 mmol/L LAB CHEMISTRY METHOD 06/15/2024 11:02 AM EDT [facility] Potassium 4.2 3.5 - 5.5 mmol/L LAB CHEMISTRY METHOD 06/15/2024 11:02 AM [facility] LAB Chloride 101 96 - 110 mmol/L LAB CHEMISTRY METHOD 06/15/2024 11:02 AM [facility] LAB CO2 33(H) 21 - 32 mmol/L LAB CHEMISTRY METHOD 06/15/2024 11:02 AM [facility] LAB Anion Gap 5 3 - 11 LAB CHEMISTRY METHOD 06/15/2024 11:02 AM [facility] LAB Glucose 65(L) 70 - 100 mg/dL LAB CHEMISTRY METHOD 06/15/2024 11:02 AM [facility] LAB BUN 20 5 - 25 mg/dL LAB CHEMISTRY METHOD 06/15/2024 11:02 AM [facility] LAB Creatinine 0.79 0.50 - 1.10 mg/dL LAB CHEMISTRY METHOD 06/15/2024 11:02 AM [facility] LAB eGFR 75 >=60 mL/min/1. 73m2 LAB CHEMISTRY METHOD 06/15/2024 11:02 AM [facility] LAB Comment:Calculation based on the Chronic Kidney Disease Epidemiology Collaboration (CKD-EPI) equation refit without adjustment for race. BUN/Creatinine Ratio 25.3 LAB CHEMISTRY METHOD 06/15/2024 11:02 AM [facility] LAB Calcium 9.3 8.5 - 10.5 mg/dL LAB CHEMISTRY METHOD 06/15/2024 11:02 AM [facility] LAB Blood Venous blood specimen / Unknown Venipuncture / Unknown 06/15/2024 5:06 AM EDT 06/15/2024 9:43 AM EDT us Anita Cadet MD LAB BLOOD ORDERABLES Final Resul t [facility] LAB [address] [place] [address], [place] [phone] * (ABNORMAL) Complete blood count (06/15/2024 5:06 AM EDT) [facility] WBC 6.7 4.8 - 10.8 K/mcL LAB HEMETOLOGY METHOD 06/15/2024 10:43 AM [facility] LAB RBC 3.90 3.80 - 4.80 M/mcL LAB HEMETOLOGY METHOD 06/15/2024 10:43 AM [facility] LAB Hemoglobin 12.4 11.5 - 16.0 g/dL LAB HEMETOLOGY METHOD 06/15/2024 10:43 AM [facility] LAB Hematocrit 38.9 35.0 - 47.0 % LAB HEMETOLOGY METHOD 06/15/2024 10:43 AM [facility] LAB MCV 98.7(H) 79.0 - 98.0 FL LAB HEMETOLOGY METHOD 06/15/2024 10:43 AM [facility] LAB MCH 31.5 27.0 - 32.0 pcg LAB HEMETOLOGY METHOD 06/15/2024 10:43 AM [facility] LAB MCHC 31.9(L) 32.0 - 37.0 g/dL LAB HEMETOLOGY METHOD 06/15/2024 10:43 AM [facility] LAB RDW 13.4 11.0 - 15.0 % LAB HEMETOLOGY METHOD 06/15/2024 10:43 AM [facility] LAB Platelets 201 130 - 400 K/mcL LAB HEMETOLOGY METHOD 06/15/2024 10:43 AM [facility] LAB MPV 10.0 7.0 - 11.0 FL LAB HEMETOLOGY METHOD 06/15/2024 10:43 AM [facility] LAB NRBC 0.0 <1.0 % LAB HEMETOLOGY METHOD 06/15/2024 10:43 AM [facility] LAB NRBC Absolute 0.00 <0.10 K/mcL LAB HEMETOLOGY METHOD 06/15/2024 10:43 AM EDT [facility] LAB Blood Venous blood specimen / Unknown Venipuncture / Unknown 06/15/2024 5:06 AM EDT 06/15/2024 9:43 AM EDT Anita Cadet MD LAB BLOOD ORDERABLES Final Resul t [facility] LAB [address] [place] [address], documented in this encounter Visit Diagnoses Diagnosis Unspecified atrial fibrillation (CMS/HCC V24, CMS/HCC V28) documented in this encounter Care Teams Soda Room Operator Relationship Specialty Start Date End Date Anita Cadet MD [address] [place] [address] [address] [place] [address] PCP - General Geriatric Medicine 01/01/24 documented as of this encounter
--- OUTSIDE RECORDS SUMMARY | 2024-11-28 17:03 | XMS_ITS | Encounter Summary ---
Author Organization [facility] Address [address] [place] [phone] Care Team Providers Care Value Stream Leader Name Role Phone Anita Cadet MD Primary Care Provider [phone] Encounter Details Date Type Department Care Team (Late st Contact Info) Description 10/03/2024 Lab Requisition [facility] [address] [place] [address] Anita Cadet MD [address] [place] [address] Dysuria Social History Tobacco Use Types Packs/Day Years [...] Diagnosis Comments URINALYSIS WITH REFLEX MICROSCOPIC Routine 10/01/2024 12:00 AM EDT Dysuria URINALYSIS WITH REFLEX MICROSCOPIC Routine 10/01/2024 12:00 AM EDT Dysuria CULTURE URINE Routine 10/01/2024 12:00 AM EDT Dysuria documented in this encounter Results * (ABNORMAL) Urinalysis with reflex microscopic (10/01/2024 12:00 AM EDT) Specific Emmalena Urine 1.007 1.003 - 1.030 LAB URINALYSIS - AUTOMATED METHOD 10/03/2024 10:46 AM EDT [facility] pH, Urine 7.5 5.0 - 8.0 pH LAB URINALYSIS - AUTOMATED METHOD 10/03/2024 10:46 AM [facility] Leukocytes, Urine Large(A) Negative LAB URINALYSIS - AUTOMATED METHOD 10/03/2024 10:46 AM [facility] Nitrite, Urine Negative Negative LAB URINALYSIS - AUTOMATED METHOD 10/03/2024 10:46 AM [facility] Protein, Urine 100(A) <=Trace mg/dL LAB URINALYSIS - AUTOMATED METHOD 10/03/2024 10:46 AM [facility] Glucose, Urine Negative Negative mg/dL LAB URINALYSIS - AUTOMATED METHOD 10/03/2024 10:46 AM [facility] Ketones, Urine Negative Negative mg/dL LAB URINALYSIS - AUTOMATED METHOD 10/03/2024 10:46 AM [facility] Urobilinogen , Urine 0.2 0.2 - 1.0 mg/dL LAB URINALYSIS - AUTOMATED METHOD 10/03/2024 10:46 AM [facility] Bilirubin, Urine Negative Negative LAB URINALYSIS - AUTOMATED METHOD 10/03/2024 10:46 AM [facility] Blood, Urine Moderate(A) Negative LAB URINALYSIS - AUTOMATED METHOD 10/03/2024 10:46 AM [facility] RBC, Urine 3.7 0 - 4 /HPF LAB URINALYSIS - AUTOMATED METHOD 10/03/2024 10:46 AM [facility] WBC, Urine 304.0(H) 0 - 4 /HPF LAB URINALYSIS - AUTOMATED METHOD 10/03/2024 10:46 AM [facility] Squamous Epithelial, Urine 96(H) 0 - 60 /LPF LAB URINALYSIS - AUTOMATED METHOD 10/03/2024 10:46 AM [facility] Bacteria, Urine Many(A) Negative /HPF LAB URINALYSIS - AUTOMATED METHOD 10/03/2024 10:46 AM EDT [facility] Hyaline Casts, Urine 4.8(H) 0 - 3 /LPF LAB URINALYSIS - AUTOMATED METHOD 10/03/2024 10:46 AM EDT [facility] Urine Urine specimen obtained by clean catch procedure / Unknown Non-blood Collection / Unknown 10/01/2024 10/03/2024 10:15 AM EDT us Anita Cadet MD LAB URINE ORDERABLES Final Resul t [facility] [address] [place] [address], * (ABNORMAL) Culture urine (10/01/2024 12:00 AM EDT) Culture, Urine >=100,000 CFU/mL Escherichia coli(A) CHERRY 10/05/2024 9:46 AM EDT [facility] Urine Urine specimen obtained by clean catch procedure / Unknown Non-blood Collection / Unknown 10/01/2024 10/03/2024 10:15 AM EDT Narrative [facility] - 10/05/2024 9:46 AM EDT Normal [...] Escherichia coli Trimethoprim/Sulfamethoxazole CHERRY <=20 ug/ml: Susceptible Anita Cadet MD LAB MICROBIOLOGY - GENERAL ORDER PAULINE Final Result Performing Organization Address City/State/[facility] Co de Phone Number [facility] [address] [place] [address], documented in this encounter Visit Diagnoses Diagnosis Dysuria documented in this encounter Care Teams Value Stream Leader Relationship Specialty Start Date End Date Anita Cadet MD [address] [place] [address] [address] [place] [address] PCP - General Geriatric Medicine 01/01/24 documented as of this encounter
--- OUTSIDE RECORDS SUMMARY | 2024-11-28 17:03 | XMS_ITS | Encounter Summary ---
Author Organization [facility] Address [address] [place] [phone] Care Team Providers Care Executive Housekeeper Name Role Phone Anita Cadet MD Primary Care Provider [phone] Encounter Details Date Type Department Care Team (Late st Contact Info) Description 03/11/2024 Lab Requisition [facility] Lab [address] [facility] [place] [address] Anita Cadet MD [address] [facility] [address] [place] [address] Heart failure, unspecified (CMS/HCC V24, CMS/HCC V28) [...] unspecified documented in this encounter Care Teams Executive Housekeeper Relationship Specialty Start Date End Date Anita Cadet MD [address] [facility] [address] [place] [address] PCP - General Geriatric Medicine 01/01/24 documented as of this encounter
--- OUTSIDE RECORDS SUMMARY | 2024-11-28 17:03 | XMS_ITS | Encounter Summary ---
Author Organization [facility] Address [address] [place] [address] Care Team Providers Care Property Accountant Name Role Phone Anita Cadet MD Primary Care Provider [phone] Encounter Details Date Type Department Care Team (Late st Contact Info) Description 10/21/2024 Lab Requisition [facility] Lab [address] [place] [address] Anita Cadet MD [address] [place], [place] [id number] Chronic respiratory failure with hypoxia (CMS/HCC V24, CMS/HCC V28) Social History Tobacco [...] Associated Diagnosis Comments COMPLETE BLOOD COUNT Routine 10/21/2024 5:28 AM EDT Chronic respiratory failure with hypoxia (CMS/HCC V24, CMS/HCC V28) COMPREHENSIVE METABOLIC PANEL Routine 10/21/2024 5:28 AM EDT Chronic respiratory failure with hypoxia (CMS/HCC V24, CMS/HCC V28) documented in this encounter Results * (ABNORMAL) Comprehensive metabolic panel (10/21/2024 5:28 AM EDT) Sodium 143 133 - 145 mmol/L LAB CHEMISTRY METHOD 10/21/2024 8:56 AM EDT [facility] Potassium 3.8 3.5 - 5.5 mmol/L LAB CHEMISTRY METHOD 10/21/2024 8:56 AM [facility] Chloride 104 96 - 110 mmol/L LAB CHEMISTRY METHOD 10/21/2024 8:56 AM [facility] CO2 32 21 - 32 mmol/L LAB CHEMISTRY METHOD 10/21/2024 8:56 AM [facility] Anion Gap 7 3 - 11 LAB CHEMISTRY METHOD 10/21/2024 8:56 AM [facility] Glucose 80 70 - 100 mg/dL LAB CHEMISTRY METHOD 10/21/2024 8:56 AM [facility] BUN 18 5 - 25 mg/dL LAB CHEMISTRY METHOD 10/21/2024 8:56 AM [facility] Creatinine 0.69 0.50 - 1.10 mg/dL LAB CHEMISTRY METHOD 10/21/2024 8:56 AM [facility] eGFR 87 >=60 mL/min/1. 73m2 LAB CHEMISTRY METHOD 10/21/2024 8:56 AM [facility] LAB Comment:Calculation based on the Chronic Kidney Disease Epidemiology Collaboration (CKD-EPI) equation refit without adjustment for race. BUN/Creatinine Ratio 26.1 LAB CHEMISTRY METHOD 10/21/2024 8:56 AM [facility] Calcium 8.4(L) 8.5 - 10.5 mg/dL LAB CHEMISTRY METHOD 10/21/2024 8:56 AM [facility] AST (SGOT) 24 10 - 42 unit/L LAB CHEMISTRY METHOD 10/21/2024 8:56 AM [facility] ALT (SGPT) 17 10 - 60 unit/L LAB CHEMISTRY METHOD 10/21/2024 8:56 AM [facility] Alkaline Phosphatase 99 42 - 121 unit/L LAB CHEMISTRY METHOD 10/21/2024 8:56 AM [facility] Total Protein 5.9(L) 6.0 - 8.0 g/dL LAB CHEMISTRY METHOD 10/21/2024 8:56 AM EDT [facility] Albumin 3.4 3.2 - 5.0 g/dL LAB CHEMISTRY METHOD 10/21/2024 8:56 AM EDT [facility] Total Bilirubin 0.4 0.0 - 1.4 mg/dL LAB CHEMISTRY METHOD 10/21/2024 8:56 AM EDT [facility] Blood Venous blood specimen / Unknown Venipuncture / Unknown 10/21/2024 5:28 AM EDT 10/21/2024 8:01 AM EDT Anita Cadet MD LAB BLOOD ORDERABLES Final Resul t [facility] [address] [place] [address], * (ABNORMAL) Complete blood count (10/21/2024 5:28 AM EDT) WBC 4.3(L) 4.8 - 10.8 K/mcL LAB HEMETOLOGY METHOD 10/21/2024 8:34 AM EDT [facility] RBC 3.90 3.80 - 4.80 M/mcL LAB HEMETOLOGY METHOD 10/21/2024 8:34 AM EDT [facility] Hemoglobin 12.5 11.5 - 16.0 g/dL LAB HEMETOLOGY METHOD 10/21/2024 8:34 AM T [facility] Hematocrit 38.2 35.0 - 47.0 % LAB HEMETOLOGY METHOD 10/21/2024 8:34 AM T [facility] MCV 97.9 79.0 - 98.0 FL LAB HEMETOLOGY METHOD 10/21/2024 8:34 AM [facility] MCH 32.1(H) 27.0 - 32.0 pcg LAB HEMETOLOGY METHOD 10/21/2024 8:34 AM EDT [facility] MCHC 32.7 32.0 - 37.0 g/dL LAB HEMETOLOGY METHOD 10/21/2024 8:34 AM EDT [facility] RDW 13.3 11.0 - 15.0 % LAB HEMETOLOGY METHOD 10/21/2024 8:34 AM EDT [facility] Platelets 175 130 - 400 K/mcL LAB HEMETOLOGY METHOD 10/21/2024 8:34 AM EDT [facility] MPV 10.1 7.0 - 11.0 FL LAB HEMETOLOGY METHOD 10/21/2024 8:34 AM EDT [facility] NRBC 0.0 <1.0 % LAB HEMETOLOGY METHOD 10/21/2024 8:34 AM EDT [facility] NRBC Absolute 0.00 <0.10 K/mcL LAB HEMETOLOGY METHOD 10/21/2024 8:34 AM EDT [facility] Blood Venous blood specimen / Unknown Venipuncture / Unknown 10/21/2024 5:28 AM EDT 10/21/2024 8:01 AM EDT us Anita Cadet MD LAB BLOOD ORDERABLES Final Resul t [facility] [address] [place] [address], documented in this encounter Visit Diagnoses Diagnosis Chronic respiratory failure with hypoxia (CMS/HCC V24, CMS/HCC V28) documented in this encounter Care Teams Property Accountant Relationship Specialty Start Date End Date Anita Cadet MD [address] [place] [address] [address] [place] [address] PCP - General Geriatric Medicine 01/01/24 documented as of this encounter
--- OUTSIDE RECORDS SUMMARY | 2024-11-28 17:03 | XMS_ITS | Encounter Summary ---
Author Organization [facility] Address [address] [place] [phone] Care Team Providers Care Party Host Name Role Phone Anita Cadet MD Primary Care Provider [phone] Encounter Details Date Type Department Care Team (Late st Contact Info) Description 03/25/2024 Lab Requisition [facility] - Main Lab 299 [facility] [employer] [place] [address] Anita Cadet MD [address] [facility] [address] [place] [address] Heart failure, unspecified (CMS/HCC V24, CMS/HCC V28) [...] unspecified documented in this encounter Care Teams Party Host Relationship Specialty Start Date End Date Anita Cadet MD [address] [facility] [address] [place] [address] PCP - General Geriatric Medicine 01/01/24 documented as of this encounter
--- OUTSIDE RECORDS SUMMARY | 2024-11-28 17:03 | XMS_ITS | Encounter Summary ---
Author Organization [facility] Address [address] [place] [phone] Care Team Providers Care Procurement Engineer Name Role Phone Anita Cadet MD Primary Care Provider [phone] Encounter Details Date Type Department Care Team (Late st Contact Info) Description 03/08/2024 Lab Requisition [facility] Lab [address] [facility] [place] [address] Anita Cadet MD [address] [place] [address] Chronic respiratory failure with hypoxia (CMS/HCC V24, [...] Associated Diagnosis Comments COMPLETE BLOOD COUNT Routine 03/08/2024 5:03 AM EST Chronic respiratory failure with hypoxia (CMS/HCC) BASIC METABOLIC PANEL Routine 03/08/2024 5:03 AM EST Chronic respiratory failure with hypoxia (CMS/HCC) documented in this encounter Results * (ABNORMAL) Basic metabolic panel (03/08/2024 5:03 AM EST) Sodium 141 133 - 145 mmol/L LAB CHEMISTRY METHOD 03/08/2024 10:56 AM EST [facility] Potassium 3.8 3.5 - 5.5 mmol/L LAB CHEMISTRY METHOD 03/08/2024 10:56 AM [facility] Chloride 104 96 - 110 mmol/L LAB CHEMISTRY METHOD 03/08/2024 10:56 AM [facility] CO2 35(H) 21 - 32 mmol/L LAB CHEMISTRY METHOD 03/08/2024 10:56 AM [facility] LAB Anion Gap 2(L) 3 - 11 LAB CHEMISTRY METHOD 03/08/2024 10:56 AM [facility] Glucose 69(L) 70 - 100 mg/dL LAB CHEMISTRY METHOD 03/08/2024 10:56 AM [facility] BUN 16 5 - 25 mg/dL LAB CHEMISTRY METHOD 03/08/2024 10:56 AM [facility] Creatinine 0.78 0.50 - 1.10 mg/dL LAB CHEMISTRY METHOD 03/08/2024 10:56 AM [facility] LAB eGFR 76 >=60 mL/min/1. 73m2 LAB CHEMISTRY METHOD 03/08/2024 10:56 AM [facility] LAB Comment:Calculation based on the Chronic Kidney Disease Epidemiology Collaboration (CKD-EPI) equation refit without adjustment for race. BUN/Creatinine Ratio 20.5 LAB CHEMISTRY METHOD 03/08/2024 10:56 AM [facility] Calcium 8.7 8.5 - 10.5 mg/dL LAB CHEMISTRY METHOD 03/08/2024 10:56 AM [facility] LAB Blood Venous blood specimen / Unknown Venipuncture / Unknown 03/08/2024 5:03 AM EST 03/08/2024 9:29 AM EST us Anita Cadet MD LAB BLOOD ORDERABLES Final Resul t [facility] [address] [place] [address], * (ABNORMAL) Complete blood count (03/08/2024 5:03 AM EST) [facility] WBC 4.2(L) 4.8 - 10.8 K/mcL LAB HEMETOLOGY METHOD 03/08/2024 10:25 AM [facility] RBC 4.30 3.80 - 4.80 M/mcL LAB HEMETOLOGY METHOD 03/08/2024 10:25 AM [facility] Hemoglobin 13.0 11.5 - 16.0 g/dL LAB HEMETOLOGY METHOD 03/08/2024 10:25 AM [facility] LAB Hematocrit 41.1 35.0 - 47.0 % LAB HEMETOLOGY METHOD 03/08/2024 10:25 AM [facility] MCV 96.5 79.0 - 98.0 FL LAB HEMETOLOGY METHOD 03/08/2024 10:25 AM [facility] MCH 30.5 27.0 - 32.0 pcg LAB HEMETOLOGY METHOD 03/08/2024 10:25 AM [facility] MCHC 31.6(L) 32.0 - 37.0 g/dL LAB HEMETOLOGY METHOD 03/08/2024 10:25 AM [facility] RDW 14.1 11.0 - 15.0 % LAB HEMETOLOGY METHOD 03/08/2024 10:25 AM [facility] Platelets 192 130 - 400 K/mcL LAB HEMETOLOGY METHOD 03/08/2024 10:25 AM [facility] MPV 10.2 7.0 - 11.0 FL LAB HEMETOLOGY METHOD 03/08/2024 10:25 AM [facility] NRBC 0.0 <1.0 % LAB HEMETOLOGY METHOD 03/08/2024 10:25 AM [facility] NRBC Absolute 0.00 <0.10 K/mcL LAB HEMETOLOGY METHOD 03/08/2024 10:25 AM [facility] Blood Venous blood specimen / Unknown Venipuncture / Unknown 03/08/2024 5:03 AM EST 03/08/2024 9:29 AM EST Anita Cadet MD LAB BLOOD ORDERABLES Final Resul t [facility] [address] [place] [address], documented in this encounter Visit Diagnoses Diagnosis Chronic respiratory failure with hypoxia (CMS/HCC V24, CMS/HCC V28) documented in this encounter Care Teams Procurement Engineer Relationship Specialty Start Date End Date Anita Cadet MD [address] [place] [address] [address] [place] [address] PCP - General Geriatric Medicine 01/01/24 documented as of this encounter
--- OUTSIDE RECORDS SUMMARY | 2024-11-28 17:03 | XMS_ITS | Encounter Summary ---
Author Organization [facility] Address [address] [place] [phone] Care Team Providers Care Managed Care Provider Name Role Phone Anita Cadet MD Primary Care Provider [phone] Encounter Details Date Type Department Care Team (Late st Contact Info) Description 03/19/2024 Lab Requisition [facility] - Main Lab 299 [facility] [employer] [place] [address] Anita Cadet MD [address] [facility] [address] [place] [address] Heart failure, unspecified (CMS/HCC V24, CMS/HCC V28) [...] unspecified documented in this encounter Care Teams Managed Care Provider Relationship Specialty Start Date End Date Anita Cadet MD [address] [facility] [address] [place] [address] PCP - General Geriatric Medicine 01/01/24 documented as of this encounter
--- OUTSIDE RECORDS SUMMARY | 2024-11-28 17:03 | XMS_ITS | Encounter Summary ---
Author Organization [facility] Address [address] [place] [phone] Care Team Providers Care Business Support Professional Name Role Phone Anita Cadet MD Primary Care Provider [phone] Encounter Details Date Type Department Care Team (Late st Contact Info) Description 04/16/2024 Lab Requisition [facility] 299 [facility] [place] [address] Anita Cadet MD [address] [place], [place] [id number] Heart failure, unspecified (CMS/HCC V24, CMS/HCC V28) [...] Associated Diagnosis Comments COMPLETE BLOOD COUNT Routine 04/18/2024 5:19 AM EST Heart failure, unspecified (CMS/HCC) BASIC METABOLIC PANEL Routine 04/18/2024 5:19 AM EST Heart failure, unspecified (CMS/HCC) documented in this encounter Results * (ABNORMAL) Complete blood count (04/18/2024 5:19 AM EST) WBC 4.4(L) 4.8 - 10.8 K/[facility] LAB HEMETOLOGY METHOD 04/18/2024 7:04 AM EST [facility] RBC 3.80 3.80 - 4.80 M/mcL LAB HEMETOLOGY METHOD 04/18/2024 7:04 AM [facility] Hemoglobin 11.6 11.5 - 16.0 g/dL LAB HEMETOLOGY METHOD 04/18/2024 7:04 AM [facility] LAB Hematocrit 36.7 35.0 - 47.0 % LAB HEMETOLOGY METHOD 04/18/2024 7:04 AM [facility] LAB MCV 97.6 79.0 - 98.0 FL LAB HEMETOLOGY METHOD 04/18/2024 7:04 AM [facility] MCH 30.9 27.0 - 32.0 pcg LAB HEMETOLOGY METHOD 04/18/2024 7:04 AM [facility] LAB MCHC 31.6(L) 32.0 - 37.0 g/dL LAB HEMETOLOGY METHOD 04/18/2024 7:04 AM [facility] LAB RDW 14.5 11.0 - 15.0 % LAB HEMETOLOGY METHOD 04/18/2024 7:04 AM [facility] LAB Platelets 151 130 - 400 K/mcL LAB HEMETOLOGY METHOD 04/18/2024 7:04 AM [facility] MPV 9.9 7.0 - 11.0 FL LAB HEMETOLOGY METHOD 04/18/2024 7:04 AM [facility] NRBC 0.0 <1.0 % LAB HEMETOLOGY METHOD 04/18/2024 7:04 AM [facility] NRBC Absolute 0.00 <0.10 K/mcL LAB HEMETOLOGY METHOD 04/18/2024 7:04 AM [facility] LAB Blood Venous blood specimen / Unknown Venipuncture / Unknown 04/18/2024 5:19 AM EST 04/18/2024 6:46 AM EST Anita Cadet MD LAB BLOOD ORDERABLES Final Resul t [facility] [address] [place] [address], * (ABNORMAL) Basic metabolic panel (04/18/2024 5:19 AM EST) Sodium 142 133 - 145 mmol/L LAB CHEMISTRY METHOD 04/18/2024 7:[address] [facility] LAB Potassium 3.8 3.5 - 5.5 mmol/L LAB CHEMISTRY METHOD 04/18/2024 7:18 AM [facility] Chloride 107 96 - 110 mmol/L LAB CHEMISTRY METHOD 04/18/2024 7:18 AM [facility] CO2 33(H) 21 - 32 mmol/L LAB CHEMISTRY METHOD 04/18/2024 7:18 AM [facility] Anion Gap 2(L) 3 - 11 LAB CHEMISTRY METHOD 04/18/2024 7:18 AM [facility] Glucose 75 70 - 100 mg/dL LAB CHEMISTRY METHOD 04/18/2024 7:18 AM [facility] BUN 16 5 - 25 mg/dL LAB CHEMISTRY METHOD 04/18/2024 7:18 AM [facility] Creatinine 0.74 0.50 - 1.10 mg/dL LAB CHEMISTRY METHOD 04/18/2024 7:18 AM [facility] LAB eGFR 81 >=60 mL/min/1. 73m2 LAB CHEMISTRY METHOD 04/18/2024 7:18 AM [facility] LAB Comment:Calculation based on the Chronic Kidney Disease Epidemiology Collaboration (CKD-EPI) equation refit without adjustment for race. BUN/Creatinine Ratio 21.6 LAB CHEMISTRY METHOD 04/18/2024 7:18 AM [facility] Calcium 8.9 8.5 - 10.5 mg/dL LAB CHEMISTRY METHOD 04/18/2024 7:18 AM [facility] Blood Venous blood specimen / Unknown Venipuncture / Unknown 04/18/2024 5:19 AM EST 04/18/2024 6:46 AM EST Anita Cadet MD LAB BLOOD ORDERABLES Final Resul t [facility] [address] [place] [address], documented in this encounter Visit Diagnoses Diagnosis Heart failure, unspecified (CMS/HCC V24, CMS/HCC V28) Heart failure, unspecified documented in this encounter Care Teams Business Support Professional Relationship Specialty Start Date End Date Anita Cadet MD [address] [place] [address] [address] [place] [address] PCP - General Geriatric Medicine 01/01/24 documented as of this encounter
--- OUTSIDE RECORDS SUMMARY | 2024-11-28 17:03 | XMS_ITS | Patient Health Record ---
Author Organization [facility] Address [address] [place] [id number] Care Team Providers Care Spot Welder Name Role Phone ARTEMIO SCOTT Primary Care Provider Ethan Lazo Unavailable [phone] Allergies No Known Allergies Reason For Referral No Information Medications Medication SIG (Take, Route, Frequency, Duration) Notes Start Date End Date Status OLANZapine 2.5 MG 1 tablet Orally Once a day for 30 day(s) Active Narcan 4 MG/0.1ML as directed Nasally Active Mylanta 200-200-20 MG/5ML 10 ml as neede d Orally Four times a day Active Multivitamin - as directed Orally Active Milk of Magnesia Concentrate 2400 MG/10ML 5 ml Orally Twice a day for 30 day(s) Active Lidocaine 5 % 1 patch remove after 12 hours Externally Once a day Active Biotene Dry Mouth - as directed Mouth/Throat Active Apixaban 5 MG as directed Orally Active Acetaminophen 500 MG 1 capsule as needed Orally every 4 hrs Active Wixela Inhub 100-50 MCG/DOSE 1 puff Inha lation Twice a day Active Lasix 20 MG 1 tablet Orally Once a day for 30 day(s) Active Lac-Hydrin 12 % 1 application Structural Ironworker ally Twice a day Active Sennosides-Docusate Sodium 8.6-50 MG 1 tablet as needed Orally Twice a day Active Fleet Enema Active PARoxetine HCl 20 MG Oral for 30 Active Eliquis 5 MG Oral for 14 Activ e Bisacodyl Laxative 10 MG 1 suppository a s needed Rectal Once a day for 30 day(s) Active Biofreeze 4 % 1 application as nee ded Externally Three times a day Active FerrouSul 325 (65 Fe) MG 1 tablet Orally Once a day for 30 day(s) Active Entresto 24-26 MG 1 tablet Orally Twic e a day for 30 day(s) Active Digoxin 125 MCG 1 tablet Orally for 30 day(s) Active Coreg 12.5 MG 1 tablet with food Orally Twice a day for 30 day(s) Active Gabapentin 100 MG Oral for 30 Active Metoprolol Succinate ER 25 MG Oral for 30 Active Fluticasone-Salmeterol 100-50 MCG/ACT Inhalation for 30 Active Furosemide 40 MG Oral for 30 A ctive Pantoprazole Sodium 40 MG Oral for 30 Active Guaifenesin AC Expectorant Active Fish Oil 1000 MG 1 capsule Orally Onc e a day for 30 day(s) Active Co Q 10 10 MG as directed Orally Active Cholecalciferol 125 MCG (5000 UT) as directed Orally Active CeraVe Active Vitamin B 12 500 MCG 1 tablet Orally Onc e a day for 30 day(s) Active Sucralfate 1 GM/10ML 10 ml on an empty stomach Orally Twice a day for 30 day(s) Active Senna 187 MG as directed Orally Active Protonix 20 MG 1 tablet Orally Once a day for 30 day(s) Active Paxil 20 MG 1 tablet in the morn ing Orally Once a day for 30 day(s) Active Mylanta Maximum Strength 400-400-40 MG/5ML 10 mL as needed Orally Three times a day Active Muscle Rub 10-15 % as directed Externally Active Multi Vitamin - 1 tablet Orally Once a day for 30 day(s) Active Milk of Magnesia 400 MG/5ML 5 mL at leas t 4 hours between doses as needed Orally Four times a day Active Immunizations Vaccine Route Administration Date Status Comme nts Influenza Unknown 12/10/2021 Administered Influenza Unknown 2020 Refused Problems Problem Type SNOMED Code ICD Code Onset Dates Problem Status W/U Status Risk Notes Problem 602721381 History of adenomatous polyp of colon (Z86.010) Active confirmed Problem 717333797 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) Active confirmed Problem 95310700 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) Active confirmed Problem 916685705 Irregular bowel habits (R19.8) Active confirmed Problem Erosive gastritis (6220606919218 100) Erosive gastritis (K29.60) Active confirmed Plan Of Treatment Pending Test Test Name Order Date IRON + IBC (FE) 05/18/2016 FERRITIN 05/18/2016 CBC w DIFF 05/18/2016 Future Test Test Name Order Date UPPER GI ENDOSCOPY 10/03/2015 COLONOSCOPY 10/03/2015 Insurance Providers Payer Name Payer Address Payer Phone Subscriber Number Group Number Insured Name Patient Relationship to Insured Coverage Start Date Coverage End Date [facility] [address] Attn Claims CASANDRA Fontaine [id number] VANNA Zapien DANIE Self - patient is the insured Medical (General) History Medical History History ICD Code HTN Nicole's-EGD in 03/2010-no d ysplasia-large HH--- 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 Liao-had a negative colonoscopy with me in 03/2010 except for a cecal AVM and diverticulosis Anemia in 03/2010-required tr ansfusions-had the EGD and colonoscopy as above-Hgb 13.8 in 04/2012----she had a similar problem in 03/2015 requiring transfusions Anxiety HTN Denies ID,DM,CVA,Lung disease,renal dise ase Afib/ Dr. Gill bipolar Hospitalized 08/13 with anemi a and Hemoccult-positive stools, upper endoscopy showed large hiatal hernia, erosive gastritis and duodenum could not be evaluated. LOW BACK PAIN ANEMIA MAJOR DEPRESSIVE DISORDER CHRONIC SYSTOLIC HEART FAILURE ANXIETY BIPOLAR COPD DELUSIONAL DISORDERS Surgical History Surgery Date(Month/Year) Appy Vein ligation in LE's Cataract surgery both eyes Hernia Hospitalization History Reason Date(Month/Year) angioplasty
--- OUTSIDE RECORDS SUMMARY | 2024-11-28 17:03 | XMS_ITS | Encounter Summary ---
Author Organization [facility] Address [address] [place] [phone] Care Team Providers Care Technology Methodology Consultant Name Role Phone Anita Cadet MD Primary Care Provider [phone] Encounter Details Date Type Department Care Team (Late st Contact Info) Description 04/02/2024 Lab Requisition [facility] Lab [address] [facility] [place] [address] Anita Cadet MD [address] [place] [address] Heart failure, unspecified (CMS/HCC V24, CMS/HCC V28) [...] Associated Diagnosis Comments COMPLETE BLOOD COUNT Routine 04/04/2024 5:12 AM EST Heart failure, unspecified (CMS/HCC) BASIC METABOLIC PANEL Routine 04/04/2024 5:12 AM EST Heart failure, unspecified (CMS/HCC) documented in this encounter Results * (ABNORMAL) Basic metabolic panel (04/04/2024 5:12 AM EST) Sodium 141 133 - 145 mmol/L LAB CHEMISTRY METHOD 04/04/2024 1:[address] [facility] Potassium 4.0 3.5 - 5.5 mmol/L LAB CHEMISTRY METHOD 04/04/2024 1:07 PM [facility] LAB Chloride 104 96 - 110 mmol/L LAB CHEMISTRY METHOD 04/04/2024 1:07 PM [facility] LAB CO2 30 21 - 32 mmol/L LAB CHEMISTRY METHOD 04/04/2024 1:07 PM [facility] LAB Anion Gap 7 3 - 11 LAB CHEMISTRY METHOD 04/04/2024 1:07 PM [facility] LAB Glucose 64(L) 70 - 100 mg/dL LAB CHEMISTRY METHOD 04/04/2024 1:07 PM [facility] LAB BUN 19 5 - 25 mg/dL LAB CHEMISTRY METHOD 04/04/2024 1:07 PM [facility] LAB Creatinine 0.68 0.50 - 1.10 mg/dL LAB CHEMISTRY METHOD 04/04/2024 1:07 PM [facility] LAB eGFR 87 >=60 mL/min/1. 73m2 LAB CHEMISTRY METHOD 04/04/2024 1:07 PM [facility] LAB Comment:Calculation based on the Chronic Kidney Disease Epidemiology Collaboration (CKD-EPI) equation refit without adjustment for race. BUN/Creatinine Ratio 27.9 LAB CHEMISTRY METHOD 04/04/2024 1:07 PM [facility] LAB Calcium 9.0 8.5 - 10.5 mg/dL LAB CHEMISTRY METHOD 04/04/2024 1:07 PM [facility] LAB Blood Venous blood specimen / Unknown Venipuncture / Unknown 04/04/2024 5:12 AM EST 04/04/2024 11:41 AM EST us Anita Cadet MD LAB BLOOD ORDERABLES Final Resul t [facility] LAB [address] [place] [address], * (ABNORMAL) Complete blood count (04/04/2024 5:12 AM EST) WBC 4.7(L) 4.8 - 10.8 K/mcL LAB HEMETOLOGY METHOD 04/04/2024 12:28 PM [facility] LAB RBC 4.20 3.80 - 4.80 M/mcL LAB HEMETOLOGY METHOD 04/04/2024 12:28 PM [facility] LAB Hemoglobin 13.0 11.5 - 16.0 g/dL LAB HEMETOLOGY METHOD 04/04/2024 12:28 PM [facility] LAB Hematocrit 41.4 35.0 - 47.0 % LAB HEMETOLOGY METHOD 04/04/2024 12:28 PM [facility] LAB MCV 98.1(H) 79.0 - 98.0 FL LAB HEMETOLOGY METHOD 04/04/2024 12:28 PM [facility] LAB MCH 30.8 27.0 - 32.0 pcg LAB HEMETOLOGY METHOD 04/04/2024 12:28 PM [facility] LAB MCHC 31.4(L) 32.0 - 37.0 g/dL LAB HEMETOLOGY METHOD 04/04/2024 12:28 PM [facility] LAB RDW 14.4 11.0 - 15.0 % LAB HEMETOLOGY METHOD 04/04/2024 12:28 PM [facility] LAB Platelets 198 130 - 400 K/mcL LAB HEMETOLOGY METHOD 04/04/2024 12:28 PM [facility] LAB MPV 10.4 7.0 - 11.0 FL LAB HEMETOLOGY METHOD 04/04/2024 12:28 PM [facility] LAB NRBC 0.0 <1.0 % LAB HEMETOLOGY METHOD 04/04/2024 12:28 PM [facility] LAB NRBC Absolute 0.00 <0.10 K/mcL LAB HEMETOLOGY METHOD 04/04/2024 12:28 PM [facility] LAB Blood Venous blood specimen / Unknown Venipuncture / Unknown 04/04/2024 5:12 AM EST 04/04/2024 11:41 AM EST Anita Cadet MD LAB BLOOD ORDERABLES Final Resul t [facility] LAB [address] [place] [address], documented in this encounter Visit Diagnoses Diagnosis Heart failure, unspecified (CMS/HCC V24, CMS/HCC V28) Heart failure, unspecified documented in this encounter Care Teams Technology Methodology Consultant Relationship Specialty Start Date End Date Anita Cadet MD [address] [place] [address] [address] [place] [address] PCP - General Geriatric Medicine 01/01/24 documented as of this encounter
--- OUTSIDE RECORDS SUMMARY | 2024-11-28 17:04 | XMS_ITS | Encounter Summary ---
Author Organization [facility] Address [address] [place] [phone] Care Team Providers Care Full Stack Engineer Name Role Phone Anita Cadet MD Primary Care Provider [phone] Encounter Details Date Type Department Care Team (Late st Contact Info) Description 01/15/[address] [facility] 299 [facility] [employer] [address] Anita Cadet MD [address] [facility] [address] [place] [address] Heart failure, unspecified (CMS/HCC V24, CMS/HCC V28) [...] unspecified documented in this encounter Care Teams Full Stack Engineer Relationship Specialty Start Date End Date Anita Cadet MD [address] [facility] [address] [place] [address] PCP - General Geriatric Medicine 01/01/24 documented as of this encounter
--- OUTSIDE RECORDS SUMMARY | 2024-11-28 17:04 | XMS_ITS | Encounter Summary ---
Author Organization [facility] Address [address] [place] [address] Care Team Providers Care Chain Saw Driver Name Role Phone Anita Cadet MD Primary Care Provider [phone] Encounter Details Date Type Department Care Team (Late st Contact Info) Description 02/05/2024 Lab Requisition [facility] Lab [address] [facility] [employer] [address] Anita Cadet MD [address] [facility] [address] [place] [address] Heart failure, unspecified (CMS/HCC V24, CMS/HCC V28) [...] unspecified documented in this encounter Care Teams Chain Saw Driver Relationship Specialty Start Date End Date Anita Cadet MD [address] [facility] [address] [place] [address] PCP - General Geriatric Medicine 01/01/24 documented as of this encounter
--- OUTSIDE RECORDS SUMMARY | 2024-11-28 17:04 | XMS_ITS | Encounter Summary ---
Author Organization [facility] Address [address] [place] [phone] Care Team Providers Care Sole Rounder Name Role Phone Anita Cadet MD Primary Care Provider [phone] Encounter Details Date Type Department Care Team (Late st Contact Info) Description 02/20/2024 Lab Requisition [facility] Lab [address] [facility] [place] [address] Anita Cadet MD [address] [place] [address] Heart failure, unspecified (CMS/HCC V24, CMS/HCC V28) [...] Associated Diagnosis Comments COMPLETE BLOOD COUNT Routine 02/22/2024 4:59 AM EST Heart failure, unspecified (CMS/HCC) BASIC METABOLIC PANEL Routine 02/22/2024 4:59 AM EST Heart failure, unspecified (CMS/HCC) documented in this encounter Results * Complete blood count (02/22/2024 4:59 AM EST) WBC 5.1 4.8 - 10.8 K/[facility] LAB HEMETOLOGY METHOD 02/22/2024 11:57 AM EST [facility] RBC 4.00 3.80 - 4.80 M/mcL LAB HEMETOLOGY METHOD 02/22/2024 11:57 AM [facility] LAB Hemoglobin 12.1 11.5 - 16.0 g/dL LAB HEMETOLOGY METHOD 02/22/2024 11:57 AM [facility] LAB Hematocrit 37.7 35.0 - 47.0 % LAB HEMETOLOGY METHOD 02/22/2024 11:57 AM [facility] LAB MCV 95.2 79.0 - 98.0 FL LAB HEMETOLOGY METHOD 02/22/2024 11:57 AM [facility] LAB MCH 30.6 27.0 - 32.0 pcg LAB HEMETOLOGY METHOD 02/22/2024 11:57 AM [facility] LAB MCHC 32.1 32.0 - 37.0 g/dL LAB HEMETOLOGY METHOD 02/22/2024 11:57 AM [facility] LAB RDW 13.9 11.0 - 15.0 % LAB HEMETOLOGY METHOD 02/22/2024 11:57 AM [facility] LAB Platelets 161 130 - 400 K/mcL LAB HEMETOLOGY METHOD 02/22/2024 11:57 AM [facility] LAB MPV 10.4 7.0 - 11.0 FL LAB HEMETOLOGY METHOD 02/22/2024 11:57 AM [facility] LAB NRBC 0.0 <1.0 % LAB HEMETOLOGY METHOD 02/22/2024 11:57 AM [facility] LAB NRBC Absolute 0.00 <0.10 K/mcL LAB HEMETOLOGY METHOD 02/22/2024 11:57 AM [facility] LAB Blood Venous blood specimen / Unknown Venipuncture / Unknown 02/22/2024 4:59 AM EST 02/22/2024 10:45 AM EST Anita Cadet MD LAB BLOOD ORDERABLES Final Resul t [facility] LAB [address] [place] [address], * (ABNORMAL) Basic metabolic panel (02/22/2024 4:59 AM EST) Sodium 140 133 - 145 mmol/L LAB CHEMISTRY METHOD 02/22/2024 11:36 AM [facility] LAB Potassium 3.8 3.5 - 5.5 mmol/L LAB CHEMISTRY METHOD 02/22/2024 11:36 AM [facility] LAB Chloride 103 96 - 110 mmol/L LAB CHEMISTRY METHOD 02/22/2024 11:36 AM [facility] LAB CO2 30 21 - 32 mmol/L LAB CHEMISTRY METHOD 02/22/2024 11:36 AM [facility] LAB Anion Gap 7 3 - 11 LAB CHEMISTRY METHOD 02/22/2024 11:36 AM [facility] LAB Glucose 63(L) 70 - 100 mg/dL LAB CHEMISTRY METHOD 02/22/2024 11:36 AM [facility] LAB BUN 12 5 - 25 mg/dL LAB CHEMISTRY METHOD 02/22/2024 11:36 AM [facility] LAB Creatinine 0.66 0.50 - 1.10 mg/dL LAB CHEMISTRY METHOD 02/22/2024 11:36 AM [facility] LAB eGFR 88 >=60 mL/min/1. 73m2 LAB CHEMISTRY METHOD 02/22/2024 11:36 AM [facility] LAB Comment:Calculation based on the Chronic Kidney Disease Epidemiology Collaboration (CKD-EPI) equation refit without adjustment for race. BUN/Creatinine Ratio 18.2 LAB CHEMISTRY METHOD 02/22/2024 11:36 AM [facility] LAB Calcium 8.9 8.5 - 10.5 mg/dL LAB CHEMISTRY METHOD 02/22/2024 11:36 AM [facility] LAB Blood Venous blood specimen / Unknown Venipuncture / Unknown 02/22/2024 4:59 AM EST 02/22/2024 10:45 AM EST Anita Cadet MD LAB BLOOD ORDERABLES Final Resul t [facility] ([facility]) [facility] LAB [address] [place] [address], documented in this encounter Visit Diagnoses Diagnosis Heart failure, unspecified (CMS/HCC V24, CMS/HCC V28) Heart failure, unspecified documented in this encounter Care Teams Sole Rounder Relationship Specialty Start Date End Date Anita Cadet MD [address] [place] [address] [address] [place] [address] PCP - General Geriatric Medicine 01/01/24 documented as of this encounter
--- OUTSIDE RECORDS SUMMARY | 2024-11-28 17:04 | XMS_ITS | Encounter Summary ---
Author Organization [facility] Address [address] [place] [phone] Care Team Providers Care Assistant Professor Of Anthropology Name Role Phone Anita Cadet MD Primary Care Provider [phone] Encounter Details Date Type Department Care Team (Late st Contact Info) Description 01/08/2024 Lab Requisition [facility] - Main Lab [address] [facility] [place] [address] Anita Cadet MD [address] [facility] [address] [place] [address] Heart failure, unspecified (CMS/HCC V24, CMS/HCC V28) [...] unspecified documented in this encounter Care Teams Assistant Professor Of Anthropology Relationship Specialty Start Date End Date Anita Cadet MD [address] [facility] [address] [place] [address] PCP - General Geriatric Medicine 01/01/24 documented as of this encounter
== END 2024-11-28 15:22 | disposition home or self-care (01) ==
PROVIDERS: PCP Family Medicine Geriatric Medicine; Visit Provider Internal Medicine Cardiovascular Disease
DX: I48.20 Chronic atrial fibrillation, unspecified (principal); I50.22 Chronic systolic (congestive) heart failure; I25.10 Atherosclerotic heart disease of native coronary artery without angina pectoris
CPT/HCPCS: 93010; 99214; G2211